=== PATIENT | female | born 1960 | race Caucasian/White ===

== ENCOUNTER 2023-02-14 13:45 | Emergency (ER) | payer MEDICARE, SELFPAY ==
[2023-02-14] VITALS (9 sets, daily range): BP systolic 121; BP diastolic 68; PULSE 49–59; RESP 7–23; TEMP 36.9; O2SAT 97; BMI 29.6
[2023-02-14 13:58] LABS: Glucometer 151 mg/dL (74-106)
--- NOTE | 2023-02-14 14:01 | ECG_ITS ---
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
--- NOTE | 2023-02-14 14:03 | ED.GENADUL1 ---
HPI - General Adult General Chief complaint: Nausea/Vomiting/Diarrhea Stated complaint: FATIGUE/BLOOD SUGAR < 350 Time Seen by Provider: 02/14/23 13:48 Source: patient Mode of arrival: walk-in Limitations: no limitations History of Present Illness HPI narrative: Patient is a 62-year-old female to history of diabetes who presents to the emergency department for the evaluation of generalized body aches, fatigue, headache and nausea for the last two days. She states she is on two oral medications for diabetes, she used to be on insulin. She has been diabetic for several years. She states that they checked her blood sugar at work today when she states she was feeling well and her blood sugar was over 350. She states she feels generally achy but has no specific complaint of pain at this time. She has had minimal cough, no fevers. No significant upper respiratory symptoms, chest pain or shortness of breath. No medications taken prior to arrival. Related Data Previous Rx's Medication Instructions Recorded cephalexin 500 mg capsule 500 mg PO Q8H 5 days #15 caps 02/14/23 ondansetron 4 mg disintegrating 4 mg PO Q6H PRN nausea and 02/14/23 tablet vomiting #12 tabs Allergies Allergy/AdvReac Type Severity Reaction Status Date / Time morphine Allergy Severe Verified 02/14/23 13:54 codeine AdvReac Severe nausea and Verified 02/14/23 13:54 vomiting Review of Systems ROS Constitutional Denies: fever or chills Ears, nose, mouth, and throat Denies: throat pain or neck pain Cardiovascular Denies: chest pain Respiratory Reports: cough; Denies: shortness of breath Gastrointestinal Reports: nausea; Denies: vomiting Musculoskeletal Denies: back pain or neck pain Integumentary/Breast Denies: rash Neurological Reports: headache Allergic/Immunologic Denies: hives Exam Narrative Exam Narrative: Gen.: Awake, alert, in no distress Head: Normocephalic, atraumatic ENT: Moist mucous membranes Respiratory: No respiratory distress, lungs clear bilaterally Cardio: Regular rate and rhythm Gastrointestinal: Abdomen is soft, nondistended and nontender to palpation Extremities: Moves extremities equally Psych: Normal mood and affect Neuro: No focal neuro deficit Skin: Warm, dry, intact Constitutional Vital Signs, click to edit/add: Last Vital Signs Temp 98.4 F 02/14/23 13:54 Pulse 52 L 02/14/23 13:54 Resp 20 02/14/23 13:54 BP 121/68 02/14/23 13:54 Pulse Ox 97 02/14/23 13:54 O2 Del Method Room Air 02/14/23 13:54 Course Vital Signs Vital signs: Vital Signs Temperature 98.4 F 02/14/23 13:54 Pulse Rate 52 L 02/14/23 13:54 Respiratory Rate 20 02/14/23 13:54 Blood Pressure 121/68 02/14/23 13:54 Pulse Oximetry 97 02/14/23 13:54 Oxygen Delivery Method Room Air 02/14/23 13:54 Temperature 98.4 F 02/14/23 13:54 Pulse Rate 52 L 02/14/23 13:54 Respiratory Rate 20 02/14/23 13:54 Blood Pressure 121/68 02/14/23 13:54 Pulse Oximetry 97 02/14/23 13:54 Oxygen Delivery Method Room Air 02/14/23 13:54 Medical Decision Making MDM Narrative Medical decision making narrative: Patient medicated with IV fluids, lab studies, EKG are unremarkable. No sign of DKA. Patient does have a mild urinary tract infection which may be contributed to her symptoms. We will start her on Zofran and antibiotics. She is encouraged to increase fluids for home. She has a benign exam in the Emergency Room, stable vital signs at discharge. Follow-up with PCP and return to the Emergency Room if symptoms change or worsen. Medical Records Medical records reviewed: Yes I reviewed the patient's medical records Lab Data Lab results reviewed: Yes I reviewed the patient's lab results Labs: Lab Results 02/14/23 02/14/23 02/14/23 Range/Units 13:57 14:15 14:40 WBC 7.6 (4.0-11.0) 10^3/uL RBC 4.21 (4.20-5.40) 10^6/uL Hgb 12.6 (12.0-16.0) g/dL Hct 38.3 (36.0-48.0) % MCV 91.0 (81.0-99.0) fL MCH 29.9 (26.7-34.0) pg MCHC 32.9 (29.9-35.2) g/dL RDW 14.0 (11.0-15.0) % Plt Count 255 (150-450) 10^3/uL MPV 8.9 L (9.5-13.5) fL Neut % (Auto) 64.2 (43.0-75.0) % Lymph % (Auto) 25.5 (20.5-60.0) % [place] % (Auto) 5.9 (1.7-12.0) % Eos % (Auto) 2.9 (0.9-7.0) % Baso % (Auto) 1.2 (0.2-2.0) % Neut # (Auto) 4.9 (1.4-6.5) 10^3/uL Lymph # (Auto) 1.9 (1.2-3.8) 10^3/uL [place] # (Auto) 0.5 (0.3-0.8) 10^3/uL Eos # (Auto) 0.2 (0.0-0.7) 10^3/uL Baso # (Auto) 0.1 (0.0-0.1) 10^3/uL Abs Immat Gran (auto) 0.02 (0.00-0.03) 10^3/uL Imm/Tot Granulo (auto) 0.3 (0.0-0.5) % VBG pH 7.352 (7.330-7.430) VBG pCO2 45.8 (40.0-52.0) mmHg Sodium 140 (136-145) mmol/L Potassium 4.6 (3.5-5.1) mmol/L Chloride 104 (98-107) mmol/L Carbon Dioxide 26.4 (21.0-32.0) mmol/L Anion Gap 14.2 BUN 29.0 H (7.0-18.0) mg/dL Creatinine 1.41 H (0.55-1.02) mg/dL Est GFR ( Amer) 45 L (>=60) Est GFR (Non-Af Amer) 38 L (>=60) BUN/Creatinine Ratio 20.6 Glucose 153 H (74-106) mg/dL Lactate 0.7 (0.4-2.0) mmol/L Calcium 9.3 (8.5-10.1) mg/dL Total Bilirubin 0.3 (0.2-1.0) mg/dL AST 12 L (15-37) U/L ALT 13 L (14-59) U/L Alkaline Phosphatase 104 (46-116) U/L Troponin I High Sens 14.7 (4.0-51.3) pg/mL Total Protein 7.0 (6.4-8.2) g/dL Albumin 3.7 (3.4-5.0) g/dL Globulin 3.3 g/dL Albumin/Globulin Ratio 1.1 Urine Color Yellow (YELLOW) Urine Clarity Clear (CLEAR) Urine pH 5.5 (5.0-9.0) Ur Specific [place] 1.015 (1.005-1.025) Urine Protein Negative (NEG/TRACE) mg/dL Urine Glucose (UA) >=1000 A (NEGATIVE) mg/dL Urine Ketones Negative (NEGATIVE) mg/dL Urine Occult Blood Moderate A (NEGATIVE) Urine Nitrite Negative (NEGATIVE) Urine Bilirubin Negative (NEGATIVE) Urine Urobilinogen 0.2 (0.2-1.0) EU/dL Ur Leukocyte Esterase Trace A (NEGATIVE) Acetone, Qual Negative (NEGATIVE) POC Glucose 151 H (74-106) mg/dL ECG Data Attestation: I personally reviewed and interpreted this ECG as follows: (Sinus bradycardia at a rate of fifty, no acute ST elevation or ectopy. EKG reviewed by attending physician.) Discharge Plan Discharge Chief Complaint: Nausea/Vomiting/Diarrhea Clinical Impression: UTI (urinary tract infection), Hyperglycemia, Nausea Patient Disposition: Home, Self-Care Time of Disposition Decision: 15:21 Condition: Good Prescriptions / Home Meds: New cephalexin 500 mg capsule 500 mg PO Q8H 5 Days Qty: 15 0RF ondansetron 4 mg tablet,disintegrating 4 mg PO Q6H PRN (Reason: nausea and vomiting) Qty: 12 0RF Instructions: Urinary Tract Infection in Women (ED), Diabetic Hyperglycemia (ED) Stand Alone Forms: Portal Instructions Referrals: Physician,Non-Staff, MD [Primary Care Provider] - 1 week
[2023-02-14] MEDS: 0.9 % SODIUM CHLORIDE 1,000 ML 1000 ML IV (14:19)
[2023-02-14 14:33] LABS: PCO2 VBG 45.8 mmHg (40.0-52.0); pH VBG 7.352 (7.330-7.430)
[2023-02-14 14:36] LABS: Basophils Absolute Auto 0.1 10^3/uL (0.0-0.1); Basophils Percent Auto 1.2 % (0.2-2.0); Eosinophils Absolute Auto 0.2 10^3/uL (0.0-0.7); Eosinophils Percent Auto 2.9 % (0.9-7.0); Hematocrit 38.3 % (36.0-48.0); Hemoglobin 12.6 g/dL (12.0-16.0); Immature Granulocytes Abs Auto 0.02 10^3/uL (0.00-0.03); Immature Granulocytes Pct Auto 0.3 % (0.0-0.5); Lymphocytes Absolute Auto 1.9 10^3/uL (1.2-3.8); Lymphocytes Percent Auto 25.5 % (20.5-60.0); Mean Corpuscular HGB Conc 32.9 g/dL (29.9-35.2); Mean Corpuscular Hemoglobin 29.9 pg (26.7-34.0); Mean Platelet Volume 8.9 fL (9.5-13.5); Monocytes Absolute Auto 0.5 10^3/uL (0.3-0.8); Monocytes Percent Auto 5.9 % (1.7-12.0); Neutrophils Absolute Auto 4.9 10^3/uL (1.4-6.5); Neutrophils Percent Auto 64.2 % (43.0-75.0); Platelet Count 255 10^3/uL (150-450); Red Blood Count 4.21 10^6/uL (4.20-5.40); White Blood Count 7.6 10^3/uL (4.0-11.0)
[2023-02-14 14:53] LABS: Lactate/Lactic Acid 0.7 mmol/L (0.4-2.0)
[2023-02-14 14:56] LABS: Acetone NEGATIVE (NEGATIVE)
[2023-02-14 15:00] LABS: Alanine Aminotransferase 13 U/L (14-59); Albumin Globulin Ratio 1.1; Albumin Level 3.7 g/dL (3.4-5.0); Alkaline Phosphatase 104 U/L (46-116); Anion Gap 14.2; Aspartate Amino Transferase 12 U/L (15-37); BUN Creatinine Ratio 20.6; Bilirubin Total 0.3 mg/dL (0.2-1.0); Calcium 9.3 mg/dL (8.5-10.1); Carbon Dioxide 26.4 mmol/L (21.0-32.0); Chloride 104 mmol/L (98-107); Estimated GFR (African America 45 (>=60); Estimated GFR (Non-African Ame 38 (>=60); Globulin 3.3 g/dL; Glucose 153 mg/dL (74-106); Potassium 4.6 mmol/L (3.5-5.1); Sodium 140 mmol/L (136-145); Troponin I High Sensitivity 14.7 pg/mL (4.0-51.3)
[2023-02-14 15:07] LABS: Bilirubin Urine NEGATIVE (NEGATIVE); Blood Urine MODERATE (NEGATIVE); Clarity Urine CLEAR (CLEAR); Color Urine YELLOW (YELLOW); Glucose Urine UA >=1000 mg/dL (NEGATIVE); Ketones Urine NEGATIVE (NEGATIVE); Leukocyte Esterase Urine TRACE (NEGATIVE); Nitrite Urine NEGATIVE (NEGATIVE); Protein Urine NEGATIVE (NEG/TRACE); Specific Gravity Urine 1.015 (1.005-1.025); Urobilinogen Urine 0.2 EU/dL (0.2-1.0); pH Urine 5.5 (5.0-9.0)
[2023-02-14 15:10] LABS: Urine Microscopic Indicated YES
[2023-02-14 15:17] LABS: Bacteria Urine TRACE #/HPF (NONE SEEN); Cast Seen? NONE SEEN #/LPF (NONE SEEN); Crystals Seen? None Seen #/HPF (None Seen); Mucus Urine NONE SEEN (NONE SEEN); RBC Urine 0-2 #/HPF (0-2); Squamous Epithelial Cell Urine RARE #/LPF (NONE/RARE)
[2023-02-14 15:18] LABS: Urine Culture Indicated YES
== END 2023-02-14 15:29 | disposition home or self-care (01) ==
PROVIDERS: Physician Assistant; Emergency Provider Student in an Organized Health Care Education/Training Program
DX: E11.65 Type 2 diabetes mellitus with hyperglycemia (principal); N39.0 Urinary tract infection, site not specified; R11.0 Nausea
CPT/HCPCS: 36415; 80053; 81001; 82009; 82800; 83605; 84484; 85025; 87086; 87150; 87186; 93005; 99285

== ENCOUNTER 2023-07-04 14:18 | Outpatient (OUT) | payer MEDICARE, SELFPAY ==
--- NOTE | 2023-07-04 14:42 | ECG_ITS ---
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
[2023-07-04 15:34] LABS: Basophils Absolute Auto 0.1 10^3/uL (0.0-0.1); Basophils Percent Auto 1.4 % (0.2-2.0); Eosinophils Absolute Auto 0.2 10^3/uL (0.0-0.7); Eosinophils Percent Auto 2.3 % (0.9-7.0); Hematocrit 41.3 % (36.0-48.0); Hemoglobin 13.4 g/dL (12.0-16.0); Immature Granulocytes Abs Auto 0.02 10^3/uL (0.00-0.03); Immature Granulocytes Pct Auto 0.2 % (0.0-0.5); Lymphocytes Absolute Auto 1.7 10^3/uL (1.2-3.8); Lymphocytes Percent Auto 20.1 % (20.5-60.0); Mean Corpuscular HGB Conc 32.4 g/dL (29.9-35.2); Mean Corpuscular Hemoglobin 30.2 pg (26.7-34.0); Mean Corpuscular Volume 93.2 fL (81.0-99.0); Mean Platelet Volume 8.7 fL (9.5-13.5); Monocytes Absolute Auto 0.5 10^3/uL (0.3-0.8); Monocytes Percent Auto 5.2 % (1.7-12.0); Neutrophils Absolute Auto 6.1 10^3/uL (1.4-6.5); Neutrophils Percent Auto 70.8 % (43.0-75.0); Platelet Count 224 10^3/uL (150-450); Red Blood Count 4.43 10^6/uL (4.20-5.40); White Blood Count 8.7 10^3/uL (4.0-11.0)
[2023-07-04 15:51] LABS: INR 0.93; Partial Thromboplastin Time 25.3 sec (22.3-36.2); Prothrombin Time 9.9 sec (9.0-11.6)
[2023-07-04 16:48] LABS: Anion Gap 11.9; BUN Creatinine Ratio 19.1; Calcium 9.1 mg/dL (8.5-10.1); Chloride 106 mmol/L (98-107); Estimated GFR (African America 50 (>=60); Estimated GFR (Non-African Ame 41 (>=60); Glucose 122 mg/dL (74-106); Potassium 4.9 mmol/L (3.5-5.1); Sodium 140 mmol/L (136-145)
== END 2023-07-04 14:19 | disposition home or self-care (01) ==
LOC: PST 14:21
PROVIDERS: Visit Provider Urology
DX: Z01.810 Encounter for preprocedural cardiovascular examination (principal); Z01.812 Encounter for preprocedural laboratory examination; N35.92 Unspecified urethral stricture, female; E78.5 Hyperlipidemia, unspecified
CPT/HCPCS: 80048; 85025; 85610; 85730; 93005

== ENCOUNTER 2023-07-13 09:25 | Day surgery (SDC) | payer MEDICARE, SELFPAY ==
[2023-07-04 15:15] VITALS: BMI 31.3
[2023-07-04 15:18] VITALS: BP 129/73; PULSE 72; RESP 16; TEMP 36.3; O2SAT 97
[2023-07-13 09:29] VITALS: BP 137/76; PULSE 80; RESP 16; TEMP 35.8; O2SAT 95; BMI 31.1
--- OUTSIDE RECORDS SUMMARY | 2023-07-13 09:29 | XMS_ITS | CCD ---
Author Name Unknown Address [address] [place] [address] Organization [facility] Care Team Providers Care Scientific Illustrator Name Role Phone Tammy Wilkins Primary Care Provider 1( [phone] Alethea Carroll MD Primary Care Provider [phone] GIDDA, KULADEEP Primary Care Unavailable GIDDA, KULADEEP Referring Unavailable GIDDA, KULADEEP Primary Care Unavailable GIDDA, KULADEEP Referring Unavailable GIDDA, KULADEEP Primary Care Unavailable BEBETO COREA Referring Unavailable GIDDA, KULADEEP Primary Care Unavailable ASAD VALVERDE Referring Unavailable Tammy Wilkins Primary Care Prov ider Unavailable Cr Cruz Unavailable DENNY MARSH Primary Care Physician U nylamalika DexterRinku vargas Unavailable Cherelle Wilson Unavailable DENNY MARSH Primary Care Physician ( [phone] DR ARABELLA NEWBY Attending Unavailable AILEEN ., DR BELL Consulting Unavailable AILEEN ., DR BELL Admitting Unavailable JADE, SALUD Primary Care Unavailable DR ARABELLA NEWBY Attending Unavailable AILEEN .DR BELL Consulting Unavailable JADE, SALUD Primary Care Unavailable DR ARABELLA NEWBY Admitting Unavailable PARUL II, MARY Consulting Unavailable ANA MARÍA VARGAS Consulting Unavailable SIMIN RENEE Admitting Unavailable JADE, SALUD Primary Care Unavailable SIMIN RENEE Attending Unavailable SIMIN RENEE Consulting Unavailable LINDA SMITH Referring Unavailable RUSHER, LINDA S Attending Unavailable LINDA SMITH S Referring Unavailable LINDA SMITH S Attending Unavailable SALUD HANSEN A Referring Unavailable SALUD HANSEN A Primary Care Unavailable PAULA JOSHI Attending Unavailable PAULA JOSHI Attending Unavailable PAULA JOSHI Attending Unavailable Arabella GALLAGHER Attending Unavailable Arabella GALLAGHER Attending Unavailable Jade 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, 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 Care Provi domingo Allergies Allergy Classification Reported Allergen(s) Allergy Type Date of Onset Reaction(s) Facility (20 sources) Codeine; Translations: [codeine] Drug Allergy 02-01-20 17 Other (See Comments), Unknown, Unknown (qualifier value) [place], [place] (20 sources) Morphine; Translations: [morphine] Drug Allergy 09-27-19 18 Other (See Comments), Unknown, Unknown (qualifier value) [place], [place] (3 sources) Sulfonamides (Antibiotic) Propensity to adverse reactions to drug 09-27-19 18 Hives [place], [place] (14 sources) Ciprofloxacin; Translations: [CIPROFLOXACIN] Drug Allergy 10-03-19 19 Other: See Comments, rash, GI Disturbance [facility] (11 sources) magnesium citrate; Translations: [magnesium citrate] Drug Allergy 10-03-19 19 Unknown, Unknown (qualifier value) [facility] (4 sources) Nitrofurantoin; Translations: [NITROFURANTOIN MACROCRYSTAL] Drug Allergy 10-03-19 19 Rash [facility] (4 sources) Sulfonamides (Antibiotic); Translations: [SULFA (SULFONAMIDE ANTIBIOTICS)] Drug Allergy 09-27-19 18 Rash, Hives [facility] (7 sources) NITROFURANTOIN, MACROCRYSTALS / Nitrofurantoin, Monohydrate; Translations: [nitrofurantoin] Drug Allergy Cutaneous eruption (morphologic abnormality) [facility] (7 sources) Sulfonamides (Antibiotic); Translations: [sulfa drugs] Drug allergy Cutaneous eruption (morphologic abnormality) [facility] (1 source) aMILoride Drug Allergy 03-31-20 15 [facility] (1 source) Ciprofloxacin Drug Allergy 03-31-20 15 [facility] (1 source) Codeine Drug Allergy 03-31-20 15 [facility] (1 source) Morphine Drug Allergy [facility] (1 source) Nitrofurantoin Drug Allergy 05-08-20 17 [facility] (1 source) Sulfonamides (Antibiotic) Drug allergy (disorder) 04-09-20 15 [facility] (3 sources) Morphine; Translations: [MORPHINE SULFATE] Drug Allergy 02-01-20 17 Other (See Comments) [facility] Medications Current Medications Medication Drug Class(es) Dates Sig (Normalized) Sig (Original) acetaminophen 500 mg oral tablet (2 sources) Start: 07-19-2022 take 2 tablets by mouth every eight hours acetaminophen (TYLENOL EXTRA STRENGTH) 500 mg tablet Take 2 tablets (1,000 mg total) by mouth every 8 (eight) hours. 30 tablet 0 07/19/2022 Active [id number] 200 actuat albuterol 0.09 mg/actuat metered dose inhaler (8 sources) beta2-Adrenergic Agonist Start: 02-14-2022 take 2 puff(s) by inhalation every four hours as needed Albuterol Sulfate HFA 108 (90 Base) MCG/ACT 2 puffs as needed Inhalation every 4 hrs Jan, Active Start: 01-14-2019 take 2 puff(s) by in halation every six hours as needed for wheezing albuterol sulfate HFA (PROVENTIL HFA) 108 (90 Base) MCG/ACT inhaler Inhale 2 puffs into the lungs every 6 hours as needed for Wheezing 1 Inhaler 3 01/14/2019 Active amLODIPine 10 mg oral tablet (6 sources) Dihydropyridine Calcium Channel Tatum Start: 01-18-2021 take 1 tablet by mouth once daily amLODIPine 10 mg Tab 10 mg = 1 tab(s), Oral, Daily, High blood pressure Start Date: 01/18/21 Status: Ordered amoxicillin 875 mg / clavulanate 125 mg oral tablet (3 sources) Penicillin-class Antibacterial Start: 02-18-2022 take 1 tablet by mouth every twelve hours Amoxicillin-Pot Clavulanate 875-125 MG 1 tablet Orally every 12 hrs for 7 days Jan, Active ARIPiprazole 10 mg oral tablet (20 sources) Atypical Antipsychotic Start: 04-06-2023 take 1 tablet by mouth in the morning ARIPiprazole (ABILIFY) 10 mg tablet Indications: Bipolar II disorder [place] Take 1 tablet (10 mg total) by mouth in the morning. 90 tablet 3 04/06/2023 Active Start: 02-25-2019 take 10 mg by mouth once daily Abilify 10 mg, Oral, Daily, BIPOLAR, Refills(s) 0 Start Date: 02/25/19 Status: Ordered take 2 tablets by mo uth once daily ARIPiprazole (ABILIFY) 5 mg tablet Take 10 mg by mouth once daily. 0 Active take 1 tablet by mery th once daily ARIPiprazole (ABILIFY) 5 mg tablet Take 5 mg by mouth once daily. 0 Active Comment on above: Take 10 mg by mouth once daily. Take 5 mg by mouth o nce daily. aspirin 81 mg chewable tablet (12 sources) Platelet Aggregation Inhibitor, Nonsteroidal Anti-inflammatory Drug Start: 01-18-2021 aspirin 81 mg Chew Tab 81 mg = 1 tab(s), Chewed, Daily, Prophylaxis Start Date: 01/18/21 Status: Ordered take 1 tablet by mouth in the mo rning aspirin 81 mg Take 1 tablet (81 mg total) by mouth in the morning. 0 Active take 1 tablet by mouth once rin y aspirin 81 MG tablet Take 81 mg by mouth daily 0 Active Comment on above: Take 81 mg by mouth once daily. benzonatate 100 mg oral capsule (3 sources) Non-narcotic Antitussive Start: 022 take 1 capsule by mouth every eight hours Tessalon Perles 100 MG 1 capsule as needed Orally Three times a day Jan, Active blood-glucose meter misc (2 sources) Start: 021 blood-glucose meter misc 1 Device by in vitro route 3 (three) times a day. 1 each 0 06/18/2021 Active blood-glucose meter,continuous (DEXCOM G7 COAL HIKER) misc (2 sources) Start: 023 blood-glucose meter,continuous (DEXCOM G7 COAL HIKER) misc Indications: Type 2 diabetes mellitus with stage 3b chronic kidney disease, with long-term current use of insulin [place] 1 Application by miscellaneous route 4 (four) times daily before meals and at bedtime as needed (before meals and at bedtime). 1 each 5 06/14/2023 Active blood-glucose sensor (DEXCOM G7 SENSOR) device (2 sources) Start: 023 blood-glucose sensor (DEXCOM G7 SENSOR) device Indications: Type 2 diabetes mellitus with stage 3b chronic kidney disease, with long-term current use of insulin [place] 1 application. by miscellaneous route 4 (four) times a day before meals and nightly. 5 each 5 06/14/2023 Active carbidopa 25 mg / levodopa 100 mg oral tablet (2 sources) Aromatic Amino Acid Decarboxylation Inhibitor, Aromatic Amino Acid Start: 023 carbidopa-levodopa (SINEMET) 25-100 mg per tablet Indications: Tremors of nervous system , Parkinsonism, unspecified Parkinsonism type Take a tablet(25mg) three times a day(8 am, 12 pm, 4 pm) 90 tablet 3 03/28/2023 Active Centrum Adult Chewable (6 sources) Start: 021 Centrum Adult Chewable 1 tab(s), Chewed, Daily, Prophylaxis Start Date: 01/21/21 Status: Ordered cholecalciferol 0.05 mg oral capsule (17 sources) Vitamin D Start: 024 cholecalciferol, vitamin D3, (VITAMIN D3) 2,000 units capsule Indications: Vitamin D deficiency TAKE 1 CAPSULE EVERY AFTERNOON 28 capsule 0 07/10/2023 Active Start: 04-25-2023 End: 07-10-2023 take 1 capsule by mouth once daily cholecalciferol, vitamin D3, (VITAMIN D3) 2,000 units capsule Indications: Vitamin D deficiency take 1 capsule by mouth once daily 90 capsule 0 04/25/2023 07/10/2023 Discontinued take 1 capsule by mo ut every twenty-four hours Vitamin D3 50 MCG (1999 UT) 1 capsule Orally Once a day Active take 1 tablet by mery th once daily cholecalciferol (VITAMIN D-3) 2,000 unit tablet Take 2,000 Units by mouth once daily. 0 Active take 1 capsule by mo uth once daily Cholecalciferol (VITAMIN D3) 2000 units CAPS Take 1 capsule by mouth daily 0 Active Comment on above: Take 2,000 Units by mouth once daily. colestipol hydrochloride 1000 mg oral tablet (9 sources) Bile Acid Sequestrant Start: take 3 tablets by mouth every twenty-four hours Colestipol HCl 1 GM 3 tablets Orally Once a day for 30 day(s) Mar, Active Start: 12-28-2021 take 3 tablets by mo [facility] every twenty-four hours Colestipol HCl 1 GM 3 tablets Orally Once a day for 30 day(s) Dec, Active dapagliflozin 10 mg oral tablet (2 sources) Sodium-Glucose Cotransporter 2 Inhibitor Start: 04-25-2023 take 1 tablet by mouth in the morning dapagliflozin propanediol (FARXIGA) 10 mg tablet Indications: Type 2 diabetes mellitus with stage 3b chronic kidney disease, with long-term current use of insulin [place] Take 1 tablet (10 mg total) by mouth in the morning. 90 tablet 1 04/25/2023 Active 12 hr dextromethorphan hydrobromide 30 mg / guaiFENesin 600 mg extended release oral tablet (2 sources) Uncompetitive X-fuixoj-U-aspartate Receptor Antagonist, Sigma-1 Agonist take 30-600 mg by mouth once as needed dextromethorphan- guaiFENesin (MUCINEX DM) 30-600 MG per extended release tablet Take 1 tablet by mouth every 12 hours as needed 0 Active dextromethorphan hydrobromide 30 mg / pyrilamine maleate 30 mg oral tablet (4 sources) Uncompetitive S-pfuttt-D-aspartate Receptor Antagonist, Sigma-1 Agonist Start: 02-14-2022 take 1 tablet by mouth every six hours Palmer DMT 30-30 MG 1 tablet Orally every 6 hours for 7 days Jan, Active dicyclomine hydrochloride 20 mg oral tablet (12 sources) Anticholinergic Start: 01-18-2021 take 1 tablet by mouth four times daily dicyclomine 20 mg Tab 20 mg = 1 tab(s), Oral, QID, Irritable bowel symptoms Start Date: 01/18/21 Status: Ordered Start: 07-09-2020 take 1 tablet by mery every twelve hours Dicyclomine HCl 20 MG 1 tablet Orally TWICE A DAY for 30 day(s) Jul, Active docusate sodium 50 mg / sennosides, fci 8.6 mg oral tablet (1 source) take 8.6-50 mg by mouth once senna-docusate (SENEXON-S) 8.6-50 MG per tablet Take 2 tablets by mouth nightly 0 Active escitalopram 10 mg oral tablet (20 sources) Serotonin Reuptake Inhibitor Start: escitalopram (LEXAPRO) 10 mg tablet TAKE (1) TABLET EVERY MORNING WITH 20MG TABS 90 tablet 1 07/10/2023 Active Start: 06-14-2023 take 1 tablet by mery th in the morning escitalopram (LEXAPRO) 20 mg tablet Indications: Persistent depressive disorder , Generalized anxiety disorder Take 1 tablet (20 mg total) by mouth in the morning. 0 06/14/2023 Active Start: 02-25-2019 take 20 mg by mouth once daily Lexapro 20 mg, Oral, Daily, Refills(s) 0, Depression Start Date: 02/25/19 Status: Ordered take 10 mg by mouth once daily e scitalopram oxalate (LEXAPRO) 20 mg tablet Take 10 mg by mouth once daily. 0 Active take 1 tablet by mery th once daily escitalopram (LEXAPRO) 10 MG tablet Take 10 mg by mouth daily 0 Active Comment on above: Take 10 mg by mouth once daily. estrogens, conjugated (fci) 0.625 mg/ml vaginal cream (7 sources) Estrogen Start: 08-30-2021 Premarin Vaginal 0.625 mg/g cream with applicator 1 gram, Vaginal, MonWedFri, 42.5 gram, Refill(s) 5, [facility], 160, cm, 08/30/21 13:41:00 EST, Height/Length Dosing, 86.2, kg, 08/30/21 13:41:00 EST, Weight Dosing Start Date: 08/30/21 Status: Ordered conjugated estro gens (PREMARIN) vaginal cream Use 1 g vaginally once each week. 0 Active Comment on above: Use 1 g vaginally on ce each week. ferrous sulfate 325 mg oral tablet (8 sources) Start: 11-09-2022 ferrous sulfate 325 (65 FE) mg tablet Indications: Acute kidney injury superimposed on CKD (CMS-HCC) Take 1 daily 90 tablet 1 11/09/2022 Active Start: 07-22-2021 take 325 mg by mouth twice daily ferrous sulfate 325 mg, Oral, BID, Prophylaxis Start Date: 01/21/21 Status: Ordered Fish Oils (6 sources) Start: 01-21-2021 take 1 capsule by mouth once daily [place]-3 Fish Oil 1 cap, Oral, Daily, Refill(s) 0 Start Date: 01/21/21 Status: Ordered flash glucose scanning reader (FREESTYLE JOELLE 2 READER[place] [facility] [place] Start: 03-22-2023 flash glucose scanning reader (FREESTYLE JOELLE 2 READER[place] [facility] [place]ications: Type 2 diabetes mellitus with stage 3b chronic kidney disease, with long-term current use of insulin [place] 1 Unit by miscellaneous route 4 (four) times a day before meals and nightly. 1 each 6 03/22/2023 Active flash glucose sensor (FREESTYLE JOELLE 2 SENSOR) kit (2 sources) Start: 04-26-2023 flash glucose sensor (FREESTYLE JOELLE 2 SENSOR) kit Indications: Type 2 diabetes mellitus with stage 3b chronic kidney disease, with long-term current use of insulin [place] 1 Application by miscellaneous route 4 (four) times daily before meals and at bedtime as needed (test for sliding scale). 1 kit 6 04/26/2023 Active fluconazole 150 mg oral tablet (3 sources) Azole Antifungal Start: 02-18-2022 Diflucan 150 MG 1 tablet Orally take 1 tablet now then 1 tablet in 7 days for 2 days Jan, Active fluticasone propionate 0.05 mg/actuat metered dose nasal spray (2 sources) Corticosteroid take 1 spray(s) nasal route once daily fluticasone (FLONASE) 50 MCG/ACT nasal spray 1 spray by Each Nostril route daily 0 Active gabapentin 100 mg oral capsule (6 sources) Anti-epileptic Agent Start: 06-24-2023 End: 07-10-2023 gabapentin (NEURONTIN) 100 mg capsule Indications: Neuropathy TAKE 1 CAPSULE 3 TIMES A DAY, MORNING, EVENING, AND BEDTIME 84 capsule 0 07/10/2023 Active Start: 09-01-2018 gabapentin (NE URONTIN) 400 mg capsule take 1 tablet by mery th once daily as needed gabapentin (NEURONTIN) 800 MG tablet Take 800 mg by mouth nightly as needed. 0 Active hydrocortisone 25 mg/ml topical cream (10 sources) Corticosteroid Start: 12-28-2021 Anusol-HC 2.5 % 1 application Externally Twice a day for 14 days Dec, Active insulin aspart 100 units/mL injectable solution (6 sources) Start: 01-18-2021 insulin aspart 100 units/mL injectable solution sliding scale, SubCutaneous, PRN, High blood sugar Start Date: 01/18/21 Status: Ordered sensor 3 ml insulin glargine 100 unt/ml pen injector (16 sources) Insulin Analog Start: 05-29-2023 insulin glargi ne (LANTUS, SEMGLEE) 100 unit/mL (3 mL) insulin pen Indications: Type 2 diabetes mellitus with stage 3b chronic kidney disease, with long-term current use of insulin [place] Inject 25 Units under the skin in the morning. 15 mL 2 05/29/2023 Active Start: 01-18-2021 inject 40 [IU] by hand bcutaneous injection once daily insulin glargine 100 units/mL subcutaneous solution 40 unit(s), SubCutaneous, Daily, High blood sugar Start Date: 01/18/21 Status: Ordered Start: 02-27-2020 LANTUS SOLOSTA R U-100 INSULIN 100 unit/mL (3 mL) Lantus SoloStar 100 UNIT/ML 40 u Subcutaneous at hs Active insulin glargine (LANTUS) 100 UNIT/ML injection vial Inject 50 Units into the skin nightly 0 Active insulin glargine 100 units/mL subcutaneous solution (2 sources) Start: 01-18-2021 inject 40 [IU] by subcutaneous injection once daily insulin glargine 100 units/mL subcutaneous solution 40 unit(s), SubCutaneous, Daily, High blood sugar Start Date: 01/18/21 Status: Ordered Iron (10 sources) Iron Active levothyroxine sodium 0.075 mg oral tablet (20 sources) l-Thyro xine Start: 04-25-2023 take 1 tablet by mouth once daily in the morning levothyroxine (SYNTHROID, LEVOTHROID) 75 MCG tablet Indications: 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 0 Active take 1 tablet by mery th once daily levothyroxine (SYNTHROID) 50 MCG tablet Take 50 mcg by mouth Daily 0 Active Comment on above: Take 50 mcg by mouth once daily. lisinopril 10 mg oral tablet (20 sources) Angiotensin Converting Enzyme Inhibitor Start: 1 take 1 tablet by mouth once daily lisinopril 10 mg Tab 10 mg = 1 tab(s), Oral, Daily, High blood pressure Start Date: 01/18/21 Status: Ordered Comment on above: Take 10 mg by mouth once daily. Loperamide (7 sources) Opioid Agonist Imodium A-D Acti ve LORazepam 0.5 mg oral tablet (20 sources) Benzodiazepine Start: 4 take 1 tablet by mouth three times daily as needed for anxiety LORazepam (ATIVAN) 0.5 mg tablet Indications: Generalized anxiety disorder Take 1 tablet (0.5 mg total) by mouth 3 (three) times a day as needed for anxiety. 90 tablet 2 07/10/2023 Active Start: 02-25-2019 Ativan 0.5 mg, Oral, PRN as needed for anxiety, Refills(s) 0 Start Date: 02/25/19 Status: Ordered LORazepam (ATIVA N) 0.5 mg tab Take 0.5 mg by mouth as needed. 0 Active Comment on above: Take 0.5 mg by mouth as needed. metFORMIN hydrochloride 1000 mg oral tablet (6 sources) Biguanide Start: 2018 take 1000 mg by mouth twice daily Glucophage 1,000 mg, Oral, BID, Refills(s) 0, High blood sugar Start Date: 02/25/19 Status: Ordered methylPREDNISolone 4 mg oral tablet (7 sources) Corticosteroid Start: 2021 methylPREDNISolone 4 MG as directed Orally Once a day for 6 days Jan, Active 24 hr metoprolol succinate 50 mg extended release oral tablet (20 sources) beta-Adrenergic Tatum Start: 2020 take 1 tablet by mouth once daily metoprolol 50 mg ER Tab 50 mg = 1 tab(s), Oral, Daily, High blood pressure Start Date: 01/18/21 Status: Ordered take 1 capsule by mouth once rico ly Metoprolol Succinate 50 MG 1 capsule Orally Once a day Active Comment on above: Take 50 mg by mouth once daily. 24 hr mirabegron 50 mg extended release oral tablet (8 sources) beta3-Adrenergic Agonist Start: 08-30-2021 take 2 tablets by mouth once daily Myrbetriq 50 mg oral tablet, extended release 100 mg = 2 tab(s), Oral, Daily, # 60 tab(s), Refills(s) 5, Pharmacy: [address], 160, cm, 08/30/21 13:41:00 EST, Height/Length Dosing, 86.2, kg, 08/30/21 13:41:00 EST, Weight Dosing Start Date: 08/30/21 Status: Ordered Start: 07-31-2020 take 1 tablet by mery every twenty-four hours as needed MYRBETRIQ 50 mg tablet extended release 24 hr Take 1 tablet (50 mg total) by mouth as needed. 0 07/31/2020 Active Multiple Vitamins-Minerals (THERAPEUTIC MULTIVITAMIN-MINERALS) tablet (2 sources) take 1 tablet by mouth once daily Multiple Vitamins-Minerals (THERAPEUTIC MULTIVITAMIN-MINERALS) tablet Take 1 tablet by mouth daily 0 Active ondansetron 4 mg oral tablet (8 sources) Serotonin-3 Receptor Antagonist Start : 12-28 take 1 tablet by mouth every six hours as needed Ondansetron HCl 4 MG 1 tablet Orally EVERY 6 HOURS NEEDED for 30 day(s) Dec, Active Start: 09-28-2018 ondansetron (Z OFRAN) 8 mg tablet pantoprazole 40 mg delayed release oral tablet (15 sources) Proton Pump Inhibitor Start: 06-27-2023 take 1 tablet by mouth in the morning pantoprazole (PROTONIX) 40 mg EC tablet Indications: Gastroesophageal reflux disease without esophagitis take 1 tablet by mouth IN THE MORNING 90 tablet 1 06/27/2023 Active Start: 07-09-2020 Protonix 40 mg Tab-DR 40 mg = 1 tab(s), Oral, Daily, Control of stomach acid Start Date: 01/18/21 Status: Ordered phenazopyridine hydrochloride 200 mg oral tablet (4 sources) Start: 12-28-2021 take 1 tablet by mouth twice daily as needed Pyridium 200 mg Tab 200 mg = 1 tab(s), Oral, BID, PRN as needed for urinary discomfort, do not exceed 3 days treatment at a time, # 6 tab(s), Refills(s) 1, Pharmacy: [address], 160, cm, 12/28/21 11:28:00 EDT, Height/Length Dosing, 82.6, kg, 12/28/21 11:28... Start Date: 12/28/21 Status: Ordered rosuvastatin calcium 10 mg oral tablet (9 sources) HMG-CoA Reductase Inhibitor Start: 01-18-2021 End: 07-10-2023 rosuvastatin (CRESTOR) 10 mg tablet Indications: Dyslipidemia TAKE 1 TABLET AT BEDTIME 90 tablet 1 07/10/2023 Active 0.25 mg, 0.5 mg dose 1.5 ml semaglutide 1.34 mg/ml pen injector (1 source) Semaglutide (OZEMPIC) 0.25 or 0.5 MG/DOSE SOPN Inject 0.25 mg into the skin once a week Weekly on Mondays. 0 Active traZODone hydrochloride 100 mg oral tablet (20 sources) Serotonin Reuptake Inhibitor Start: 02-07-2023 take 2 tablets by mouth once daily traZODone (DESYREL) 100 mg tablet Indications: Other insomnia Take 2 tablets (200 mg total) by mouth nightly. 180 tablet 3 02/07/2023 Active Start: 01-18-2021 traZODONE 50 m g Tab 25 mg = 0.5 tab(s), Oral, Once a day (at bedtime), Insomnia Start Date: 01/18/21 Status: Ordered take 1 tablet by mery th every twenty-four hours traZODone HCl 150 MG 1 tablet at bedtime Orally Once a day Active take 1 tablet by mery th once daily at bedtime traZODone (DESYREL) 100 mg tablet Take 100 mg by mouth daily at bedtime. 0 Active take 3 tablets by mo uth once daily traZODone (DESYREL) 50 MG tablet Take 150 mg by mouth nightly 0 Active take 2 tablets by mo uth once daily traZODone (DESYREL) 50 MG tablet Take 100 mg by mouth nightly 0 Active Comment on above: Take 100 mg by mouth daily at bedtime. vancomycin 125 mg oral capsule (7 sources) Glycopeptide Antibacterial Start: 022 take 1 capsule by mouth every eight hours Vancomycin HCl 125 MG 1 capsule Orally THREE TIMES A DAY for 10 day(s) Dec, Active vitamin b12 1 mg/ml injectable solution (20 sources) Vitamin B12 Start: 023 inject 1 mL by subcutaneous injection every month cyanocobalamin (VITAMIN B-12) 1,000 mcg/mL injection Indications: Nutritional deficiency inject 1 milliliter subcutaneously Every Month 3 mL 3 05/12/2023 Active Start: 02-25-2019 inject 3 mL by intra muscular injection every month Vitamin B12 = 3 mL, IntraMuscular, qMonth, Refills(s) 0, Prophylaxis Start Date: 02/25/19 Status: Ordered Vitamin B 12 Act issac take 1 tablet by mouth once rin y cyanocobalamin (VITAMIN B-12) 100 mcg tab Take 100 mcg by mouth once daily. 0 Active cyanocobalamin 1 000 MCG/ML injection Inject 1,000 mcg into the muscle once 0 Active Comment on above: Take 100 mcg by mout h once daily. Vitamin C 500 mg oral tablet, chewable (6 sources) Start: 01-21-2021 take 1 tablet by mouth once daily Vitamin C 500 mg oral tablet, chewable 500 mg = 1 tab(s), Chewed, Daily, Prophylaxis Start Date: 01/21/21 Status: Ordered Vitamin D (6 sources) Start: 02-25-2019 Vitamin D 50,000 International_Unit, Oral, Daily, Refills(s) 0, Prophylaxis Start Date: 02/25/19 Status: Ordered Vitamin D3 2000 intl units (6 sources) Start: 01-21-2021 take 1 tablet by mouth once daily Vitamin D3 2000 intl units 1 tab, Oral, Daily, Refills(s) 0, Prophylaxis Start Date: 01/21/21 Status: Ordered vitamin e 90 mg oral capsule (6 sources) Start: 01-21-2021 take 1 capsule by mouth once daily vitamin E 90 mg oral capsule 90 mg = 1 cap(s), Oral, Daily, Prophylaxis Start Date: 01/21/21 Status: Ordered Zinc (6 sources) Start: 01-21-2021 take 50 mg by mouth once daily Zinc 50 mg, Oral, Daily Start Date: 01/21/21 Status: Ordered Completed/Discontinued Medications Medication Drug Class(es) Dates Sig (Normalized) Sig (Original) armodafinil 150 mg oral tablet (1 source) take 1 tablet by mouth once daily armodafinil (NUVIGIL) 150 mg tab Take 150 mg by mouth once daily. 0 Active Comment on above: Take 150 mg by mouth once daily. eszopiclone 3 mg oral tablet (2 sources) take 1 tablet by mouth every twenty-four hours as needed eszopiclone (LUNESTA) 3 mg tab Take 3 mg by mouth at bedtime as needed. 0 Active Comment on above: Take 3 mg by mouth a t bedtime as needed. glimepiride 1 mg oral tablet (4 sources) Sulfonylurea take 1 tablet by mouth once daily at breakfast glimepiride (AMARYL) 1 mg tablet Take 1 mg by mouth daily with breakfast. 0 Active take 1 tablet by mery th once daily before breakfast glimepiride (AMARYL) 2 MG tablet Take 2 mg by mouth every morning (before breakfast) 0 Active Comment on above: Take 1 mg by mouth d aily with breakfast. lamoTRIgine 200 mg oral tablet (1 source) Mood Stabilizer, Anti-epileptic Agent take 1 tablet by mouth once daily lamoTRIgine (LAMICTAL) 200 mg tablet Take 200 mg by mouth once daily. 0 Active Comment on above: Take 200 mg by mouth once daily. linaclotide 0.29 mg oral capsule (1 source) Guanylate Cyclase-C Agonist take 1 capsule by mouth once daily linaclotide (LINZESS) 290 mcg capsule Take 290 mcg by mouth once daily. 0 Active Comment on above: Take 290 mcg by mout h once daily. Multivitamin capsule (1 source) take 1 capsule by mouth once daily Multivitamin capsule Take 1 capsule by mouth once daily. 0 Active Comment on above: Take 1 capsule by mo ut once daily. 24 hr oxybutynin chloride 10 mg extended release oral tablet (4 sources) Cholinergic Muscarinic Antagonist Start: 9 oxybutynin ER (DITROPAN XL) 10 mg 24 hr tablet take 1 tablet by mouth once rin y oxybutynin (DITROPAN XL) 15 MG extended release tablet Take 15 mg by mouth daily 0 Active QUEtiapine 300 mg oral tablet (1 source) Atypical Antipsychotic take 1 tablet by mouth three times daily QUEtiapine (SEROQUEL) 300 mg tablet Take 300 mg by mouth three times daily. 0 Active Comment on above: Take 300 mg by mouth three times daily. sennosides, fci 8.6 mg oral capsule (1 source) Sennosides (SUDHA A) 8.6 mg cap Take by mouth as needed. 0 Active Comment on above: Take by mouth as nee ded. Problems Active Problems Problem Classification Problem Date Documented Da te Episodic/Chronic Abdominal pain (10 sources) Abdominal pain; Translations: [Unspecified abdominal pain] Episodic Anxiety disorders (13 sources) Generalized anxiety disorder; Translations: [Generalized anxiety disorder] Onset: 7 01-11-2019 Chronic Attention-deficit, conduct, and disruptive behavior disorders (1 source) Attention-deficit hyperactivity disorder, unspecified type; Translations: [ADHD UNSPECIFIED TYPE] Onset: 3 Chronic Cancer of cervix (1 source) Personal history of malignant neoplasm of cervix uteri; Translations: [PERS HX MALIG NEOPLASM CERV UTERI] Onset: 3 Episodic Cancer of uterus (10 sources) Malignant neoplasm of endometrium of corpus uteri ; Translations: [Malignant neoplasm of endometrium] Onset: 1 Chronic Chronic kidney disease (5 sources) Chronic kidney disease stage 3A ; Translations: [Stage 3a chronic kidney disease (HCC)] Onset: 9 Chronic Chronic obstructive pulmonary disease and bronchiectasis (2 sources) Bronchitis, not specified as acute or chronic Onset: 2 Resolved: 2 Episodic Deficiency and other anemia (10 sources) Iron deficiency anemia; Translations: [Iron deficiency anemia, unspecified] Episodic Diabetes mellitus with complications (4 sources) Type 2 diabetes mellitus with hyperglycemia; Translations: [Type 2 diabetes mellitus with diabetic chronic kidney disease] Onset: 9 03-13-2023 Chronic Diabetes mellitus without complication (10 sources) Diabetes mellitus; Translations: [Type 2 diabetes mellitus without complications] Onset: 9 01-11-2019 Chronic Disorders of lipid metabolism (9 sources) Hypercholesterolemia; Translations: [Pure hypercholesterolemia, unspecified] Onset: 3 01-18-2021 Chronic Esophageal disorders (15 sources) Gastroesophageal reflux disease; Translations: [Gastro-esophageal reflux disease without esophagitis] Onset: 2 Resolved: 2 Chronic Essential hypertension (12 sources) Essential hypertension; Translations: [Essential (primary) hypertension] Onset: 9 01-11-2019 Chronic Gastroduodenal ulcer (except hemorrhage) (10 sources) Ulcer of anastomosis; Translations: [Gastrojejunal ulcer, unspecified as acute or chronic, without hemorrhage or perforation] Chronic Genitourinary symptoms and ill-defined conditions (17 sources) Mixed incontinence; Translations: [Mixed urinary incontinence] Onset: 2 Chronic Genitourinary symptoms and ill-defined conditions (20 sources) Dysuria; Translations: [Dysuria] Onset: 2 Episodic Heart valve disorders (2 sources) Tricuspid incompetence, non-rheumatic ; Translations: [Nonrheumatic tricuspid (valve) insufficiency] Onset: 3 12-19-2022 Chronic Immunizations and screening for infectious disease (2 sources) Contact with and (suspected) exposure to other viral communicable diseases Onset: 2 Resolved: 2 Episodic Malaise and fatigue (2 sources) Fatigue; Translations: [Chronic fatigue, unspecified] Onset: 3 02-08-2023 Chronic Menopausal disorders (7 sources) Atrophic vaginitis; Translations: [Postmenopausal atrophic vaginitis] Onset: 3 07-31-2020 Chronic Menopausal disorders (1 source) Hormone replacement therapy; Translations: [HORMONE REPLACEMENT THERAPY] Onset: 3 Episodic Mood disorders (14 sources) Bipolar II disorder; Translations: [Bipolar II disorder] Onset: 7 01-11-2019 Chronic Nausea and vomiting (20 sources) Nausea; Translations: [Nausea] Episodic Nutritional deficiencies (6 sources) Vitamin D deficiency; Translations: [Vitamin D deficiency, unspecified] Onset: 9 01-11-2019 Chronic Other aftercare (1 source) [facility] (current) use of oral hypoglycemic drugs; Translations: [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 ASSEMBLER USE ORAL HYPOGLYCEMIC DX] Onset: 3 Episodic Other aftercare (1 source) 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 driver (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) drug therapy; Translations: [OTH [facility] CURRENT DRUG THERAPY] Onset: 3 Episodic Other aftercare (1 source) 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; Translations: [[facility] CURRENT USE OF ASPIRIN] Onset: 3 Episodic Other aftercare (1 source) [facility] (current) use of anticoagulants; Translations: [LAMP SHADE ASSEMBLER CURRNT USE ANTICOAGULANTS] Onset: 3 Episodic Other diseases of bladder and urethra (5 sources) Unspecified urethral stricture, female; Translations: [UNSP URETHRAL STRICTURE FEMALE] Onset: 3 Episodic Other female genital disorders (1 source) Vaginal intraepithelial neoplasia grade 1; Translations: [Mild vaginal dysplasia] Episodic Other gastrointestinal disorders (10 sources) Irritable bowel syndrome with diarrhea; Translations: [Irritable bowel syndrome with diarrhea] Chronic Other gastrointestinal disorders (1 source) Irritable bowel syndrome with diarrhea Onset: 2 Resolved: 2 Chronic Other gastrointestinal disorders (10 sources) Diarrhea; Translations: [Diarrhea, unspecified] Episodic Other gastrointestinal disorders (10 sources) Constipation; Translations: [Constipation, unspecified] Episodic Other gastrointestinal disorders (1 source) Bariatric surgery status; Translations: [BARIATRIC SURGERY STATUS] Onset: 3 Episodic Other hereditary and degenerative nervous system conditions (2 sources) Extrapyramidal disease; Translations: [Extrapyramidal and movement disorder, unspecified] Onset: 3 11-30-2022 Chronic Other nervous system disorders (2 sources) Metabolic encephalopathy; Translations: [Metabolic encephalopathy] Onset: 3 03-13-2023 Chronic Other nervous system disorders (1 source) Neuropathy; Translations: [Polyneuropathy, unspecified] 07-10-2023 Chronic Other nutritional; endocrine; and metabolic disorders (10 sources) Obese class I; Translations: [Body mass index (BMI) 31.0-31.9, adult] Chronic Other screening for suspected conditions (not mental disorders or infectious disease) (4 sources) Patient encounter status; Translations: [Encounter for screening mammogram for malignant neoplasm of breast] Onset: 3 Episodic Other upper respiratory infections (1 source) Acute ethmoidal sinusitis, unspecified Episodic Residual codes; unclassified (8 sources) Obstructive sleep apnea syndrome; Translations: [Obstructive sleep apnea (adult) (pediatric)] Onset: 0 01-18-2021 Chronic Residual codes; unclassified (1 source) Obstructive sleep apnea (adult) (pediatric); Translations: [OBSTRUCTIVE SLEEP APNEA] Onset: 3 Chronic Residual codes; unclassified (1 source) Sleep apnea, unspecified; Translations: [SLEEP APNEA UNSPECIFIED] Onset: 3 Chronic Residual codes; unclassified (1 source) Acquired absence of other specified parts of digestive tract; Translations: [ACQ ABSENCE OTH PART DIGESTV TRACT] Onset: 3 Episodic Residual codes; unclassified (1 source) Acquired absence of both cervix and uterus; Translations: [ACQUIRED ABSENCE BOTH CERVIX AND UTERUS] Onset: 3 Episodic Thyroid disorders (13 sources) 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; Translations: [Other specified hypothyroidism] Onset: 9 01-11-2019 Chronic Unclassified (2 sources) Parkinsonism; Translations: [Parkinsonism] Onset: 3 03-13-2023 Chronic Past or Other Problems Problem Classification Problem Date Documented Da te Episodic/Chronic Acute and unspecified renal failure (2 sources) Acute renal failure syndrome; Translations: [Acute kidney failure, unspecified] Onset: 09-15-2022 09-15-2022 Episodic Cardiac dysrhythmias (2 sources) Sinus bradycardia; Translations: [Bradycardia, unspecified] Onset: 03-13-2023 03-14-2023 Episodic Intestinal infection (1 source) Enterocolitis due to Clostridium difficile, not specified as recurrent Onset: 12-28-2021 Resolved: 12-28-2021 Episodic Mood disorders (2 sources) Mood disorders Onset: 06-05-2023 06-05-2023 Noninfectious gastroenteritis (3 sources) Noninfective gastroenteritis and colitis, unspecified; Translations: [Chronic diarrhea] Onset: 12-28-2021 Resolved: 11-07-2022 Episodic Nonspecific chest pain (2 sources) Chest pain; Translations: [Chest pain, unspecified] Onset: 11-07-2022 11-07-2022 Episodic Nutritional deficiencies (2 sources) Nutritional deficiency state; Translations: [Nutritional deficiency, unspecified] Onset: 05-17-2021 05-17-2021 Episodic Other connective tissue disease (2 sources) Chronic musculoskeletal pain; Translations: [Myalgia, other site] Onset: 05-17-2021 05-17-2021 Episodic Other gastrointestinal disorders (1 source) Diarrhea, unspecified Onset: 03-16-2022 Resolved: 03-16-2022 Episodic Other hereditary and degenerative nervous system conditions (2 sources) Restless legs; Translations: [Restless legs syndrome] Onset: 06-09-2020 Resolved: 05-17-2021 05-17-2021 Chronic Other lower respiratory disease (13 sources) Nodule of lung; Translations: [Solitary pulmonary nodule] Onset: 03-13-2023 Episodic Other lower respiratory disease (2 sources) Multiple nodules of lung; Translations: [Other nonspecific abnormal finding of lung field] Onset: 2022 2022 Episodic Other nervous system disorders (2 sources) Finding of hand region; Translations: [Tremor, unspecified] Onset: 09-15-2022 09-15-2022 Episodic Other nervous system disorders (2 sources) Abnormal gait; Translations: [Unsteadiness on feet] Onset: 11-30-2022 11-30-2022 Episodic Other skin disorders (5 sources) Personal history of diseases of the skin and subcutaneous tissue; Translations: [History of urticaria] Onset: 01-11-2019 Resolved: 05-16-2021 01-11-2019 Episodic Pneumonia (except that caused by tuberculosis or sexually transmitted disease) (8 sources) Right lower zone pneumonia; Translations: [Pneumonia] Onset: 01-03-2019 Resolved: 05-16-2021 01-11-2019 Episodic Residual codes; unclassified (2 sources) Hypersomnia; Translations: [Hypersomnia, unspecified] Onset: 06-09-2020 Resolved: 05-17-2021 05-17-2021 Chronic Residual codes; unclassified (5 sources) Insomnia; Translations: [Insomnia, unspecified] Onset: 03-27-2017 01-11-2019 Episodic Residual codes; unclassified (2 sources) History of operative procedure on foot; Translations: [Other specified postprocedural states] Onset: 07-15-2022 07-18-2022 Episodic Suicide and intentional self-inflicted injury (2 sources) Suicidal thoughts; Translations: [Suicidal ideations] Onset: 04-05-2018 Resolved: 05-16-2021 05-16-2021 Episodic Unclassified (2 sources) Onset: 12-01-2022 12-01-2022 Urinary tract infections (16 sources) Postinfective urethral stricture of female; Translations: [Postinfective urethral stricture, not elsewhere classified, female] Onset: 12-28-2021 Episodic Results Test Name Value Interpretation Reference Range Facility ECG 12-Leadon 07-05-2023 ECG 12-Lead [id number] Normal [facility] Lab Reportson 07-05-2023 Lab Reports [id number] .00TIFF Normal [facility] Lab Reports [id number] .[id number] Normal 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 Computer-aided detection was used in the interpretation of this examination. COMPARISON: 2015 through 12/22/2020 FINDINGS: Breast density: There are scattered areas of fibroglandular density. No suspicious calcifications, masses or architectural distortion. Marker from previous percutaneous biopsy is redemonstrated in the right breast at approximately 9:00. Otherwise only some minimal coarse and benign-appearing calcification is demonstrated. IMPRESSION: * No mammographic evidence of malignancy. ASSESSMENT- BI-RADS 2 - Benign Recommendation: Routine screening mammogram in 1 year Finalized by Ean Tyson MD on 06/19/2023 12:20 PM 2 b MAMM 1 YR Normal [facility] CT ANKLE LEFT WO IV CONTRAST on 06-07-2023 CT ANKLE LEFT WO IV CONTRAST CT ANKLE LEFT WO IV CONTRAST HISTORY:Patient is status post flatfoot reconstruction, left. Metal wedge in the anterior process of the calcaneus with impingement symptoms in this area and sinus tarsitis. Please evaluate for graft incorporation. TECHNIQUE: Routine CT of the left ankle without contrast. CONTRAST: None. All CT scans at this facility use dose modulation, iterative reconstruction, and/or weight based dosing when appropriate to reduce radiation dose to as low as reasonably achievable. COMPARISON: MRI 06/07/2022. Radiographs 05/16/2023. RESULT: Underlying decreased bone mineral density. No evidence for acute fracture. No destructive osseous process. Mild to moderate degenerative changes in the imaged hindfoot and midfoot. Metallic postsurgical density involving the anterior/mid calcaneus. No significant adjacent periprosthetic lucency or fracture. Plantar and posterior calcaneal enthesophytes. Visualized tendons appear grossly intact within limits of CT evaluation. Musculature grossly unremarkable. Vascular calcifications. Mild subcutaneous edema. IMPRESSION: No acute osseous findings. Postsurgical and degenerative changes as discussed. ELECTRONICALLY SIGNED BY: Ramses Cardoso MD Normal Not Available Consent for Procedure/Surger yon 05-30-2023 Consent for Procedure/Surgery [id number] .[id number] Normal [facility] Operative Reporton Operative Report [id number] .00CD:127 Normal [facility] POINT OF CARE GLUCOSEon 10-02 Glucose [Mass/Vol] 136 mg/dL Critically high 74-106 [facility] Comment on above: Performed By: #### P OCGLUC #### [facility] [address] [place] [address] Dr. Socorro Rincon PROF CHEM 8 (BAS METB)on Anion gap [Moles/Vol] 13.1 mmol/L Normal [facility] Comment on above: Performed By: #### B MP #### [facility] [address] [place] [address] Dr. Socorro Rincon Calcium [Mass/Vol] 8.6 mg/dL Normal 8.5-10.1 [facility] Comment on above: Performed By: #### B MP #### [facility] [address] [place] [address] Dr. Socorro Rincon Chloride [Moles/Vol] 106 mmol/L Normal 98-107 [facility] Comment on above: Performed By: #### B MP #### [facility] [address] [address] [address] Socorro Rincon CO2 [Moles/Vol] 23.7 mmol/L Normal 21.0-32.0 [facility] Comment on above: Performed By: #### B MP #### [facility] [address] [address] [address] Socorro Rincon Creatinine [Mass/Vol] 1.37 mg/dL Critically high 0.55-1.02 [facility] Comment on above: Performed By: #### B MP #### [facility] [address] [address] [address] Socorro Rincon EGFR-AF CONGOLESE 47 mL/min/1.73m2 Critically low >=60 [facility] Comment on above: Performed By: #### B MP #### [facility] [address] [address] [address] Socorro Rincon EGFR-NON AF CONGOLESE 39 mL/min/1.73m2 Critically low >=60 [facility] Comment on above: Performed By: #### B MP #### [facility] [address] [address] [address] Socorro Rincon Glucose [Mass/Vol] 306 mg/dL Critically high 74-106 [facility] Comment on above: Performed By: #### B MP #### [facility] [address] [address] [address] Socorro Rincon Potassium [Moles/Vol] 4.8 mmol/L Normal 3.5-5.1 [facility] Comment on above: Performed By: #### B MP #### [facility] [address] [address] [address] Socorro Rincon Sodium [Moles/Vol] 138 mmol/L Normal 136-145 [facility] Comment on above: Performed By: #### B MP #### [facility] [address] [address] [address] Socorro Rincon Urea nitrogen [Mass/Vol] 23.0 mg/dL Critically high 7.0-18.0 [facility] Comment on above: Performed By: #### B MP #### [facility] [address] [place] [address] Dr. Socorro Rincon Urea nitrogen/Creatinin e [Mass ratio] 16.8 mg/mg Normal [facility] Comment on above: Performed By: #### B MP #### [facility] [address] [place] [address] Dr. Socorro Rincon ECG 12-Leadon 10-17-2022 ECG 12-Lead [id number] .00CD:127 Normal [facility] Lab Reportson 10-17-2022 Lab Reports [id number] .00CD:127 Normal [facility] Lab Reports [id number] .00CD:127 Normal [facility] CBC AUTO DIFFon 10-13-2022 BASO # 0.1 103/ul Normal 0.0-0.1 [facility] Comment on above: Performed By: #### C BC #### [facility] [address] [place] [address] Dr. Socorro Rincon Basophils/100 WBC (Bld) 1.6 % Normal 0.2-2.0 [facility] Comment on above: Performed By: #### C BC #### [facility] [address] [place] [address] Dr. Socorro Rincon EO # 0.3 103/ul Normal 0.0-0.7 [facility] Comment on above: Performed By: #### C BC #### [facility] [address] [place] [address] Dr. Socorro Rincon Eosinophils/100 WBC (Bld) 5.4 % Normal 0.9-7.0 [facility] Comment on above: Performed By: #### C BC #### [facility] [address] [place] [address] Dr. Socorro Rincon Erythrocyte distribution width (RBC) [Ratio] 13.2 % Normal 11.0-15.0 [facility] Comment on above: Performed By: #### C BC #### [facility] [address] [address] [address] Socorro Rincon Hematocrit (Bld) [Volume fraction] 36.6 % Normal 36.0-48.0 [facility] Comment on above: Performed By: #### C BC #### [facility] [address] [place] [address] Dr. Socorro Rincon Hemoglobin (Bld) [Mass/Vol] 11.9 g/dL Critically low 12.0-16.0 [facility] Comment on above: Performed By: #### C BC #### [facility] [address] [place] [address] Dr. Socorro Rincon IG # 0.03 10e3/ul Normal 0.00-0.03 [facility] Comment on above: Performed By: #### C BC #### [facility] [address] [place] [address] Dr. Socorro Rincon IG % 0.5 % Normal 0.0-0.5 [facility] Comment on above: Performed By: #### C BC #### [facility] [address] [place] [address] Dr. Socorro Rincon LYMPH # 1.3 103/ul Normal 1.2-3.8 [facility] Comment on above: Performed By: #### C BC #### [facility] [address] [place] [address] Dr. Socorro Rincon Lymphocytes/100 WBC (Bld) 22.0 % Normal 20.5-60.0 [facility] Comment on above: Performed By: #### C BC #### [facility] [address] [place] [address] Dr. Socorro Rincon MANUAL DIFF REQ NO Normal [facility] Comment on above: Performed By: #### C BC #### [facility] [address] [place] [address] Dr. Socorro Rincon MCH (RBC) [Entitic mass] 30.0 pg Normal 26.7-34.0 [facility] Comment on above: Performed By: #### C BC #### [facility] [address] [address] [address] Socorro Rincon MCHC (RBC) [Mass/Vol] 32.5 g/dL Normal 29.9-35.2 [facility] Comment on above: Performed By: #### C BC #### [facility] [address] [address] [address] Socorro Rincon MCV (RBC) [Entitic vol] 92.2 fL Normal 81.0-99.0 [facility] Comment on above: Performed By: #### C BC #### [facility] [address] [address] [address] Socorro Rincon MONO # 0.4 103/ul Normal 0.3-0.8 [facility] Comment on above: Performed By: #### C BC #### [facility] [address] [place] [address] Dr. Socorro Rincon Monocytes/100 WBC (Bld) 7.3 % Normal 1.7-12.0 [facility] Comment on above: Performed By: #### C BC #### [facility] [address] [place] [address] Dr. Socorro Rincon NEUT # 3.6 103/ul Normal 1.4-6.5 [facility] Comment on above: Performed By: #### C BC #### [facility] [address] [place] [address] Dr. Socorro Rincon Neutrophils/100 WBC (Bld) 63.2 % Normal 43.0-75.0 [facility] Comment on above: Performed By: #### C BC #### [facility] [address] [address] [address] Socorro Rincon Platelet mean volume (Bld) [Entitic vol] 8.9 fL Critically low 9.5-13.5 [facility] Comment on above: Performed By: #### C BC #### [facility] [address] [address] [address] Socorro Rincon PLT 317 103/ul Normal 150-450 [facility] Comment on above: Performed By: #### C BC #### [facility] [address] [address] [address] Socorro Rincon RBC 3.97 106/ul Critically low 4.20-5.40 [facility] Comment on above: Performed By: #### C BC #### [facility] [address] [address] [address] Socorro Rincon WBC 5.7 103/ul Normal 4.0-11.0 [facility] Comment on above: Performed By: #### C BC #### [facility] [address] [address] [address] Socorro Rincon PROF CHEM 8 (BAS METB)on Anion gap [Moles/Vol] 15.5 mmol/L Normal [facility] Comment on above: Performed By: #### B MP #### [facility] [address] [place] [address] Dr. Socorro Rincon Calcium [Mass/Vol] 9.6 mg/dL Normal 8.5-10.1 [facility] Comment on above: Performed By: #### B MP #### [facility] [address] [place] [address] Dr. Socorro Rincon Chloride [Moles/Vol] 104 mmol/L Normal 98-107 [facility] Comment on above: Performed By: #### B MP #### [facility] [address] [place] [address] Dr. Socorro Rincon CO2 [Moles/Vol] 25.4 mmol/L Normal 21.0-32.0 [facility] Comment on above: Performed By: #### B MP #### [facility] [address] [place] [address] Dr. oScorro Rincon Creatinine [Mass/Vol] 1.64 mg/dL Critically high 0.55-1.02 [facility] Comment on above: Performed By: #### B MP #### [facility] [address] [place] [address] Dr. Socorro Rincon EGFR-AF CONGOLESE 38 mL/min/1.73m2 Critically low >=60 [facility] Comment on above: Performed By: #### B MP #### [facility] [address] [address] [address] Socorro Rincon EGFR-NON AF CONGOLESE 32 mL/min/1.73m2 Critically low >=60 [facility] Comment on above: Performed By: #### B MP #### [facility] [address] [address] [address] Soocrro Rincon Glucose [Mass/Vol] 169 mg/dL Critically high 74-106 [facility] Comment on above: Performed By: #### B MP #### [facility] [address] [address] [address] Socorro Rincon Potassium [Moles/Vol] 5.9 mmol/L Critically high 3.5-5.1 [facility] Comment on above: Performed By: #### B MP #### [facility] [address] [address] [address] Socorro Rincon Sodium [Moles/Vol] 139 mmol/L Normal 136-145 [facility] Comment on above: Performed By: #### B MP #### [facility] [address] [address] [address] Socorro Rincon Urea nitrogen [Mass/Vol] 25.0 mg/dL Critically high 7.0-18.0 [facility] Comment on above: Performed By: #### B MP #### [facility] [address] [address] [address] Socorro Rincon Urea nitrogen/Creatinin e [Mass ratio] 15.2 mg/mg Normal [facility] Comment on above: Performed By: #### B MP #### [facility] [address] [address] [address] Socorro Rincon PROTIMEon 10-13-2022 INR Coag (PPP) [Relative time] {INR} Normal [facility] Comment on above: Performed By: #### P T, PTT #### [facility] [address] [address] [address] Socorro Rincon INR GUIDELINES SEE BELOW Normal [facility] Comment on above: Result Comment: RAFAEL RED INR: 2.0 - 3.0 CONDITIONS NOT LISTED BELOW 2.5 - 3.5 FOR PROSTHETIC HEART VALVE REPLACEMENT 2.5 - 3.5 RECURRENT THROMBOSIS Performed By: #### P T, PTT #### [facility] [address] [address] [address] Socorro Rincon PT Coag (PPP) [Time] 9.8 s Normal 9.0-11.6 [facility] Comment on above: Performed By: #### P T, PTT #### [facility] [address] [address] [address] Socorro Rincon PTTon 10-13-2022 aPTT Coag (Bld) [Time] 24.8 s Normal 22.3-36.2 [facility] Comment on above: Performed By: #### P T, PTT #### [facility] [address] [place] [address] Dr. Socorro Rincon Pre-Certification Formon Pre-Certification Form [id number] 0CD:127 Normal [facility] Consent for Procedure/Surger yon 10-03-2022 Consent for Procedure/Surgery [id number]:127 Normal [facility] Ambulatory Visit Summaryon 0 09-28-2022 Ambulatory Visit Summary RASHAWN MULTANI :1960 Visit Date:09/28/2022 Ambulatory Visit Instructions Your Diagnosis Postinfective urethral stricture of female Mixed incontinence Recurrent UTI Tests Performed Urnls Dip Stick Auto w/o Microscopy POC [id number] Your Care Team Attending Physician - RASHIDA STEPHENS, PAULA Wheat Primary Care Physician - DENNY MARSH CNP This Is Your Medications List conjugated estrogens topical (Premarin Vaginal 0.625 mg/g cream with applicator) mirabegron (Myrbetriq 50 mg oral tablet, extended release) Contact prescribing physician if questions or concerns amlodipine (amLODIPine 10 mg Tab) aripiprazole (Abilify) ascorbic acid (Vitamin C 500 mg oral tablet, chewable) aspirin (aspirin 81 mg Chew Tab) cholecalciferol (Vitamin D3 2000 intl units) cyanocobalamin (Vitamin B12) dicyclomine (dicyclomine 20 mg Tab) ergocalciferol (Vitamin D) escitalopram (Lexapro) ferrous sulfate insulin aspart (insulin aspart 100 units/mL injectable solution) insulin glargine (insulin glargine 100 units/mL subcutaneous solution) levothyroxine lisinopril (lisinopril 10 mg Tab) lorazepam (Ativan) metformin (Glucophage) metoprolol (metoprolol 50 mg ER Tab) multivitamin with minerals (Centrum Adult Chewable) omega-3 polyunsaturated fatty acids ([place]-3 Fish Oil) pantoprazole (Protonix 40 mg Tab-DR) rosuvastatin (rosuvastatin 10 mg Tab) trazodone (traZODONE 50 mg Tab) vitamin E (vitamin E 90 mg oral capsule) zinc sulfate (Zinc) Procedures Performed Cystourethroscopy with dilation of urethral stricture (09/16/2021), Cystoscopy (01/21/2021), Cystourethroscopy with dilation of urethral stricture (03/19/2020), Cystoscopy (11/28/2019), Cystourethroscopy with dilation of urethral stricture (02/08/2018), Cystourethroscopy with dilation of urethral stricture (05/11/2017), Cystourethroscopy with dilation of urethral stricture (11/24/2016), Urodynamics (05/04/2016), Cystourethroscopy with dilation of urethral stricture (11/26/2015), Cystoscopy (03/10/2015), Biopsy of breast, Caesarean section, Cholecystectomy, Gastric bypass, repair of hernia, Tonsillectomy. Discharge Vitals Heart Rate (Peripheral) 57 Blood Pressure 114/64 Height 160 cm Height 63 in Weight 82 kg Weight 180.4 lb BMI 32.03 What to do next You Need to Schedule the Following Appointments Follow Up with AILEEN WASSERMAN, Arabella Clark, SALIMA When: Comments: Office will call to schedule Cysto/UD. Where: [facility] [place] [address]- Medications What How Much When Instructions Unchanged conjugated estrogens topical (Premarin Vaginal 0.625 mg/ g cream with applicator) 1 Gram Vaginal Monday Unchanged mirabegron (Myrbetriq 50 mg oral tablet, extended release) 2 Tablets By Mouth Every day Unchanged amlodipine (amLODIPine 10 mg Tab) 1 Tablets By Mouth Every day Contact prescribing physician if questions or concerns Unchanged aripiprazole (Abilify) 10 Milligram By Mouth Every day BIPOLAR Contact prescribing physician if questions or concerns Unchanged ascorbic acid (Vitamin C 500 mg oral tablet, chewable) 1 Tablets Chewed Every day Contact prescribing physician if questions or concerns Unchanged aspirin (aspirin 81 mg Chew Tab) 1 Tablets Chewed Every day Contact prescribing physician if questions or concerns Unchanged cholecalciferol (Vitamin D3 2000 intl units) 1 tab By Mouth Every day Contact prescribing physician if questions or concerns Unchanged cyanocobalamin (Vitamin B12) 3 Milliliter Intramuscular Once a month Contact prescribing physician if questions or concerns Unchanged dicyclomine (dicyclomine 20 mg Tab) 1 Tablets By Mouth 4 times a day Contact prescribing physician if questions or concerns Unchanged ergocalciferol (Vitamin D) 50,000 International unit By Mouth Every day Contact prescribing physician if questions or concerns Unchanged escitalopram (Lexapro) 20 Milligram By Mouth Every day Contact prescribing physician if questions or concerns Unchanged ferrous sulfate 325 Milligram By Mouth 2 times a day Contact prescribing physician if questions or concerns Unchanged insulin aspart (insulin aspart 100 units/ mL injectable solution) sliding scale Subcutaneous PRN Contact prescribing physician if questions or concerns Unchanged insulin glargine (insulin glargine 100 units/ mL subcutaneous solution) 40 Units Subcutaneous Every day Contact prescribing physician if questions or concerns Unchanged levothyroxine 50 Microgram By Mouth Every day Contact prescribing physician if questions or concerns Unchanged lisinopril (lisinopril 10 mg Tab) 1 Tablets By Mouth Every day Contact prescribing physician if questions or concerns Unchanged lorazepam (Ativan) 0.5 Milligram By Mouth As needed for as needed for anxiety Contact prescribing physician if questions or concerns Unchanged metformin (Glucophage) 1,000 Milligram By Mouth 2 times a da (more content not included)... Normal [facility] Patient Educationon 09-29-19 23 Patient Education Urology Urethral Dilation Urethral dilation is a procedure to stretch open (dilate) the urethra. The urethra is the tube that drains urine from the bladder out of the body. In women, the urethra opens above the vaginal opening. In men, the urethra opens at the tip of the penis. Urethral dilation is usually done to treat narrowing of the urethra (urethral stricture), which can make it difficult to pass urine. Urethral dilation widens the urethra so that you can pass urine normally. Urethral dilation is done through the urethral opening. There are no incisions made during the procedure. Tell a health care provider about: ? Any allergies you have. ? All medicines you are taking, including vitamins, herbs, eye drops, creams, and voxj-zzq-geteqvz medicines. ? Any problems you or family members have had with anesthetic medicines. ? Any blood disorders you have. ? Any surgeries you have had. ? Any medical conditions you have. ? Whether you are or may be . What are the risks? Generally, this is a safe procedure. However, problems may occur, including: ? Bleeding. ? Infection. ? A return of urethral stricture, which requires repeating the dilation procedure. ? Damage to the urethra, which may require reconstructive surgery. ? Allergic reactions to medicines. What happens before the procedure? Medicines Ask your health care provider about: ? Changing or stopping your regular medicines. This is especially important if you are taking diabetes medicines or blood thinners. ? Taking medicines such as aspirin and ibuprofen. These medicines can thin your blood. Do not take these medicines unless your health care provider tells you to take them. ? Taking meul-nss-lmtcbrv medicines, vitamins, herbs, and supplements. General instructions ? Follow instructions from your health care provider about eating or drinking restrictions. ? Plan to have someone take you home from the hospital or clinic. ? If you will be going home right after the procedure, plan to have someone with you for 24 hours. ? Ask your health care provider what steps will be taken to help prevent infection. These may include: ? Washing skin with a germ-killing soap. ? Taking antibiotic medicine. What happens during the procedure? ? An IV may be inserted into one of your veins. ? You will be given one or more of the following medicines: ? A local anesthetic to numb your urethral opening. This will be applied as a gel that will also lubricate the urethral opening. ? A sedative to help you relax. ? A thin tube with a light and camera on the end (cystoscope) will be inserted into your urethra. ? Your urethra will be rinsed (irrigated) with a germ-free (sterile) water solution. ? Narrow parts of your urethra will be stretched open using a dilator tool. Your surgeon will start with a very thin dilator, then use wider dilators as needed. ? A thin tube with an inflatable balloon on the tip may be inserted into your urethra. The balloon may be inflated to help stretch your urethra open. ? Your urethra will be irrigated. The procedure may vary among health care providers and hospitals. What can I expect after the procedure? ? After the procedure, it is common to have: ? Burning pain when urinating. ? Blood in your urine. ? A need to urinate frequently. ? You will be asked to urinate before you leave the hospital or clinic. ? Your urine flow should improve within a few days. Follow these instructions at home: Medicines ? Take ezld-smi-njmhaka and prescription medicines only as told by your health care provider. ? If you were prescribed an antibiotic medicine, take it as told by your health care provider. Do not stop taking the antibiotic even if you start to feel better. ? Ask your health care provider if the medicine prescribed to you: ? Requires you to avoid driving or using heavy machinery. ? Can cause constipation. You may need to take these actions to prevent or treat constipation: ? Take ksne-nkp-ghtljwf or prescription medicines. ? Eat foods that are high in fiber, such as beans, whole grains, and fresh fruits and vegetables. ? Limit foods that are high in fat and processed sugars, such as fried or sweet foods. General instructions ? Do not drive for 24 hours if you were given a sedative during your procedure. ? If you were sent home with a small, lubricated tube (catheter) to help keep your urethra open, follow your health care provider's instructions about how and when to use it. ? Drink enough fluid to keep your urine pale yellow. ? Return to your normal activities as told by your health care provider. Ask your health care provider what activities are safe for you. ? Keep all follow-up visits as told by your health care provider. This is important. Contact a health care provider if: ? Your urine is cloudy and smells bad. ? You develop new bleeding when you urinate. ? You pa (more content not included)... Normal [facility] Urology Office/Clinic Noteon 09-28-2022 Urology Office/Clinic Note Chief Complaint Pt is here for urinary leakage HPI Staff Rashawn is a 62 y.o. female here for urinary leakage. PRW pt. Last seen in our office 12/28/21 by PERFECTO. Previous Dx: Urethral Stricture, Dysuria, Hx of Recurrent Cystitis & Mixed Incontinence. S/P cysto/UD done on 09/16/21, urodynamics done on 05/04/16. *Premarin Cream & Myrbetriq 50mg BID therapy. Dysuria: denies Incomplete bladder emptying: denies Hematuria: denies Frequency: yes Urgency: yes Nocturia: 2x a night Stream: steady stream, sometimes slow/weak Leaking: yes Post void dripping: denies Wearing pads/ Depends: yes wears pull ups, changes 2x a day Urge incontinence: yes Stress incontinence: yes cough/sneeze Incontinence without Sensory Awareness: denies Abdominal pain: denies Flank pain: denies Sexual complaints: _ History of Present Illness Tests Reviewed: Reviewed UA. I have reviewed the previous health record information and history for this patient from Paula LUZ I have reviewed and verified the staff HPI to be accurate for this encounter. There have been no associated fever, chills, flank pain, or blood in the urine. Denies any urinary infections since last encounter. Review of Systems PHQ Score Initial Depression Screen Score: 0 no fever, chills, malaise, myalgia. no rash/lesions. no chest pain, palpitations, or SOB. no abdominal pain, nausea, vomiting. no unilateral calf swelling, redness, pain Physical Exam Vitals & Measurements HR: 57(Peripheral) BP: 114/64 HT: 63 in HT: 160 cm WT: 82 kg WT: 180.4 lb BMI: 32.03 General: nontoxic, NAD Mouth: moist mucosa Lungs: normal respiratory effort Cardio: regular rate, good distal perfusion Abdomen: nondistended, no suprapubic distention or tenderness, no CVA tenderness Neurologic: Grossly normal Skin: No rashes or suspicious lesions Assessment/Plan 1. Postinfective urethral stricture of female (N35.12: Postinfective urethral stricture, not elsewhere classified, female) s/p UD under MAC 09/16/21. marked improvement initially. lasted a few months and then sx returned. c/o weak stream, freq, urge, incont. Will schedule Cysto with UD. The procedure risks, benefits, details, and treatment alternatives have been discussed with the patient. These include bleeding, infection, recurrent scar in over 50%, need for repeat dilation or other procedures, no symptom relief with dilation, among others. Full informed consent has been obtained. Will order Mac anesthesia. 2. Mixed incontinence (N39.46: Mixed incontinence) Myrbetriq 50mg 2 tabs daily. helped more immediately after the UD last year. hasn't helped as much for the last 6 mos or so. 3. Recurrent UTI (N39.0: Urinary tract infection, site not specified) Continue Premarin Cream Pyridium PRN hasn't had UTI since last summer. Follow-up With When Contact Information AILEEN WASSERMAN, Arabella Clark, URL [facility] [place] [address]- Additional Instructions: Office will call to schedule Cysto/UD. Patient Education Urethral Dilation Documentation recorded by the adalgisa Marquez accurately reflects the services(s) I performed and decisions made by me. Authenticated by Paula Joshi PA-C on 09/28/2022 16:24:18. I, Betina Marquez, personally scribed for Paula Joshi PA-C on 09/28/2022 15:31:56. . 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 Recurrent UTI Historical Bipolar disorder Hypothyroidism Uterine cancer Procedure/Surgical History Cystourethroscopy with dilation of urethral stricture (09/16/2021), Cystoscopy (01/21/2021), Cystourethroscopy with dilation of urethral stricture (03/19/2020), Cystoscopy (11/28/2019), Cystourethroscopy with dilation of urethral stricture (02/08/2018), Cystourethroscopy with dilation of urethral stricture (05/11/2017), Cystourethroscopy with dilation of urethral stricture (11/24/2016), Urodynamics (05/04/2016), Cystourethroscopy with dilation of urethral stricture (11/26/2015), Cystoscopy (03/10/2015), Biopsy of breast, Caesarean section, Cholecystectomy, Gastric bypass, repair of hernia, Tonsillectomy. Medications Abilify, 10 mg, Oral, Daily amLODIPine 10 mg Tab, 10 mg= 1 tab(s), Oral, Daily aspirin 81 mg Chew Tab, 81 mg= 1 tab(s), Chewed, Daily Ativan, 0.5 mg, Oral, PRN Centrum Adult Chewable, 1 tab(s), Chewed, Daily dicyclomine 20 mg Tab, 20 mg= 1 tab(s), Oral, QID ferrous sulfate, 325 mg, Oral, BID Glucophage, 1000 mg, Oral, BID insulin aspart 100 units/mL injectable solution, sliding scale, SubCutaneous insulin glargine 100 units/mL subcutaneous solution, 40 unit(s), SubCutaneous, Daily levothyroxine, 50 mcg, Oral, Daily (more content not included)... Normal [facility] Comment on above: Result Comment: Elec tronically Signed By: PAULA JOSHI PA-C\.br\Date and Time Signed: 09/28/22 16:24 EDT\.br\Electronically Co-Signed By: Betina Marquez MA\.br\Date and Time Co-Signed: 09/28/22 15:32 EDT SARS-CoV-2 (COVID-19) RNA NA A+probe Ql (Resp)on 02-18-2022 SARS-CoV-2 (COVID-19) RNA HORTENSIA+probe Ql (Unsp spec) Negative [facility] Other COVID Quick Testingon [address] [facility] Other Blood Cultureon 01-17-2022 Bacteria identified Cx Nom (Bld) NO GROWTH 5 DAYS PERFORMED BY: [place] [address] PATHOLOGIST TERRAZZO TILE SETTER JOAO FELICIANO M.D. [facility] Comment on above: Performed By: #### C UBLD #### [address] Bacteria identified Cx Nom (Bld) NO GROWTH 5 DAYS PERFORMED BY: [address] [address] PATHOLOGIST TERRAZZO TILE SETTER JOAO FELICIANO M.D. [facility] Comment on above: Performed By: #### C UBLD #### [facility] [address] Complete Blood Count Auto Di ffon 01-16-2022 Basophils (Bld) [#/Vol] 0.1 10*3/uL Normal 0.0-0.2 [facility] Comment on above: Result Comment: PERF ORMED BY: [place] [address] PATHOLOGIST TERRAZZO TILE SETTER JOAO FELICIANO M.D. Performed By: #### C BC, CMP #### [place] [address] [place] Basophils/100 WBC (Bld) 1.3 % Normal . [facility] Comment on above: Performed By: #### C BC, CMP #### [address] Eosinophils (Bld) [#/Vol] 0.2 10*3/uL Normal 0.0-0.45 [facility] Comment on above: Performed By: #### C BC, CMP #### [place] [address] [place] Eosinophils/100 WBC (Bld) 2.9 % Normal . [facility] Comment on above: Performed By: #### C BC, CMP #### [address] Erythrocyte distribution width (RBC) [Ratio] 13.7 % Normal 11.9-15.3 [facility] Comment on above: Performed By: #### C BC, CMP #### [place] [address] [place] Hematocrit (Bld) [Volume fraction] 38.1 % Normal 34.0-46.4 [facility] Comment on above: Performed By: #### C BC, CMP #### [address] Hemoglobin (Bld) [Mass/Vol] 12.6 g/dL Normal 11.8-15.4 [facility] Comment on above: Performed By: #### C BC, CMP #### [facility] [address] [place] [address] [place] Lymphocytes (Bld) [#/Vol] 1.4 10*3/uL Normal 1.00-4.8 [facility] Comment on above: Performed By: #### C BC, CMP #### [facility] [address] Lymphocytes/100 WBC (Bld) 22.9 % Normal . [facility] Comment on above: Performed By: #### C BC, CMP #### [address] MCH (RBC) [Entitic mass] 30.7 pg Normal 24.7-34.3 [facility] Comment on above: Performed By: #### C BC, CMP #### [address] MCV (RBC) [Entitic vol] 92.7 fL Normal 80-100 [facility] Comment on above: Performed By: #### C BC, CMP #### [address] Mean Corpuscular HGB Conc 33.2 g/dL Normal 32.0-35.0 [facility] Comment on above: Performed By: #### C BC, CMP #### [place] [address] [place] Monocytes (Bld) [#/Vol] 0.5 10*3/uL Normal 0.0-0.8 [facility] Comment on above: Performed By: #### C BC, CMP #### [place] [address] [place] Monocytes/100 WBC (Bld) 7.8 % Normal . [facility] Comment on above: Performed By: #### C BC, CMP #### [address] Neutrophils (Bld) [#/Vol] 4.1 10*3/uL Normal 1.8-7.7 [facility] Comment on above: Performed By: #### C BC, CMP #### [facility] [address] [place] [address] [place] Neutrophils/100 WBC (Bld) 65.1 % Normal . [facility] Comment on above: Performed By: #### C BC, CMP #### [facility] [address] [place] [address] [place] Nucleated RBC/100 WBC (Bld) [Ratio] 0.0 % Normal 0-0.5 [facility] Comment on above: Performed By: #### C BC, CMP #### [facility] [address] Platelet mean volume (Bld) [Entitic vol] 7.2 fL Normal 6.3-10.7 [facility] Comment on above: Performed By: #### C BC, CMP #### [facility] [address] Platelets (Bld) [#/Vol] 252 10*3/uL Normal 150-450 [facility] Comment on above: Performed By: #### C BC, CMP #### [facility] [address] [place] [address] [place] RBC (Bld) [#/Vol] 4.11 10*6/uL Normal 3.60-5.00 [facility] Comment on above: Performed By: #### C BC, CMP #### [facility] [address] [id number] [place] WBC (Bld) [#/Vol] 6.2 10*3/uL Normal 4.5-11.0 [facility] Comment on above: Performed By: #### C BC, CMP #### [facility] [address] [id number] [facility] Comprehensive Metabolic Pane zain 01-16-2022 Albumin [Mass/Vol] 3.8 g/dL Normal 3.2-5.5 [facility] Comment on above: Performed By: #### C BC, CMP #### [facility] [address] [id number] [place] Albumin/Globulin [Mass ratio] 1.4 {ratio} Normal [facility] Comment on above: Performed By: #### C BC, CMP #### [facility] [address] [phone] [facility] ALP [Catalytic activity/Vol] 68 U/L Normal 32-92 [facility] Comment on above: Performed By: #### C BC, CMP #### [facility] [address] [phone] [facility] ALT [Catalytic activity/Vol] 26 U/L Normal 10-60 [facility] Comment on above: Performed By: #### C BC, CMP #### [facility] [address] AST [Catalytic activity/Vol] 17 U/L Normal 10-42 [facility] Comment on above: Performed By: #### C BC, CMP #### [facility] [address] Bilirubin [Mass/Vol] 0.2 mg/dL Low 0.3-1.2 [facility] Comment on above: Performed By: #### C BC, CMP #### [facility] [address] Calcium [Mass/Vol] 9.0 mg/dL Normal 8.2-10.2 [facility] Comment on above: Performed By: #### C BC, CMP #### [address] Chloride [Moles/Vol] 102 mmol/L Normal 95-114 [facility] Comment on above: Performed By: #### C BC, CMP #### [facility] [address] [place] [address] [place] CO2 [Moles/Vol] 24.1 mmol/L Normal 22.0-30.0 [facility] Comment on above: Performed By: #### C BC, CMP #### [facility] [address] [place] [address] Creatinine [Mass/Vol] 1.35 mg/dL High 0.44-1.03 [facility] Comment on above: Performed By: #### C BC, CMP #### [facility] [address] [place] [address] Creatinine Clr Calc Pharmacy 42.23 [facility] Comment on above: Result Comment: PERF ORMED BY: [place] [address] PATHOLOGIST TERRAZZO TILE SETTER JOAO FELICIANO M.D. Performed By: #### C BC, CMP #### [address] Estimated GFR ( Jasmin 48 [facility] Comment on above: Result Comment: GFR estimated reference range: According to KDOQI guidelines, <60 ml/min/1.73m2 is sufficient to diagnose a patient with chronic kidney disease. Performed By: #### C BC, CMP #### [address] Estimated GFR (Non- Am 40 [facility] Comment on above: Performed By: #### C BC, CMP #### [address] Globulin (S) [Mass/Vol] 2.7 g/dL [facility] Comment on above: Performed By: #### C BC, CMP #### [address] Glucose [Mass/Vol] 252 mg/dL High 70-100 [facility] Comment on above: Result Comment: [place] Glucose Reference Range is dependent on time and content of last meal. Glucose of more than 200 mg/dL in a nonstressed, ambulatory subject supports the diagnosis of Diabetes Mellitus. ADA recommended reference range Performed By: #### C BC, CMP #### [address] Potassium [Moles/Vol] 4.7 mmol/L Normal 3.5-5.1 [facility] Comment on above: Performed By: #### C BC, CMP #### [address] Protein [Mass/Vol] 6.5 g/dL Normal 6.1-7.9 [facility] Comment on above: Performed By: #### C BC, CMP #### [facility] [address] [id number] [place] Sodium [Moles/Vol] 136 mmol/L Normal 136-146 [facility] Comment on above: Performed By: #### C BC, CMP #### [facility] [address] [id number] [place] Urea nitrogen [Mass/Vol] 18 mg/dL Normal 9-23 [facility] Comment on above: Performed By: #### C BC, CMP #### [facility] [address] [place] [address] [place] Dipstick and Microscopicon 0 01-16-2022 Appearance (U) Cloudy Critically abnormal Clear [facility] Comment on above: Order Comment: Name Collection Type:: Clean-Voided Midstream Performed By: #### A DDONUAPLUS #### [place] [address] [place] Bacteria,Urine 1+ High None Seen [facility] Comment on above: Order Comment: Name Collection Type:: Clean-Voided Midstream Performed By: #### A DDONUAPLUS #### [place] [address] [place] Bilirubin,Urine Negative Normal Negative [facility] Comment on above: Order Comment: Name Collection Type:: Clean-Voided Midstream Performed By: #### A DDONUAPLUS #### [place] [address] [place] Color (U) Yellow Normal Yellow [facility] Comment on above: Order Comment: Name Collection Type:: Clean-Voided Midstream Performed By: #### A DDONUAPLUS #### [facility] [address] [place] [address] [place] Glucose Ql (U) >=1000 High Normal [facility] Comment on above: Order Comment: Name Collection Type:: Clean-Voided Midstream Performed By: #### A DDONUAPLUS #### [facility] [address] [place] [address] [place] Hyaline Casts,Urine None Seen Normal 0-1 [facility] Comment on above: Order Comment: Name Collection Type:: Clean-Voided Midstream Result Comment: PERF ORMED BY: [place] [address] PATHOLOGIST TERRAZZO TILE SETTER JOAO FELICIANO M.D. Performed By: #### A DDONUAPLUS #### [place] [address] [place] Ketones Ql (U) Negative Normal Negative [facility] Comment on above: Order Comment: Name Collection Type:: Clean-Voided Midstream Performed By: #### A DDONUAPLUS #### [address] Leukocyte esterase Test strip Ql (U) 1+ High Negative [facility] Comment on above: Order Comment: Name Collection Type:: Clean-Voided Midstream Performed By: #### A DDONUAPLUS #### [place] [address] [place] Nitrite,Urine Negative Normal Negative [facility] Comment on above: Order Comment: Name Collection Type:: Clean-Voided Midstream Performed By: #### A DDONUAPLUS #### [place] [address] [place] Occult Blood,Urine Negative Normal Negative [facility] Comment on above: Order Comment: Name Collection Type:: Clean-Voided Midstream Result Comment: PERF ORMED BY: [place] [address] PATHOLOGIST TERRAZZO TILE SETTER JOAO FELICIANO M.D. Performed By: #### A DDONUAPLUS #### [place] [address] [place] Othe Crystals,Urine None Seen Normal [facility] Comment on above: Order Comment: Name Collection Type:: Clean-Voided Midstream Performed By: #### A DDONUAPLUS #### [place] [address] [place] pH (U) 5.5 [pH] Normal 5.0-9.0 [facility] Comment on above: Order Comment: Name Collection Type:: Clean-Voided Midstream Performed By: #### A DDONUAPLUS #### [facility] [address] [place] [address] Protein,Urine Negative Normal Negative [facility] Comment on above: Order Comment: Name Collection Type:: Clean-Voided Midstream Performed By: #### A DDONUAPLUS #### [address] RBC,Urine 3-4 Normal 0-4 [facility] Comment on above: Order Comment: Name Collection Type:: Clean-Voided Midstream Performed By: #### A DDONUAPLUS #### [address] Specificy [place],Urine 1.007 Normal 1.001-1.030 [facility] Comment on above: Order Comment: Name Collection Type:: Clean-Voided Midstream Performed By: #### A DDONUAPLUS #### [address] Squamous Epithelial Cell,Urine 1-2 Normal 0-2 [facility] Comment on above: Order Comment: Name Collection Type:: Clean-Voided Midstream Performed By: #### A DDONUAPLUS #### [address] Urobilinogen,Urine Normal Normal Normal [facility] Comment on above: Order Comment: Name Collection Type:: Clean-Voided Midstream Performed By: #### A DDONUAPLUS #### [facility] [address] [place] [address] WBC LM.HPF (Urine sed) [#/Area] 0 /[HPF] Normal 0-4 [facility] Comment on above: Order Comment: Name Collection Type:: Clean-Voided Midstream Performed By: #### A DDONUAPLUS #### [address] [place] 11-05-2021 DANIELAN Telephone ([facility]) RASHAWN MULTANI ([id number]) 1960 F Date Time Provider Department 11/05/21 BERNICE GIFFORD During your visit today, we recorded the following information about you: Bernice Gifford RN 11/05/2021 11:28 AM Signed Patient calling for pap and HPV results. Updated that still in process and can take up to 2 weeks. Patient voiced understanding and grateful. Paula Rolle RN 11/10/2021 9:20 AM Signed LVM for patient to return call to office for Pap results, message from ROAD DESIGN ENGINEER below. Heather Guerrero APRN.[facility] Can you call her and let her know her pap was normal. The HPV was positive. We will repeat her pap at the next appointment. ? Thanks Paula Rolle RN 12/02/2021 9:00 AM Signed Patient called office for pap results. Given results as stated below. Patient voiced understanding Allergies As of Date: 11/05/2021 Noted Allergy Reaction CIPROFLOXACIN 10/02/2018 14 - Other: See Comments Comments: Nausea, hematuria CODEINE 10/02/2018 16 - Unknown MAGNESIUM CITRATE 10/02/2018 16 - Unknown MORPHINE 10/02/2018 16 - Unknown NITROFURANTOIN MACROCRYSTAL 10/02/2018 2 - Rash SULFA (SULFONAMIDE ANTIBIOTICS) 10/02/2018 2 - Rash Date Reviewed: 11/01/2021 Reviewed by: Heather Guerrero APRN.ROAD DESIGN ENGINEER - Fully Assessed Reason for Visit: Results [95] Prescriptions as of 12/02/2021 - LANTUS SOLOSTAR U-100 INSULIN 100 unit/mL (3 mL) - aspirin, enteric coated (ASPIRIN, ENTERIC COATED) 81 mg EC tablet Take 81 mg by mouth once daily. - cyanocobalamin (VITAMIN B-12) 100 mcg tab Take 100 mcg by mouth once daily. - metoprolol succinate ER (TOPROL XL) 50 mg 24 hr tablet Take 50 mg by mouth once daily. - gabapentin (NEURONTIN) 400 mg capsule - ondansetron (ZOFRAN) 8 mg tablet - oxybutynin ER (DITROPAN XL) 10 mg 24 hr tablet - lamoTRIgine (LAMICTAL) 200 mg tablet Take 200 mg by mouth once daily. - LORazepam (ATIVAN) 0.5 mg tab Take 0.5 mg by mouth as needed. - traZODone (DESYREL) 100 mg tablet Take 100 mg by mouth daily at bedtime. - conjugated estrogens (PREMARIN) vaginal cream Use 1 g vaginally once each week. - cholecalciferol (VITAMIN D-3) 2,000 unit tablet Take 2,000 Units by mouth once daily. - glimepiride (AMARYL) 1 mg tablet Take 1 mg by mouth daily with breakfast. - ARIPiprazole (ABILIFY) 5 mg tablet Take 10 mg by mouth once daily. - linaclotide (LINZESS) 290 mcg capsule Take 290 mcg by mouth once daily. - Sennosides (SENNA) 8.6 mg cap Take by mouth as needed. - QUEtiapine (SEROQUEL) 300 mg tablet Take 300 mg by mouth three times daily. - lisinopril (ZESTRIL, PRINIVIL) 10 mg tablet Take 10 mg by mouth once daily. - escitalopram oxalate (LEXAPRO) 20 mg tablet Take 10 mg by mouth once daily. - Levothyroxine 50 mcg cap Take 50 mcg by mouth once daily. - armodafinil (NUVIGIL) 150 mg tab Take 150 mg by mouth once daily. - Multivitamin capsule Take 1 capsule by mouth once daily. - eszopiclone (LUNESTA) 3 mg tab Take 3 mg by mouth at bedtime as needed. - ARIPiprazole (ABILIFY) 5 mg tablet Take 5 mg by mouth once daily. Meds Comments as of 11/01/2021: Patient unsure of medication names Kelsea Benites MA November 01, 2021 1:55 PM Problem List As Of Date 11/05/2021 Noted Resolved Chronic kidney insufficiency, stage 2 (mild) [N*05/14/2019 Endometrial cancer (HCC) [C54.1] 10/19/2020 Encounter Status:Closed by BERNICE GIFFORD on 11/05/21 [facility] CNOVSPon 11-01-2021 CNOVSP Visit (SP) Office (GYNML) RASHAWN MULTANI ([id number]) 1960 F Date Time Provider Department 11/01/21 2:00 PM MANUEL GUILLORY During your visit today, we recorded the following information about you: Temperature Pulse Blood pressure Weight 97.7 degrees 58/minute 136/65 82.4 kg Manuel Guillory MD 11/01/2021 4:33 PM Signed Gynecologic Oncology [facility] Follow-up Re: Rashawn Multani [facility]#: [id number] Date of Service: 11/01/2021 Patient presents for follow up regarding ASCUS, +HPV. Ms Multani is a 61 year old female who has a past medical history of Abnormal Pap smear of vagina, Alopecia, Anemia, Bipolar 1 disorder (HCC), Cancer (), Diabetes (), Enlarged parotid gland, GERD (gastroesophageal reflux disease), History of endometrial cancer (1994), Hyperlipidemia, Hypertension, Sleep apnea, Thyroid disease, and Vitamin B12 deficiency. She has a past surgical history that includes egd (2016); colonoscopy (2016); cholecystectomy hx (2013); tonsillectomy hx; gastric bypass hx; ablation (07/27/2016); heart catheterization; hysterectomy hx (1994); and anesth, section. She presented [facility], 10/05/18, for evaluation and management of abnormal pap and HPV. Patient was previously seen by Dr. Cote HPI Patient presents for Follow-up. Patient is doing well and has no complaints at this time. PRIOR PAP HISTORY: 06/2016: LSIL, +HPV 12/2016: ASCUS, +HPV 04/2017: Negative Pap/HPV 07/2017: Negative Pap, +HPV 07/2018: ASCUS, +HPV 04/2019: ASCUS. + HPV 03/20/2020 ASCUS - HPV 05/15/2019 CT A/P: IMPRESSION: 1. ?No acute process noted in the abdomen or pelvis. ?No evidence to suggest local recurrence or abdominal/pelvic metastatic disease. 2. ?Right lower lobe 4 mm nodule, nonspecific. ?Recommend further evaluation with dedicated CT of the chest. 05/24/2019 CT Chest : IMPRESSION: 1. ?Indeterminate 1 cm right upper lobe nodular opacity. ?Consider further evaluation via PET scan. 2. ?Additional diffuse reticulonodular opacities in the right lung with a upper lung field predominance a represent combination of metastases, lymphangitic carcinomatosis and infectious/inflammato ry etiologies. 3. ?Small hiatal hernia. 4. ?Diffuse hepatic fatty infiltration. PET CT 06/11/2019 IMPRESSION: 1. ?NECK: * ?No FDG avid neoplastic process.. 2. ?CHEST: * ?No FDG avid neoplastic process. ?Dominant right upper lobe mass with several other scattered mostly centrilobular nodules in the right greater than left lungs without significant FDG avidity, may represent infectious/inflammato ry process, however neoplastic process cannot be excluded. ?Please note that PET/CT is not sensitive for small lung nodules. ?Recommend continued surveillance with CT. 3. ?ABDOMEN/PELVIS: * ?No FDG avid neoplastic process. ?No evidence of local pelvic recurrence. 4. ?EXTREMITIES/SKELETON : * ?No suspicious FDG avid osseous lesion. CT C/A/P 03/13/2020 IMPRESSION: 1. ?No interval change since 10/17/2019. 2. ?Nonspecific reticulonodular opacities and more focal nodular opacities measuring 1 cm, stable since 05/24/2019. ?Consider interval follow-up. 3. ?Small hiatal hernia. 4. ?Diffuse hepatic fatty infiltration 03/20/[address] Cote: 58 yr old woman with abnormal vaginal pap ASCU+HPV Remote history of endometrial cancer treated with surgery alone in 1994 - Exam normal today, No clinical evidence of disease. Signs and symptoms of recurrence reviewed - CT scan of the chest in 6-12 months - Pap done today, will follow - RTC in 6 months 05/25/2020 ED Visit: Weakness 06/05/2020 ED Visit: Hypertension 08/03/2020 Hospital Admission: Unspecified Abdominal Pain, Diarrhea. 09/16/2020 CT Chest: IMPRESSION: 1. ?Increased mild streaky scarring/discoid atelectasis in the left lower lobe. 2. ?Reticulonodular opacities in the right lung, stable since 03/13/2020 but decreased since 05/24/2019. 3. ?More focal nodular opacities measuring up to 1 cm, stable since 05/24/2019. ?Consider one-year follow-up to document 2 year stability. 4. ?Small hiatal hernia. 5. ?Diffuse hepatic fatty infiltration. 10/19/2020 Visit: Patient presents for a follow up visit. Discussed the results of her CT Chest which showed no evidence of disease (09/16/2020). A pap smear was obtained. Breast exam performed in clinic today. A mammogram will be scheduled. Will contact the patient with the results. No clinical evidence of disease the patient will be seen in 6 months time. Health Maintenance: Last Pap: 10/19/2020 negative Last HPV: 03/20/2020 Negative SUBJECTIVE/INTERVAL HISTORY: She is feeling well and denies shortness of breath, nausea, vomiting, constipation, problems urinating, unexplained weight loss, or vaginal bleeding. OBJECTIVE: BP 136/65 Pulse (!) 58 Temp 36.5 ?C (97.7 ?F) Wt 82.4 k (more content not included)... Normal [facility] PAP FLUID VAGINAL DIAGNOSTIC on 11-01-2021 CASE REPORT Normal [facility] Comment on above: Order Comment: Speci men Type: FLUID SAMPLE Ordering Facility: [facility] Address: [address] [place] [address] Result Comment: Gyne cologic Cytology Report Case: [id number] Authorizing Provider: Manuel Guillory MD Collected: 11/01/2021 03:00 PM Ordering Location: Gynecology Received: 11/02/2021 10:54 AM First Screen: Olga Henderson, CT, ASCP Rescreen: Odessa Manuel, CT, ASCP Specimen: PAP CHIEF DISPATCHER DIAGNOSTIC, VAGINAL DIAGNOSTIC FLUID Performed By: #### L [id number] #### [facility] CLIA [id number] [address] [place], [place] [address] [place] [address] [place] CLINICAL HISTORY HIST MALIGNANCY - DESCRIBE Normal [facility] Comment on above: Order Comment: Speci men Type: FLUID SAMPLE Ordering Facility: [facility] Address: [address] [place], [place] [address] Performed By: #### L [id number] #### [facility] CLIA [id number] [address] [place] [address] CYTOLOGY INTERPRETATION PAP Normal [facility] Comment on above: Order Comment: Speci men Type: FLUID SAMPLE Ordering Facility: [facility] Address: [address] [place] [address] Result Comment: Nega tive for Intraepithelial lesion or malignancy. Performed By: #### L [id number] #### [facility] CLIA [id number] [address] [place] [address] OF [place] FINAL DIAGNOSIS [facility] Comment on above: Order Comment: Speci men Type: FLUID SAMPLE Ordering Facility: [facility] Address: [address] [place] [address] Result Comment: A - VAGINAL DIAGNOSTIC FLUID Satisfactory for interpretation Negative for Intraepithelial lesion or malignancy. Performed By: #### L [id number] #### [facility] CLIA [id number] [address] [place] [address] STATES OF [facility] FINAL PERFORMING LAB [facility] Comment on above: Order Comment: Speci men Type: FLUID SAMPLE Ordering Facility: [facility] Address: [address] [place] [address] Result Comment: Tech nical component, glass wool blanket machine feeder screening performed at [facility], [address] [place], [place] [id number] CLIA# [id number] Diagnostic interpretation performed at [facility], [address] [place], [place] [address] CLIA# [id number] International Accounting Manager: Girma Snow M.D. Performed By: #### L [id number] #### [facility] CLIA [id number] [address] [place] [address] OF [place] HPV REQUESTED? Yes, automatic HPV patients over 30 Normal [facility] Comment on above: Order Comment: Speci men Type: FLUID SAMPLE Ordering Facility: [facility] Address: [address] [place], [place] [address] Performed By: #### L [id number] #### [facility] CLIA [id number] [address] [place] [address] [place] LMP Hysterectomy [facility] Comment on above: Order Comment: Speci men Type: FLUID SAMPLE Ordering Facility: [facility] Address: [address] [place], [place] [address] Performed By: #### L [id number] #### [facility] CLIA [id number] [address] [place] [address] [place] PAP DISCLAIMER COMMENT The Pap Smear is a screening test for cervical cancer. False negative results occur with all screening tests, emphasizing the need for rescreening at recommended intervals, and clinical correlation. [facility] Comment on above: Order Comment: Speci men Type: FLUID SAMPLE Ordering Facility: [facility] Address: [address] [place], [place] [address] Performed By: #### L [id number] #### [facility] CLIA [id number] [address] [place] [address] [place] PAP CHIEF DISPATCHER COMMENT This specimen has been analyzed by the ThinPrep Imaging System, an automated imaging and review system, which assists the laboratory in evaluating cells on ThinPrep Pap tests. Following automated imaging, selected cota from every slide are reviewed by a glass wool blanket machine feeder. [facility] Comment on above: Order Comment: Speci men Type: FLUID SAMPLE Ordering Facility: [facility] Address: [address] [place], [place] [address] Performed By: #### L [id number] #### [facility] CLIA [id number] [address] [place] [address] [place] Basic Metabolic Panelon 12-1 Anion gap [Moles/Vol] 11 mmol/L 9 - 17 mmol/L [facility] Calcium [Mass/Vol] 8.9 mg/dL 8.6 - 10. 4 mg/dL [facility] Chloride [Moles/Vol] 102 mmol/L 98 - 107 mmol/L [facility] CO2 [Moles/Vol] 22 mmol/L 20 - 31 mmol/L [facility] Creatinine [Mass/Vol] 1.16 mg/dL High 0.50 - 0.90 mg/dL [facility] GFR 57 mL/min Low >60 [facility] GFR Non- 47 mL/min Low >60 [facility] Glucose [Mass/Vol] 438 mg/dL Critically high 70 - 99 mg/d L [facility] Interpretation and review of laboratory results Abnormal [facility] Potassium [Moles/Vol] 4.6 mmol/L 3.7 - 5.3 mmol/L [facility] Sodium [Moles/Vol] 135 mmol/L 135 - 144 mmol/L [facility] Urea nitrogen (BldV) [Mass/Vol] 13 mg/dL 8 - 23 mg/dL [facility] Urea nitrogen/Creatinin e (Bld) [Mass ratio] [address] [facility] Basic Metabolic Profon 06-14 Glucose [Mass/Vol] 438 mg/dL Critically high 70-99 M [facility] Comment on above: Performed By: #### B MP #### [facility] [address] [place] [address] High School Science Tutor: Cr Ferreira MD (cont.) Normal [facility] Comment on above: Result Comment: Aver age GFR for 60-69 years old: 85 mL/min/1.73sq m Chronic Kidney Disease: <60 mL/min/1.73sq m Kidney failure: <15 mL/min/1.73sq m eGFR calculated using average adult body mass. Additional eGFR calculator available at: http://www.[employer].com/multiple_crcl_2012.htm Performed By: #### B MP #### [facility] [address] [place] [address] High School Science Tutor: Cr Ferreira MD Anion gap [Moles/Vol] 11 mmol/L Normal 9-17 [facility] Comment on above: Performed By: #### B MP #### [facility] [address] [place], [place] [id number] High School Science Tutor: Cr Ferreira MD BUN/CRE Ratio 11 Normal 9-20 [facility] Comment on above: Performed By: #### B MP #### [facility] [address] [place], [place] [id number] High School Science Tutor: Cr Ferreira MD Calcium [Mass/Vol] 8.9 mg/dL Normal 8.6-10.4 [facility] Comment on above: Performed By: #### B MP #### [facility] [address] [place], [place] [id number] High School Science Tutor: Cr Ferreira MD Chloride [Moles/Vol] 102 mmol/L Normal 98-107 [facility] Comment on above: Performed By: #### B MP #### [facility] [address] [place], [place] [phone] High School Science Tutor: Cr Ferreira MD CO2 [Moles/Vol] 22 mmol/L Normal 20-31 [facility] Comment on above: Performed By: #### B MP #### [facility] [address] [place], [place] [address] High School Science Tutor: Cr Ferreira MD Creatinine [Mass/Vol] 1.16 mg/dL High 0.50-0.90 [facility] Comment on above: Performed By: #### B MP #### [facility] [address] [place], [place] [id number] High School Science Tutor: Cr Ferreira MD GFR, Amer 57 mL/min Low >60 [facility] Comment on above: Performed By: #### B MP #### [facility] [address] [place], [place] [phone] High School Science Tutor: Cr Ferreira MD GFR,non Amer 47 mL/min Low >60 [facility] Comment on above: Performed By: #### B MP #### [facility] [address] [place] [address] [place] [address] High School Science Tutor: Cr Ferreira MD Potassium [Moles/Vol] 4.6 mmol/L Normal 3.7-5.3 [facility] Comment on above: Performed By: #### B MP #### [address] [place] [address] High School Science Tutor: Cr Ferreira MD Sodium [Moles/Vol] 135 mmol/L Normal 135-144 [facility] Comment on above: Performed By: #### B MP #### [address] [place] [address] High School Science Tutor: Cr Ferreira MD Staging: Normal [facility] Comment on above: Result Comment: Stag e 1: Some kidney damage normal GFR Stage 2: Mild kidney damage GFR 60-89 Stage 3: Moderate kidney damage GFR 30-59 Stage 4: Severe kidney damage GFR 15-29 Stage 5: Severe kidney damage GFR <15 ESRD - chronic treatment by dialysis or transplant Performed By: #### B MP #### [address] [place] [address] High School Science Tutor: Cr Ferreira MD Urea nitrogen [Mass/Vol] 13 mg/dL Normal 8-23 [facility] Comment on above: Performed By: #### B MP #### [address] [place] [address] High School Science Tutor: Cr Ferreira MD Laboratory - Chemistry and C hemistry - challengeon 06-14-2021 GFR/1.73 sq M.predicted MDRD (S/P/Bld) [Vol rate/Area] [facility] Comment on above: Average GFR for 60-6 9 years old: 85 mL/min/1.73sq m Chronic Kidney Disease: <60 mL/min/1.73sq m Kidney failure: <15 mL/min/1.73sq m eGFR calculated using average adult body mass. Additional eGFR calculator available at: http://www.[employer]/multiple_crcl_2012.htm Stage 1: Some kidney damage normal GFR Stage 2: Mild kidney damage GFR 60-89 Stage 3: Moderate kidney damage GFR 30-59 Stage 4: Severe kidney damage GFR 15-29 Stage 5: Severe kidney damage GFR <15 ESRD - chronic treatment by dialysis or transplant CT CHEST LOW DOSE (LDCT)on CT CHEST LOW DOSE (LDCT) EXAMINATION: LOW DOSE OF THE CT CHEST WITHOUT CONTRAST 04/30/2021 12:32 pm TECHNIQUE: Low Dose of the CT Chest without the administration of intravenous contrast (MA=40). Multiplanar reformatted images are provided for review. Dose modulation, iterative reconstruction, and/or weight based adjustment of the mA/kV was utilized to reduce the radiation dose to as low as reasonably achievable. COMPARISON: None. HISTORY: ORDERING SYSTEM PROVIDED HISTORY: Lung nodule TECHNOLOGIST PROVIDED HISTORY: f/u of lung nodule Patient has lung nodule on chest x-ray which has been present since 2018. Negative history of smoking. FINDINGS: Mediastinum: No mediastinal adenopathy. Shotty mediastinal lymph nodes are present. No acute aortic abnormality, cardiomegaly, pericardial effusion or epicardial adenopathy is seen. Mild calcification of the coronary arteries is noted. The patient has hiatal hernia. Lungs/pleura: Smoothly demarcated right upper lobe nodule of 9.2 x 9.8 mm is noted image 35 series 3 with smaller satellite nodule of 2.8 mm image 38 series 3 and 3rd 2.4 mm nodule right upper lobe image 43 series 3. Nodules are noncalcified and solid but well demarcated. No effusion, consolidation or extrapleural air is noted. Tracheobronchial tree is patent. Upper Abdomen: Postsurgical changes are noted in the stomach. Gallbladder is surgically absent. No acute abnormality in the included abdominal structures. Soft Tissues/Bones: No acute osseous or soft tissue abnormality. No axillary adenopathy. IMPRESSION: 1. 3 right upper lobe nodules largest of 9.2 x 9.8 mm. On chest x-ray the largest nodule appears relatively unchanged since 2018. 2. No mediastinal adenopathy. 3. Mild atherosclerotic disease. RECOMMENDATIONS: Consider follow-up chest CT in 6-12 months. Fleischner Society guidelines for follow-up and management of incidentally detected pulmonary nodules: Multiple Solid Nodules: Nodule size greater than 8 mm In a low-risk patient, CT at 3-6 months, then consider CT at 18-24 months. In a high-risk patient, CT at 3-6 months, then CT at 18-24 months. - Low risk patients include individuals with minimal or absent history of smoking and other known risk factors. - High risk patients include individuals with a history or smoking or known risk factors. Radiology 2017 http://pubs.rsna.org/ doi/full/10.1148/radi ol.8098750440 Interpreted by: Heather Corrales MD Signed by: Heather Corrales MD 04/30/21 Final result Normal [facility] CT CHEST LOW DOSE (LDCT)Orde red By: Bebeto Corea on 04-30-2021 1. 3 right upper lob e nodules largest of 9.2 x 9.8 mm. On chest x-ray the largest nodule appears relatively unchanged since 2018. 2. No mediastinal adenopathy. 3. Mild atherosclerotic disease. RECOMMENDATIONS: Consider follow-up chest CT in 6-12 months. Fleischner Society guidelines for follow-up and management of incidentally detected pulmonary nodules: Multiple Solid Nodules: Nodule size greater than 8 mm In a low-risk patient, CT at 3-6 months, then consider CT at 18-24 months. In a high-risk patient, CT at 3-6 months, then CT at 18-24 months. - Low risk patients include individuals with minimal or absent history of smoking and other known risk factors. - High risk patients include individuals with a history or smoking or known risk factors. Radiology 2017 http://pubs.rsna.org/ doi/full/10.1148/radi ol.7781558363 [facility] [employer] Work Phone: EXAMINATION: LOW DOS E OF THE CT CHEST WITHOUT CONTRAST 04/30/2021 12:32 pm TECHNIQUE: Low Dose of the CT Chest without the administration of intravenous contrast (MA=40). Multiplanar reformatted images are provided for review. Dose modulation, iterative reconstruction, and/or weight based adjustment of the mA/kV was utilized to reduce the radiation dose to as low as reasonably achievable. COMPARISON: None. HISTORY: ORDERING SYSTEM PROVIDED HISTORY: Lung nodule TECHNOLOGIST PROVIDED HISTORY: f/u of lung nodule Patient has lung nodule on chest x-ray which has been present since 2018. Negative history of smoking. FINDINGS: Mediastinum: No mediastinal adenopathy. Shotty mediastinal lymph nodes are present. No acute aortic abnormality, cardiomegaly, pericardial effusion or epicardial adenopathy is seen. Mild calcification of the coronary arteries is noted. The patient has hiatal hernia. Lungs/pleura: Smoothly demarcated right upper lobe nodule of 9.2 x 9.8 mm is noted image 35 series 3 with smaller satellite nodule of 2.8 mm image 38 series 3 and 3rd 2.4 mm nodule right upper lobe image 43 series 3. Nodules are noncalcified and solid but well demarcated. No effusion, consolidation or extrapleural air is noted. Tracheobronchial tree is patent. Upper Abdomen: Postsurgical changes are noted in the stomach. Gallbladder is surgically absent. No acute abnormality in the included abdominal structures. Soft Tissues/Bones: No acute osseous or soft tissue abnormality. No axillary adenopathy. [employer] Work Phone: [place], [facility] Incoming Radiant Results From [employer] - 04/30/2021 5:06 PM EDT EXAMINATION: LOW DOSE OF THE CT CHEST WITHOUT CONTRAST 04/30/2021 12:32 pm TECHNIQUE: Low Dose of the CT Chest without the administration of intravenous contrast (MA=40). Multiplanar reformatted images are provided for review. Dose modulation, iterative reconstruction, and/or weight based adjustment of the mA/kV was utilized to reduce the radiation dose to as low as reasonably achievable. COMPARISON: None. HISTORY: ORDERING SYSTEM PROVIDED HISTORY: Lung nodule TECHNOLOGIST PROVIDED HISTORY: f/u of lung nodule Patient has lung nodule on chest x-ray which has been present since 2018. Negative history of smoking. FINDINGS: Mediastinum: No mediastinal adenopathy. Shotty mediastinal lymph nodes are present. No acute aortic abnormality, cardiomegaly, pericardial effusion or epicardial adenopathy is seen. Mild calcification of the coronary arteries is noted. The patient has hiatal hernia. Lungs/pleura: Smoothly demarcated right upper lobe nodule of 9.2 x 9.8 mm is noted image 35 series 3 with smaller satellite nodule of 2.8 mm image 38 series 3 and 3rd 2.4 mm nodule right upper lobe image 43 series 3. Nodules are noncalcified and solid but well demarcated. No effusion, consolidation or extrapleural air is noted. Tracheobronchial tree is patent. Upper Abdomen: Postsurgical changes are noted in the stomach. Gallbladder is surgically absent. No acute abnormality in the included abdominal structures. Soft Tissues/Bones: No acute osseous or soft tissue abnormality. No axillary adenopathy. IMPRESSION: 1. 3 right upper lobe nodules largest of 9.2 x 9.8 mm. On chest x-ray the largest nodule appears relatively unchanged since 2018. 2. No mediastinal adenopathy. 3. Mild atherosclerotic disease. RECOMMENDATIONS: Consider follow-up chest CT in 6-12 months. Fleischner Society guidelines for follow-up and management of incidentally detected pulmonary nodules: Multiple Solid Nodules: Nodule size greater than 8 mm In a low-risk patient, CT at 3-6 months, then consider CT at 18-24 months. In a high-risk patient, CT at 3-6 months, then CT at 18-24 months. - Low risk patients include individuals with minimal or absent history of smoking and other known risk factors. - High risk patients include individuals with a history or smoking or known risk factors. Radiology 2017 http://pubs.rsna.org/ doi/full/10.1148/radi ol.1658897368 [facility] [employer] Work Phone: [facility] [employer] Work Phone: XR HIP 2-3 VW W PELVIS LEFTo n 01-27-2021 XR HIP 2-3 VW W PELVIS LEFT EXAMINATION: ONE XRAY VIEW OF THE PELVIS AND TWO XRAY VIEWS LEFT HIP 01/27/2021 9:28 am COMPARISON: None. HISTORY: ORDERING SYSTEM PROVIDED HISTORY: Left hip pain FINDINGS: The bone mineralization is within normal limits. There are degenerative changes involving the hips bilaterally manifested by joint space narrowing, subchondral sclerosis and osteophytes. No acute fractures or dislocations are seen. No bony erosions are noted. IMPRESSION: 1. No acute abnormality involving the pelvis or left hip. 2. Bilateral hip osteoarthritis. Interpreted by: John Kiser MD Signed by: John Kiser MD 01/27/21 Final result Normal [facility] CT CHEST W IVCONon CT CHEST W IVCON * * *Final Report* * * DATE OF EXAM: Sep 16 2020 9:14AM [facility] [id number] - CT CHEST W IVCON / PROCEDURE REASON: multiple diagnoses * * * * Physician Interpretation * * * * RESULT: EXAMINATION: CHEST CT WITH CONTRAST CLINICAL HISTORY: Lung nodule(s) endometrial cancer Technique: Spiral CT acquisition of the chest from the thoracic inlet to the upper abdomen following IV contrast. MQ: [id number]_6 Contrast: 150 mL Omnipaque [address] Radiation dose: Integrated Dose-length product (DLP) for this visit = 211 mGy*cm CT Dose Reduction Employed: Automated exposure control (AEC) Comparison: 03/13/2020 and 05/24/2019 RESULT: Limitations: Mild motion artifact. Lines, tubes, and devices: None. Lung parenchyma and pleura: 1 cm right upper lobe nodular opacity (3: 60), stable 05/24/19. Additional diffuse reticulonodular opacities are noted in the right lung with a upper lung field predominance, stable since 03/14/2020 but decreased since 05/24/2019. 2-3 mm left upper lobe nodular opacity (3: 60), stable since 05/24/2019. Increased mild streaky scarring/discoid atelectasis in the left lower lobe. No pleural effusion. Central airways are patent. Thoracic inlet, heart, and mediastinum: No lymphadenopathy in the axillary, mediastinal, or hilar regions. The thoracic aorta and main pulmonary artery are normal in caliber. The heart is borderline enlarged. No coronary artery atherosclerotic calcifications are noted, although the study is not optimized for coronary assessment. No pericardial effusion or thickening. Small hiatal hernia. Postoperative changes of the stomach and gastroesophageal junction. Bones and soft tissues: No suspicious lytic or blastic osseous lesions. Upper abdomen: Borderline hepatic fatty infiltration. Cholecystectomy clips. IMPRESSION: 1. Increased mild streaky scarring/discoid atelectasis in the left lower lobe. 2. Reticulonodular opacities in the right lung, stable since 03/13/2020 but decreased since 05/24/2019. 3. More focal nodular opacities measuring up to 1 cm, stable since 05/24/2019. Consider one-year follow-up to document 2 year stability. 4. Small hiatal hernia. 5. Diffuse hepatic fatty infiltration. Transcribe Date/Time: Sep 16 2020 1:37P Dictated by: LUANN RICHARDS MD This examination was interpreted and the report reviewed and electronically signed by: LUANN RICHARDS MD on Sep 16 2020 3:10PM EST Thank you for allowing us to participate in the care of your patient. Should there be any questions regarding this interpretation, please call [phone]. If you are unable to reach us at the number above, please feel free to contact [facility] eRadiology at [phone]. [id number] N Normal [facility] Creatinineon 09-16-2020 Creatinine [Mass/Vol] 1.18 mg/dL High 0.58-0.96 [facility] eGFR- Amer. 56 Normal [facility] eGFR-All Other Races 46 . Normal [facility] Comment on above: Result Comment: eGFR (Estimated GFR) Units of measure: mL/min/1.73 meters squared eGFR is derived from the reexpressed MDRD Study equation using the following parameters: serum creatinine, age, gender and race. The creatinine assay has been calibrated to be traceable to IDMS. An eGFR <60 mL/min/1.73m2 for >3 months is consistent with chronic kidney disease. Refer to KDOQI guidelines for clinical interpretation. In patients with unstable renal function, e.g. those with acute kidney injury, the eGFR may not accurately reflect actual GFR. [place] 09-15-2020 JESS Telephone (AGUSTÍN) RASHAWN MULTANI ([id number]) 1960 F Date Time Provider Department 09/15/20 TINO DUTTON (BLELE) AGUSTÍN During your visit today, we recorded the following information about you: Tino Dutton RN, RN 09/15/2020 12:39 PM Signed Pt is previous [facility] pt not yet established with new [facility]. Pt is schedule for CT tomorrow and needs referral order for new provider at [place]. Celeste: Order pending for referral. Please review and sign. BELLE Vargas RN, RN 09/15/2020 1:08 PM Signed Clerical: Please set pt up with referral to [facility] in [place] as soon as possible. Thank you. Tino Dutton RN Danay Shaffer Sec 09/16/2020 8:43 AM Signed Patient is scheduled with Dr Manuel Guillory, I will let patient know. 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] Other Visit Diagnoses:Lung nodules [R91.8] Endometrial cancer (HCC) [C54.1] Order(s):CONSULT TO GYNECOLOGIC/ONCOLOGY [[id number]] Order #: [id number]: 1 FUTURE Prescriptions as of 09/15/2020 Sig: LANTUS SOLOSTAR U-100 INSULIN* ASPIRIN 81 MG TABLET,DELAYED * Take 81 mg by mouth once rin* CYANOCOBALAMIN (VIT B-12) 100* Take 100 mcg by mouth once da* METOPROLOL SUCCINATE ER 50 MG* Take 50 mg by mouth once rin* GABAPENTIN 400 MG CAPSULE ONDANSETRON HCL 8 MG TABLET OXYBUTYNIN CHLORIDE ER 10 MG * LAMOTRIGINE 200 MG TABLET Take 200 mg by mouth once rico* LORAZEPAM 0.5 MG TABLET Take 0.5 mg by mouth as neede* TRAZODONE 100 MG TABLET Take 100 mg by mouth daily at* CONJUGATED ESTROGENS 0.625 MG* Use 1 g vaginally once each w* CHOLECALCIFEROL (VITAMIN D3) * Take 2,000 Units by mouth onc* GLIMEPIRIDE 1 MG TABLET Take 1 mg by mouth daily with* ARIPIPRAZOLE 5 MG TABLET Take 10 mg by mouth once rin* LINACLOTIDE 290 MCG CAPSULE Take 290 mcg by mouth once da* SENNOSIDES 8.6 MG CAPSULE Take by mouth as needed. QUETIAPINE 300 MG TABLET Take 300 mg by mouth three ti* LISINOPRIL 10 MG TABLET Take 10 mg by mouth once rin* ESCITALOPRAM 20 MG TABLET Take 10 mg by mouth once rin* LEVOTHYROXINE 50 MCG CAPSULE Take 50 mcg by mouth once rico* ARMODAFINIL 150 MG TABLET Take 150 mg by mouth once rico* MULTIVITAMIN CAPSULE Take 1 capsule by mouth once * ESZOPICLONE 3 MG TABLET Take 3 mg by mouth at bedtime* ARIPIPRAZOLE 5 MG TABLET Take 5 mg by mouth once daily. Problem List As Of Date 09/15/2020 Noted Resolved Chronic kidney insufficiency, stage 2 (mild) [N*05/14/2019 Encounter Status:Closed by TINO DUTTON RN on 09/16/20 Normal [facility] Vital Signs Date Time Vital Sign Value Performing Clinician Facility 09-28-2022 14:57-0400 Blood Pressure Location PAULA JOSHI [facility] 09-28-2022 14:57-0400 Diastolic blood pressure 64 mm[Hg] PAULA JOSHI [facility] 09-28-2022 14:57-0400 Heart rate 57 /min PAULA JOSHI [facility] 09-28-2022 14:57-0400 Systolic blood pressure 114 mm[Hg] PAULA JOSHI [facility] 02-18-2022 14:15-0400 Body height 157.48 cm Cherelle [facility] Other [facility] Other 02-18-2022 14:15-0400 Body mass index (BMI) [Ratio] 32.19 kg/m2 Cherelle Wilson Other [facility] Other 02-18-2022 14:15-0400 Body temperature 99 [degF] Cherelle Wilson Other [facility] Other 02-18-2022 14:15-0400 Body weight 79.83 kg Cherelle Wilson Other [facility] Other 02-18-2022 14:15-0400 Respiratory rate 18 /min Cherelle Wilson Other [facility] Other 02-18-2022 14:15-0400 SaO2% (BldA) [Mass fraction] 95 % Cherelle Wilson Other [facility] Other 02-14-2022 10:10-0400 Body height 157.48 cm Cherelle Wilson Other [facility] Other 02-14-2022 10:10-0400 Body mass index (BMI) [Ratio] 32.19 kg/m2 Cherelle Wilson Other [facility] Other 02-14-2022 10:10-0400 Body temperature 98.6 [degF] Cherelle Wilson Other [facility] Other 02-14-2022 10:10-0400 Body weight 79.83 kg Cherelle Wilson Other [facility] Other 02-14-2022 10:10-0400 Respiratory rate 18 /min Cherelle Wilson Other [facility] Other 02-14-2022 10:10-0400 SaO2% (BldA) [Mass fraction] 98 % Cherelle Guerinault Other [facility] Other 01-20-2022 14:30-0400 Body height 157.48 cm Rinku Ramos Other [facility] Other 01-20-2022 14:30-0400 Body mass index (BMI) [Ratio] 32.19 kg/m2 Rinku Ramos Other [facility] Other 01-20-2022 14:30-0400 Body weight 79.83 kg Rinku Ramos Other [facility] Other 12-28-2021 14:30-0400 Body height 157.48 cm Cr Cruz Other [facility] Other 12-28-2021 14:30-0400 Body mass index (BMI) [Ratio] 33.28 kg/m2 Cr Cruz Other [facility] Other 12-28-2021 14:30-0400 Body weight 82.56 kg Cr Cruz Other [facility] Other 12-28-2021 11:25-0400 Blood Pressure Location PAULA JOSHI [facility] 12-28-2021 11:25-0400 Diastolic blood pressure 74 mm[Hg] PAULA JOSHI [facility] 12-28-2021 11:25-0400 Heart rate 53 /min PAULA JOSHI [facility] [place] 12-28-2021 11:25-0400 Respiratory rate 16 /min PAULA JOSHI [facility] Indra 12-28-2021 11:25-0400 Systolic blood pressure 142 mm[Hg] PAULA JOSHI [facility] [place] 11-01-2021 13:50-0400 Body temperature 97.7 [degF] Manuel Guillory MD Work Phone: [facility] 11-01-2021 13:50-0400 Body weight 82.37 kg Manuel Guillory MD Work Phone: [facility] 11-01-2021 13:50-0400 Diastolic blood pressure 65 mm[Hg] Manuel Guillory MD Work Phone: [facility] 11-01-2021 13:50-0400 Heart rate 58 /min Manuel Guillory MD Work Phone: [facility] 11-01-2021 13:50-0400 Systolic blood pressure 136 mm[Hg] Manuel Guillory MD Work Phone: [facility] Encounters Encounter Date Encounter Type Care Provider Facility Start: 08-01-2023 ambulatory PAULA JOSHI [facility]ili ty:[facility] Start: 07-13-2023 ambulatory Arabella GALLAGHER Facili ty:[facility] Start: 07-10-2023 Refill Salud nagel 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 Work Phone: [facility] Comment on above: Dyslipidemia Vitamin D deficiency ; Neuropathy Start: 06-15-2023 End: 07-03-2023 ambulatory SALUD HANSEN [facility] Start: 06-12-2023 End: 06-13-2023 ambulatory LINDA SMITH Not Available Start: 06-07-2023 End: 06-07-2023 ambulatory LINDA S RUSHER Not Available Start: 06-05-2023 Patient encounter procedure Salud Hansen 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 [facility] Start: 05-16-2023 End: 05-16-2023 ambulatory LINDA S LUIS Not Available Start: 03-07-2023 End: 03-08-2023 ambulatory PAULA JOSHI Facility:[facility] Start: 03-07-2023 End: 03-07-2023 Patient encounter procedure PAULA JOSHI [facility] Start: 10-27-2022 End: 10-28-[address] ARABELLA GALLAGHER . Facility: Start: 10-19-2022 Encounter for preprocedural cardiovascular examination DR ARABELLA GALLAGHER . [facility] Start: 10-19-2022 Encounter for preprocedural laboratory examination DR ARABELLA GALLAGHER . [facility] Start: 10-18-2022 End: 10-18-2022 ambulatory SIMIN LAN . Facility: Start: 10-13-2022 End: 10-14-[address] ARABELLA GALLAGHER . Facility: Start: 10-13-2022 End: 10-14-2022 Encounter for preprocedural laboratory examination DR ARABELLA GALLAGHER . Facility: Start: 09-28-2022 End: 09-29-2022 ambulatory PAULA JOSHI Facility:[facility] Start: 09-28-2022 End: 09-28-2022 Patient encounter procedure PAULA JOSHI [facility] Start: 03-24-2022 End: 03-24-2022 ambulatory Rinku Ramos Other [facility] Other Start: 03-24-2022 Telephone encounter [facility] Start: 03-16-2022 End: 03-16-2022 ambulatory Rinku Ramos Other [facility] Other Start: 03-16-2022 Telephone encounter [facility] Start: 02-18-2022 End: 02-18-2022 ambulatory Cherelle [facility] Other [facility] Other Start: 02-18-2022 Office outpatient vi sit 15 minutes Cherelletameka [facility] Start: 02-14-2022 End: 02-14-2022 ambulatory Cherelle [facility] Other [facility] Other Start: 02-14-2022 Office outpatient vi sit 15 minutes Cherelletameka [facility] Start: 01-20-2022 End: 01-20-2022 ambulatory Rinku Ramos Other [facility] Other Start: 01-20-2022 Patient encounter procedure R[facility]u [facility] Start: 01-17-2022 End: 01-17-2022 ambulatory Cr Cruz Other [facility] Other Start: 01-17-2022 Telephone encounter Cr Cruz [facility] Start: 01-11-2022 End: 01-11-2022 Lab Drop off Kaylyn Serrano [facility] Start: 01-11-2022 End: 01-11-2022 Patient encounter procedure Jostin Kern Jr. [facility] Norma Start: 01-06-2022 End: 01-06-2022 ambulatory Cr Cruz Other [facility] Other Start: 01-06-2022 Telephone encounter Cr Cruz [facility] Start: 12-30-2021 End: 12-30-2021 ambulatory Cr Cruz Other [facility] Other Start: 12-30-2021 Telephone encounter Cr Cruz [facility] Start: 12-28-2021 End: 12-28-2021 Lab Drop off PAULA JOSHI [facility] Start: 12-28-2021 End: 12-28-2021 ambulatory Cr Cruz Other [facility] Other Start: 12-28-2021 Office outpatient vi sit 25 minutes Cr Navinkel [facility] Start: 12-28-2021 Telephone encounter Cr Nancy [facility] Start: 12-28-2021 End: 12-28-2021 Patient encounter procedure PAULA JOSHI [facility] Start: 11-01-2021 End: 11-01-2021 ambulatory Manuel Guillory MD Work Phone: Gynecology Comment on above: Endometrial cancer ( HCC) (Primary Dx); VAIN I (vaginal intraepithelial neoplasia grade I); Encounter for screening mammogram for malignant neoplasm of breast Start: 11-01-2021 End: 11-01-2021 Patient encounter procedure Manuel Guillory MD Work Phone: [facility] Start: 06-14-2021 End: 06-15-2021 ambulatory [facility] Start: 06-14-2021 End: 06-14-2021 Subsequent hospital visit by physician Alethea [place] MD Work Phone: [facility] Laboratory Comment on above: Stage 3a chronic kid kellee disease (HCC) Start: 04-30-2021 End: 05-03-2021 ambulatory KULADEEP GIDDA [facility] Start: 04-30-2021 End: 05-02-2021 Subsequent hospital visit by physician [facility] Cat Scan Room [facility] CT Scan Comment on above: Lung nodule Start: 01-27-2021 End: 01-30-2021 ambulatory KULADEEP GIDDA [facility] Start: 12-31-2019 End: 12-31-2019 Subsequent hospital visit by physician Rich Juan Work Phone[facility] Procedures Date Procedure Procedure Detail Performing Clinician Start: 06-16-2023 Mammography Salud Giuseppe weaver Mumboe Work Phone: Start: 06-05-2023 Adult depression scr eening assessment Salud Fieldssler Mumboe Work Phone: Start: 01-27-2023 Microalbumin [Mass/v olume] in Urine by Test strip Salud Chinuessler Mumboe Work Phone: Start: 10-27-2022 Cystourethroscopy wi th dilation of urethral stricture PAULA JOSHI Start: 09-16-2021 Cystourethroscopy wi th dilation of urethral stricture PAULA JOSHI Start: 06-14-2021 Basic metabolic pane l calcium total Asad Valverde MD Work Phone: Start: 04-30-2021 Ct thorax w/o contra st material Bebeto Corea MD Work Phone: Start: 01-21-2021 Cystoscopy PAULA P ISMA Start: 08-03-2020 Colonoscopy Salud weaver Mumboe Work Phone: Start: 03-19-2020 Cystourethroscopy wi th dilation of urethral stricture PAULA JOSHI Start: 11-28-2019 Cystoscopy PAULA P ERRY Start: 02-05-2019 Mammography Manuel Guillory MD Work Phone: Start: 02-08-2018 Cystourethroscopy wi th dilation of urethral stricture PAULA JOSHI Start: 05-11-2017 Cystourethroscopy wi th dilation of urethral stricture PAULAMAGUI JOSHI Start: 05-25-2017 Cystourethroscopy wi th dilation of urethral stricture PAULA JOSHI Start: 05-04-2016 Urodynamic studies AIMEE JOSHI Start: 11-26-2015 Cystourethroscopy wi th dilation of urethral stricture PAULA JOSHI Start: 03-10-2015 Cystoscopy PAULA ASHBY Biopsy of breast PAULA FREEDMAN RRY Bypass of stomach PAULA Hollingsworth ERRY section PAULA FREEDMAN RRY Cholecystectomy PAULA TEMPLETON repair of hernia PAULA FREEDMAN RRY Tonsillectomy PAULA JOSHI Plan of Treatment Date Care Activity Detail Author Start: 08-03-2030 Screening for malignant neoplasm of colon [facility] Start: 12-18-2025 LIPID SCREEN LIPID SCREEN [facility] Start: 10-19-2025 PAP TESTING PAP TESTING [facility] Start: 06-16-2025 Screening for malignant neoplasm of breast [facility] Start: 03-20-2025 HPV TESTING HPV TESTING [facility] Start: 08-17-2024 DIABETES SCREEN DIABETES SCREEN [facility] Start: 06-16-2024 Adult BMI Screening [facility] Start: 06-14-2024 Tobacco Screening [facility] Start: 06-05-2024 Depression Screening [facility]ening [facility] Start: 06-05-2024 Fall Risk Screening Fall Risk [facility]ening [facility] Start: 06-05-2024 Medicare Annual Wellness Visit Medicare Annual Wellness [facility] Start: 01-28-2024 Urine screening for protein [facility]rine [facility]albumin [facility] Start: 12-01-2023 Adult BMI Follow Up Plan Adult BMI Follow Up Plan [facility] Start: 10-09-2023 End: 10-09-2023 Patient encounter procedure 10/09/2023 3:00 PM EDT Office Visit [facility] [address] [place], [place] [address], [place] [phone] Salud Hansen, 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 [address] [facility] B, [facility] [place] [id number] [facility] Start: 09-22-2023 End: 09-22-2023 Patient encounter procedure 09/22/2023 2:30 PM EDT Office Visit [facility] [address] [facility] [place] [phone] Yamilka Kelsey MD [facility], [address] [address] [facility] Start: 08-09-2023 End: 08-09-2023 Patient encounter procedure 08/09/2023 11:00 AM EST Office Visit [facility] [place] [phone] Sabrina Bañuelos, 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 [address] [facility], [address] [address] [facility] Start: 07-12-2023 End: 07-12-2023 Clinical Support 07/12/2023 3:15 PM EST Clinical Support [facility] Medication Therapy Management [address] [place] [place] [address] [facility] Start: 03-03-2023 Influenza vaccination Influenza Vaccine [facility] Start: 12-24-2022 Screening for malignant neoplasm of breast Breast cancer screen [facility] Start: 03-03-2022 Influenza vaccination INFLUENZA (Season Ended) [facility] Start: 12-27-2021 End: 12-27-2021 Patient encounter procedure 12/27/2021 Office Visit Nephrology Asad Valverde MD [address] [facility] [place] [address] [facility] Start: 12-18-2021 HEMOGLOBIN/HEMATOCRIT HEMOGLOBIN/HEMATOCRIT [facility] Start: 10-18-2021 End: 10-18-2021 Patient encounter procedure [facility] Start: 09-16-2021 SERUM CREATININE SERUM CREATININE [facility] Start: 08-17-2021 Hemoglobin A1c measurement A1C test (Diabetic or Prediabetic) [facility] Start: 06-28-2021 End: 06-28-2021 Patient encounter procedure 06/28/2021 Office Visit Nephrology Asad Valverde MD [address] [place] [address] [phone] [facility] Start: 03-20-2021 Hemoglobin A1c measurement A1C test (Diabetic or Prediabetic) [facility] Work Phone: Start: 03-03-2021 Influenza vaccination Flu vaccine (#1) [facility] Start: 03-03-2020 Influenza vaccination Flu vaccine (#1) [place], [place] Start: 02-06-2020 Mammography MAMMOGRAM [facility] Start: 01-12-2020 Creatinine measurement Creatinine monitoring [facility] Start: 01-12-2020 Potassium monitoring Potassium monitoring [facility] Start: 12-19-2018 Annual Wellness Visit (AWV) Annual Wellness Visit (AWV) [facility] Start: 10-09-2018 Lipid panel Lipid screen [facility] Start: 09-28-2018 Diabetic microalbuminuria test Diabetic microalbuminuria test [place], [place] Start: 09-28-2018 Thyroid stimulating hormone measurement TSH testing [facility] Start: 09-28-2018 TSH Qn TSH testing [place] Start: 09-28-2018 Urine screening for protein Diabetic microalbuminuria test [facility] Start: 07-20-2012 Administration of varicella zoster vaccine Zoster (Shingles) Vaccine (1 of 2) [facility] [employer] [facility] Start: 07-20-2012 Shingles Vaccine (2 of 3) Shingles Vaccine (2 of 3) [facility] Start: 2008 Screening for malignant neoplasm of breast Breast cancer screen [place], [place] Start: 2008 Screening for malignant neoplasm of colon Colon cancer screen colonoscopy [place] Start: 2008 Shingles Vaccine (1 of 2) Shingles Vaccine (1 of 2) [place], [place] Start: 2008 SHINGRIX VACCINE (1 of 2) SHINGRIX VACCINE (1 of 2) [facility] Start: 2003 COLOGUARD (FIT-DNA) COLOGUARD (FIT-DNA) [facility] Start: 2003 Colonoscopy COLONOSCOPY [facility] Start: 2003 COLORECTAL CANCER SCREENING COLORECTAL CANCER SCREENING [facility] Start: [address] COLONOGRAPHY [facility] Start: 2003 FECAL OCCULT BLOOD FECAL OCCULT BLOOD [facility] Start: 2003 SIGMOIDOSCOPY SIGMOIDOSCOPY [facility] Start: 1988 Screening for malignant neoplasm of cervix [facility] Start: 1979 Screening for malignant neoplasm of cervix [facility] Start: 1977 DTaP,Tdap and Td Vaccines (1 - Tdap) DTaP,Tdap and Td Vaccines (1 - Tdap) [facility] Start: 1977 DTaP/Tdap/Td vaccine (1 - Tdap) DTaP/Tdap/Td vaccine (1 - Tdap) [facility] Start: 1977 Urine microalbumin profile DTAP,TDAP,TD (1 - Tdap) [facility] Start: 1976 ANNUAL PCP TEAM CHRONIC DISEASE VISIT ANNUAL PCP TEAM CHRONIC DISEASE VISIT [facility] Start: 1976 Diabetic foot examination Diabetic Foot Exam [facility] Start: 1976 Diabetic retinal exam Diabetic retinal exam [facility] Start: 1976 HEPATITIS C SCREENING HEPATITIS C SCREENING [facility] Start: 1976 HIV SCREENING HIV SCREENING [facility] Start: 1973 HIV screening HIV screen [facility] Start: 1970 Adult depression screening assessment DEPRESSION SCREENING [facility] Start: 1970 COVID-19 Vaccine (1) COVID-19 Vaccine (1) [facility] Start: 1968 Diabetic foot examination Diabetic foot exam [facility] Start: 1968 Diabetic retinal exam Diabetic retinal exam [place], [place] Start: 1968 HbA1c (Bld) [Mass fraction] A1C test (Diabetic or Prediabetic) [place], [place] Start: 1964 Pneumococcal 0-64 years Vaccine (1 of 1 - PPSV23) Pneumococcal 0-64 years Vaccine (1 of 1 - PPSV23) [place] Start: 1964 Pneumococcal 0-64 years Vaccine (1 of 2 - PPSV23) Pneumococcal 0-64 years Vaccine (1 of 2 - PPSV23) [facility] Start: 1963 COVID-19 VACCINE (1) COVID-19 VACCINE (1) [facility] Start: 1958 Glaucoma screening Diabetic Ophthalmology Exam [facility] Start: 1958 Hepatitis C screening Hepatitis C screen [facility] PAP FLUID VAGINAL DIAGNOSTIC PAP FLUID VAGINAL DIAGNOSTIC Lab Routine Endometrial cancer (HCC) VAIN I (vaginal intraepithelial neoplasia grade I) Ordered: 11/01/2021 [facility] Work Phone: Comment on above: Ordered: 11/01/2021 End: 12-01-2022 Screening mammography bi 2-view breast inc cad CHARLI SCREENING Radiology Routine Encounter for screening mammogram for malignant neoplasm of breast 1 Occurrences starting 11/01/2021 until 12/01/2022 [facility] Work Phone: Comment on above: 1 Occurrences starting 11/01/2021 until 12/01/2022 [facility] Immunizations Immunization Date Immunization Notes Care Provider Jeanna harvey 03-29-2019 influenza virus vaccine, unspecified formulation PAULA JOSHI [facility] 03-29-2019 influenza, injectable, quadrivalent, contains preservative Salud Hansen APRN-ROAD DESIGN ENGINEER Work Phone: [facility] 06-07-2018 influenza virus vaccine, unspecified formulation PAULA JOSHI [facility] 06-07-2018 influenza, injectable, quadrivalent, preservative free Manuel Guillory MD Work Phone: [facility] Work Phone: 06-04-2018 Influenza, injectable, Madin Denbo Canine Kidney, quadrivalent with preservative Salud Hansen 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 Work Phone: [facility] 06-22-2017 influenza virus vaccine, unspecified formulation PAULA RASHIDA [facility] 06-22-2017 influenza, injectable, quadrivalent, preservative free Manuel Guillory MD Work Phone: [facility] Work Phone: 06-05-2017 influenza virus vaccine, unspecified formulation PAULA RASHIDA [facility] 06-05-2017 influenza, injectable, quadrivalent, contains preservative Manuel Guillory MD Work Phone: [facility] Work Phone: 06-01-2017 influenza virus vaccine, unspecified formulation PAULA JOSHI [facility] 06-01-2017 influenza, injectable, quadrivalent, preservative free Manuel Guillory MD Work Phone: [facility] Work Phone: 04-04-2016 influenza virus vaccine, unspecified formulation PAULA RASHIDA [facility] 04-04-2016 influenza, injectable, quadrivalent, preservative free Manuel Guillory MD Work Phone: [facility] Work Phone: 04-02-2014 influenza, injectable, quadrivalent, contains preservative Cr [facility] Other [facility] Other 05-25-2012 zoster vaccine, live Salud Hansen 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 Work Phone: [facility] 05-25-2012 zoster vaccine, unspecified formulation Salud Hansen 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 2020 Medicare [id number] 2020 Medicare HUMANA MEDICARE HUMANA GOLD PLUS [id number] 2020-Present [phone] [address] [address] [place] [address] [facility] [id number] 2018 Medicaid MEDICAID [facility] MEDICAID [id number] 2018-Present [phone] [address] [place] [address] Medicaid [id number] 2017 Medicaid MEDICAID [facility] DEPT OF JOB xxxxxxxxxxxx 2017-Present [phone] [address] [place] [address] xxxxxxxxxxxx [id number] 2017 [place] ED[place] [id number] 2017-Present [phone] [address] [place] [address] [id number] 2014 Medicare MEDICARE MEDICAR E PART A AND B xxxxxxxxxxx 2014-Present [phone] [place] [address] xxxxxxxxxxx [id number] 1959 Medicaid [id number] 1959 Unknown [id number] 1958 Unknown [id number] 1958 Unknown [id number] 1958 Unknown [id number] 1958 Unknown [id number] 1958 Unknown [id number] 1958 Unknown [id number] [id number] 1958 Unknown [id number] [id number] 1958 Unknown [id number] [id number] 9 1958 Unknown [id number] 2.16.840.1.680183.3.579.2.125 9 1958 Unknown [id number] 2.16.840.1.297539.3.579.2.125 9 1958 Unknown [id number] [id number] 9 1958 Unknown [id number] 2.16.840.1.186024.3.579.2.128 6 1958 Unknown [id number] [id number] 1958 Unknown [id number] [id number] 1958 Unknown [id number] [id number] 1958 Unknown [id number] Social History Date Type Detail Facility Start: 01-11-2019 End: 07-08-2022 Tobacco smoking status NHIS Never smoker [facility] Start: 01-11-2019 End: 06-14-2021 Alcohol intake Lifetime non-drinker (finding) [place] Start: 01-11-2019 History SDOH Alcohol Frequency 1 [place], [place] Start: 1960 Sex Assigned At Not on file [place] Start: 04-19-2021 End: 07-08-2022 Tobacco use and exposure Never used [facility] Start: 10-22-2021 End: 11-01-2021 Exposure to SARS-CoV-2 (event) Not sure [facility] Start: 10-19-2020 Alcohol intake Ex-drinker (finding) [facility] Start: 07-15-2022 End: 04-18-2023 Sex Assigned At [facility] Other Start: 06-16-2023 Alcohol intake Current non-drinker of alcohol (finding) [facility] [employer] [facility] Start: 07-15-2022 End: 04-18-2023 History of Social function [facility] Do you belong to any clubs or organizations such as orthodoxy groups, unions, fraternal or athletic groups, or school groups? Yes [facility] Are you now , , , , never or living with a partner? [facility] How often to you hav e a drink containing alcohol? Never [facility] How many standard dr inks containing alcohol do you have on a typical day? Patient does not drink [facility] How hard is it for y ou to pay for the very basics like food, housing, medical care, and heating Somewhat hard [facility] Do you feel stress - tense, restless, nervous, or anxious, or unable to sleep at night because your mind is troubled all the time - these days [OSQ] Rather much [facility] Start: 07-15-2022 Sexual orientation Heterosexual (finding) [facility] Medical Equipment Procedure Code Equipment Code Equipment Origin al Text Equipment Identifier Dates Hague Sut Fiber brooke 1.35mm 1.6mm Rpl [id number] - [id number] - [id number] Start: 07-15-2022 [id number] Start: 07-15-2022 10 Degree Jaramillo Wedge With Lati-Structure , 18 Mm X 18 Mm, X 8 Mm [id number] Start: 07-15-2022 Comment on above: Description: Romina Jaramillo bone wedge : 10 degree Jaramillo wedge with Lati-structure , 18 mm x 18 mm, x 8 mm Plate Bn 1.3mm 0 d Med Dflxn Prm Gorilla Prcs Gd Mtp Lt - [id number] - [id number] Start: 07-15-2022 Screw Bn 24mm 3. 5mm Cnn Mn-Mnstr St - [id number] - [id number] Start: 07-15-2022 1 strip by other route 4 (four) times daily before meals and at bedtime as needed for high blood sugar or low blood sugar. [id number] Start: 06-18-2021 1 each by miscellaneous route 3 (three) times a day. [id number] Start: 06-18-2021 Use once per day [id number] Start: 04-18-2023 Goals Date Patient Goal Desired Activity /State Personal health goal Comment on above: Formatting of this n ote might be different from the original. Evaluation of progress towards goal: safe transition from hospital to home alone with family support. Functional Status Date Assessment Result Facility 09-28-2022 Functional Status N/A [facility] Norma 12-28-2021 Functional Status No [facility] Indra Clinical Notes 09-16-2020 to 09-28-2022 Note Date & Type Note Facility 09-28-2022 Hospital Discharg e instructions Patient Education 09/28/2022 15:30:46 Urethral Dilation Urethral Dilation Urethral dilation is a procedure to stretch open (dilate) the urethra. The urethra is the tube that drains urine from the bladder out of the body. In women, the urethra opens above the vaginal opening. In men, the urethra opens at the tip of the penis. Urethral dilation is usually done to treat narrowing of the urethra (urethral stricture), which can make it difficult to pass urine. Urethral dilation widens the urethra so that you can pass urine normally. Urethral dilation is done through the urethral opening. There are no incisions made during the procedure. Tell a health care provider about: Any allergies you have. All medicines you are taking, including vitamins, herbs, eye drops, creams, and nlwu-fsa-xknmbwb medicines. Any problems you or family members have had with anesthetic medicines. Any blood disorders you have. Any surgeries you have had. Any medical conditions you have. Whether you are or may be . What are the risks? Generally, this is a safe procedure. However, problems may occur, including: Bleeding. Infection. A return of urethral stricture, which requires repeating the dilation procedure. Damage to the urethra, which may require reconstructive surgery. Allergic reactions to medicines. What happens before the procedure? Medicines Ask your health care provider about: Changing or stopping your regular medicines. This is especially important if you are taking diabetes medicines or blood thinners. Taking medicines such as aspirin and ibuprofen. These medicines can thin your blood. Do not take these medicines unless your health care provider tells you to take them. Taking oqlu-cxm-pnorgqh medicines, vitamins, herbs, and supplements. General instructions Follow instructions from your health care provider about eating or drinking restrictions. Plan to have someone take you home from the hospital or clinic. If you will be going home right after the procedure, plan to have someone with you for 24 hours. Ask your health care provider what steps will be taken to help prevent infection. These may include: ?Washing skin with a germ-killing soap. ?Taking antibiotic medicine. What happens during the procedure? An IV may be inserted into one of your veins. You will be given one or more of the following medicines: ?A local anesthetic to numb your urethral opening. This will be applied as a gel that will also lubricate the urethral opening. ?A sedative to help you relax. A thin tube with a light and camera on the end (cystoscope) will be inserted into your urethra. Your urethra will be rinsed (irrigated) with a germ-free (sterile) water solution. Narrow parts of your urethra will be stretched open using a dilator tool. Your surgeon will start with a very thin dilator, then use wider dilators as needed. A thin tube with an inflatable balloon on the tip may be inserted into your urethra. The balloon may be inflated to help stretch your urethra open. Your urethra will be irrigated. The procedure may vary among health care providers and hospitals. What can I expect after the procedure? After the procedure, it is common to have: ?Burning pain when urinating. ?Blood in your urine. ?A need to urinate frequently. You will be asked to urinate before you leave the hospital or clinic. Your urine flow should improve within a few days. Follow these instructions at home: Medicines Take jatb-yve-afhxkrs and prescription medicines only as told by your health care provider. If you were prescribed an antibiotic medicine, take it as told by your health care provider. Do not stop taking the antibiotic even if you start to feel better. Ask your health care provider if the medicine prescribed to you: ?Requires you to avoid driving or using heavy machinery. ?Can cause constipation. You may need to take these actions to prevent or treat constipation: ?Take ewsd-ijm-yvzmeax or prescription medicines. ?Eat foods that are high in fiber, such as beans, whole grains, and fresh fruits and vegetables. ?Limit foods that are high in fat and processed sugars, such as fried or sweet foods. General instructions Do not drive for 24 hours if you were given a sedative during your procedure. If you were sent home with a small, lubricated tube (catheter) to help keep your urethra open, follow your health care provider's instructions about how and when to use it. Drink enough fluid to keep your urine pale yellow. Return to your normal activities as told by your health care provider. Ask your health care provider what activities are safe for you. Keep all follow-up visits as told by your health care provider. This is important. Contact a health care provider if: Your urine is cloudy and smells bad. You develop new bleeding when you urinate. You pass blood clots when you urinate. You have pain that does not get better with medicine. You have a fever. You have swelling, bruising, or discoloration of your genital area. This includes the penis, scrotum, and inner thighs for men, and the outer genital organs (vulva) and inner thighs for women. Get help right away if: You develop new bleeding that does not stop. You cannot pass urine. Summary Urethral dilation is a procedure to stretch open (dilate) the urethra. Urethral dilation is usually done to treat narrowing of the urethra (urethral stricture), which can make it difficult to pass urine. Ask your health care provider about changing or stopping your regular medicines before the procedure. After the procedure, it is common to have burning pain when urinating, blood in your urine, and a need to urinate frequently. This information is not intended to replace advice given to you by your health care provider. Make sure you discuss any questions you have with your health care provider. Document Released: 07/15/2016 Document Revised: 08/01/2019 Document Reviewed: 08/01/2019 [employer] Patient Education 2019 [email or web address]. Follow Up Care 09/05/2022 10:29:01 With:AILEEN WASSERMAN, Arabella Clark, URL Address: [address] [place] [address]- When: Unknown Comments:Office will call to schedule Cysto/UD. [facility] [place] 03-16-2022 Evaluation note Encounter Date Diagnosis Assessment Notes Mar, Diarrhea (ICD-10 - R19.7) [facility] Other 08-19-2022 Evaluation note* Encounter Date Diagnosis Assessment Notes Treatment Notes Treatment Clinical Notes Jan, Contact with and (suspected) exposure to other viral communicable diseases (ICD-10 - Z20.828) Your Covid PCR test is negative. This means at this time you do not have COVID. Jan, Acute ethmoidal sinusitis, recurrence not specified (ICD-10 - J01.20) Sinus infections can be triggeredby a secondary infection; usually a viral URI or even seasonal allergies. Take medications as directed. Use saline nasal spray prior to presciption nasal spray. Complete all doses of medication even if you start to feel better. Symptoms should improve during treatment period. Do not use any over the counter medications is received prescription cough syrup is given. Follow up with primary care provider if no improvement of symptoms occur by end of treatment. Jan, Bronchitis (ICD-10 - J40) Take medications as directed. Rest and increase fluid intake. Take meds with food to prevent stomach upset. Use inhaler as needed for coughing spells and SOB. It is better to use inhaler a few times a day over the next 2-3 days. Follow up with primary care provider if symptoms do not improve with treatment plan, although it may take a few weeks for the cough to go away [facility] Other 08-15-2022 Evaluation note* Encounter Date Diagnosis Assessment Notes Treatment Notes Treatment Clinical Notes Jan, Contact with and (suspected) exposure to other viral communicable diseases (ICD-10 - Z20.828) Your Covid PCR test is negative. This means at this time you do not have COVID. Jan, Bronchitis (ICD-10 - J40) Bronchitis is inflammation of openings of lungs. It is not caused from bacteria. Antibiotics are not needed to treat this illness. Take medications as directed. Rest and increase fluid intake. Take meds with food to prevent stomach upset. Use inhaler as needed for SOB. Blood sugars may increase due to steroid treatment so eat lower amount of carbs. Follow up with primary care provider if symptoms do not improve with treatment plan, although it may take a few weeks for the cough to go away. [facility] Other 07-21-2022 Evaluation note* Encounter Date Diagnosis Assessment Notes Treatment Notes Treatment Clinical Notes Dec, Irritable bowel syndrome with diarrhea (ICD-10 - K58.0) PATIENT STATES THESE ARE PENCIL FORM AND A BLACKISH COLOR DUE TO IRON. PATIENT TO FINISH VANCO AND CONTINUE ON THE COLESTIPOL [facility] Other 07-12-2022 Evaluation + Plan note Diagnostic Tests Pending * Urine Culture 01/11/22 Future Scheduled Tests Laboratory* BUN 01/18/21 * Creatinine 01/18/21 * Electrolyte Panel 01/18/21 * CBC w/ Auto Diff 01/18/21 Radiology* XR Chest 2 Views 01/18/21 [facility] Evaluation note* Encounter Date Diagnosis Assessment Notes Treatment Notes Treatment Clinical Notes Dec, GERD (gastroesophageal reflux disease) (ICD-10 - K21.9) [facility] Other 06-28-2022 Hospital Discharge instructions Patient Education 12/28/2021 12:05:17 Dysuria Dysuria Dysuria is pain or discomfort while urinating. The pain or discomfort may be felt in the part of your body that drains urine from the bladder (urethra) or in the surrounding tissue of the genitals. The pain may also be felt in the groin area, lower abdomen, or lower back. You may have to urinate frequently or have the sudden feeling that you have to urinate (urgency). Dysuria can affect both men and women, but it is more common in women. Dysuria can be caused by many different things, including: Urinary tract infection. Kidney stones or bladder stones. Certain sexually transmitted infections (STIs), such as chlamydia. Dehydration. Inflammation of the tissues of the vagina. Use of certain medicines. Use of certain soaps or scented products that cause irritation. Follow these instructions at home: General instructions Watch your condition for any changes. Urinate often. Avoid holding urine for long periods of time. After a bowel movement or urination, women should cleanse from front to back, using each tissue only once. Urinate after sexual intercourse. Keep all follow-up visits as told by your health care provider. This is important. If you had any tests done to find the cause of dysuria, it is up to you to get your test results. Ask your health care provider, or the department that is doing the test, when your results will be ready. Eating and drinking Drink enough fluid to keep your urine pale yellow. Avoid caffeine, tea, and alcohol. They can irritate the bladder and make dysuria worse. In men, alcohol may irritate the prostate. Medicines Take rmfl-anm-itvhhww and prescription medicines only as told by your health care provider. If you were prescribed an antibiotic medicine, take it as told by your health care provider. Do notstop taking the antibiotic even if you start to feel better. Contact a health care provider if: You have a fever. You develop pain in your back or sides. You have nausea or vomiting. You have blood in your urine. You are not urinating as often as you usually do. Get help right away if: Your pain is severe and not relieved with medicines. You cannot eat or drink without vomiting. You are confused. You have a rapid heartbeat while at rest. You have shaking or chills. You feel extremely weak. Summary Dysuria is pain or discomfort while urinating. Many different conditions can lead to dysuria. If you have dysuria, you may have to urinate frequently or have the sudden feeling that you have tourinate (urgency). Watch your condition for any changes. Keep all follow-up visits as told by your health care provider. Make sure that you urinate often and drink enough fluid to keep your urine pale yellow. This information is not intended to replace advice given to you by your health care provider. Make sure you discuss any questions you have with your health care provider. Document Released: 03/17/2005 Document Revised: 06/01/2018 Document Reviewed: 04/05/2018 [employer] Patient Education 2020 [email or web address]. Follow Up Care 12/27/2021 16:13:16 With:RASHIDA STEPHENS, PAULA Wheat, URL Address: [address] [place] [address] Business (1) When: Unknown Comments:pending results of imaging/testing, will call with next steps [facility] 06-28-2022 Evaluation + Plan note Diagnostic Tests Pending * Urinalysis 12/28/21 * Urine Culture 12/28/21 Future Scheduled Tests Laboratory* BUN 01/18/21 * Creatinine 01/18/21 * Electrolyte Panel 01/18/21 * CBC w/ Auto Diff 01/18/21 Radiology* XR Chest 2 Views 01/18/21 [facility] 06-28-2022 Evaluation + Plan note Diagnostic Tests Pending * Urine Culture 12/28/21 Future Scheduled Tests Laboratory* BUN 01/18/21 * Creatinine 01/18/21 * Electrolyte Panel 01/18/21 * CBC w/ Auto Diff 01/18/21 Radiology* XR Chest 2 Views 01/18/21 [facility]28[facility]20[facility] Evaluation note* Encounter Date Diagnosis Assessment Notes Treatment Notes Treatment Clinical Notes Dec, Gastroenteritis (ICD-10 - K52.9) Dec, Clostridium difficil e enteritis (ICD-10 - A04.72) Dec, Other MEDS ORDERED AT THIS TIME. MEDS AND LABS ORDERED [facility] Other 04-18-2022 NoteHNO ID: [id number] Author: Manuel Guillory MD Service: ? Author Type: Physician Type: Progress Notes Filed: 11/01/2021 4:33 PM Note Text: Gynecologic Oncology [facility] Follow-up Re: Rashawn Multani CCF#: [id number] Date of Service: 11/01/2021 Patient presents for follow up regarding ASCUS, +HPV. Ms Multani is a 61 year old female who has a past medical history of Abnormal Pap smear of vagina, Alopecia, Anemia, Bipolar 1 disorder ([facility]), Cancer (), Diabetes (), Enlarged parotid gland, GERD (gastroesophageal reflux disease), History of endometrial cancer (1994), Hyperlipidemia, Hypertension, Sleep apnea, Thyroid disease, and Vitamin B12 deficiency. She has a past surgical history that includes egd (2016); colonoscopy (2016); cholecystectomy hx (2013); tonsillectomy hx; gastric bypass hx; ablation (07/27/2016); heart catheterization; hysterectomy hx (1994); and anesth, section. She presented [facility], 10[facility], for evaluation and management of abnormal pap and HPV. Patient was previously seen by Dr. Cote HPI Patient presents for Follow-up. Patient is doing well and has no complaints at this time. PRIOR PAP HISTORY: 06/2016: LSIL, +HPV 12/2016: ASCUS, +HPV 04/2017: Negative Pap/HPV 07/2017: Negative Pap, +HPV 07/2018: ASCUS, +HPV 04/2019: ASCUS. + HPV 03/20/2020 ASCUS - HPV 05/15/2019 CT A/P: IMPRESSION: 1. ?No acute process noted in the abdomen or pelvis. ?No evidence to suggest local recurrence or abdominal/pelvic metastatic disease. 2. ?Right lower lobe 4 mm nodule, nonspecific. ?Recommend further evaluation with dedicated CT of the chest. 05/24/2019 CT Chest : IMPRESSION: 1. ?Indeterminate 1 cm right upper lobe nodular opacity. ?Consider further evaluation via PET scan. 2. ?Additional diffuse reticulonodular opacities in the right lung with a upper lung field predominance a represent combination of metastases, lymphangitic carcinomatosis and infectious/inflammatory etiologies. 3. ?Small hiatal hernia. 4. ?Diffuse hepatic fatty infiltration. PET CT 06/11/2019 IMPRESSION: 1. ?NECK: * ?No FDG avid neoplastic process.. 2. ?CHEST: * ?No FDG avid neoplastic process. ?Dominant right upper lobe mass with several other scattered mostly centrilobular nodules in the right greater than left lungs without significant FDG avidity, may represent infectious/inflammatory process, however neoplastic process cannot be excluded. ?Please note that PET/CT is not sensitive for small lung nodules. ?Recommend continued surveillance with CT. 3. ?ABDOMEN/PELVIS: * ?No FDG avid neoplastic process. ?No evidence of local pelvic recurrence. 4. ?EXTREMITIES/SKELETON: * ?No suspicious FDG avid osseous lesion. CT C/A/P 03/13/2020 IMPRESSION: 1. ?No interval change since 10/17/2019. 2. ?Nonspecific reticulonodular opacities and more focal nodular opacities measuring 1 cm, stable since 05/24/2019. ?Consider interval follow-up. 3. ?Small hiatal hernia. 4. ?Diffuse hepatic fatty infiltration 03/20/[address] Cote: 58 yr old woman with abnormal vaginal pap ASCU+HPV Remote history of endometrial cancer treated with surgery alone in 1994 - Exam normal today, No clinical evidence of disease. Signs and symptoms of recurrence reviewed - CT scan of the chest in 6-12 months - Pap done today, will follow - RTC in 6 months 05/25/2020 ED Visit: Weakness 06/05/2020 ED Visit: Hypertension 08/03/2020 Hospital Admission: Unspecified Abdominal Pain, Diarrhea. 09/16/2020 CT Chest: IMPRESSION: 1. ?Increased mild streaky scarring/discoid atelectasis in the left lower lobe. 2. ?Reticulonodular opacities in the right lung, stable since 03/13/2020 but decreased since 05/24/2019. 3. ?More focal nodular opacities measuring up to 1 cm, stable since 05/24/2019. ?Consider one-year follow-up to document 2 year stability. 4. ?Small hiatal hernia. 5. ?Diffuse hepatic fatty infiltration. 10/19/2020 Visit: Patient presents for a follow up visit. Discussed the results of her CT Chest which showed no evidence of disease (09/16/2020). A pap smear was obtained. Breast exam performed in clinic today. A mammogram will be scheduled. Will contact the patient with the results. No clinical evidence of disease the patient will be seen in 6 months time. Health Maintenance: Last Pap: 10/19/2020 negative Last HPV: 03/20/2020 Negative SUBJECTIVE/INTERVAL HISTORY: She is feeling well and denies shortness of breath, nausea, vomiting, constipation, problems urinating, unexplained weight loss, or vaginal bleeding. OBJECTIVE: BP 136/65 Pulse (!) 58 Temp 36.5 ?C (97.7 ?F) Wt 82.4 kg (181 lb 9.6 oz) BMI 33.22 kg/m? Female in no acute distress. Neck - Negative. Supraclavicular - Negative Cardiac - Regular rate and rhythm without murmur or gallop. Respiratory - Clear to ausculation. Breasts - no discrete masses. No axillary adenopa (more content not included)... [id number] of Present illness Narrative* Manuel Guillory MD - 10/18/2021 2:07 PM EDT Gynecologic Oncology [facility] Follow-up Re: Rashawn Multani CCF#: [id number] Date of Service: 11/01/2021 Patient presents for follow up regarding ASCUS, +HPV. Ms Multani is a 61 year old female who has a past medical history of Abnormal Pap smear of vagina, Alopecia, Anemia, Bipolar 1 disorder (HCC), Cancer (HCC), Diabetes (HCC), Enlarged parotid gland, GERD (gastroesophageal reflux disease), History of endometrial cancer (1994), Hyperlipidemia, Hypertension, Sleep apnea, Thyroid disease, and Vitamin B12 deficiency. She has a past surgical history that includes egd (2016); colonoscopy (2016); cholecystectomy hx (2013); tonsillectomy hx; gastric bypass hx; ablation (07/27/2016); heart catheteriz ation; hysterectomy hx (1994); and anesth, section. She presented to [facility], 10/[facility], for evaluation and management of abnormal pap and HPV. Patient was previously seen by Dr. Cote HPI Patient presents for Follow-up. Patient is doing well and has no complaints at this time. PRIOR PAP HISTORY: 06/2016: LSIL, +HPV 12/2016: ASCUS, +HPV 04/2017: Negative Pap/HPV 07/2017: Negative Pap, +HPV 07/2018: ASCUS, +HPV 04/2019: ASCUS. + HPV 03/20/2020 ASCUS - HPV 05/15/2019 CT A/P: IMPRESSION: 1. No acute process noted in the abdomen or pelvis. No evidence to suggest local recurrence or abdominal/pelvic metastatic disease. 2. Right lower lobe 4 mm nodule, nonspecific. Recommend further evaluation with dedicated CT of the chest. 05/24/2019 CT Chest : IMPRESSION: 1. Indeterminate 1 cm right upper lobe nodular opacity. Consider further evaluation via PET scan. 2. Additional diffuse reticulonodular opacities in the right lung with a upper lung field predominance a represent combination of metastases, lymphangitic carcinomatosis and infectious/inflammatory etiologies. 3. Small hiatal hernia. 4. Diffuse hepatic fatty infiltration. PET CT 06/11/2019 IMPRESSION: 1. NECK: * No FDG avid neoplastic process.. 2. CHEST: * No FDG avid neoplastic process. Dominant right upper lobe mass with several other scattered mostly centrilobular nodules in the right greater than left lungs without significant FDG avidity, may represent infectious/inflammatory process, however neoplastic process cannot be excluded. Please note that PET/CT is not sensitive for small lung nodules. Recommend continued surveillance with CT. 3. ABDOMEN/PELVIS: * No FDG avid neoplastic process. No evidence of local pelvic recurrence. 4. EXTREMITIES/SKELETON: * No suspicious FDG avid osseous lesion. CT C/A/P 03/13/2020 IMPRESSION: 1. No interval change since 10/17/2019. 2. Nonspecific reticulonodular opacities and more focal nodular opacities measuring 1 cm, stable since 05/24/2019. Consider interval follow-up. 3. Small hiatal hernia. 4. Diffuse hepatic fatty infiltration 03/20/[address] Cote: 58 yr old woman with abnormal vaginal pap ASCU+HPV Remote history of endometrial cancer treated with surgery alone in 1994 - Exam normal today, No clinical evidence of disease. Signs and symptoms of recurrence reviewed - CT scan of the chest in 6-12 months - Pap done today, will follow - RTC in 6 months 05/25/2020 ED Visit: Weakness 06/05/2020 ED Visit: Hypertension 08/03/2020 Hospital Admission: Unspecified Abdominal Pain, Diarrhea. 09/16/2020 CT Chest: IMPRESSION: 1. Increased mild streaky scarring/discoid atelectasis in the left lower lobe. 2. Reticulonodular opacities in the right lung, stable since 03/13/2020 but decreased since 05/24/2019. 3. More focal nodular opacities measuring up to 1 cm, stable since 05/24/2019. Consider one-year follow-up to document 2 year stability. 4. Small hiatal hernia. 5. Diffuse hepatic fatty infiltration. 10/19/2020 Visit: Patient presents for a follow up visit. Discussed the results of her CT Chest which showed no evidence of disease (09/16/2020). A pap smear was obtained. Breast exam performed in clinic today. A mammogram will be scheduled. Will contact the patient with the results. No clinical evidence of disease the patient will be seen in 6 months time. Health Maintenance: Last Pap: 10/19/2020 negative Last HPV: 03/20/2020 Negative SUBJECTIVE/INTERVAL HISTORY: She is feeling well and denies shortness of breath, nausea, vomiting, constipation, problems urinating, unexplained weight loss, or vaginal bleeding. OBJECTIVE: BP 136/65 Pulse (!) 58 Temp 36.5 C (97.7 F) Wt 82.4 kg (181 lb 9.6 oz) BMI 33.22 kg/m Female in no acute distress. Neck - Negative. Supraclavicular - Negative Cardiac - Regular rate and rhythm without murmur or gallop. Respiratory - Clear to ausculation. Breasts - no discrete masses. No axillary adenopathy or nipple discharge noted. Heather Guerrero, DANIELA Abdominal - No CVA tenderness. The abdomen is soft, nontender and there is no inguinal adenopathy. Pelvic - Normal vulva and vaginal cuff. A pap smear is obtained. Bimanual and rectovaginal exams reveal no masses. Plant Director present: Aimee Bailey RN IMPRESSION: Patient presents for a follow up visit. A pap smear was obtained. Breast exam performedin clinic today. A written order for a mammogram was provided. Will contact the patient with the results. No clinical evidence of disease the patient will be seen in 12 months time. Provider Attestation: I, Manuel Guillory MD, personally performed the services described in this documentation. All medicalrecord entries made by the scribe were at my direction and in my presence. I have reviewed the chart and discharge instructions (if applicable) and agree that the record reflects my personal performance and is accurate and complete. Manuel Guillory MD November 01, 2021 4:33 PM I have confirmed and edited as necessary, the history of the present illness (HPI). Interval changes in the history of present illness are noted. I have confirmed and edited as necessary, the PFSH and ROS obtained by others. I saw the patient and personally participated in the hinds components and agree with the documented findings and plan. Sincerely, Manuel Guillory M.D. Reviewed and corrected by Manuel Guillory M.D. A letter and a copy of this office note were sent to: Carmelita Javier DO [address] [facility] [address] [facility] [id number] CC: Tammy Wilkins MD (PCP) The previous note from Dr Guillory on 10/19/20 was copied forward and the necessary changes were made above. Medical Decision Making: Problems: Minimal: Self-limited or minor problem Data: Unique test(s) ordered: 1 Medical Decision Making Level: 2 - Straightforward [facility]* Diagnosis Stage 3a chronic kidney disease (HCC) documented in this encounter [facility] [employer] Work Phone: [phone] Evaluation + Plan note Future Scheduled Tests Laboratory* BUN 01/18/21 * Creatinine 01/18/21 * Electrolyte Panel 01/18/21 * CBC w/ Auto Diff 01/18/21 Radiology* XR Chest 2 Views 01/18/21 [facility] 03-17-2021 NoteHNO ID: [id number] Author: Jayesh Kim (Tech) Service: ? Author Type: Electrical Hardware Engineer Type: Progress Notes Filed: 09/16/2020 9:16 AM Note Text: RADIOLOGY SERVICE PROGRESS NOTE SERVICE DATE: 09/16/2020 SERVICE TIME: 9:16 AM PATIENT IDENTITY VERIFICATION COMPLETED USING TWO (2) STANDARD IDENTIFIERS: Name and Date of confirmed by patient verbally FALL SCREENING: Has the patient had 2 falls in the last year or 1 fall with injury or currently using an Ambulatory Assistive Device (Walker, Cane, Wheelchair, Crutches, etc.)? No PATIENT GENDER DATA: .female ALLERGIES: Reviewed and unchanged MEDICATIONS REVIEWED: Not applicable PATIENT RELEVANT IMPLANT DATA REVIEWED: Not Applicable CREATININE: Creatinine Date Value Ref Range Status 09/16/2020 1.18 (H) 0.58 - 0.96 mg/dL Final eGFR-All Other Races Date Value Ref Range Status 09/16/2020 46 . Final Comment: eGFR (Estimated GFR) Units of measure: mL/min/1.73 meters squared eGFR is derived from the reexpressed MDRD Study equation using the following parameters: serum creatinine, age, gender and race. The creatinine assay has been calibrated to be traceable to IDMS. An eGFR <60 mL/min/1.73m2 for >3 months is consistent with chronic kidney disease. Refer to KDOQI guidelines for clinical interpretation. In patients with unstable renal function, e.g. those with acute kidney injury, the eGFR may not accurately reflect actual GFR. eGFR- Date Value Ref Range Status 09/16/2020 56 Final P.O.C.T. RESULTS: N/A September 16, [address] PERFORMED: Yes. RADIOLOGIST NOTIFIED?: No CONTRAST ALLERGY: NO. PREMEDICATED: No CONTRAST: IV 50 ml IV contrast (300) given DIABETIC PATIENT: Not applicable IV SITE: Ambulatory: A peripheral IV was started in the Left antecubital site with a Angio cath: 20 gauge. POST EXAM PIV STATUS: Discontinued PROCEDURE TYPE: CT Chest with contrast PATIENT DISCHARGED TO: Ambulatory patient, left [place] department area. A Diagnostic radioactive procedure has taken place, with no further precautions necessary other than routine body substance precautions. More information regarding radiation safety can be found using this link: [email or web address] SIGNATURE: Jayesh Kim PATIENT NAME: Rashawn Multani DATE: September 16, 2020 TIME: 9:16 AM PAGER/CONTACT #:[facility] note* Diagnosis Lung nodule Solitary pulmonary nodule documented in this encounter [employer] Phone: evaluation note* Diagnosis Endometrial cancer (HCC)- Primary Malignant neoplasm of corpus uteri, except isthmus VAIN I (vaginal intraepithelial neoplasia grade I) Dysplasia of vagina Encounter for screening mammogram for malignant neoplasm of breast Other screening mammogram [facility] noteNo InformationNort [facility] Safety Step Other Evaluation note* Diagnosis Dyslipidemia Other and unspecified hyperlipidemia [facility] Diagnosis Vitamin D deficiency Neuropathy Mononeuritis of unspecified site [facility] Narrative - Reported* Type Description Date Medical History bipolar Medical History DM II Medical History hypothyroidism Medical History mass on lung Medical History sleep apnea Medical History hypertension Surgical History C section Surgical History tubal ligation Surgical History hysterectomy Surgical History inguinal hernia repair Surgical History Uvulopalatopharyngoplasty Surgical History hemorrhoidectomy Surgical History gastric bypass Surgical History cholecystectomy Surgical History heart catheterization Surgical History urethral stretched Hospitalization History as above [facility] Other Hospital course Narrative No data available for this section [facility] Discharge instructions No data available for this section [facility]ructionsNot on filedocumented in this encounter [facility]ructionsNot on filedocumented in this encounter [facility] System[facility] note No data available for this section [facility] Reason for referral (narrative)* Diagnostic Procedure Only (Routine) - Pending Review Specialty Diagnoses / Procedures Referred By Contac t Referred To Contact [facility] Diagnoses Encounter for screening mammogram for malignant neoplasm of breast Procedures CHARLI SCREENING SCREENING MAMMOGRAPHY BI 2-VIEW BREAST INC Heather Farmer APRN.ROAD DESIGN ENGINEER [address] [place] [address] [facility] [address] [place] [address] Referral ID Status Reason Start Date Expiration Date Visits Requested Visits Authorized [id number] Pending Review Auto-Generat ed Referral 11/01/2021 12/01/2022 1 1 [facility] History of Present Illness * Rich Juan RD, LD - 12/31/2019 1:00 PM EDT This is a notice of failure to show for a medical nutrition therapy appointment. Rashawn Multani had an appointment with the dietitian this date, but did not show, cancel or reschedule before the appointment time. If an appointment is still desired, please contact centralized scheduling . Thank you for the referral. documented in this encounter Advance Directives Documents on File Type Date Recorded Patient Proof Plate Maker Expl anation Advance Directives and Living Will Power of Table Games Supervisor Latest Code Status on File Code Status Date Activated Date Inactivated Comments Full Code 01/11/2019 5:56 PM 01/14/2019 12:58 PM Documents on File Type Date Recorded Patient Proof Plate Maker Expl anation ACP-Advance Directive ACP-Power of Table Games Supervisor Documents on File Type Date Recorded Patient Proof Plate Maker Expl anation ACP-Advance Directive ACP-Power of Table Games Supervisor Latest Code Status on File Code Status Date Activated Date Inactivated Comments Full Code 01/11/2019 5:56 PM 01/14/2019 12:58 PM Documents on File Type Date Recorded Patient Proof Plate Maker Expl anation DNR Physician Order 04/05/2023 11:36 AM Latest Code Status on File Code Status Date Activated Date Inactivated Comments DNR Comfort Care Arrest (DNR-CCA) [place] 03/13/2023 6:17 PM 03/15/2023 3:22 PM Code Status History Code Status Date Activated Date Inactivated Comments DNR Comfort Care (DNRCC) [place] 03/13/2023 2:47 PM 023 6:12 PM DNR Comfort Care (DNRCC) [place] 09/15/2022 4:39 PM 023 5:32 PM Full Code 09/15/2022 5:28 AM 09/15/2022 4:39 PM Full Code 07/15/2022 12:10 PM 07/19/2022 5:20 PM Reason for Referral Status Reason Specialty Diagnoses / Procedures Referre d By Contact Referred To Contact Closed Radiology Diagnoses Lung nodule Procedures CT CHEST LOW DOSE (LDCT) Bebeto Corea MD [address] [address] Summary Purpose Family History No Family History Records FoundNo Family History Records FoundNo Family History Records FoundNo Family History Records FoundNo Family History Records FoundNo Family History Records FoundNo Family History Records FoundNo Family History Records Found Additional Source Comments Reason for Visit (unrecogniz ed section and content) Status Reason Specialty Diagnoses / Procedures Referre d By Contact Referred To Contact Authorized IP Unit Diagnoses Type 2 diabetes mellitus without complications Procedures HC NUTRITIONAL COUNSELING, DIET Tammy Wilkins MD [address] [place] [id number] [facility] Diet And Nutrition [address] [place] [id number] Status Reason Specialty Diagnoses / Procedures Referre d By Contact Referred To Contact Closed Radiology Diagnoses Lung nodule Procedures CT CHEST LOW DOSE (LDCT) Bebeto Corea MD [address] [address] Reason Comments Established Patient Reason Comments Med Refill Care Teams (unrecognized sec tion and content) Scientific Illustrator Relationship Specialty Start Date End Date Alethea Carroll MD [address] [place] [address] PCP - General Internal Medicine 08/27/20 Scientific Illustrator Relationship Specialty Start Date End Date Tammy Wilkins PCP - General Internal Medicine 08/23/18 Scientific Illustrator Relationship Specialty Start Date End Date Salud Hansen, [facility] [address], [place] [address] PCP - General Family Medicine 07/13/22 Scientific Illustrator Relationship Specialty Start Date End Date [facility]ud [facility] [address], [place] [address] PCP - General Family Medicine 07/13/22 INFORMATION SOURCE (unrecogn ized section and content) DATE CREATED AUTHOR [facility]2021 [facility] DATE CREATED AUTHOR AUTHOR'S ORGANIZ ATION 08/11/2021 [facility] DATE CREATED AUTHOR AUTHOR'S ORGANIZ ATION 12/02/2021 [facility] DATE CREATED AUTHOR AUTHOR'S ORGANIZ ATION 01/31/2022 [facility] DATE CREATED AUTHOR AUTHOR'S ORGANIZ ATION 10/29/2022 [facility] DATE CREATED AUTHOR AUTHOR'S ORGANIZ ATION 06/18/2023 [facility] DATE CREATED AUTHOR AUTHOR'S ORGANIZ ATION 07/03/2023 [facility] DATE CREATED AUTHOR AUTHOR'S ORGANIZ ATION 07/06/2023 Guy Sharma [facility] Source Comments (unrecognize d section and content) In the event this informatio n is protected by the Federal Confidentiality of Alcohol and Drug Abuse Patient Records regulations: The Federal rules restrict any use of the information to criminally investigate or prosecute any alcohol or drug abuse patient.[facility] FOR RECORDS PERTAINING TO PATIENTS WHO ARE OR HAVE BEEN ENROLLED IN A CHEMICAL DEPENDENCY/SUBSTANCEABUSE PROGRAM, SOME INFORMATION MAY BE OMITTED. This clinical summary was aggregated from multiple sources. Caution should be exercised in using it in the provision of clinical care. This summary normalizes information from multiple sources, and as a consequence, information in this document may materially change the coding, format and clinical context of patient data. In addition, data may be omitted in some cases. CLINICAL DECISIONS SHOULD BE BASED ON THE PRIMARY CLINICAL RECORDS. [facility] [employer] [facility]. provides no warranty or guarantee of the accuracy or completeness of information in this document.
[2023-07-13 09:43] LABS: Glucometer 100 mg/dL (74-106)
[2023-07-13] MEDS: LACTATED RINGER'S SOLUTION 1,000 ML 50 ML IV (09:50)
[2023-07-13] MEDS: CEFAZOLIN SODIUM/DEXTROSE,ISO 1 GM/50 ML IV.SOLN IV (11:10)
--- NOTE | 2023-07-13 11:26 | PM.URSON ---
Urology Surgery Operative Note Operative Note Procedure Date: 07/13/23 Time Out Performed: yes Pre-op Diagnosis: Urethral stricture and recurrent urinary infections Post-op Diagnosis: same as pre-op Procedures performed: 1. Urethral dilation with Pinckard sounds to 32 [place]ian. 2. Cystoscopy. Anesthesia: MAC and local Primary Surgeon: Sukumar Vasquez Complications: None Estimated blood loss (mL): 0 Findings: Urethral stenosis. Specimens: None Indications for Procedures: This lady has recurrent urethral stenosis and urinary incontinence. Slee, she had recurrent urinary infections but this has decreased since using estrogen cream. She is now having some more difficulty voiding. She is desirous for urethral dilation and cystoscopy. She has signed an informed consent for these procedures after risks were explained. Detailed description of Procedure: The patient was brought to the operating room and placed on the operating room table in the supine position. SCDs were placed on the lower extremities and turned on and functioning during the entire case. Timeout was done by all parties in the room. We all agreed upon the patient's identification and the planned procedures for this patient. MAC. anesthesia was then administered along with lidocaine local. The patient was then repositioned into the modified dorsal lithotomy position. All pressure points were satisfactorily padded. Genitalia were sterilely prepped and draped in usual fashion. I started by using Aster sounds and dilating her from 20 [place] up to 32 [place]ian. She did have moderate atrophic vaginitis. I then passed a 22 [place] Olympus cystoscope per urethra and into the bladder. The urethra appeared unremarkable. The bladder revealed no evidence of any tumors stones or mucosal lesions. The bladder was then drained of its contents and the scope was then removed. She was then transferred to a [facility] bed and wheeled to PACU in stable condition.
[2023-07-13 11:30] VITALS: BP 118/43; PULSE 57; RESP 14; O2SAT 96
[2023-07-13 11:45] VITALS: BP 136/61; PULSE 63; RESP 16; O2SAT 99
--- NOTE | 2023-07-13 11:58 | PC.NURSE ---
Denies urge to void
--- NOTE | 2023-07-13 12:08 | PC.NURSE ---
Up to bathroom and voids clear yellow urine without difficulty
[2023-07-13 12:14] VITALS: BP 143/70; PULSE 71; RESP 16; O2SAT 97
== END 2023-07-13 12:16 | disposition home or self-care (01) ==
PROVIDERS: Visit Provider Urology
PROC: (CPT 52281; principal; 2023-07-13 11:10)
DX: N35.12 Postinfective urethral stricture, not elsewhere classified, female (principal); Z87.440 Personal history of urinary (tract) infections; N95.2 Postmenopausal atrophic vaginitis; E03.9 Hypothyroidism, unspecified; I10 Essential (primary) hypertension; E11.9 Type 2 diabetes mellitus without complications; Z79.01 Long term (current) use of anticoagulants; F31.9 Bipolar disorder, unspecified; Z90.49 Acquired absence of other specified parts of digestive tract; Z98.84 Bariatric surgery status; Z79.84 Long term (current) use of oral hypoglycemic drugs; Z79.4 Long term (current) use of insulin; E78.00 Pure hypercholesterolemia, unspecified; R33.9 Retention of urine, unspecified; G47.33 Obstructive sleep apnea (adult) (pediatric); Z85.42 Personal history of malignant neoplasm of other parts of uterus; Z79.82 Long term (current) use of aspirin; N39.46 Mixed incontinence
CPT/HCPCS: 52281; 36415; 82948; J0690; J2405; J2704

== ENCOUNTER 2024-04-01 09:25 | Outpatient (OUT) | payer MEDICARE, SELFPAY ==
--- NOTE | 2024-04-01 09:47 | ECG_ITS ---
[facility] Test Date: 2024-04-01 Pat Name: RASHAWN SUMMERS Department: Room: - Gender: Female Asset Recovery Specialist: : 1960 Requested By: ARABELLA GALLAGHER Order Number: [id number] Reading MD: KALEB CARBAJAL Measurements Intervals [place] Rate: 70 P: 57 MI: 194 QRS: -3 QRSD: 84 T: 30 QT: 390 QTc: 421 Interpretive Statements SINUS RHYTHM Compared to ECG 07/04/2023 15:17:17 No significant changes Electronically Signed On 04-01-2024 22:56:01 EDT by KALEB CARBAJAL
[2024-04-01 10:52] LABS: Basophils Absolute Auto 0.1 10^3/uL (0.0-0.1); Basophils Percent Auto 1.6 % (0.2-2.0); Eosinophils Absolute Auto 0.2 10^3/uL (0.0-0.7); Eosinophils Percent Auto 3.4 % (0.9-7.0); Hematocrit 40.1 % (36.0-48.0); Hemoglobin 12.9 g/dL (12.0-16.0); Immature Granulocytes Abs Auto 0.01 10^3/uL (0.00-0.03); Immature Granulocytes Pct Auto 0.1 % (0.0-0.5); Lymphocytes Absolute Auto 1.5 10^3/uL (1.2-3.8); Lymphocytes Percent Auto 21.9 % (20.5-60.0); Mean Corpuscular HGB Conc 32.2 g/dL (29.9-35.2); Mean Corpuscular Volume 93.3 fL (81.0-99.0); Mean Platelet Volume 8.3 fL (9.5-13.5); Monocytes Absolute Auto 0.5 10^3/uL (0.3-0.8); Monocytes Percent Auto 7.3 % (1.7-12.0); Neutrophils Absolute Auto 4.4 10^3/uL (1.4-6.5); Neutrophils Percent Auto 65.7 % (43.0-75.0); Platelet Count 242 10^3/uL (150-450); Red Cell Distribution Width 13.3 % (11.0-15.0); White Blood Count 6.8 10^3/uL (4.0-11.0)
--- NOTE | 2024-04-01 10:53 | PM.PRESUREVA ---
History of Present Illness History of Present Illness Chief complaint: URETHRAL STRICTURE Narrative: Patient presents for preadmission testing. Please see HPI from Dr. Vasquez office dated March 28, 2024. Review of Systems ROS Narrative Please see ROS from Dr. Vasquez office dated March 28, 2024. Patient admits to dyspnea on exertion. [facility] Medical History (Updated 04/01/24 @ 10:54 by Rebecca Acosta NP) Overactive bladder ?N32.81 - Overactive bladder (ICD-10) Sedentary lifestyle ?Z91.89 - Other specified personal risk factors, not elsewhere classified (ICD-10) Dyspnea on exertion ?R06.09 - Other forms of dyspnea (ICD-10) Anemia ?D64.9 - Anemia, unspecified (ICD-10) Tremor ?R25.1 - Tremor, unspecified (ICD-10) Bipolar 1 disorder ?F31.9 - Bipolar disorder, unspecified (ICD-10) High blood cholesterol level ?E78.00 - Pure hypercholesterolemia, unspecified (ICD-10) Dysuria ?R30.0 - Dysuria (ICD-10) Diabetes ?E11.9 - Type 2 diabetes mellitus without complications (ICD-10) Atrophic vaginitis ?N95.2 - Postmenopausal atrophic vaginitis (ICD-10) Anxiety and depression ?F41.9 - Anxiety disorder, unspecified (ICD-10) ?F32.A - Depression, unspecified (ICD-10) Recurrent UTI ?N39.0 - Urinary tract infection, site not specified (ICD-10) Hypertension ?I10 - Essential (primary) hypertension (ICD-10) Depression ?F32.A - Depression, unspecified (ICD-10) Hypothyroidism ?E03.9 - Hypothyroidism, unspecified (ICD-10) Sleep apnea ?G47.30 - Sleep apnea, unspecified (ICD-10) Hyperlipemia ?E78.5 - Hyperlipidemia, unspecified (ICD-10) Chronic urethral stricture delivery delivered ?O82 - Encounter for delivery without indication (ICD-10) Nausea ?R11.0 - Nausea (ICD-10) Hyperglycemia ?R73.9 - Hyperglycemia, unspecified (ICD-10) UTI (urinary tract infection) ?N39.0 - Urinary tract infection, site not specified (ICD-10) Surgical History (Updated 04/01/24 @ 10:06 by Rebecca Acosta NP) S/P cystourethroscopy with dilation of urethral stricture (07/13/23) ?Z98.890 - Other specified postprocedural states (ICD-10) History of bladder suspension procedure ?Z98.890 - Other specified postprocedural states (ICD-10) ?Z87.448 - Personal history of other diseases of urinary system (ICD-10) Hx of cholecystectomy ?Z90.49 - Acquired absence of other specified parts of digestive tract (ICD-10) History of tonsillectomy ?Z90.89 - Acquired absence of other organs (ICD-10) H/O hernia repair ?Z98.890 - Other specified postprocedural states (ICD-10) ?Z87.19 - Personal history of other diseases of the digestive system (ICD-10) Gastric bypass status for obesity ?Z98.84 - Bariatric surgery status (ICD-10) H/O breast biopsy ?Z98.890 - Other specified postprocedural states (ICD-10) H/O cystoscopy ?Z98.890 - Other specified postprocedural states (ICD-10) Family History (Updated 04/01/24 @ 10:32 by Rebecca Acosta NP) Other Cancer Family history of aneurysm Family history of diabetes mellitus Family history of heart disease Family history of hypertension Family history of stroke Leukemia Social History (Updated 07/04/23 @ 15:18 by Arline Garcia RN) Within the past year, how often did you have a drink containing alcohol: never Score interpretation: A score less than 3 is consistent with normal alcohol consumption. Smoking status: Never smoker Second hand tobacco smoke exposure: No Non-prescribed substance use: denies use Highest level of school completed/degree received: high school graduate Meds Home Medications and Allergies Home Medications ?Medication ?Instructions ?Recorded ?Confirmed ?Type aripiprazole 10 mg tablet (Abilify) 10 mg PO DAILY 07/04/23 04/01/24 History carbidopa 25 mg-levodopa 100 mg 1 tab PO TID 07/04/23 04/01/24 History tablet cholecalciferol (vitamin D3) 50 2,000 unit PO DAILY 07/04/23 04/01/24 History mcg (2,000 unit) capsule (Vitamin D3) conjugated estrogens 0.625 mg/gram 0.625 mg vaginal DAILY 07/04/23 04/01/24 History vaginal cream (Premarin) dapagliflozin propanediol 10 mg 10 mg PO DAILY 07/04/23 04/01/24 History tablet (Farxiga) ferrous sulfate 325 mg (65 mg 325 mg PO DAILY 07/04/23 04/01/24 History iron) tablet (Feosol) lorazepam 0.5 mg tablet (Ativan) 0.5 mg PO TID PRN anxiety 07/04/23 04/01/24 History fpegkxto-xdfijnrj-lymo 8 mg-folic 1 tab PO DAILY 07/04/23 04/01/24 History ac 400 mcg-vit K 10 mcg chew tablet (Centrum Chewables) pantoprazole 40 mg tablet,delayed 40 mg PO DAILY 07/04/23 04/01/24 History release (Protonix) rosuvastatin 10 mg tablet 10 mg PO DAILY 07/04/23 04/01/24 History trazodone 50 mg tablet 200 mg PO DAILY 07/04/23 04/01/24 History amlodipine 2.5 mg tablet 2.5 mg PO DAILY 04/01/24 04/01/24 History aspirin 81 mg tablet,delayed 81 mg PO DAILY 04/01/24 04/01/24 History release (Adult Aspirin Regimen) cyanocobalamin (vitamin B-12) 1,000 mcg IM .qmonth 04/01/24 04/01/24 History 1,000 mcg/mL injection solution desvenlafaxine succinate 50 mg 50 mg PO Q24H 04/01/24 04/01/24 History tablet,extended release 24 hr escitalopram oxalate 5 mg tablet 5 mg PO DAILY 04/01/24 04/01/24 History famotidine 40 mg tablet 40 mg PO QPM 04/01/24 04/01/24 History gabapentin 300 mg capsule 300 mg PO QPM 04/01/24 04/01/24 History insulin lispro 100 unit/mL 1 sliding scale dose subcut TID 04/01/24 04/01/24 History subcutaneous pen levothyroxine 75 mcg tablet 75 mcg PO DAILY 04/01/24 04/01/24 History metformin 500 mg tablet 500 mg PO BID 04/01/24 04/01/24 History mirabegron 50 mg tablet,extended 50 mg PO Q24H 04/01/24 04/01/24 History release 24 hr (Myrbetriq) Allergies Allergy/AdvReac Type Severity Reaction Status Date / Time morphine Allergy Severe respiratory Verified 07/04/23 15:00 arrest nitrofurantoin Allergy Severe Hives Verified 07/04/23 15:00 Sulfa (Sulfonamide Allergy Severe Hives Verified 07/04/23 15:00 Antibiotics) ciprofloxacin [From Cipro] Allergy Intermediate Flushing Verified 07/04/23 15:21 magnesium citrate Allergy Unknown Verified 07/04/23 09:01 codeine AdvReac Severe nausea and Verified 07/04/23 09:01 vomiting Exam Narrative Exam Narrative: Constitutional: Awake, alert, comfortable, well-appearing, nontoxic, interactive, vital signs as charted Head: Normocephalic, atraumatic Neck: Supple, normal appearance, normal range of motion, no meningeal signs, no lymphadenopathy Respiratory: No respiratory distress, breath sounds clear Cardiovascular: Regular rate and rhythm, strong and regular heart tones Abdomen: Nontender, normal bowel sounds, soft, no CVA tenderness Musculoskeletal: Normal gait, no swelling or edema Skin: No rashes or induration, no lesions, only visible skin inspected Neuro: No neurological deficits, normal sensation Psychiatric: Oriented ?3, flat affect Assessment and Plan Assessment and Plan (1) Chronic urethral stricture: (2) Overactive bladder: Plan Cystoscopy, urethral dilation scheduled with Dr. Vasquez April 11, 2024.
--- NOTE | 2024-04-01 10:58 | PM.PRESUREVA ---
History of Present Illness History of Present Illness Chief complaint: URETHRAL STRICTURE PFSH [facility] Medical History (Updated 04/01/24 @ 10:54 by Rebecca Acosta NP) Overactive bladder ?N32.81 - Overactive bladder (ICD-10) Sedentary lifestyle ?Z91.89 - Other specified personal risk factors, not elsewhere classified (ICD-10) Dyspnea on exertion ?R06.09 - Other forms of dyspnea (ICD-10) Anemia ?D64.9 - Anemia, unspecified (ICD-10) Tremor ?R25.1 - Tremor, unspecified (ICD-10) Bipolar 1 disorder ?F31.9 - Bipolar disorder, unspecified (ICD-10) High blood cholesterol level ?E78.00 - Pure hypercholesterolemia, unspecified (ICD-10) Dysuria ?R30.0 - Dysuria (ICD-10) Diabetes ?E11.9 - Type 2 diabetes mellitus without complications (ICD-10) Atrophic vaginitis ?N95.2 - Postmenopausal atrophic vaginitis (ICD-10) Anxiety and depression ?F41.9 - Anxiety disorder, unspecified (ICD-10) ?F32.A - Depression, unspecified (ICD-10) Recurrent UTI ?N39.0 - Urinary tract infection, site not specified (ICD-10) Hypertension ?I10 - Essential (primary) hypertension (ICD-10) Depression ?F32.A - Depression, unspecified (ICD-10) Hypothyroidism ?E03.9 - Hypothyroidism, unspecified (ICD-10) Sleep apnea ?G47.30 - Sleep apnea, unspecified (ICD-10) Hyperlipemia ?E78.5 - Hyperlipidemia, unspecified (ICD-10) Chronic urethral stricture delivery delivered ?O82 - Encounter for delivery without indication (ICD-10) Nausea ?R11.0 - Nausea (ICD-10) Hyperglycemia ?R73.9 - Hyperglycemia, unspecified (ICD-10) UTI (urinary tract infection) ?N39.0 - Urinary tract infection, site not specified (ICD-10) Surgical History (Updated 04/01/24 @ 10:06 by Rebecca Acosta NP) S/P cystourethroscopy with dilation of urethral stricture (07/13/23) ?Z98.890 - Other specified postprocedural states (ICD-10) History of bladder suspension procedure ?Z98.890 - Other specified postprocedural states (ICD-10) ?Z87.448 - Personal history of other diseases of urinary system (ICD-10) Hx of cholecystectomy ?Z90.49 - Acquired absence of other specified parts of digestive tract (ICD-10) History of tonsillectomy ?Z90.89 - Acquired absence of other organs (ICD-10) H/O hernia repair ?Z98.890 - Other specified postprocedural states (ICD-10) ?Z87.19 - Personal history of other diseases of the digestive system (ICD-10) Gastric bypass status for obesity ?Z98.84 - Bariatric surgery status (ICD-10) H/O breast biopsy ?Z98.890 - Other specified postprocedural states (ICD-10) H/O cystoscopy ?Z98.890 - Other specified postprocedural states (ICD-10) Family History (Updated 04/01/24 @ 10:32 by Rebecca Acosta NP) Other Cancer Family history of aneurysm Family history of diabetes mellitus Family history of heart disease Family history of hypertension Family history of stroke Leukemia Social History (Updated 07/04/23 @ 15:18 by Arline Garcia RN) Within the past year, how often did you have a drink containing alcohol: never Score interpretation: A score less than 3 is consistent with normal alcohol consumption. Smoking status: Never smoker Second hand tobacco smoke exposure: No Non-prescribed substance use: denies use Highest level of school completed/degree received: high school graduate Meds Home Medications and Allergies Home Medications ?Medication ?Instructions ?Recorded ?Confirmed ?Type aripiprazole 10 mg tablet (Abilify) 10 mg PO DAILY 07/04/23 04/01/24 History carbidopa 25 mg-levodopa 100 mg 1 tab PO TID 07/04/23 04/01/24 History tablet cholecalciferol (vitamin D3) 50 2,000 unit PO DAILY 07/04/23 04/01/24 History mcg (2,000 unit) capsule (Vitamin D3) conjugated estrogens 0.625 mg/gram 0.625 mg vaginal DAILY 07/04/23 04/01/24 History vaginal cream (Premarin) dapagliflozin propanediol 10 mg 10 mg PO DAILY 07/04/23 04/01/24 History tablet (Farxiga) ferrous sulfate 325 mg (65 mg 325 mg PO DAILY 07/04/23 04/01/24 History iron) tablet (Feosol) lorazepam 0.5 mg tablet (Ativan) 0.5 mg PO TID PRN anxiety 07/04/23 04/01/24 History xflztlcu-zlfmiaqp-qyww 8 mg-folic 1 tab PO DAILY 07/04/23 04/01/24 History ac 400 mcg-vit K 10 mcg chew tablet (Centrum Chewables) pantoprazole 40 mg tablet,delayed 40 mg PO DAILY 07/04/23 04/01/24 History release (Protonix) rosuvastatin 10 mg tablet 10 mg PO DAILY 07/04/23 04/01/24 History trazodone 50 mg tablet 200 mg PO DAILY 07/04/23 04/01/24 History amlodipine 2.5 mg tablet 2.5 mg PO DAILY 04/01/24 04/01/24 History aspirin 81 mg tablet,delayed 81 mg PO DAILY 04/01/24 04/01/24 History release (Adult Aspirin Regimen) cyanocobalamin (vitamin B-12) 1,000 mcg IM .qmonth 04/01/24 04/01/24 History 1,000 mcg/mL injection solution desvenlafaxine succinate 50 mg 50 mg PO Q24H 04/01/24 04/01/24 History tablet,extended release 24 hr escitalopram oxalate 5 mg tablet 5 mg PO DAILY 04/01/24 04/01/24 History famotidine 40 mg tablet 40 mg PO QPM 04/01/24 04/01/24 History gabapentin 300 mg capsule 300 mg PO QPM 04/01/24 04/01/24 History insulin lispro 100 unit/mL 1 sliding scale dose subcut TID 04/01/24 04/01/24 History subcutaneous pen levothyroxine 75 mcg tablet 75 mcg PO DAILY 04/01/24 04/01/24 History metformin 500 mg tablet 500 mg PO BID 04/01/24 04/01/24 History mirabegron 50 mg tablet,extended 50 mg PO Q24H 04/01/24 04/01/24 History release 24 hr (Myrbetriq) Allergies Allergy/AdvReac Type Severity Reaction Status Date / Time morphine Allergy Severe respiratory Verified 07/04/23 15:00 arrest nitrofurantoin Allergy Severe Hives Verified 07/04/23 15:00 Sulfa (Sulfonamide Allergy Severe Hives Verified 07/04/23 15:00 Antibiotics) ciprofloxacin [From Cipro] Allergy Intermediate Flushing Verified 07/04/23 15:21 magnesium citrate Allergy Unknown Verified 07/04/23 09:01 codeine AdvReac Severe nausea and Verified 07/04/23 09:01 vomiting Assessment and Plan Assessment and Plan (1) Chronic urethral stricture: (2) Overactive bladder: Plan Cystoscopy, urethral dilation scheduled with Dr. Vasquez April 11, 2024.
[2024-04-01 11:42] LABS: Anion Gap 10.4; BUN Creatinine Ratio 15.9; Calcium 8.6 mg/dL (8.5-10.1); Carbon Dioxide 28.4 mmol/L (21.0-32.0); Chloride 103 mmol/L (98-107); Estimated GFR (African America 46 (>=60); Estimated GFR (Non-African Ame 38 (>=60); Glucose 143 mg/dL (74-106); Potassium 4.8 mmol/L (3.5-5.1); Sodium 137 mmol/L (136-145)
== END 2024-04-01 09:26 | disposition home or self-care (01) ==
LOC: PST 09:27
PROVIDERS: PCP Nurse Practitioner; Visit Provider Urology
DX: Z01.810 Encounter for preprocedural cardiovascular examination (principal); Z01.812 Encounter for preprocedural laboratory examination; Z01.818 Encounter for other preprocedural examination; N35.92 Unspecified urethral stricture, female; E03.9 Hypothyroidism, unspecified; E78.5 Hyperlipidemia, unspecified; G47.30 Sleep apnea, unspecified
CPT/HCPCS: 80048; 85025; 93005; G0463

== ENCOUNTER 2024-04-11 07:05 | Day surgery (SDC) | payer MEDICARE, SELFPAY ==
[2024-04-01 10:42] VITALS: BP 122/80; PULSE 76; TEMP 36.3; O2SAT 96; BMI 30.8
--- OUTSIDE RECORDS SUMMARY | 2024-04-11 07:10 | XMS_ITS | CCD ---
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 Name Role Phone Tammy Wilkins Primary Care Provider Willy Carroll MD Primary Care Provider LENORE, WILLY Primary Care Unavailable GIDDA, WILLY Referring Unavailable GIKAREN, WILLY Primary Care Unavailable GIKAREN, WILLY Referring Unavailable GIKAREN, WILLY Primary Care Unavailable CARLOS, BEBETO Referring Unavailable LENORE, WILLY Primary Care Unavailable ASAD VALVERDE Referring Unavailable Tammy Wilkins Primary Care Prov ider Unavailable Colette Cruz Unavailable DENNY MARSH Primary Care Physician U Rinku Hurst Unavailable Cherelle Wilson Unavailable DENNY MARSH Primary Care Physician AILEEN ., DR BELL Attending Unavailable AILEEN ., DR BELL Consulting Unavailable AILEEN ., DR BELL Admitting Unavailable SALUD HANSEN Primary Care Unavailable GALLAGHER ., DR BELL Attending Unavailable GALLAGHER ., DR BELL Consulting Unavailable SALUD HANSEN Primary Care Unavailable GALLAGHER ., DR BELL Admitting Unavailable PARUL II, MARY Consulting Unavailable ANA MARÍA VARGAS Consulting Unavailable SIMIN RENEE Admitting Unavailable SALUD HANSEN Primary Care Unavailable SIMIN RENEE Attending Unavailable SIMIN RENEE Consulting Unavailable 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[employer], 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 Care Provi domingo Unallocated, Noms Provider Primary Care Provider HELADIO MEDINA Referring Unavailable RUSHER, HELADIO S Attending Unavailable RUSHER, HELADIO S Attending Unavailable RUSHER, HELADIO S Referring Unavailable RUSHER, HELADIO S Attending Unavailable RUSHER, HELADIO S Attending Unavailable RUSHER, HELADIO S Attending Unavailable RUSHER, HELADIO S Attending Unavailable JADE, SALUD A Primary Care Physician Unav ailable JOHNSON, JOANIE Attending Unavailable JADE, SALUD A Referring Unavailable JADE, SALUD A Primary Care Unavailable JOHNSON, JOANIE Attending Unavailable JADE, SALUD A Referring Unavailable JADE, SALUD A Primary Care Unavailable JOHNSON, JOANIE Attending Unavailable JADE, SALUD A Referring Unavailable JADE, SALUD A Primary Care Unavailable JADE, SALUD A Attending Unavailable JADE, SALUD A Referring Unavailable JADE, SALUD A Primary Care Unavailable JADE, SALUD A Attending Unavailable JADE, SALUD A Referring Unavailable JADE, SALUD A Primary Care Unavailable JADE, SALUD A Attending Unavailable JADE, SALUD A Referring Unavailable JADE, SALUD A Primary Care Unavailable JADE, SALUD A Attending Unavailable JADE, SALUD A Referring Unavailable JADE, SALUD A Primary Care Unavailable JADE, SALUD A Attending Unavailable JADE, SALUD A Referring Unavailable JADE, SALUD A Primary Care Unavailable JADE, SALUD A Attending Unavailable JADE, SALUD A Referring Unavailable JADE, SALUD A Primary Care Unavailable 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[employer], 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 Care Provi domingo JADE, SALUD A Primary Care Unavailable JADE, SALUD A Referring Unavailable JADE, SALUD A Primary Care Unavailable JADE, SALUD A Referring Unavailable KEVON STEVEN Attending Unavailable JOHNSON, JOANIE Referring Unavailable JADE, SALUD A Primary Care Unavailable JOHNSON, JOANIE Referring Unavailable JADE, SALUD A Primary Care Unavailable JOHNSON, JOANIE Referring Unavailable JADE, SALUD A Primary Care Unavailable CATE RIDLEY Admitting Unavailable JADE, SALUD A Primary Care Unavailable ABRAMS, YONIS N Attending Unavailable JADE, SALUD A Primary Care Unavailable JADE, SALUD A Referring Unavailable JADE, SALUD A Primary Care Unavailable ABRAMS, YONIS N Attending Unavailable ABRAMS, YONIS N Referring Unavailable JADE, SALUD A Primary Care Unavailable JADE, SALUD A Referring Unavailable JADE, SALUD A Primary Care Unavailable JADE, SALUD A Referring Unavailable KEVON STEVEN Attending Unavailable JOANIE JOHNSON Referring Unavailable JADE, SALUD A Primary Care Unavailable JADE, SALUD A Primary Care Unavailable COLETTE GONZALEZ Attending Unavailable JADE, SALUD A Primary Care Unavailable CORY MOSQUEDA Attending Unavailable CORY MOSQUEDA Referring Unavailable JADE, SALUD A Referring Unavailable JADE, SALUD A Primary Care Unavailable VI LIM Attending Unavailable JADE, SALUD A Referring Unavailable JADE, SALUD A Primary Care Unavailable JADE, SALUD A Referring Unavailable JADE, SALUD A Primary Care Unavailable JADE, SALUD A Referring Unavailable JADE, SALUD A Primary Care Unavailable DANIEL CARCAMO Attending Unavailabl e ASIA SEGOVIA Admitting Unavailab le JADE, SALUD A Primary Care Unavailable DANIEL CARCAMO Attending Unavailabl e DANIEL CARCAMO Referring Unavailabl e JADE, SALUD A Primary Care Unavailable JADE, SALUD A Primary Care Unavailable JADE, SALUD A Referring Unavailable JADE, SALUD A Primary Care Unavailable JADE, SALUD A Referring Unavailable KEVON STEVEN Attending Unavailable JADE, SALUD A Primary Care Unavailable JADE, SALUD A Referring Unavailable JADE, SALUD A Primary Care Unavailable JADE, SALUD A Referring Unavailable KEVON STEVEN Attending Unavailable JADE, SALUD A Primary Care Unavailable JADE, SALUD A Primary Care Unavailable NISHA DANIEL Referring Unavailable JADE, SALUD A Primary Care Unavailable JADE, SALUD A Referring Unavailable KEVON STEVEN Attending Unavailable KAT JOSHI Attending KAT Johnson Attending KAT Johnson Attending Arabella Vitale Attending Arabella Ward Attending Arabella Ward Referring KAT Lanza Attending KAT Johnson Attending Denia esquivel Allergies Allergy Classification Reported Allergen(s) Allergy Type Date of Onset Reaction(s) Facility (20 sources) Codeine; Translations: [codeine] Drug Allergy 02-01-20 17 Other (See Comments), Unknown, Unknown (qualifier value) [place] (20 sources) Morphine; Translations: [morphine] Drug Allergy 02-01-20 17 Other (See Comments), Unknown, Unknown (qualifier value) [place] (3 sources) Sulfonamides (Antibiotic) Propensity to adverse reactions to drug 09-27-19 18 Hives [place], [place] (20 sources) Ciprofloxacin; Translations: [CIPROFLOXACIN] Drug Allergy 10-03-19 19 Other: See Comments, rash, GI Disturbance [facility] (20 sources) magnesium citrate; Translations: [magnesium citrate] Drug Allergy 10-03-19 19 Unknown, Unknown (qualifier value) [facility] (20 sources) Nitrofurantoin; Translations: [NITROFURANTOIN MACROCRYSTAL] Drug Allergy 10-03-19 19 Rash [facility] (20 sources) Sulfonamides (Antibiotic); Translations: [SULFA (SULFONAMIDE ANTIBIOTICS)] Drug Allergy 09-27-19 18 Rash, Hives [facility] (12 sources) NITROFURANTOIN, MACROCRYSTALS / Nitrofurantoin, Monohydrate; Translations: [nitrofurantoin] Drug Allergy Cutaneous eruption (morphologic abnormality) [facility] (12 sources) Sulfonamides (Antibiotic); Translations: [sulfa drugs] Drug allergy Cutaneous eruption (morphologic abnormality) [facility] (1 source) aMILoride Drug Allergy 03-31-20 15 [facility] (1 source) Ciprofloxacin Drug Allergy 03-31-20 15 [facility] (1 source) Codeine Drug Allergy 03-31-20 15 [facility] (1 source) Morphine Drug Allergy [facility] (1 source) Nitrofurantoin Drug Allergy 05-08-20 17 [facility] (1 source) Sulfonamides (Antibiotic) Drug allergy (disorder) 04-09-20 15 [facility] (20 sources) Morphine; Translations: [MORPHINE SULFATE] Drug Allergy 02-01-20 17 Other (See Comments) [facility] (2 sources) magnesium citrate Drug Allergy 10-03-19 19 [facility] Medications Current Medications Medication Drug Class(es) Dates Sig (Normalized) Sig (Original) acetaminophen 500 mg oral tablet (20 sources) Start: 10-16-2023 take 2 tablets by mouth every eight hours acetaminophen (TYLENOL EXTRA STRENGTH) 500 mg tablet Take 2 tablets (1,000 mg total) by mouth every 8 (eight) hours. 100 tablet 10/16/2023 Active Start: 07-19-2022 take 2 tablets by mo uth every eight hours acetaminophen (TYLENOL EXTRA STRENGTH) 500 mg tablet Take 2 tablets (1,000 mg total) by mouth every 8 (eight) hours. 30 tablet 0 07/19/2022 Active [id number] actuat albuterol 0.09 mg/actuat metered dose inhaler (20 sources) beta2-Adrenergic Agonist Start: 10-16-2023 take 2 puff(s) by inhalation every six hours as needed for wheezing albuterol (PROVENTIL HFA;VENTOLIN HFA) 90 mcg/actuation inhaler Indications: COVID-19 , Shortness of breath Inhale 2 puffs every 6 (six) hours as needed for wheezing. 18 g 3 10/16/2023 Active Start: 08-23-2023 take 2 puff(s) by in halation every six hours as needed for wheezing albuterol (PROVENTIL HFA;VENTOLIN HFA) 90 mcg/actuation inhaler Indications: COVID-19 , Shortness of breath Inhale 2 puffs every 6 (six) hours as needed for wheezing. 18 g 1 08/23/2023 Active Start: 02-14-2022 take 2 puff(s) by in halation every four hours as needed Albuterol Sulfate [...] Wheezing 1 Inhaler 3 01/14/2019 Active amLODIPine 2.5 mg oral tablet (10 sources) Dihydropyridine Calcium Channel Tatum Start: 03-05-2024 amLODIPine 2.5 mg Tab 2.5 mg = 1 tab(s), Refills(s) 0 Start Date: 03/28/24 Status: Ordered Start: 01-18-2021 take 1 tablet by mery th once daily amLODIPine 10 mg Tab 10 mg = 1 tab(s), Oral, Daily, High blood pressure Start Date: 01/18/21 Status: Ordered amoxicillin 875 mg / clavulanate 125 mg oral tablet (7 sources) Penicillin-class Antibacterial Start: 07-26-2023 End: 08-05-2023 take 1 tablet by mouth once in the morning amoxicillin-pot clavulanate (AUGMENTIN) 875-125 mg per tablet Indications: Cellulitis of toe of left foot Take 1 tablet by mouth in the morning and 1 tablet before bedtime. Do all this for 10 days. 20 tablet 0 07/26/2023 08/05/2023 Active Start: 02-18-2022 take 1 tablet by mery th every twelve hours Amoxicillin-Pot Clavulanate 875-125 MG 1 tablet Orally every 12 hrs for 7 days Jan, Active ARIPiprazole 10 mg oral tablet (20 sources) Atypical Antipsychotic Start: 02-23-2024 take 1 tablet by mouth in the morning ARIPiprazole (ABILIFY) 10 mg tablet Indications: Bipolar II disorder (CMS-HCC) Take 1 tablet (10 mg total) by mouth in the morning. 90 tablet 3 02/23/2024 Active Start: 02-07-2023 End: 04-06-2023 take 1 tablet by mouth in the morning ARIPiprazole (ABILIFY) 5 mg tablet Indications: Bipolar II disorder (CMS-HCC) Take 1 tablet (5 mg total) by mouth in the morning. 30 tablet 1 02/07/2023 04/06/2023 Discontinued (Reorder) Start: 02-25-2019 End: 09-28-2023 take 10 mg by mouth once daily Abilify 10 mg, Oral, Da hannah, BIPOLAR, Refills(s) 0 Start Date: 02/25/19 Status: Ordered take 2 tablets by mo [facility] once daily ARIPiprazole (ABILIFY) 5 mg tablet Take 10 mg by mouth once daily. 0 Active take 1 tablet by mery once daily ARIPiprazole (ABILIFY) 5 mg tablet Take 5 mg by mouth once daily. 0 Active Comment on above: Take 10 mg by mouth once daily. Take 5 mg by mouth o nce daily. ascorbic acid 60 mg / beta carotene 5000 unt / copper sulfate 40 mg / dl-alpha tocopheryl acetate 30 unt / sodium selenite 0.04 mg / zinc oxide 40 mg oral tablet (2 sources) Vitamin C Multiple Vitamin (Multivitamin Adult) tablet as directed Orally 0 Active aspirin 81 mg delayed release oral tablet (20 sources) Platelet Aggregation Inhibitor, Nonsteroidal Anti-inflammatory Drug Start: 03-05-2024 take 1 tablet by mouth in the morning aspirin 81 mg Take 1 tablet (81 mg total) by mouth in the morning. 90 tablet 2 03/05/2024 Active Start: 01-18-2021 aspirin 81 mg Chew Tab 81 mg = 1 tab(s), Chewed, Daily, Prophylaxis Start Date: 01/18/21 Status: Ordered Start: 11-21-2019 take 1 tablet by mery once daily Aspirin (Aspir-81) 81 mg Tablet,Delayed Release (Dr/Ec) Active 81 MG PO Daily November 20, 2019 11:00pm take 1 tablet by mery once daily aspirin 81 MG tablet Take 81 mg by mouth daily 0 Active Comment on above: Take 81 mg by mouth once daily. B Complex Vitamins (vitamin B complex) tablet (2 sources) B Complex Vitami ns (vitamin B complex) tablet as directed Orally 0 Active benzonatate 200 mg oral capsule (19 sources) Non-narcotic Antitussive Start: 03-20-20 24 take 1 capsule by mouth three times daily as needed for cough benzonatate (TESSALON PERLES) 200 mg capsule Indications: Gastroesophageal reflux disease without esophagitis Take 1 capsule (200 mg total) by mouth 3 (three) times a day as needed for cough. 30 capsule 03/20/2024 Active Start: 08-17-2023 End: 08-31-2023 take 1 capsule by mouth three times daily for cough benzonatate (TESSALON PERLES) 200 mg capsule Indications: COVID-19 take 1 capsule by mouth three times a day if needed for cough 30 capsule 0 08/31/2023 Active Start: 02-18-2022 take 1 capsule by [facility] every eight hours Tessalon Perles 100 MG 1 capsule as needed Orally Three times a day Jan, Active blood-glucose meter misc (20 sources) Start: 06-18-2021 blood-glucose meter misc 1 Device by in vitro route 3 (three) times a day. 1 each 06/18/2021 Active Start: 06-18-2021 blood-glucose meter misc 1 Device by in vitro route 3 (three) times a day. 1 each 0 06/18/2021 Active blood-glucose meter,continuous (DEXCOM G7 ODD JOB LABORER) misc (20 sources) Start: 06-14-2023 blood-glucose meter,continuous (DEXCOM G7 ODD JOB LABORER) misc Indications: Type 2 diabetes mellitus with stage 3b chronic kidney disease, with long-term current use of insulin ([facility]) 1 Application by miscellaneous route 4 (four) times daily before meals and at bedtime as needed (before meals and at bedtime). 1 each 5 06/14/2023 Active blood-glucose sensor (DEXCOM G7 SENSOR) device (20 sources) Start: 06-14-2023 blood-glucose sensor (DEXCOM G7 SENSOR) device Indications: Type 2 diabetes mellitus with stage 3b chronic kidney disease, with long-term current use of insulin ([facility]) 1 application. by miscellaneous route 4 (four) times a day before meals and nightly. 5 each 5 06/14/2023 Active carbidopa 25 mg / levodopa 100 mg oral tablet (20 sources) Aromatic Amino Acid Decarboxylation Inhibitor, Aromatic Amino Acid Start: 08-01-2023 take 1 tablet by mouth three times daily carbidopa-levodopa (SINEMET) 25-100 mg per tablet Indications: Tremors of nervous system , Parkinsonism, unspecified Parkinsonism type (CMS-HCC) Take 1 tablet by mouth 3 (three) times a day. 180 tablet 1 02/28/2024 Active Start: 08-01-2023 carbidopa-levo dopa 25 mg-100 mg Tab Refill(s) 0 Start Date: 08/01/23 Status: Ordered Start: 02-23-2023 End: 10-06-2023 carbidopa-levodopa (SINEMET) 25-100 mg per tablet Indications: Tremors of nervous system , Parkinsonism, unspecified Parkinsonism type (CMS-HCC) Take a tablet(25mg) three times a day(8 am, 12 pm, 4 pm) 90 tablet 3 10/06/2023 Active Centrum Adult Chewable (7 sources) Start: 01-21-2021 Centrum Adult Chewable 1 tab(s), Chewed, Daily, Prophylaxis Start Date: 01/21/21 Status: Ordered cholecalciferol 0.05 mg oral capsule (20 sources) Vitamin D Start: 03-05-2024 cholecalcifero l, vitamin D3, (VITAMIN D3) 2,000 units capsule Indications: Vitamin D deficiency TAKE 1 CAPSULE EVERY AFTERNOON 90 each 1 03/05/2024 Active Start: 07-10-2023 End: 09-28-2023 cholecalciferol, vitamin D3, (VITAMIN D3) 2,000 units capsule Indications: Vitamin D deficiency TAKE 1 CAPSULE EVERY AFTERNOON 28 each 0 09/28/2023 Active Start: 04-11-2022 End: 07-10-2023 take 1 capsule by mouth once daily cholecalciferol, vitamin D3, (VITAMIN D3) 2,000 units capsule Indications: Vitamin D deficiency take 1 capsule by mouth once daily 90 capsule 0 04/25/2023 07/10/2023 Discontinued Start: 11-21-2019 take 1 tablet by mery th once daily Cholecalciferol (Vitamin D3) (Vitamin D3) 50 mcg (2,000 unit) Tablet Active 2000 UNIT PO Daily November 20, 2019 11:00pm take 1 tablet by mery th in the morning cholecalciferol (Vitamin D-3) 50 MCG (2000 UT) tablet Take 2,000 Units by mouth in the morning. 0 Active take 1 capsule by mo ut every twenty-four hours Vitamin D3 50 MCG (2000 UT) 1 capsule Orally Once a day Active take 1 capsule by mo uth once daily Cholecalciferol (VITAMIN D3) 2000 units CAPS Take 1 capsule by mouth daily 0 Active Comment on above: Take 2,000 Units by mouth once daily. colestipol hydrochloride 1000 mg oral tablet (10 sources) Bile Acid Sequestrant Start: take 3 tablets by mouth every twenty-four hours Colestipol HCl 1 GM 3 tablets Orally Once a day for 30 day(s) Mar, Active Start: 12-28-2021 End: 04-18-2023 take 3 tablets by mouth in the morning colestipoL (COLESTID) 1 g tablet Take 3 tablets (3 g total) by mouth in the morning. 0 12/28/2021 04/18/2023 Discontinued Start: 12-28-2021 take 3 tablets by mo uth every twenty-four hours Colestipol HCl 1 GM 3 tablets Orally Once a day for 30 day(s) Dec, Active dapagliflozin 10 mg oral tablet (20 sources) Sodium-Glucose Cotransporter 2 Inhibitor Start: 08-01-2023 take 1 tablet by mouth in the morning dapagliflozin propanediol (FARXIGA) 10 mg tablet Indications: Type 2 diabetes mellitus with stage 3b chronic kidney disease, with long-term current use of insulin ([facility]) Take 1 tablet (10 mg total) by mouth in the morning. 90 tablet 1 02/23/2024 Active Start: 11-07-2022 End: 04-24-2023 take 1 tablet by mouth in the morning dapagliflozin propanediol (FARXIGA) 10 mg tablet Indications: Type 2 diabetes mellitus with stage 3b chronic kidney disease, with long-term current use of insulin ([facility]) Take 1 tablet (10 mg total) by mouth in the morning. 90 tablet 1 04/25/2023 Active Farxiga 5 MG 1 ( one) time each day at the same time. 0 Active 24 hr desvenlafaxine succinate 50 mg extended release oral tablet (1 source) Serotonin and Norepinephrine Reuptake Inhibitor Start: 03-06-2024 take 1 tablet by mouth every twenty-four hours in the morning desvenlafaxine (PRISTIQ) 50 mg 24 hr tablet Indications: Persistent depressive disorder Take 1 tablet (50 mg total) by mouth in the morning. 30 tablet 1 03/06/2024 Active 12 hr dextromethorphan hydrobromide 30 mg / guaiFENesin 600 mg extended release oral tablet (2 sources) Uncompetitive Q-klwgrg-S-asparta te Receptor Antagonist, Sigma-1 Agonist take 30-600 mg by mouth once as needed dextromethorphan-g uaiFENesin (MUCINEX DM) 30-600 MG per extended release tablet Take 1 tablet by mouth every 12 hours as needed 0 Active dextromethorphan hydrobromide 30 mg / pyrilamine maleate 30 mg oral tablet (4 sources) Uncompetitive O-zbwgsr-I-asparta te Receptor Antagonist, Sigma-1 Agonist Start: 02-14-2022 take 1 tablet by mouth every six hours [place] DMT 30-30 MG 1 tablet Orally every 6 hours for 7 days Jan, Active diclofenac sodium 0.01 mg/mg topical gel (3 sources) Nonsteroidal Anti-inflammatory Drug Start: 03-20-2024 diclofenac sodium (VOLTAREN) 1 % gel Indications: S/P foot surgery, left Apply 2 g topically in the morning and 2 g at noon and 2 g in the evening and 2 g before bedtime. 100 g 3 03/20/2024 Active Start: 06-07-2023 End: 09-05-2023 diclofenac sodium 1 % gel In dications: Sinus tarsi syndrome of left foot Apply 2 g topically 3 (three) times a day as needed for pain 100 g 3 06/07/2023 09/05/2023 Active dicyclomine hydrochloride 20 mg oral tablet (17 sources) Anticholinergic Start: 12-11-2023 take 1 tablet by mouth in the morning, then take 1 tablet by mouth at bedtime dicyclomine (BENTYL) 20 mg tablet Take 1 tablet (20 mg total) by mouth in the morning and 1 tablet (20 mg total) before bedtime. 20 tablet 12/11/2023 Active Start: 01-18-2021 End: 04-18-2023 take 1 tablet by mouth in the morning dicyclomine (Bentyl) 20 MG tablet Take 20 mg by mouth in the morning and 20 mg in the evening. 0 10/31/2022 Active Start: 07-09-2020 take 1 tablet by mery th every twelve hours Dicyclomine HCl 20 MG 1 tablet Orally TWICE A DAY for 30 day(s) Jul, Active docusate sodium 50 mg / [facility] 8.6 mg oral tablet (3 sources) senna-docusate ( Senexon-S) 8.6-50 MG tablet 1 (one) time each day at the same time. 0 Active take 8.6-50 mg by mouth once sen na-docusate (SENEXON-S) 8.6-50 MG per tablet Take 2 tablets by mouth nightly 0 Active escitalopram 5 mg oral tablet (20 sources) Serotonin Reuptake Inhibitor Start: 03-06-2024 take 1 tablet by mouth in the morning escitalopram (LEXAPRO) 5 mg tablet Take 1 tablet (5 mg total) by mouth in the morning. 30 tablet 1 03/06/2024 Active Start: 11-21-2023 Lexapro 10 mg Tab 10 mg = 1 tab(s), Oral, Daily, Take daily with 20mg tab, Refills(s) 0 Start Date: 11/21/23 Status: Ordered Start: 07-10-2023 escitalopram ( LEXAPRO) 10 mg tablet TAKE (1) TABLET EVERY MORNING WITH 20MG TABS 90 tablet 1 07/10/2023 Active Start: 11-21-2019 take 30 mg by mouth once daily Escitalopram Oxalate Active 30 MG PO Daily November 20, 2019 11:00pm Start: 11-20-2019 End: 11-21-2019 Escitalopram Oxalate Discont inued TABLET November 19, 2019 11:00pm November 21, 2019 9:21am Start: 02-25-2019 End: 05-02-2023 Lexapro 20 mg, Oral, Daily, Take daily with 10mg tab, Refills(s) 0, Depression Start Date: 02/25/19 Status: Ordered take 10 mg by mouth once daily e scitalopram oxalate (LEXAPRO) 20 mg tablet Take 10 mg by mouth once daily. 0 Active Comment on above: Take 10 mg by mouth once daily. estrogens, conjugated (jail) 0.625 mg/ml vaginal cream (14 sources) Estrogen Start: 02-23-2024 Premarin Vaginal 0.625 mg/g cream with applicator 1 gram, Vaginal, MonWedFri, 42.5 gram, Refill(s) 5, [facility], 160, cm, 11/21/23 14:22:00 EDT, Height/Length Dosing, 75, kg, 11/21/23 14:22:00 EDT, Weight Dosing Start Date: 02/23/24 Status: Ordered Start: 07-24-2023 Premarin Vagin al 0.625 mg/g cream with applicator 1 gram, Vaginal, MonWedFri, 42.5 gram, Refill(s) 5, [id number], 160, cm, 09/28/22 15:05:00 EDT, Height/Length Dosing, 82, kg, 09/28/22 15:05:00 EDT, Weight Dosing Start Date: 07/24/23 Status: Ordered Start: 08-30-2021 Premarin Vagin al 0.625 mg/g cream with applicator 1 gram, Vaginal, MonWedFri, 42.5 gram, Refill(s) 5, [facility] [facility], 160, cm, 08/30/21 13:41:00 EST, Height/Length Dosing, 86.2, kg, 08/30/21 13:41:00 EST, Weight Dosing Start Date: 08/30/21 Status: Ordered Start: 11-21-2019 Conjugated Est rogens (Premarin) 0.625 mg/gram Cream Active 0.3125 MG VAGINAL Twice a Week November 20, 2019 11:00pm Start: 11-20-2019 End: 11-21-2019 Conjugated Estrogens (Premar in) 0.625 mg/gram cream Discontinued November 19, 2019 11:00pm November 21, 2019 9:21am conjugated estro gens (PREMARIN) vaginal cream Use 1 g vaginally once each week. 0 Active Comment on above: Use 1 g vaginally on ce each week. famotidine 40 mg oral tablet (1 source) Histamine-2 Receptor Antagonist Start: 4 take 1 tablet by mouth once daily famotidine (PEPCID) 40 mg tablet Indications: Gastroesophageal reflux disease without esophagitis Take 1 tablet (40 mg total) by mouth nightly. 90 tablet 1 03/20/2024 Active ferrous sulfate 325 mg oral tablet (20 sources) Start: 4 ferrous sulfate (FeroSuL) 325 (65 FE) mg tablet Indications: Acute kidney injury superimposed on CKD ([facility]) TAKE 1 TABLET EVERY AFTERNOON 90 tablet 1 02/23/2024 Active Start: 09-28-2023 ferrous sulfat e (FeroSuL) 325 (65 FE) mg tablet Indications: Acute kidney injury superimposed on CKD ([facility]) TAKE 1 TABLET EVERY AFTERNOON 28 tablet 0 09/28/2023 Active Start: 11-09-2022 End: 09-28-2023 ferrous sulfate 325 (65 FE) mg tablet Indications: Acute kidney injury superimposed on CKD ([facility]) Take 1 daily 90 tablet 1 11/09/2022 09/28/2023 Discontinued Start: 01-21-2021 take 325 mg by mouth twice daily ferrous sulfate 325 mg, Oral, BID, Prophylaxis Start Date: 01/21/21 Status: Ordered Fish Oils (7 sources) Start: 01-21-2021 take 1 capsule by mouth once daily [place]-3 Fish Oil 1 cap, Oral, Daily, Refill(s) 0 Start Date: 01/21/21 Status: Ordered flash glucose scanning reader (FREESTYLE JOELLE 2 READER) [facility] (20 sources) Start: 03-22-2023 flash glucose scanning reader (FREESTYLE JOELLE 2 READER) [facility] [place] Indications: Type 2 diabetes mellitus with stage 3b chronic kidney disease, with long-term current use of insulin ([facility]) 1 Unit by miscellaneous route 4 (four) times a day before meals and nightly. 1 each 6 03/22/2023 Active flash glucose sensor (FREESTYLE JOELLE 2 SENSOR) kit (8 sources) Start: 04-02-2024 flash glucose sensor (FREESTYLE JOELLE 2 SENSOR) kit Indications: Type 2 diabetes mellitus with stage 3b chronic kidney disease, with long-term current use of insulin ([facility]) Inject 1 Device under the skin continuously. apply 1 SENSOR to back OF UPPER ARM REMOVE AND REPLACE every 14 days use with DEVICE to MONITOR BLOOD SUGAR four times a day before meals and at bedtime if needed TEST FOR SLIDING SCALE 1 kit 6 04/02/2024 Active Start: 12-11-2023 End: 04-02-2024 flash glucose sensor (FREEST YLE JOELLE 2 SENSOR) kit Indications: Type 2 diabetes mellitus with stage 3b chronic kidney disease, with long-term current use of insulin ([facility]) Inject 1 Device under the skin continuously. apply 1 SENSOR to back OF UPPER ARM REMOVE AND REPLACE every 14 days use with DEVICE to MONITOR BLOOD SUGAR four times a day before meals and at bedtime if needed TEST FOR SLIDING SCALE 1 kit 6 12/11/2023 04/02/2024 Discontinued (Reorder) Start: 04-26-2023 End: 07-24-2023 flash glucose sensor (FREEST YLE JOELLE 2 SENSOR) kit Indications: Type 2 diabetes mellitus with stage 3b chronic kidney disease, with long-term current use of insulin ([facility]) 1 Application by miscellaneous route 4 (four) times daily before meals and at bedtime as needed (test for sliding scale). 1 kit 6 04/26/2023 07/24/2023 Discontinued Start: 04-26-2023 flash glucose sensor (FREESTYLE JOELLE 2 SENSOR) kit Indications: Type 2 diabetes mellitus with stage 3b chronic kidney disease, with long-term current use of insulin ([facility]) 1 Application by miscellaneous route 4 (four) times daily before meals and at bedtime as needed (test for sliding scale). 1 kit 6 04/26/2023 Active Start: 03-22-2023 End: 04-26-2023 flash glucose sensor (FREEST YLE JOELLE 2 SENSOR) kit Indications: Type 2 diabetes mellitus with stage 3b chronic kidney disease, with long-term current use of insulin ([facility]) 1 Application by miscellaneous route 4 (four) times daily before meals and at bedtime as needed (test for sliding scale). 1 kit 6 03/22/2023 04/26/2023 Discontinued (Reorder) fluconazole 150 mg oral tablet (4 sources) Azole Antifungal Start: 01-16-2022 Diflucan 150 MG 1 tablet Orally take 1 tablet now then 1 tablet in 7 days for 2 days Jan, Active fluticasone propionate 0.05 mg/actuat metered dose nasal spray (2 sources) Corticosteroid take 1 spray(s) nasal route once daily fluticasone (FLONASE) 50 MCG/ACT nasal spray 1 spray by Each Nostril route daily 0 Active FREESTYLE JOELLE 2 SENSOR kit (20 sources) Start: 07-24-2023 FREESTYLE JOELLE 2 SENSOR kit Indications: Type 2 diabetes mellitus with stage 3b chronic kidney disease, with long-term current use of insulin ([facility]) apply 1 SENSOR to back OF UPPER ARM REMOVE AND REPLACE every 14 days use with DEVICE to MONITOR BLOOD SUGAR four times a day before meals and at bedtime if needed TEST FOR SLIDING SCALE 1 kit 6 07/24/2023 Active gabapentin 300 mg oral capsule (20 sources) Anti-epileptic Agent Start: 02-23-2024 take 1 capsule by mouth once daily at bedtime gabapentin (NEURONTIN) 300 mg capsule Indications: Neuropathy Take 1 capsule (300 mg total) by mouth once daily at bedtime. 90 capsule 1 02/23/2024 Active Start: 06-24-2023 End: 09-28-2023 take 1 capsule by mouth three times daily gabapentin 100 mg Cap 100 mg = 1 cap(s), Oral, TID, Refills(s) 0 Start Date: 08/01/23 Status: Ordered Start: 02-28-2022 take 1 capsule by mo uth every twenty-four hours as needed gabapentin (Neurontin) 400 MG capsule Take 400 mg by mouth Daily as needed. 0 02/28/2022 Active Start: 11-21-2019 take 1200 mg by mout h once daily at bedtime Gabapentin Active 1200 MG PO Daily at bedtime November 20, 2019 11:00pm Start: 09-01-2018 End: 11-21-2019 Gabapentin Discontinued November 19, 2019 11:00pm November 21, 2019 9:21am take 1 tablet by mery th once daily as needed gabapentin (NEURONTIN) 800 MG tablet Take 800 mg by mouth nightly as needed. 0 Active glimepiride 1 mg oral tablet (6 sources) Sulfonylurea glimepiride ([place] r[place]) 1 MG tablet 1 (one) time each day at the same time. 0 Active take 1 tablet by mery th once daily before breakfast glimepiride (AMARYL) 2 MG tablet Take 2 mg by mouth every morning (before breakfast) 0 Active Comment on above: Take 1 mg by mouth d aily with breakfast. hydrocortisone 10 mg/ml topical cream (11 sources) Corticosteroid Start: 03-16-2024 hydrocortisone (HYTONE) 1 % cream Apply to affected area 2 times daily 15 g 03/16/2024 Active Start: 12-28-2021 Anusol-HC 2.5 % 1 application Externally Twice a day for 14 days Dec, Active insulin aspart 100 units/mL injectable solution (6 sources) Start: 01-18-2021 insulin aspart 100 units/mL injectable solution sliding scale, SubCutaneous, PRN, High blood sugar Start Date: 01/18/21 Status: Ordered insulin aspart, human 100 unt/ml injectable solution (1 source) Insulin Analog Start: 01-18-2021 insulin aspart 100 units/mL injectable solution sliding scale, SubCutaneous, PRN, High blood sugar Start Date: 01/18/21 Status: Ordered 3 ml insulin glargine 100 unt/ml pen injector (20 sources) Insulin Analog Start: 03-06-2024 insulin glargi ne (LANTUS, SEMGLEE) 100 unit/mL (3 mL) insulin pen Indications: Type 2 diabetes mellitus with stage 3b chronic kidney disease, with long-term current use of insulin (CMS-HCC) Inject 25 Units under the skin in the morning. 15 mL 2 03/06/2024 Active Start: 05-29-2023 insulin glargi ne (LANTUS, SEMGLEE) 100 unit/mL (3 mL) insulin pen Indications: Type 2 diabetes mellitus with stage 3b chronic kidney disease, with long-term current use of insulin (CMS-HCC) Inject 25 Units under the skin in the morning. 15 mL 2 05/29/2023 Active Start: 05-29-2023 insulin glargi ne (LANTUS, SEMGLEE) 100 unit/mL (3 mL) insulin pen Indications: Type 2 diabetes mellitus with stage 3b chronic kidney disease, with long-term current use of insulin (CMS-HCC) Inject 25 Units under the skin in the morning. 15 mL 2 05/29/2023 Active Start: 01-18-2021 inject 40 [IU] by hand bcutaneous injection once daily insulin glargine 100 units/mL subcutaneous solution 40 unit(s), SubCutaneous, Daily, High blood sugar Start Date: 01/18/21 Status: Ordered Start: 08-03-2020 Insulin Glargi ne (Lantus Solostar U-100 Insulin) 100 unit/mL (3 mL) insulin pen Active 40 UNIT SUBCUT Daily August 03, 2020 12:00am Start: 02-27-2020 LANTUS SOLOSTA R U-100 INSULIN 100 unit/mL (3 mL) Lantus SoloStar 100 UNIT/ML 40 u Subcutaneous at hs Active insulin glargine (LANTUS) 100 UNIT/ML injection vial Inject 50 Units into the skin nightly 0 Active insulin glargine 100 units/mL subcutaneous solution (3 sources) Start: 01-18-2021 inject 40 [IU] by subcutaneous injection once daily insulin glargine 100 units/mL subcutaneous solution 40 unit(s), SubCutaneous, Daily, High blood sugar Start Date: 01/18/21 Status: Ordered insulin lispro 100 unt/ml injectable solution (20 sources) Insulin Analog Start: 03-06-2024 insulin lispro (HumaLOG) 100 unit/mL injection Indications: Type 2 diabetes mellitus with stage 3b chronic kidney disease, with long-term current use of insulin ([facility]) Use sliding scale:151-200 mg/dL, give 2 units. 201-250 mg/dL, give 4 units. 251-300 mg/dL, give 6 units. 301-350 mg/dL, give 8 units. 351-400 mg/dL, give 10 units. 10 mL 3 03/06/2024 Active Start: 08-01-2023 insulin lispro 100 units/mL injectable solution Start Date: 11/21/23 Status: Ordered Start: 07-26-2023 insulin lispro (HumaLOG) 100 unit/mL injection Indications: Type 2 diabetes mellitus with stage 3b chronic kidney disease, with long-term current use of insulin ([facility]) Use sliding scale:151-200 mg/dL, give 2 units. 201-250 mg/dL, give 4 units. 251-300 mg/dL, give 6 units. 301-350 mg/dL, give 8 units. 351-400 mg/dL, give 10 units. 10 mL 3 07/26/2023 Active Start: 03-15-2023 End: 04-18-2023 inject 2-10 [IU] by subcutaneous injection four times daily at mealtime insulin lispro (HumaLOG) 100 unit/mL insulin pen Inject 2-10 Units under the skin 4 (four) times a day with meals and nightly. See sliding scale orders below 15 mL 12 03/15/2023 04/18/2023 Discontinued Iron (10 sources) Iron Active Lactobac comb [id number] (PROBIOTIC AND ACIDOPHILUS) 300-250 million cell-mg capsule (1 source) Start: 02-23-2024 take 1 capsule by mouth once daily Lactobac comb [id number] (PROBIOTIC AND ACIDOPHILUS) 300-250 million cell-mg capsule Indications: Constipation, unspecified constipation type Take 1 capsule by mouth once daily. 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 0 Active Comment on above: Take 50 mcg by mouth once daily. linaclotide 0.29 mg oral capsule (3 sources) Guanylate Cyclase-C Agonist linaCLOtide (Linzess ) 290 MCG capsule 1 (one) time each day at the same time. 0 Active Comment on above: Take 290 mcg by [facility] once daily. lisinopril 5 mg oral tablet (20 sources) Angiotensin Converting Enzyme Inhibitor Start: 01-08-2023 lisinopril 5 MG tablet 1 (one) time each day at the same time. 0 01/08/2023 Active Start: 11-20-2019 End: 04-18-2023 take 1 tablet by mouth in the morning lisinopriL (PRINIVIL,ZESTRIL) 10 mg tablet Take 1 tablet (10 mg total) by mouth in the morning. 30 tablet 0 03/15/2023 04/18/2023 Discontinued Comment on above: Take 10 mg by mouth once daily. Loperamide (7 sources) Opioid Agonist Imodium A-D Acti ve LORazepam 0.5 mg oral tablet (20 sources) Benzodiazepine Start: 4 take 1 tablet by mouth three times daily as needed for anxiety LORazepam 0.5 mg Tab 0.5 mg = 1 tab(s), Oral, TID, PRN for anxiety, Refills(s) 0 Start Date: 03/28/24 Status: Ordered Start: 07-10-2023 take 1 tablet by mery th three times daily as needed for anxiety LORazepam (ATIVAN) 0.5 mg tablet Indications: Generalized anxiety disorder Take 1 tablet (0.5 mg total) by mouth 3 (three) times a day as needed for anxiety. 90 tablet 2 07/10/2023 Active Start: 11-21-2019 take 0.5 mg by mouth every eight hours Lorazepam Active 0.5 MG PO Q8H November 20, 2019 11:00pm Start: 02-25-2019 End: 04-06-2023 Lorazepam Discontinued TABLE T November 19, 2019 11:00pm November 21, 2019 9:21am Comment on above: Take 0.5 mg by mouth as needed. 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 90 tablet 0 06/20/2023 09/18/2023 Active metFORMIN hydrochloride 500 mg oral tablet (20 sources) Biguanide Start: 4 take 1 tablet by mouth in the morning, then take 1 tablet by mouth at mealtime metFORMIN (GLUCOPHAGE) 500 mg tablet Take 1 tablet (500 mg total) by mouth in the morning and 1 tablet (500 mg total) in the evening. Take with meals. 60 tablet 5 03/05/2024 Active Start: 09-21-2023 take 1 tablet by mery th in the morning, then take 1 tablet by mouth at mealtime metFORMIN (GLUCOPHAGE) 500 mg tablet Take 1 tablet (500 mg total) by mouth in the morning and 1 tablet (500 mg total) in the evening. Take with meals. 60 tablet 2 09/21/2023 Active Start: 02-25-2019 take 1000 mg by mout h twice daily Glucophage 1,000 mg, Oral, BID, Refills(s) 0, High blood sugar Start Date: 02/25/19 Status: Ordered methocarbamol 500 mg oral tablet (6 sources) Muscle Relaxant Start: 09-21-2023 End: 09-28-2023 take 1 tablet by mouth three times daily as needed for muscle spasms methocarbamoL (ROBAXIN) 500 mg tablet Take 1 tablet (500 mg total) by mouth 3 (three) times a day as needed for muscle spasms for up to 7 days. 21 tablet 0 09/21/2023 09/28/2023 Active methylPREDNISolone (20 sources) Corticosteroid Start: 08-17-2023 methylPREDNISolone (MEDROL, LAUREEN,) 4 mg tablet Indications: COVID-19 follow package directions 21 tablet 0 08/17/2023 Active Start: 02-14-2022 methylPREDNISo lone 4 MG as directed Orally Once a day for 6 days Jan, Active 24 hr metoprolol succinate 50 mg extended release oral tablet (20 sources) beta-Adrenergic Tatum Start: 11-20-2019 End: 11-21-2019 take 1 tablet by mouth once daily metoprolol 50 mg ER Tab 50 mg = 1 tab(s), Oral, Daily, High blood pressure Start Date: 01/18/21 Status: Ordered take 1 tablet by mery th every twenty-four hours as needed metoprolol succinate XL (Toprol-XL) 50 M G 24 hr tablet 1 tablet Orally prn 0 Active take 1 capsule by mouth once rico ly Metoprolol Succinate 50 MG 1 capsule Orally Once a day Active Comment on above: Take 50 mg by mouth once daily. 24 hr mirabegron 50 mg extended release oral tablet (20 sources) beta3-Adrenergic Agonist Start: 03-08-2024 take 1 tablet by mouth every twenty-four hours in the morning MYRBETRIQ 50 mg tablet extended release 24 hr Take 1 tablet (50 mg total) by mouth in the morning. 90 tablet 1 03/08/2024 Active Start: 08-01-2023 End: 02-17-2025 take 2 tablets by mouth once daily Myrbetriq 50 mg oral tablet, extended release 100 mg = 2 tab(s), Oral, Daily, X 30 day(s), # 60 tab(s), Refills(s) 11, Pharmacy: [facility], 160, cm, 11/21/23 14:22:00 EDT, Height/Length Dosing, 75, kg, 11/21/23 14:22:00 EDT, Weight Dosing Start Date: 02/23/24 Stop Date: 02/17/25 Status: Ordered Start: 08-30-2021 take 2 tablets by mo [facility] once daily Myrbetriq 50 mg oral tablet, extended release 100 mg = 2 tab(s), Oral, Daily, # 60 tab(s), Refills(s) 5, Pharmacy: [address], 160, cm, 08/30/21 13:41:00 EST, Height/Length Dosing, 86.2, kg, 08/30/21 13:41:00 EST, Weight Dosing Start Date: 08/30/21 Status: Ordered Start: 07-31-2020 take 1 tablet by [facility] every twenty-four hours as needed MYRBETRIQ 50 mg tablet extended release 24 hr Take 1 tablet (50 mg total) by mouth as needed. 0 07/31/2020 Active Multiple Vitamins-Minerals (THERAPEUTIC MULTIVITAMIN-MINERALS) tablet (2 sources) take 1 tablet by mouth once daily Multiple Vitamins-Minerals (THERAPEUTIC MULTIVITAMIN-MINERALS) tablet Take 1 tablet by mouth daily 0 Active Multivitamin preparation (1 source) Star t: 02-0 07-22 21 take 1 tablet by mouth once daily Multivitamin Active 1 TAB PO Daily August 03, 2020 12:00am Hgatrbewohev-Rfqo-Thnpo Acid (Certavite-Antioxidant) 18-400 mg-mcg Tablet (1 source) Star t: 2 07-22 20 take 1 tablet by mouth once daily Nlbmyazgcarc-Fdmf-Sipxp Acid (Certavite-Antioxidant) 18-400 mg-mcg Tablet Active 1 TAB PO Daily November 20, 2019 11:00pm mupirocin 0.02 mg/mg topical ointment (20 sources) RNA Synthetase Inhibitor Antibacterial Star t: 02-01 mupirocin (BACTROBAN) 2 % ointment Indications: Cellulitis of toe of left foot Apply 1 Application topically in the morning and 1 Application before bedtime. 22 g 02/23/2024 Active Start: 07-26-2023 End: 07-26-2023 mupirocin (BACTROBAN) 2 % oi ntment Indications: Cellulitis of toe of left foot Apply 1 Application topically in the morning and 1 Application before bedtime. 22 g 0 07/26/2023 Active naproxen 500 mg oral tablet (1 source) Nonsteroidal Anti-inflammatory Drug Start: 11-21-2019 take 500 mg by mouth twice daily Naproxen Active 500 MG PO Twice daily November 20, 2019 11:00pm ondansetron 4 mg disintegrating oral tablet (10 sources) Serotonin-3 Receptor Antagonist Start: 03-05-2024 take 1 tablet by mouth every eight hours as needed for nausea ondansetron ODT (ZOFRAN ODT) 4 mg disintegrating tablet Dissolve 1 tablet (4 mg total) on tongue every 8 (eight) hours as needed for nausea for up to 10 doses. 10 tablet 03/05/2024 Active Start: 12-28-2021 take 1 tablet by mery every six hours as needed Ondansetron HCl 4 MG 1 tablet Orally EVERY 6 HOURS NEEDED for 30 day(s) Dec, Active Start: 09-28-2018 take 8 mg by mouth t hree times daily Ondansetron Hcl Active 8 MG PO Three times daily November 20, 2019 11:00pm 24 hr oxybutynin chloride 15 mg extended release oral tablet (5 sources) Cholinergic Muscarinic Antagonist Start: 11-21-2019 take 15 mg by mouth once daily Oxybutynin Chloride Active 15 MG PO Daily November 20, 2019 11:00pm Start: 09-27-2018 oxybutynin ER (DITROPAN XL) 10 mg 24 hr tablet pantoprazole 40 mg delayed release oral tablet (20 sources) Proton Pump Inhibitor Start: 03-05-2024 pantoprazole (PROTON IX) 40 mg EC tablet Indications: Gastroesophageal reflux disease without esophagitis TAKE (1) TABLET EVERY MORNING 90 tablet 1 03/05/2024 Active Start: 07-09-2020 End: 09-28-2023 Protonix 40 mg Tab-DR 40 mg = 1 tab(s), Oral, Daily, Control of stomach acid Start Date: 01/18/21 Status: Ordered phenazopyridine hydrochloride 200 mg oral tablet (6 sources) Start: 12-28-2021 take 1 tablet by mouth twice daily as needed Pyridium 200 mg Tab 200 mg = 1 tab(s), Oral, BID, PRN as needed for urinary discomfort, do not exceed 3 days treatment at a time, # 6 tab(s), Refills(s) 1, Pharmacy: [address], 160, cm, 12/28/21 11:28:00 EDT, Height/Length Dosing, 82.6, kg, 12/28/21 11:28... Start Date: 12/28/21 Status: Ordered take 1 tablet by mery twice daily as needed phenazopyridine (Pyridium) 200 MG tablet Take 200 mg by mouth 2 (two) times a day as needed. 0 Active potassium 99 mg extended release oral tablet (1 source) Start: 08-03-2020 take 99 mg by mouth once daily Potassium Active 99 MG PO Daily August 03, 2020 12:00am psyllium 3400 mg powder for oral suspension (1 source) Start: 02-23-2024 take 1 tablet by mouth in the morning psyllium (METAMUCIL SMOOTH TEXTURE) 3.4 gram packet Indications: Constipation, unspecified constipation type Take 1 packet (3.4 g total) by mouth in the morning and 1 packet (3.4 g total) before bedtime. 60 tablet 2 02/23/2024 Active QUEtiapine 100 mg oral tablet (3 sources) Atypical Antipsychotic QUEtiapine (SEROquel) 100 MG tablet tablet Oral 0 Active take 1 tablet by mouth three rich es daily QUEtiapine (SEROQUEL) 300 mg tablet Take 300 mg by mouth three times daily. 0 Active Comment on above: Take 300 mg by mouth three times daily. rosuvastatin calcium 10 mg oral tablet (20 sources) HMG-CoA Reductase Inhibitor Start: take 1 tablet by mouth in the morning rosuvastatin (CRESTOR) 10 mg tablet Indications: Dyslipidemia Take 1 tablet (10 mg total) by mouth in the morning. 90 tablet 1 03/05/2024 Active Start: 01-18-2021 End: 07-10-2023 take 1 tablet by mouth once daily rosuvastatin 10 mg Tab 10 mg = 1 tab(s), Oral, Daily, High cholesterol Start Date: 01/18/21 Status: Ordered 0.25 mg, 0.5 mg dose 1.5 ml semaglutide 1.34 mg/ml pen injector (1 source) Semaglutide (OZEMPIC) 0.25 or 0.5 MG/DOSE SOPN Inject 0.25 mg into the skin once a week Weekly on Mondays. 0 Active traZODone hydrochloride 100 mg oral tablet (20 sources) Serotonin Reuptake Inhibitor Start: take 2 tablets by mouth once daily traZODone (DESYREL) 100 mg tablet Indications: Other insomnia Take 2 tablets (200 mg total) by mouth nightly. 180 tablet 3 02/23/2024 Active Start: 08-26-2022 take 2 tablets by mo uth once daily traZODone (DESYREL) 100 mg tablet Indications: Other insomnia Take 2 tablets (200 mg total) by mouth nightly. 180 tablet 3 02/07/2023 Active Start: 01-18-2021 traZODONE 50 m g Tab 25 mg = 0.5 tab(s), Oral, Once a day (at bedtime), Insomnia Start Date: 01/18/21 Status: Ordered Start: 11-21-2019 take 150 mg by mouth once daily at bedtime Trazodone Active 150 MG PO Daily at bedtime November 20, 2019 11:00pm Start: 11-20-2019 End: 11-21-2019 Trazodone Discontinued TABLE T November 19, 2019 11:00pm November 21, 2019 9:21am take 1 tablet by mery every twenty-four hours traZODone HCl 150 MG 1 tablet at bedtime Orally Once a day Active take 1 tablet by mery once daily at bedtime traZODone (DESYREL) 100 mg tablet Take 100 mg by mouth daily at bedtime. 0 Active take 3 tablets by mo ut once daily traZODone (DESYREL) 50 MG tablet Take 150 mg by mouth nightly 0 Active take 2 tablets by mo ut once daily traZODone (DESYREL) 50 MG tablet [...] injectable solution (20 sources) Vitamin B12 Start: 024 inject 1 mL by subcutaneous injection every month cyanocobalamin (VITAMIN B-12) 1,000 mcg/mL injection Indications: Nutritional deficiency inject 1 milliliter subcutaneously Every Month 3 mL 3 03/05/2024 Active Start: 05-12-2023 inject 1 mL by subcu taneous injection every month cyanocobalamin (VITAMIN B-12) 1,000 mcg/mL injection Indications: Nutritional deficiency inject 1 milliliter subcutaneously Every Month 3 mL 3 05/12/2023 Active Start: 03-01-2023 End: 04-18-2023 inject 1 mL by subcutaneous injection every month cyanocobalamin (VITAMIN B-12) 1,000 mcg/mL injection Indications: Nutritional deficiency inject 1 milliliter subcutaneously Every Month 6 mL 2 03/01/2023 04/18/2023 Discontinued Start: 02-08-2023 End: 04-18-2023 take 1 tablet under the tongue once daily cyanocobalamin, vitamin B-12, 2,500 mcg tablet, sublingual Indications: Chronic fatigue Place 1 tablet under the tongue once daily. 90 tablet 1 02/08/2023 04/18/2023 Discontinued Start: 11-21-2019 inject 1000 ug by in tramuscular injection every 30 days Cyanocobalamin (Vitamin B-12) Active 1000 MCG IM Q30D November 20, 2019 11:00pm Start: 02-25-2019 inject 3 mL by intra [...] 100 mcg by mout h once daily. vitamin b6 100 mg oral tablet (1 source) Start: 11-21-2019 take 1 tablet by mouth once daily Pyridoxine (Vitamin B6) (Vitamin B-6) 100 mg Tablet Active 100 MG PO Daily November 20, 2019 11:00pm Vitamin C 500 mg oral tablet, chewable (7 sources) Start: 01-21-2021 take 1 tablet by mouth once daily Vitamin C 500 mg oral tablet, chewable 500 mg = 1 tab(s), Chewed, Daily, Prophylaxis Start Date: 01/21/21 Status: Ordered Vitamin D (7 sources) Start: 02-25-2019 Vitamin D 50,000 International_Unit, Oral, Daily, Refills(s) 0, Prophylaxis Start Date: 02/25/19 Status: Ordered Vitamin D3 2000 intl units (11 sources) Start: 01-21-2021 take 1 tablet by mouth once daily Vitamin D3 2000 intl units 1 tab, Oral, Daily, Refills(s) 0, Prophylaxis Start Date: 01/21/21 Status: Ordered vitamin e 90 mg oral capsule (8 sources) Start: 01-21-2021 take 1 capsule by mouth once daily vitamin E 90 mg oral capsule 90 mg = 1 cap(s), Oral, Daily, Prophylaxis Start Date: 01/21/21 Status: Ordered Start: 11-21-2019 take 400 [IU] by mouth once da hannah Vitamin E Active 400 UNIT PO Daily November 20, 2019 11:00pm Zinc (7 sources) Start: 01-21-2021 take 50 mg by [...] Take 150 mg by mouth once daily. azithromycin 250 mg oral tablet (1 source) Macrolide Antimicrobial Start: 11-18-2019 End: 11-20-2019 take 1 tablet by mouth once daily Azithromycin (Zithromax) 250 mg tablet Discontinued 250 MG PO daily 4 4 November 17, 2019 11:00pm November 20, 2019 12:29pm First dose given in ED eszopiclone 3 mg oral tablet (2 sources) take 1 tablet by mouth every twenty-four hours as needed eszopiclone (LUNESTA) 3 mg tab Take 3 mg by mouth at bedtime as needed. 0 Active Comment on above: Take 3 mg by mouth a t bedtime as needed. ibuprofen 800 mg oral tablet (7 sources) Nonsteroidal Anti-inflammatory Drug Start: 09-27-2023 End: 10-04-2023 take 1 tablet by mouth at bedtime ibuprofen (MOTRIN) 800 mg tablet Take 1 tablet (800 mg total) by mouth in the morning and at bedtime for 7 days. 14 tablet 0 09/27/2023 10/04/2023 lamoTRIgine 200 mg oral tablet (4 sources) Mood Stabilizer, Anti-epileptic Agent Start: 08-02-2022 End: 04-18-2023 take 1 tablet by mouth in the morning lamoTRIgine (LaMICtal) 200 mg tablet Indications: Bipolar II disorder ([facility]) Take 1 tablet (200 mg total) by mouth in the morning. 90 tablet 3 08/02/2022 04/18/2023 Discontinued Comment on above: Take 200 mg by mouth once daily. Multivitamin capsule (1 source) take 1 capsule by mouth once daily Multivitamin capsule Take 1 capsule by mouth once daily. 0 Active Comment on above: Take 1 capsule by [facility] once daily. pioglitazone 15 mg oral tablet (1 source) Peroxisome Proliferator Receptor alpha Agonist, Peroxisome Proliferator Receptor gamma Agonist, Thiazolidinedione Start: 02-08-2023 End: 04-18-2023 take 1 tablet by mouth in the morning pioglitazone (ACTOS) 15 mg tablet Indications: Type 2 diabetes mellitus with stage 3b chronic kidney disease, with long-term current use of insulin ([facility]) Take 1 tablet (15 mg total) by mouth in the morning. 90 tablet 1 02/08/2023 04/18/2023 Discontinued sennosides, jail 8.6 mg oral capsule (1 source) Sennosides (SENNA) 8.6 mg cap Take by mouth as needed. 0 Active Comment on above: Take by mouth as nee ded. sucralfate 1000 mg oral tablet (1 source) Aluminum Complex Start: 11-20-2019 End: 11-21-2019 Sucralfate Discontinued TABLET November 19, 2019 11:00pm November 21, 2019 9:21am Problems Active Problems Problem Classification Problem Date Documented Da te Episodic/Chronic Acquired foot deformities (2 sources) Hallux valgus; Translations: [Hallux valgus (acquired), right foot] 08-14-2023 Chronic Acquired foot deformities (2 sources) Acquired varus deformity of right ankle; Translations: [Valgus deformity, not elsewhere classified, right ankle] 08-14-2023 Episodic Anxiety disorders (20 sources) Generalized anxiety disorder; Translations: [Generalized anxiety disorder] Onset: 7 01-11-2019 Chronic Attention-deficit, conduct, and disruptive behavior disorders (1 source) Attention-deficit hyperactivity disorder, unspecified type; Translations: [ADHD UNSPECIFIED TYPE] Onset: 3 Chronic Cancer of cervix (1 source) Personal history of malignant neoplasm of cervix uteri; Translations: [PERS HX MALIG NEOPLASM CERV UTERI] Onset: 3 Episodic Cancer of uterus (20 sources) Malignant neoplasm of endometrium of corpus uteri ; Translations: [Malignant neoplasm of endometrium] Onset: 1 Chronic Chronic kidney disease (20 sources) Chronic kidney disease stage 3A ; Translations: [Stage 3a chronic kidney disease (HCC)] Onset: 9 Chronic Chronic kidney disease (3 sources) Chronic kidney disease; Translations: [Chronic kidney disease, stage 3b] Onset: 4 Diabetes mellitus with complications (20 sources) Type 2 diabetes mellitus with hyperglycemia; Translations: [Type 2 diabetes mellitus with diabetic chronic kidney disease] Onset: 9 03-13-2023 Chronic Diabetes mellitus without complication (16 sources) Diabetes mellitus; Translations: [Type 2 diabetes mellitus without complications] Onset: 9 01-11-2019 Chronic Disorders of lipid metabolism (14 sources) Hypercholesterolemia; Translations: [Pure hypercholesterolemia, unspecified] Onset: 3 01-18-2021 Chronic Disorders of teeth and jaw (4 sources) Periapical abscess without sinus; Translations: [Infection of tooth] Onset: 4 03-20-2024 Episodic Esophageal disorders (20 sources) Gastroesophageal reflux disease; Translations: [Gastro-esophageal reflux disease without esophagitis] Onset: 2 Resolved: 2 Chronic Essential hypertension (20 sources) Essential hypertension; Translations: [Essential (primary) hypertension] Onset: 9 01-11-2019 Chronic Gastroduodenal ulcer (except hemorrhage) (10 sources) Ulcer of anastomosis; Translations: [Gastrojejunal ulcer, unspecified as acute or chronic, without hemorrhage or perforation] Chronic Genitourinary symptoms and ill-defined conditions (20 sources) Mixed incontinence; Translations: [Mixed urinary incontinence] Onset: 2 Chronic Heart valve disorders (20 sources) Tricuspid incompetence, non-rheumatic ; Translations: [Nonrheumatic tricuspid (valve) insufficiency] Onset: 3 12-19-2022 Chronic Malaise and fatigue (20 sources) Fatigue; Translations: [Chronic fatigue, unspecified] Onset: 3 02-08-2023 Chronic Menopausal disorders (13 sources) Atrophic vaginitis; Translations: [Postmenopausal atrophic vaginitis] Onset: 3 07-31-2020 Chronic Menopausal disorders (1 source) Hormone replacement therapy; Translations: [HORMONE REPLACEMENT THERAPY] Onset: 3 Episodic Mood disorders (20 sources) Bipolar II disorder; Translations: [Bipolar II disorder] Onset: 7 01-11-2019 Chronic Nutritional deficiencies (20 sources) Vitamin D deficiency; Translations: [Vitamin D deficiency, unspecified] Onset: 9 01-11-2019 Chronic Nutritional deficiencies (20 sources) Nutritional deficiency state; Translations: [Nutritional deficiency, unspecified] Onset: 1 05-17-2021 Episodic Other aftercare (1 source) MCC (current) use of oral hypoglycemic drugs; Translations: [LONGTERM USE ORAL HYPOGLYCEMIC DX] Onset: 3 Episodic Other aftercare (1 source) Other long wall mining machine tender (current) drug therapy; Translations: [OTH SURVEYOR INSTRUMENT ASSISTANT CURRENT DRUG THERAPY] Onset: 3 Episodic Other aftercare (1 source) terminal makeup operator (current) use of aspirin; Translations: [LONGTERM CURRENT USE OF ASPIRIN] Onset: 3 Episodic Other aftercare (1 source) terminal makeup operator (current) use of anticoagulants; Translations: [LONGTERM CURRNT USE ANTICOAGULANTS] Onset: 3 Episodic Other connective tissue disease (1 source) Pain of toe of left foot; Translations: [Pain in left toe(s)] 07-26-2023 Episodic Other connective tissue disease (2 sources) Pain in right arm; Translations: [Pain in right arm] 09-21-2023 Episodic Other diseases of bladder and urethra (3 sources) Detrusor overactivity; Translations: [Overactive bladder] Onset: 4 Chronic Other diseases of bladder and urethra (5 sources) Overactive bladder; Translations: [Overactive bladder] Onset: 4 08-01-2023 Chronic Other diseases of bladder and urethra (5 [...] 2 Chronic Other gastrointestinal disorders (10 sources) Constipation; Translations: [Constipation, unspecified] Episodic Other gastrointestinal disorders (1 source) Bariatric surgery status; Translations: [BARIATRIC SURGERY STATUS] Onset: 3 Episodic Other gastrointestinal disorders (1 source) Heartburn Onset: 4 Episodic Other hereditary and degenerative nervous system conditions (20 sources) Extrapyramidal disease; Translations: [Extrapyramidal and movement disorder, unspecified] Onset: 3 11-30-2022 Chronic Other nervous system disorders (20 sources) Metabolic encephalopathy; Translations: [Metabolic encephalopathy] Onset: 3 03-13-2023 Chronic Other nervous system disorders (4 sources) Neuropathy; Translations: [Polyneuropathy, unspecified] 07-10-2023 Chronic Other nervous system disorders (1 source) Polyneuropathy, unspecified; Translations: [Polyneuropathy, unspecified] Onset: 4 Chronic Other nervous system disorders (2 sources) Tremor; Translations: [Tremor, unspecified] 03-28-2023 Episodic Other nutritional; endocrine; and metabolic disorders (10 sources) Obese class I; Translations: [Body mass index (BMI) 31.0-31.9, adult] Chronic Other nutritional; endocrine; and metabolic disorders (2 sources) Hypomagnesemia; Translations: [Hypomagnesemia] Onset: 4 Chronic Other screening for suspected conditions (not mental disorders or infectious disease) (4 sources) Patient encounter status; Translations: [Encounter for screening mammogram for malignant neoplasm of breast] Onset: 3 Episodic Other skin disorders (2 sources) Acquired keratoderma; Translations: [Acquired keratosis [keratoderma] palmaris et plantaris] 08-14-2023 Episodic Other skin disorders (1 source) Rash and other nonspecific skin eruption; Translations: [Rash and other nonspecific skin eruption] Onset: 4 Episodic Other upper respiratory infections (1 source) Acute ethmoidal sinusitis, unspecified Episodic Prolapse of female genital organs (20 sources) Cystocele; Translations: [Cystocele, unspecified] Onset: 4 07-26-2023 Chronic Residual codes; unclassified (20 sources) Obstructive sleep apnea syndrome; Translations: [Obstructive [...] AND UTERUS] Onset: 3 Episodic Thyroid disorders (20 sources) 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; Translations: [Other specified hypothyroidism] Onset: 9 01-11-2019 Chronic Unclassified (7 sources) Parkinsonism; Translations: [Parkinsonism] Onset: 3 03-13-2023 Chronic Unclassified (20 sources) Parkinsonian tremor; Translations: [Parkinsonian tremor] Onset: 3 07-26-2023 Chronic Unclassified (20 sources) Parkinson's disease; Translations: [Parkinson's disease, unspecified whether dyskinesia present, unspecified whether manifestations fluctuate] Onset: 4 07-26-2023 Chronic Unclassified (2 sources) Black or Bloody Stool Onset: 4 Unclassified (1 source) Hospital Follow-up Onset: 4 Unclassified (1 source) Toe Injury Onset: 4 Unclassified (1 source) Acute cough; Translations: [Acute cough] Onset: 4 Unclassified (1 source) Rash Onset: 4 Unclassified (1 source) EMS Onset: 4 Viral infection (2 sources) COVID-19; Translations: [COVID-19] Onset: 4 Past or Other Problems Problem Classification Problem Date Documented Da te Episodic/Chronic Abdominal pain (15 sources) Abdominal pain; Translations: [Unspecified abdominal pain] Onset: 10-25-2023 06-14-2023 Episodic Acute and unspecified renal failure (20 sources) Acute renal failure syndrome; Translations: [Acute kidney failure, unspecified] Onset: 09-15-2022 Resolved: 07-26-2023 09-15-2022 Episodic Cardiac dysrhythmias (20 sources) Sinus bradycardia; Translations: [Bradycardia, unspecified] Onset: 03-13-2023 03-14-2023 Episodic Chronic obstructive pulmonary disease and bronchiectasis (4 sources) Bronchitis, not specified as acute or chronic; Translations: [Bronchitis] Onset: 02-14-2022 Resolved: 02-14-2022 Episodic Deficiency and other anemia (12 sources) Iron deficiency anemia; Translations: [Iron deficiency anemia, unspecified] Onset: 10-29-2023 06-14-2023 Episodic Gastrointestinal hemorrhage (2 sources) Melena; Translations: [Finding of appearance of stool] Onset: 12-11-2023 12-11-2023 Episodic Genitourinary symptoms and ill-defined conditions (20 sources) Dysuria; Translations: [Dysuria] Onset: 12-28-2021 Episodic Immunizations and screening for infectious disease (5 sources) Contact with and (suspected) exposure to other viral communicable diseases; Translations: [Contact with or exposure to other viral diseases] Onset: 02-14-2022 Resolved: 02-14-2022 Episodic Intestinal infection (3 sources) Enterocolitis due to Clostridium difficile, not specified as recurrent; Translations: [Clostridium difficile colitis] Onset: 12-28-2021 Resolved: 12-28-2021 Episodic Malaise and fatigue (1 source) Weakness; Translations: [Weakness] Onset: 12-11-2023 Episodic Mood disorders (20 sources) Mood disorders Onset: 06-05-2023 Resolved: 02-05-2024 06-05-2023 Mycoses (2 sources) Candidiasis of vagina; Translations: [Candidiasis of vagina] Onset: 10-29-2023 06-14-2023 Episodic Nausea and vomiting (20 sources) Nausea; Translations: [Nausea] Onset: 10-25-2023 06-14-2023 Episodic Noninfectious gastroenteritis (20 sources) Noninfective gastroenteritis and colitis, unspecified; Translations: [Chronic diarrhea] Onset: 12-28-2021 Resolved: 11-07-2022 Episodic Nonmalignant breast conditions (2 sources) Nodule of skin of breast; Translations: [Unspecified lump in unspecified breast] Onset: 10-25-2023 10-30-2023 Episodic Nonspecific chest pain (20 sources) Chest pain; Translations: [Chest pain, unspecified] Onset: 11-07-2022 11-07-2022 Episodic Other aftercare (2 sources) terminal makeup operator (current) use of insulin; Translations: [terminal makeup operator (current) use of insulin] Onset: 03-13-2023 Episodic Other connective tissue disease (20 sources) Chronic musculoskeletal pain; Translations: [Myalgia, other site] Onset: 05-17-2021 05-17-2021 Episodic Other connective tissue disease (2 sources) Pain in right arm; Translations: [Pain in right arm] Onset: 09-21-2023 Episodic Other connective tissue disease (1 source) Pain in upper limb Onset: 09-21-2023 Episodic Other connective tissue disease (2 sources) Pain in left toe(s); Translations: [Pain in left toe(s)] Onset: 07-26-2023 Episodic Other gastrointestinal disorders (12 sources) Diarrhea; Translations: [Diarrhea, unspecified] Onset: 10-25-2023 06-14-2023 Episodic Other gastrointestinal disorders (2 sources) Diarrhea, unspecified; Translations: [Diarrhea, unspecified] Onset: 03-16-2022 Resolved: 03-16-2022 Episodic Other gastrointestinal disorders (1 source) Constipation, unspecified; Translations: [Constipation, unspecified] Onset: 11-23-2023 Episodic Other hereditary and degenerative nervous system conditions (20 sources) Restless legs; Translations: [Restless legs syndrome] Onset: 06-09-2020 Resolved: 05-17-2021 05-17-2021 Chronic Other injuries and conditions due to external causes (20 sources) Injury of toe of left foot; Translations: [Unspecified injury of left foot, initial encounter] Onset: 07-26-2023 07-26-2023 Episodic Other lower respiratory disease (20 sources) Nodule of lung; Translations: [Solitary pulmonary nodule] Onset: 03-13-2023 Episodic Other lower respiratory disease (20 sources) Multiple nodules of lung; Translations: [Other nonspecific abnormal finding of lung field] Onset: 2022 2022 Episodic Other lower respiratory disease (15 sources) Dyspnea; Translations: [Shortness of breath] Onset: 08-23-2023 08-23-2023 Episodic Other lower respiratory disease (15 sources) Cough; Translations: [Acute cough] Onset: 08-23-2023 08-23-2023 Episodic Other lower respiratory disease (2 sources) Shortness of breath; Translations: [Shortness of breath] Onset: 08-23-2023 Episodic Other lower respiratory disease (1 source) Cough; Translations: [Acute cough] Onset: 08-23-2023 08-23-2023 Episodic Other nervous system disorders (20 sources) Finding of hand region; Translations: [Tremor, unspecified] Onset: 09-15-2022 09-15-2022 Episodic Other nervous system disorders (20 sources) Abnormal gait; Translations: [Unsteadiness on feet] Onset: 11-30-2022 11-30-2022 Episodic Other skin disorders (20 sources) Personal history of diseases of the skin and subcutaneous tissue; Translations: [History of urticaria] Onset: 01-11-2019 Resolved: 05-16-2021 01-11-2019 Episodic Pneumonia (except that caused by tuberculosis or sexually transmitted disease) (20 sources) Right lower zone pneumonia; Translations: [Pneumonia] Onset: 01-03-2019 Resolved: 05-16-2021 01-11-2019 Episodic Residual codes; unclassified (20 sources) Hypersomnia; Translations: [Hypersomnia, unspecified] Onset: 06-09-2020 Resolved: 05-17-2021 05-17-2021 Chronic Residual codes; unclassified (20 sources) Insomnia; Translations: [Insomnia, unspecified] Onset: 03-27-2017 01-11-2019 Episodic Residual codes; unclassified (20 sources) History of operative procedure on foot; Translations: [Other specified postprocedural states] Onset: 07-15-2022 07-18-2022 Episodic Residual codes; unclassified (1 source) Other specified postprocedural states; Translations: [Other specified postprocedural states] Onset: 07-18-2022 Episodic Skin and subcutaneous tissue infections (20 sources) Cellulitis of toe of left foot; Translations: [Cellulitis of left toe] Onset: 07-26-2023 07-26-2023 Episodic Suicide and intentional self-inflicted injury (20 sources) Suicidal thoughts; Translations: [Suicidal ideations] Onset: 04-05-2018 Resolved: 05-16-2021 05-16-2021 Episodic Unclassified (20 sources) Onset: 12-01-2022 Resolved: 01-08-2024 12-01-2022 Urinary tract infections (20 sources) Postinfective urethral stricture of female; Translations: [Postinfective urethral stricture, not elsewhere classified, female] Onset: 12-28-2021 Episodic Viral infection (19 sources) Disease caused by 2019-nCoV; Translations: [COVID-19] Onset: 08-17-2023 08-17-2023 Episodic Results Test Name Value Interpretation Reference Range Facility Ambulatory Visit Summaryon 0 03-28-2024 Ambulatory Visit Summary Ambulatory Visit Summary RASHAWN MULTANI :1960 Visit Date:03/28/2024 Ambulatory Visit Instructions Your Diagnosis Mixed incontinence OAB (overactive bladder) Your Care Team Attending Physician - PAULA JOSHI PA-C Primary Care Physician - SALUD HNASEN CNP This Is Your Medications List amlodipine (amLODIPine 2.5 mg Tab) aripiprazole (Abilify) carbidopa-levodopa (carbidopa-levodopa 25 mg-100 mg Tab) cholecalciferol (Vitamin D3 2000 intl units) conjugated estrogens topical (Premarin Vaginal 0.625 mg/g cream with applicator) dapagliflozin (Farxiga 10 mg oral tablet) escitalopram (Lexapro 10 mg Tab) escitalopram (Lexapro) ferrous sulfate gabapentin (gabapentin 100 mg Cap) insulin lispro (insulin lispro 100 units/mL injectable solution) insulin lispro (insulin lispro 100 units/mL injectable solution) levothyroxine lorazepam (LORazepam 0.5 mg Tab) metformin (metformin 500 mg Tab) mirabegron (Myrbetriq 50 mg oral tablet, extended release) pantoprazole (Protonix 40 mg Tab-DR) rosuvastatin (rosuvastatin 10 mg Tab) trazodone (traZODONE 50 mg Tab) Procedures Performed Cystourethroscopy with dilation of urethral stricture (07/13/2023), Cystourethroscopy with dilation of urethral stricture (10/27/2022), Cystourethroscopy with dilation of urethral stricture (09/16/2021), [...] hernia, Tonsillectomy. Discharge Vitals Heart Rate (Peripheral) 76 Blood Pressure 136/86 Height 160 cm Height 63 in Weight 75 kg Weight 165 lb BMI 29.3 What to do next Scheduled Follow-Up Appointments Monday 2:00 PM EST With: PAULA JOSHI PA-C Where: [facility] [address] [place] [address]- Medications What How Much When Instructions Unchanged amlodipine (amLODIPine 2.5 mg Tab) 1 Tablets Unchanged aripiprazole (Abilify) 10 Milligram By Mouth Every day BIPOLAR Unchanged carbidopa-levodopa (carbidopa-levodopa 25 mg-100 mg Tab) 1 Tablets By Mouth 3 times a day Unchanged cholecalciferol (Vitamin D3 2000 intl units) 1 tab By Mouth Every day Unchanged conjugated estrogens topical (Premarin Vaginal 0.625 mg/ g cream with applicator) 1 Gram Vaginal Monday Unchanged dapagliflozin (Farxiga 10 mg oral tablet) 1 Tablets By Mouth Every day Unchanged escitalopram (Lexapro 10 mg Tab) 1 Tablets By Mouth Every day Take daily with 20mg tab Unchanged escitalopram (Lexapro) 20 Milligram By Mouth Every day Take daily with 10mg tab Unchanged ferrous sulfate 325 Milligram By Mouth 2 times a day Unchanged gabapentin (gabapentin 100 mg Cap) 1 Capsules By Mouth 3 times a day Unchanged insulin lispro (insulin lispro 100 units/ mL injectable solution) Unchanged insulin lispro (insulin lispro 100 units/ mL injectable solution) Unchanged levothyroxine 50 Microgram By Mouth Every day Unchanged lorazepam (LORazepam 0.5 mg Tab) 1 Tablets By Mouth 3 times a day as needed for for anxiety Unchanged metformin (metformin 500 mg Tab) 1 Tablets By Mouth 2 times a day Unchanged mirabegron (Myrbetriq 50 mg oral tablet, extended release) 2 Tablets By Mouth Every day Duration: 30 Days Unchanged pantoprazole (Protonix 40 mg Tab-DR) 1 Tablets By Mouth Every day Unchanged rosuvastatin (rosuvastatin 10 mg Tab) 1 Tablets By Mouth Every day Unchanged trazodone (traZODONE 50 mg Tab) 0.5 Tablets By Mouth Once a day (at bedtime) Allergies codeine (Unknown) magnesium citrate (Unknown) morphine (Unknown) nitrofurantoin (Rash) sulfa drugs (Rash) Problems Ongoing - Any problem that you are currently receiving treatment for. Anxiety and depression Atrophic vaginitis Chronic GERD DM - Diabetes mellitus Dysuria High cholesterol Hypertension Hypothyroidism Incomplete bladder emptying Incontinence without sensory awareness Mixed incontinence OAB (overactive bladder) RAÚL (obstructive sleep apnea) Postinfective urethral stricture of female Recurrent UTI Stress incontinence Urge incontinence Historical - Any problem that you are no longer receiving treatment for. Bipolar disorder Hypothyroidism Uterine cancer Patient Survey You may receive a survey via text or e-mail asking about your office visit. Please share your experience with us by completing your survey. We appreciate your feedback and thank you for choosing us for your care. (more content not included)... Normal [facility] Urology Office/Clinic Noteon 03-28-2024 Urology Office/Clinic Note Urology Office/Clinic Note Chief Complaint frequency incontinence HPI Staff 63 yr old female here with c/o frequency, incontinence pt states the last few weeks the sxs and incontinence has gotten worse Dysuria: _at times Incomplete bladder emptying: _unsure Hematuria: _no Frequency: _1-2 hrs Urgency: _yes Nocturia: _4-5x Stream: _at times it is stop and go Leaking: _yes Post void dripping: _yes Wearing pads/ Depends: _pads, 4-5x daily change Urge incontinence: _yes Stress incontinence: _yes Incontinence without Sensory Awareness: _yes Abdominal pain: _no Flank pain: _no Sexual complaints: _ Review of Systems PHQ Score Initial Depression Screen Score: 0 SCORE no fever, chills, malaise, myalgia. no rash/lesions. no chest pain, palpitations, or SOB. no abdominal pain, nausea, vomiting. no unilateral calf swelling, redness, pain Physical Exam Vitals & Measurements HR: 76(Peripheral) BP: 136/86 HT: 63 in HT: 160 cm WT: 75 kg WT: 165 lb BMI: 29.3 General: nontoxic, NAD Mouth: moist mucosa Lungs: normal respiratory effort Cardio: regular rate, good distal perfusion Abdomen: nondistended, no suprapubic distention or tenderness, no CVA tenderness Neurologic: Grossly normal Skin: No rashes or suspicious lesions Assessment/Plan UA completed in office today shows no microhematuria or signs of infection. Does have glucose, pt on Farxiga. A1c 4/5/24 - 7.2 1. Mixed incontinence (N39.46: Mixed incontinence) BBSQ 26 ( 14) poor ( good ) Pt states pill pack this month only came w Myrbetriq 1 tab daily instead of 2. I did call and there was a mistake, PCP sent wrong Rx after we sent the correct dosing and it caused the error. I corrected this and they said her pack next month will be accurate. Will continue 100mg daily as she has been taking and doing well on. Ordered: E&M of Est. Patient Moderate 30-39 Min 44508 Urnls Dip Stick Auto w/o Microscopy POC 09175 2. OAB (overactive bladder) (N32.81: Overactive bladder) see #1. Ordered: E&M of Est. Patient Moderate 30-39 Min 31512 Urnls Dip Stick Auto w/o Microscopy POC 69910 3. Postinfective urethral stricture of female (N35.12: Postinfective urethral stricture, not elsewhere classified, female) Hx 9 Cysto/UD, under MAC Feels stream is worsening, even before the issue w the Myrbetriq. Has intermittency, some straining. Feels it's time for another UD. PVR has worsened, 208ml today. Will schedule. Will schedule Cysto with UD. The procedure risks, benefits, details, and treatment alternatives have been discussed with the patient. These include bleeding, infection, recurrent scar in over 50%, need for repeat dilation or other procedures, no symptom relief with dilation, among others. Full informed consent has been obtained. Will order Mac anesthesia. Ordered: E&M of Est. Patient Moderate 30-39 Min 22537 Follow-up With When Contact Information [facility] [address] [place] [address] Business (1) Additional Instructions: for procedure as scheduled Patient Education Overactive Bladder, Adult Problem List/Past Medical History Ongoing Anxiety and depression Atrophic vaginitis Chronic GERD DM - Diabetes mellitus Dysuria High cholesterol Hypertension Hypothyroidism Incomplete bladder emptying Incontinence without sensory awareness Mixed incontinence OAB (overactive bladder) RAÚL (obstructive sleep apnea) Postinfective urethral stricture of female Recurrent UTI Stress incontinence Urge incontinence Historical Bipolar disorder Hypothyroidism Uterine cancer Procedure/Surgical History Cystourethroscopy with dilation of urethral stricture (07/13/2023), Cystourethroscopy with dilation of urethral stricture (10/27/2022), Cystourethroscopy with dilation of urethral stricture (09/16/2021), [...] Medications Abilify, 10 mg, Oral, Daily amLODIPine 2.5 mg Tab, 2.5 mg= 1 tab(s) carbidopa-levodopa 25 mg-100 mg Tab, 1 tab(s), Oral, TID Farxiga 10 mg oral tablet, 10 mg= 1 tab(s), Oral, Daily ferrous sulfate, 325 mg, Oral, BID gabapentin 100 mg Cap, 100 mg= 1 cap(s), Oral, TID insulin lispro 100 units/mL injectable solution insulin lispro 100 units/mL injectable solution levothyroxine, 50 mcg, Oral, Daily Lexapro, 20 mg, Oral, Daily Lexapro 10 mg Tab, 10 mg= 1 tab(s), Oral, Daily LORazepa (more content not included)... Normal [facility] Comment on above: Result Comment: Elec tronically Signed By: RASHIDA STEPHENS, PAULA Wheat\.br\Date and Time Signed: 03/28/24 10:06 EDT ALBUMINon 03-19-2024 Albumin [Mass/Vol] 4.2 g/dL Normal 3.2-5.3 [facility] Comment on above: Performed By: #### 1 0839-9 #### [facility] ([id number]) [address] [place] [address] 10125 BASIC METABOLIC PANLon 03-19 Anion gap [Moles/Vol] 9 mmol/L Normal 5-15 [facility] Comment on above: Performed By: #### 1 0839-9 #### [facility] ([id number]) [address] [place] [address] 43288 Calcium [Mass/Vol] 9.1 mg/dL Normal 8.5-10.5 [facility] Comment on above: Performed By: #### 1 0839-9 #### [facility] ([id number]) [address] [place] [address] 68877 Chloride [Moles/Vol] 103 mmol/L Normal 98-109 [facility] Comment on above: Performed By: #### 1 0839-9 #### [facility] ([id number]) [address] [place] [address] 44863 CO2 [Moles/Vol] 27 mmol/L Normal 22-32 [facility] Comment on above: Performed By: #### 1 0839-9 #### [facility] ([id number]) [address] [place] [address] 35196 Creatinine [Mass/Vol] 1.22 mg/dL High 0.40-1.00 [facility] Comment on above: Result Comment: METH OD TRACEABLE TO IDMS STANDARD Performed By: #### 1 0839-9 #### [facility] ([id number]) [address] [place] [address] 82040 GFR/1.73 sq M.predicted among non-blacks MDRD (S/P/Bld) [Vol rate/Area] 49 mL/min/{1.73_m2} Low >59 [facility] Comment on above: Result Comment: Reported eGFR is based on the CKD-EPI 2020 equation that does not use a race coefficient. Performed By: #### 1 0839-9 #### [facility] ([id number]) [address] [place] [address] 02915 Glucose [Mass/Vol] 147 mg/dL High 65-99 [facility] Comment on above: Performed By: #### 1 0839-9 #### [facility] ([id number]) [address] [place] [address] 01922 Potassium [Moles/Vol] 5.3 mmol/L High 3.5-5.0 [facility] Comment on above: Result Comment: SPEC IMEN HEMOLYZED, RESULTS INCREASED MODERATELY HEMOLYZED Performed By: #### 1 0839-9 #### [facility] ([id number]) [address] [place] [address] 05590 Sodium [Moles/Vol] 139 mmol/L Normal 134-146 [facility] Comment on above: Performed By: #### 1 0839-9 #### [facility] ([id number]) [address] [place] [address] 98567 Urea nitrogen [Mass/Vol] 17 mg/dL Normal 5-27 [facility] Comment on above: Performed By: #### 1 0839-9 #### [facility] ([id number]) [address] [place] [address] 74237 CBC AND AUTO DIFFon 03-19-20 24 ABSOLUTE BASOPHIL 0.1 X10E9/L Normal 0.0-0.2 [facility] Comment on above: Performed By: #### 1 0839-9 #### [facility] ([id number]) [address] [place] [address] 32939 ABSOLUTE NEUTROPHIL 4.5 X10E9/L Normal 1.5-6.6 [facility] Comment on above: Performed By: #### 1 0839-9 #### [facility] ([id number]) [address] [place] [address] 38926 Basophils/100 WBC (Bld) 1.3 % Normal [facility] Comment on above: Performed By: #### 1 0839-9 #### [facility] ([id number]) [address] [place] [address] 65972 Eosinophils (Bld) [#/Vol] 0.2 10*3/uL Normal 0.0-0.4 [facility] Comment on above: Performed By: #### 1 0839-9 #### [facility] ([id number]) [address] [place] [address] 10814 Eosinophils/100 WBC (Bld) 3.1 % Normal [facility] Comment on above: Performed By: #### 1 0839-9 #### [facility] ([id number]) [address] [place] [address] 78771 Erythrocyte distribution width (RBC) [Ratio] 13.6 % Normal 11.5-15.0 [facility] Comment on above: Performed By: #### 1 0839-9 #### [facility] ([id number]) [address] [place] [address] 32830 Hematocrit (Bld) [Volume fraction] 39.1 % Normal 35-47 [facility] Comment on above: Performed By: #### 1 0839-9 #### [facility] ([id number]) [address] [place] [address] 89207 Hemoglobin (Bld) [Mass/Vol] 12.9 g/dL Normal 11.7-15.5 [facility] Comment on above: Performed By: #### 1 0839-9 #### [facility] ([id number]) [address] [place] [address] 52380 Lymphocytes (Bld) [#/Vol] 1.8 10*3/uL Normal 1.0-3.5 [facility] Comment on above: Performed By: #### 1 0839-9 #### [facility] ([id number]) [address] [place] [address] 46502 Lymphocytes/100 WBC (Bld) 25.2 % Normal [facility] Comment on above: Performed By: #### 1 0839-9 #### [facility] ([id number]) [address] [place] [address] 45325 MCH (RBC) [Entitic mass] 29.8 pg Normal 27-34 [facility] Comment on above: Performed By: #### 1 0839-9 #### [facility] ([id number]) [address] [place] [address] 00922 MCHC (RBC) [Mass/Vol] 33.1 g/dL Normal 32-36 [facility] Comment on above: Performed By: #### 1 0839-9 #### [facility] ([id number]) [address] [place] [address] 64394 MCV (RBC) [Entitic vol] 90 fL Normal 80-100 [facility] Comment on above: Performed By: #### 1 0839-9 #### [facility] ([id number]) [address] [place] [address] 80667 Monocytes (Bld) [#/Vol] 0.4 10*3/uL Normal 0-0.9 [facility] Comment on above: Performed By: #### 1 0839-9 #### [facility] ([id number]) [address] [place] [address] 16664 Monocytes/100 WBC (Bld) 5.7 % Normal [facility] Comment on above: Performed By: #### 1 0839-9 #### [facility] ([id number]) [address] [place] [address] 62999 Neutrophils/100 WBC (Bld) 64.7 % Normal [facility] Comment on above: Performed By: #### 1 0839-9 #### [facility] ([id number]) [address] [place] [address] 35244 Platelet mean volume (Bld) [Entitic vol] 7.3 fL Normal 7-12 [facility] Comment on above: Performed By: #### 1 0839-9 #### [facility] ([id number]) [address] [place] [address] 38378 Platelets (Bld) [#/Vol] 309 10*3/uL Normal 150-450 [facility] Comment on above: Performed By: #### 1 0839-9 #### [facility] ([id number]) [address] [place] [address] 13523 RBC COUNT 4.35 X10E12/L Normal 3.80-5.20 [facility] Comment on above: Performed By: #### 1 0839-9 #### [facility] ([id number]) [address] [place] [address] 48902 WBC (Bld) [#/Vol] 7.0 10*3/uL Normal 4.0-11.0 [facility] Comment on above: Performed By: #### 1 0839-9 #### [facility] ([id number]) [address] [place] [address] 39926 MAGNESIUMon 03-19-2024 Magnesium [Mass/Vol] 2.1 mg/dL Normal 1.8-2.6 [facility] Comment on above: Performed By: #### 1 0839-9 #### [facility] ([id number]) [address] [place] [address] 77066 MICROALBUMIN - ALBUMIN:CREAT ININE URINE RATIOon 03-19-2024 ALB/CREAT RATIO NOT CALCULATED Normal 0.0-30.0 [facility] Comment on above: Result Comment: Result for Albumin/Creatinine Ratio cannot be reliably calculated because urine albumin and or urine creatinine is below the detection limit of the assay. Performed By: #### 1 0839-9 #### [facility] ([id number]) [address] [place] [address] 33182 Albumin DL <= 20 mg/L (U) [Mass/Vol] mg/dL Normal 0.0-1.9 [facility] Comment on above: Performed By: #### 1 0839-9 #### [facility] ([id number]) [address] [place] [address] 95003 URINE CREAT 32.47 mg/dL Normal [facility] Comment on above: Performed By: #### 1 0839-9 #### [facility] ([id number]) [address] [place] [address] 60954 PHOSPHORUSon 03-19-2024 Phosphate [Mass/Vol] 4.1 mg/dL Normal 2.4-4.9 [facility] Comment on above: Result Comment: SPEC IMEN HEMOLYZED, RESULTS INCREASED MODERATELY HEMOLYZED Performed By: #### 1 0839-9 #### [facility] ([id number]) [address] [facility] [place] [address] Parathyrin.intact [Mass/Vol] on 03-19-2024 PTH INTACT 55 pg/mL Normal 12-88 [facility] Comment on above: Performed By: #### 1 0839-9 #### [facility] ([id number]) [address] [facility], [place] [address] URINALYSISon 03-19-2024 Bilirubin Ql (U) Negative Normal NEG [facility] Comment on above: Performed By: #### Lakisha OTT UA ####[facility] ([id number])[address] [facility], [address], [place] [address] BLOOD/HGB Negative Normal NEG [facility] Comment on above: Performed By: #### Lakisha OTT UA ####[facility] ([id number])[address] [facility], [address], [place] [address] Color (U) YELLOW Normal YELLOW [facility] Comment on above: Performed By: #### Laksiha OTT UA ####[facility] ([id number])[address] [facility], [address] [address] Glucose Ql (U) >1000 Abnormal NEG [facility] Comment on above: Performed By: #### Lakisha OTT UA ####[facility] ([id number])[address] [facility], [address], [place] [address] Ketones Ql (U) Negative Normal NEG [facility] Comment on above: Performed By: #### Lakisha OTT UA ####[facility] ([id number])[address], [address] [place] [address]85 Leukocyte esterase Test strip Ql (U) Negative Normal NEG [facility] Comment on above: Result Comment: HIGH CONCENTRATIONS OF GLUCOSE MAY DECREASE THE REACTIVITY OF THE DIPSTICK LEUKOCYTE TEST PAD. Performed By: #### M NAMRATA UA ####[facility] ([id number])[address] [address] [place] [address]12 Nitrite Ql (U) Negative Normal NEG [facility] Comment on above: Performed By: #### M ADOLPHU UA ####[facility] ([id number])0 [address] [address] [place] [address] 66491 pH (U) 6.0 [pH] Normal 5.0-8.5 [facility] Comment on above: Performed By: #### M NAMRATA UA ####[facility] ([id number])[address] [address] Protein Ql (U) Negative Normal NEG [facility] Comment on above: Performed By: #### M NAMRAAT UA ####[facility] ([id number])[address] [address] Specific gravity (U) [Rel density] 1.014 Normal 1.003-1.035 [facility] Comment on above: Performed By: #### M ADOLPHU UA ####[facility] ([id number])[address] [address] TURBIDITY CLEAR Normal CLEAR [facility] Comment on above: Performed By: #### M ADOLPHU UA ####[facility] ([id number])0 [address] [address] [place] [address] 607[address] Urobilinogen (U) [Mass/Vol] mg/dL Normal <1.1 [facility] Comment on above: Performed By: #### M ADOLPHU UA ####[facility] ([id number])[address] [facility], [address], [place] [address] Vitamin D+Metabolites [Mass/ Vol]on 03-19-2024 VITAMIN D 25 HYD TOT 87.0 ng/mL Normal 30-100 [facility] Comment on above: Result Comment: Vitamin D status 25 [place] Vitamin D Deficiency <20 ng/mL Insufficiency 20-29 ng/mL Sufficiency 30-100 ng/mL Toxicity >100 ng/mL NOTE: A pediatric reference range has not been established by the quality system manager of this kit. The [employer] [employer] recommends a Vitamin D level of = or >20ng/mL in infants and children. Performed By: #### 1 0839-9 #### [facility] ([id number]) [address] [place] [address] 35217 THYROID PROFILEon 01-27-2024 Free T4 [Mass/Vol] 1.03 ng/dL Normal 0.61-1.60 [facility] Comment on above: Performed By: #### 1 0839-9 #### [facility] ([id number]) [address] [place] [address] 36205 TSH 1.28 uIU/mL Normal 0.49-4.67 [facility] Comment on above: Performed By: #### 1 0839-9 #### [facility] ([id number]) [address] [place] [address] 27152 CBC AND AUTO DIFFon 12-11-19 24 ABSOLUTE BASOPHIL 0.1 X10E9/L Normal 0.0-0.2 [facility] Comment on above: Performed By: #### 3 2133-1, CMP, 3040-3, CBCA, 14033-5, 86842-0 ####[facility] ([id number])[address] [place] [address] 85946 ABSOLUTE NEUTROPHIL 4.8 X10E9/L Normal 1.5-6.6 [facility] Comment on above: Performed By: #### 3 3-1, CMP, 3040-3, CBCA, 33364-0, 58895-3 ####[facility] ([id number])[address] [place] [address] 50875 Basophils/100 WBC (Bld) 0.9 % Normal [facility] Comment on above: Performed By: #### 3 3-1, CMP, 3040-3, CBCA, , 04839-5 ####[facility] ([id number])[address] [place] [address] 56355 Eosinophils (Bld) [#/Vol] 0.2 10*3/uL Normal 0.0-0.4 [facility] Comment on above: Performed By: #### 3 2132-1, CMP, 0-3, CBCA, , 20503-8 ####[facility] ([id number])[address] [place] [address] 53501 Eosinophils/100 WBC (Bld) 3.1 % Normal [facility] Comment on above: Performed By: #### 3 3-1, CMP, 3040-3, CBCA, , 55574-4 ####[facility] ([id number])[address] [place] [address] 49433 Erythrocyte distribution width (RBC) [Ratio] 14.8 % Normal 11.5-15.0 [facility] Comment on above: Performed By: #### 3 3-1, CMP, 3040-3, CBCA, , 93082-7 ####[facility] ([id number])[address] [place] [address] 62373 Hematocrit (Bld) [Volume fraction] 38.2 % Normal 35-47 [facility] Comment on above: Performed By: #### 3 3-1, CMP, 3040-3, CBCA, 54997-1, 94539-2 ####[facility] ([id number])[address] [place] [address] 48873 Hemoglobin (Bld) [Mass/Vol] 12.8 g/dL Normal 11.7-15.5 [facility] Comment on above: Performed By: #### 3 3-1, CMP, 0-3, CBCA, 70438-2, 35813-8 ####[facility] ([id number])[address] [place] [address] 91351 Lymphocytes (Bld) [#/Vol] 1.6 10*3/uL Normal 1.0-3.5 [facility] Comment on above: Performed By: #### 3 2132-1, CMP, 0-3, CBCA, , 34258-1 ####[facility] ([id number])[address] [place] [address] 19930 Lymphocytes/100 WBC (Bld) 21.9 % Normal [facility] Comment on above: Performed By: #### 3 2132-1, CMP, 0-3, CBCA, 63828-5, 92080-7 ####[facility] ([id number])[address] [place] [address] 23131 MCH (RBC) [Entitic mass] 30.0 pg Normal 27-34 [facility] Comment on above: Performed By: #### 3 3-1, CMP, 3040-3, CBCA, 96475-8, 69436-8 ####[facility] ([id number])[address] [place] [address] 89315 MCHC (RBC) [Mass/Vol] 33.5 g/dL Normal 32-36 [facility] Comment on above: Performed By: #### 3 2133-1, CMP, 3040-3, CBCA, , 13476-0 ####[facility] ([id number])[address] [place] [address] 97539 MCV (RBC) [Entitic vol] 90 fL Normal 80-100 [facility] Comment on above: Performed By: #### 3 2132-1, CMP, 0-3, CBCA, 76219-8, 65552-5 ####[facility] ([id number])[address] [place] [address] 50590 Monocytes (Bld) [#/Vol] 0.6 10*3/uL Normal 0-0.9 [facility] Comment on above: Performed By: #### 3 2132-1, CMP, 0-3, CBCA, 37385-4, 76049-6 ####[facility] ([id number])[address] [place] [address] 21598 Monocytes/100 WBC (Bld) 8.8 % Normal [facility] Comment on above: Performed By: #### 3 2132-1, CMP, 0-3, CBCA, , 03658-0 ####[facility] ([id number])[address] [place] [address] 98554 Neutrophils/100 WBC (Bld) 65.3 % Normal [facility] Comment on above: Performed By: #### 3 2132-1, CMP, 3040-3, CBCA, , 91053-2 ####[facility] ([id number])[address] [place] [address] 29657 Platelet mean volume (Bld) [Entitic vol] 6.8 fL Low 7-12 [facility] Comment on above: Performed By: #### 3 3-1, CMP, 3040-3, CBCA, , 08025-0 ####[facility] ([id number])[address] [place] [address] 52103 Platelets (Bld) [#/Vol] 249 10*3/uL Normal 150-450 [facility] Comment on above: Performed By: #### 3 3-1, CMP, 3040-3, CBCA, 06454-9, 07928-7 ####[facility] ([id number])[address] [place] [address] 84824 RBC COUNT 4.27 X10E12/L Normal 3.80-5.20 [facility] Comment on above: Performed By: #### 3 3-1, CMP, 3040-3, CBCA, 19823-5, 95016-9 ####[facility] ([id number])[address] [place] [address] 21097 WBC (Bld) [#/Vol] 7.4 10*3/uL Normal 4.0-11.0 [facility] Comment on above: Performed By: #### 3 3-1, CMP, 3040-3, CBCA, 56408-5, 82729-1 ####[facility] ([id number])[address] [place] [address] 01246 COMPREHENSIVE METABOLIC PANE Ayush 12-11-2023 Albumin [Mass/Vol] 4.1 g/dL Normal 3.2-5.3 [facility] Comment on above: Performed By: #### 3 3-1, CMP, 3040-3, CBCA, 65718-7, 88324-2 ####[facility] ([id number])[address] [place] [address] 60943 ALP [Catalytic activity/Vol] 78 U/L Normal 39-130 [facility] Comment on above: Performed By: #### 3 3-1, CMP, 3040-3, CBCA, 29017-2, 24507-1 ####[facility] ([id number])[address] [place] [address] [place] [address] ALT [Catalytic activity/Vol] 13 U/L Normal 0-31 [facility] Comment on above: Performed By: #### 3 3-1, CMP, 3040-3, CBCA, 98375-7, 78832-1 ####[facility] ([id number])[address] [place] [address] 13301 Anion gap [Moles/Vol] 8 mmol/L Normal 5-15 [facility] Comment on above: Performed By: #### 3 3-1, CMP, 3040-3, CBCA, 92227-7, 39435-0 ####[facility] ([id number])[address] [place] [address] 11935 AST [Catalytic activity/Vol] 22 U/L Normal 0-41 [facility] Comment on above: Performed By: #### 3 3-1, CMP, 3040-3, CBCA, 51898-9, 86759-6 ####[facility] ([id number])[address] [place] [address] 78318 Bilirubin [Mass/Vol] 0.7 mg/dL Normal 0.3-1.2 [facility] Comment on above: Performed By: #### 3 3-1, CMP, 3040-3, CBCA, 27654-0, 97238-9 ####[facility] ([id number])[address] [place] [address] 46713 Calcium [Mass/Vol] 8.6 mg/dL Normal 8.5-10.5 [facility] Comment on above: Performed By: #### 3 3-1, CMP, 3040-3, CBCA, 38241-4, 24991-0 ####[facility] ([id number])[address] [place] [address] 40390 Chloride [Moles/Vol] 103 mmol/L Normal 98-109 [facility] Comment on above: Performed By: #### 3 3-1, CMP, 3040-3, CBCA, 76181-0, 28090-8 ####[facility] ([id number])[address] [place] [address] 61892 CO2 [Moles/Vol] 24 mmol/L Normal 22-32 [facility] Comment on above: Performed By: #### 3 3-1, CMP, 3040-3, CBCA, , 11593-9 ####[facility] ([id number])[address] [place] [address] 36232 Creatinine [Mass/Vol] 1.34 mg/dL High 0.40-1.00 [facility] Comment on above: Result Comment: METH OD TRACEABLE TO IDMS STANDARD Performed By: #### 3 3-1, CMP, 0-3, CBCA, , 88599-6 ####[facility] ([id number])[address] [place] [address]4628 GFR/1.73 sq M.predicted among non-blacks MDRD (S/P/Bld) [Vol rate/Area] 44 mL/min/{1.73_m2} Low >59 [facility] Comment on above: Result Comment: Reported eGFR is based on the CKD-EPI 2020 equation that does not use a race coefficient. Performed By: #### 3 3-1, CMP, 3040-3, CBCA, 85526-8, 84504-6 ####[facility] ([id number])[address] [place] [address] 59007 Glucose [Mass/Vol] 138 mg/dL High 65-99 [facility] Comment on above: Performed By: #### 3 3-1, CMP, 3040-3, CBCA, 20434-0, 15033-2 ####[facility] ([id number])[address] [place] [address] 06033 Potassium [Moles/Vol] 4.2 mmol/L Normal 3.5-5.0 [facility] Comment on above: Performed By: #### 3 2133-1, CMP, 3040-3, CBCA, 86131-9, 33010-4 ####[facility] ([id number])[address] [place] [address] 25767 Protein [Mass/Vol] 6.5 g/dL Normal 6.0-8.0 [facility] Comment on above: Performed By: #### 3 2133-1, CMP, 3040-3, CBCA, 18228-3, 48614-6 ####[facility] ([id number])[address] [place] [address] 27257 Sodium [Moles/Vol] 135 mmol/L Normal 134-146 [facility] Comment on above: Performed By: #### 3 2133-1, CMP, 3040-3, CBCA, 68259-8, 38737-9 ####[facility] ([id number])[address] [place] [address] 66804 Urea nitrogen [Mass/Vol] 18 mg/dL Normal 5-27 [facility] Comment on above: Performed By: #### 3 2133-1, CMP, 3040-3, CBCA, 60277-7, 15362-6 ####[facility] ([id number])[address] [place] [address] ABDOMEN AND PELVIS W CONT on 12-11-2023 CT ABDOMEN AND PELVIS W CONT CT ABDOMEN AND PELVIS W CONT CT ABDOMEN AND PELVIS HISTORY: Abdominal pain. COMPARISON STUDY: 10/25/2023. TECHNIQUE: CT scan of the abdomen and pelvis performed with IV and oral contrast. 100 mL of Omnipaque 300 was injected intravenously without complication. Coronal and sagittal reformats generated and reviewed. FINDINGS: LOWER THORAX: Unremarkable. HEPATOBILIARY: No focal hepatic lesions. Gallbladder surgically absent with similar dilatation common duct, intrahepatic biliary tree likely from postcholecystectomy reservoir effect. SPLEEN: Unremarkable. PANCREAS: No focal masses or ductal dilatation. ADRENALS: No adrenal nodules. KIDNEYS/URETERS: No collecting system dilatation, stones, or solid mass lesions. GI TRACT: Redemonstrated postoperative changes from gastric bypass. Small to moderate hiatal hernia, oral contrast within the distal esophagus just presence of reflux. Slight wall thickening likely from reflux esophagitis as well. No bowel obstruction or visible complication. Contrast progresses into the small bowel distal to the jejunostomy. Appendix is normal. PELVIC ORGANS/BLADDER: Unremarkable. PERITONEUM/RETROPERIT ONEUM: No free air or fluid. LYMPH NODES: No enlarged lymph nodes. VESSELS: Atherosclerotic calcifications without abdominal aortic aneurysm. BONES AND SOFT TISSUES: No suspicious osseous lesion. Unchanged tiny nodular density right lateral breast measuring 45 mm. As before consider ultrasound and mammogram/ultrasound evaluation. IMPRESSION: 1. No acute findings. No bowel obstruction. 2. Other chronic findings as described All CT scans at this facility use dose modulation, iterative reconstruction, and/or weight based dosing when appropriate to reduce radiation dose to as low as reasonably achievable. Finalized by Edward Garcia MD on 12/11/2023 4:26 PM Normal [facility] LIPASEon 12-11-2023 Lipase [Catalytic activity/Vol] 71 U/L High 17-40 [facility] Comment on above: Performed By: #### 3 2132-1, [facility], 3039-3, CBCA, 14477-7, 79310-6 ####[facility] ([id number])[address] [place] [address] Lactate (P siobhan) [Moles/Vol]o n 12-11-2023 LACTATE W/REFLEX 2.1 mmol/L High 0.4-2.0 [facility] Comment on above: Performed By: #### 3 3-1, JANES, 0-3, CBCA, 16726-8, 68397-3 ####[facility] ([id number])[address] [place] [address] 26354 MAGNESIUMon 12-11-2023 Magnesium [Mass/Vol] 2.2 mg/dL Normal 1.8-2.6 [facility] Comment on above: Performed By: #### 3 3-1, CMP, 3040-3, CBCA, , 71035-6 ####[facility] ([id number])[address] [place] [address] 18252 JEROME FECAL OCCULT BLDon 12-10 Hemoglobin.gastrointest inal Ql (Stl) Negative Normal NEG [facility] Comment on above: Performed By: #### 1 0839-9 #### [facility] ([id number]) [address] [place] [address] 89572 Troponin I.cardiac High sens itivity method [Mass/Vol]on 12-11-2023 1 HOUR TROP I, HIGH SENSITIVITY <2 Normal <16 [facility] Comment on above: Performed By: #### 8 9579-7 ####[facility] ([id number])[address] [place] [address] 22918 TROPONIN I, HIGH SENSITIVITY <2 Normal <16 [facility] Comment on above: Performed By: #### 3 3-1, CMP, 3040-3, CBCA, 81396-8, 76792-4 ####[facility] ([id number])[address] [place] [address] 17488 COMPREHENSIVE METABOLIC PANE Ayush 12-01-2023 Albumin [Mass/Vol] 4.1 g/dL Normal 3.2-5.3 [facility] Comment on above: Performed By: #### C MP, ####[facility] ([id number])[address] [facility], [address] [address] ALP [Catalytic activity/Vol] 79 U/L Normal 39-130 [facility] Comment on above: Performed By: #### C LYNN, ####[facility] ([id number])[address], [place] [address] ALT [Catalytic activity/Vol] 15 U/L Normal 0-31 [facility] Comment on above: Performed By: #### C LYNN, ####[facility] ([id number])[address], [address], [place] [address] Anion gap [Moles/Vol] 10 mmol/L Normal 5-15 [facility] Comment on above: Performed By: #### C LYNN, ####[facility] ([id number])[address], [address], [place] [address] AST [Catalytic activity/Vol] 15 U/L Normal 0-41 [facility] Comment on above: Performed By: #### Simeon BAILEY, ####[facility] ([id number])[address], [address], [place] [address] Bilirubin [Mass/Vol] 0.3 mg/dL Normal 0.3-1.2 [facility] Comment on above: Performed By: #### Simeon BAILEY, ####[facility] ([id number])[address], [address], [place] [address] Calcium [Mass/Vol] 8.6 mg/dL Normal 8.5-10.5 [facility] Comment on above: Performed By: #### C LYNN, ####[facility] ([id number])[address], [address], [place] [address] Chloride [Moles/Vol] 103 mmol/L Normal 98-109 [facility] Comment on above: Performed By: #### Simeon BAILEY, ####[facility] ([id number])[address], [address], [place] [address] CO2 [Moles/Vol] 24 mmol/L Normal 22-32 [facility] Comment on above: Performed By: #### Simeon BAILEY, ####[facility] ([id number])[address], [address] [address] Creatinine [Mass/Vol] 1.44 mg/dL High 0.40-1.00 [facility] Comment on above: Result Comment: METH OD TRACEABLE TO IDMS STANDARD Performed By: #### Simeon BAILEY, ####[facility] ([id number])[address] [address], [place] [address] GFR/1.73 sq M.predicted among non-blacks MDRD (S/P/Bld) [Vol rate/Area] 40 mL/min/{1.73_m2} Low >59 [facility] Comment on above: Result Comment: Reported eGFR is based on the CKD-EPI 2020 equation that does not use a race coefficient. Performed By: #### Simeon BAILEY, ####[facility] ([id number])[address] [address] [address], [place] [address] Glucose [Mass/Vol] 308 mg/dL High 65-99 [facility] Comment on above: Performed By: #### Simeon BAILEY, ####[facility] ([id number])[address] [address] [address] [address] Potassium [Moles/Vol] 4.8 mmol/L Normal 3.5-5.0 [facility] Comment on above: Performed By: #### Simeon BAILEY, ####[facility] ([id number])[address] [address] [address] [address] Protein [Mass/Vol] 6.5 g/dL Normal 6.0-8.0 [facility] Comment on above: Performed By: #### Simeon BAILEY, ####[facility] ([id number])[address], [address], [place] [address] Sodium [Moles/Vol] 137 mmol/L Normal 134-146 [facility] Comment on above: Performed By: #### C LYNN, 56038-8 ####[facility] ([id number])[address] [address], [place] [address] Urea nitrogen [Mass/Vol] 18 mg/dL Normal 5-27 [facility] Comment on above: Performed By: #### C LYNN, 23166-5 ####[facility] ([id number])[address] [address] MAGNESIUMon 12-01-2023 Magnesium [Mass/Vol] 1.9 mg/dL Normal 1.8-2.6 [facility] Comment on above: Performed By: #### C LYNN, 80180-7 ####[facility] ([id number])[address] [address] Screenson 11-22-2023 Screens [id number] Normal [facility] Patient Educationon 11-21-19 Patient Education Obstetrics and Gynecology Kegel Exercises Kegel exercises can help strengthen your pelvic floor muscles. The pelvic floor is a group of muscles that support your rectum, small intestine, and bladder. In females, pelvic floor muscles also help support the uterus. These muscles help you control the flow of urine and stool (feces). Kegel exercises are painless and simple. They do not require any equipment. Your provider may suggest Kegel exercises to: ? Improve bladder and bowel control. ? Improve sexual response. ? Improve weak pelvic floor muscles after surgery to remove the uterus (hysterectomy) or after , in females. ? Improve weak pelvic floor muscles after prostate gland removal or surgery, in males. Kegel exercises involve squeezing your pelvic floor muscles. These are the same muscles you squeeze when you try to stop the flow of urine or keep from passing gas. The exercises can be done while sitting, standing, or lying down, but it is best to vary your position. Ask your health care provider which exercises are safe for you. Do exercises exactly as told by your health care provider and adjust them as directed. Do not begin these exercises until told by your health care provider. Exercises How to do Kegel exercises: 1. Squeeze your pelvic floor muscles tight. You should feel a tight lift in your rectal area. If you are a female, you should also feel a tightness in your vaginal area. Keep your stomach, buttocks, and legs relaxed. 2. Hold the muscles tight for up to 10 seconds. 3. Breathe normally. 4. Relax your muscles for up to 10 seconds. 5. Repeat as told by your health care provider. Repeat this exercise daily as told by your health care provider. Continue to do this exercise for at least 4?6 weeks, or for as long as told by your health care provider. You may be referred to a physical therapist who can help you learn more about how to do Kegel exercises. Depending on your condition, your health care provider may recommend: ? Varying how long you squeeze your muscles. ? Doing several sets of exercises every day. ? Doing exercises for several weeks. ? Making Kegel exercises a part of your regular exercise routine. This information is not intended to replace advice given to you by your health care provider. Make sure you discuss any questions you have with your health care provider. Document Revised: 10/28/2021 Document Reviewed: 10/28/2021 [employer] Patient Education ? 2022 [employer]. [facility] Urology Office/Clinic Noteon 11-21-2023 Urology Office/Clinic Note Chief Complaint 3 mo f/u HPI Staff PRW pt 3m DX: Urge Incontinence, Stress Incontinence, OAB & Urethral Stricture *Resumed Myrbetriq 50mg 2tabs at time of last encounter Dysuria: denies Incomplete bladder emptying: denies Hematuria: denies Frequency: sometimes, better since starting Myrbetriq Urgency: sometimes, better since starting Myrbetriq Nocturia: 2x a night Stream: steady Leaking: yes Post void dripping: denies Wearing pads/ Depends: wears pads Urge incontinence: _occasionally Stress incontinence: yes Incontinence without Sensory Awareness: denies Abdominal pain: denies Flank pain: denies Sexual complaints: _ History of Present Illness staff HPI reviewed and agree. Review of Systems PHQ Score Initial Depression Screen Score: 0 SCORE no fever, chills, malaise, myalgia. no rash/lesions. no chest pain, palpitations, or SOB. no abdominal pain, nausea, vomiting. no unilateral calf swelling, redness, pain Physical Exam Vitals & Measurements T: 36.7 ?C(Temporal Artery) HR: 78(Peripheral) RR: 16 BP: 134/82 HT: 63 in HT: 160 cm WT: 75 kg WT: 165 lb BMI: 29.3 General: nontoxic, NAD Mouth: moist mucosa Lungs: normal respiratory effort Cardio: regular rate, good distal perfusion Abdomen: nondistended, no suprapubic distention or tenderness, no CVA tenderness Neurologic: Grossly normal Skin: No rashes or suspicious lesions Assessment/Plan PRW pt 1. Urge incontinence (N39.41: Urge incontinence) BBS 14 good control Recommended to restart Myrbetriq 100mg qd at prior OV as pt had stopped for an unknown reason. Frequency and urgency and incontinence have drastically improved. Changes pads 2-3x/day, Not soaked, just damp. No sample provided for UA today. Denies any issues with UTI sx. Overall satisfied w/ sx control on Myrbetriq. -Cont Myrbetriq 100mg qd. Pt to call for refills (uses [facility] pharmacy) 2. Stress incontinence (N39.3: Stress incontinence (female) (male)) S/p urodynamics 05/04/16. Hx of TVT sling, was effective initially but MIKE has worsened over the past year. Leaks with coughing/sneezing, laughing, movement, jumping, getting in/out car. Not bothersome enough to warrant additional tx at this time per pt. 3. OAB (overactive bladder) (N32.81: Overactive bladder) See #1. 4. Postinfective urethral stricture of female (N35.12: Postinfective urethral stricture, not elsewhere classified, female) Hx of 9 Cysto/UDs. Most recent 07/13/23 - under MAC. Reports steady stream. Does not feel need for repeat at this time. 5. Atrophic vaginitis (N95.2: Postmenopausal atrophic vaginitis) Using estrogen cream 3x/wk. Working well. Follow-up With When Contact Information RASHIDA STEPHENS, PAULA Wheat, URL [address] [place] [place] [address] [phone] Additional Instructions: 6 mos (no labs) Patient Education Kegel Exercises Documentation recorded by the adalgisa Pennington accurately reflects the services(s) I performed and decisions made by me. Authenticated by Paula Joshi PA-C on 11/21/2023 15:08:23. I, Shelley Pennington, personally scribed for Paula Joshi PA-C on 11/21/2023 14:37:04. . Problem List/Past Medical History Ongoing Anxiety and depression Atrophic vaginitis Chronic GERD DM - Diabetes mellitus Dysuria High cholesterol Hypertension Hypothyroidism Incomplete bladder emptying Incontinence without sensory awareness Mixed incontinence OAB (overactive bladder) RAÚL (obstructive sleep apnea) Postinfective urethral stricture of female Recurrent UTI Stress incontinence Urge incontinence Historical Bipolar disorder Hypothyroidism Uterine cancer Procedure/Surgical History Cystourethroscopy with dilation of urethral stricture (07/13/2023), Cystourethroscopy with dilation of urethral stricture (10/27/2022), Cystourethroscopy with dilation of urethral stricture (09/16/2021), [...] Tonsillectomy. Medications Abilify, 10 mg, Oral, Daily carbidopa-levodopa 25 mg-100 mg Tab, 1 tab(s), Oral, TID Farxiga 10 mg oral tablet, 10 mg= 1 tab(s), Oral, Daily ferrous sulfate, 325 mg, Oral, BID gabapentin 100 mg Cap, 100 mg= 1 cap(s), Oral, TID insulin lispro 100 units/mL injectable solution insulin lispro 100 units/mL injectable solution levothyroxine, 50 mcg, Oral, Daily Lexapro, 20 mg, Oral, Daily Lexapro 10 mg Tab, 10 mg= 1 tab(s), Oral, Daily metform (more content not included)... Normal [facility] Comment on above: Result Comment: Elec tronically Signed By: PAULA JSOHI PA-C\.br\Date and Time Signed: 11/21/23 15:08 EDT\.br\Electronically Co-Signed By: Shelley Pennington\.br\Date and Time Co-Signed: 11/21/23 14:37 EDT CBC AND AUTO DIFFon 10-30-19 ABSOLUTE BASOPHIL 0.0 X10E9/L Normal 0.0-0.2 [facility] Comment on above: Performed By: #### C WEST [facility], 13673-4 ####[facility] ([id number])[address] [place] [address] 385[address] ABSOLUTE NEUTROPHIL 2.7 X10E9/L Normal 1.5-6.6 [facility] Comment on above: Performed By: #### Simeon DODSON [facility], 27149-7 ####[facility] ([id number])[address] [place] [address] 48624 Basophils/100 WBC (Bld) 0.8 % Normal [facility] Comment on above: Performed By: #### Simeon DODSON [facility], 14980-2 ####[facility] ([id number])[address] [place] [address] 49099 Eosinophils (Bld) [#/Vol] 0.3 10*3/uL Normal 0.0-0.4 [facility] Comment on above: Performed By: #### Simeon DODSON [facility], 75073-4 ####[facility] ([id number])[address] [place] [address] 11525 Eosinophils/100 WBC (Bld) 4.9 % Normal [facility] Comment on above: Performed By: #### Simeon DODSON [facility], ####[facility] ([id number])[address] [place] [address] 26070 Erythrocyte distribution width (RBC) [Ratio] 14.4 % Normal 11.5-15.0 [facility] Comment on above: Performed By: #### Simeon DODSON [facility], ####[facility] ([id number])[address] [place] [address]5746 Hematocrit (Bld) [Volume fraction] 33.4 % Low 35-47 [facility] Comment on above: Performed By: #### Simeon DODSON CMP, ####[facility] ([id number])[address] [place] [address] Hemoglobin (Bld) [Mass/Vol] 11.6 g/dL Low 11.7-15.5 [facility] Comment on above: Performed By: #### Simeon DODSON [facility], ####[facility] ([id number])[address] [place] [address] 738[address] Lymphocytes (Bld) [#/Vol] 1.8 10*3/uL Normal 1.0-3.5 [facility] Comment on above: Performed By: #### Simeon DODSON [facility], ####[facility] ([id number])[address] [place] [address] 50124 Lymphocytes/100 WBC (Bld) 34.6 % Normal [facility] Comment on above: Performed By: #### Simeon DODSON [facility], ####[facility] ([id number])[address] [place] [address] 51788 MCH (RBC) [Entitic mass] 31.1 pg Normal 27-34 [facility] Comment on above: Performed By: #### C WEST, CMP, ####[facility] ([id number])[address] [place] [address] 38215 MCHC (RBC) [Mass/Vol] 34.8 g/dL Normal 32-36 [facility] Comment on above: Performed By: #### C BCA, CMP, ####[facility] ([id number])[address] [place] [address] 14646 MCV (RBC) [Entitic vol] 89 fL Normal 80-100 [facility] Comment on above: Performed By: #### Simeon BCA, CMP, ####[facility] ([id number])[address] [place] [address] 71283 Monocytes (Bld) [#/Vol] 0.4 10*3/uL Normal 0-0.9 [facility] Comment on above: Performed By: #### Simeon BCA, CMP, ####[facility] ([id number])[address] [place] [address] 89573 Monocytes/100 WBC (Bld) 8.3 % Normal [facility] Comment on above: Performed By: #### Simeon BCA, CMP, ####[facility] ([id number])[address] [place] [address] 15279 Neutrophils/100 WBC (Bld) 51.4 % Normal [facility] Comment on above: Performed By: #### C BCA, CMP, ####[facility] ([id number])[address] [place] [address] 84481 Platelet mean volume (Bld) [Entitic vol] 7.0 fL Normal 7-12 [facility] Comment on above: Performed By: #### C BCA, CMP, ####[facility] ([id number])[address] [place] [address] 07790 Platelets (Bld) [#/Vol] 221 10*3/uL Normal 150-450 [facility] Comment on above: Performed By: #### C BCA, CMP, ####[facility] ([id number])[address] [place] [address] 81404 RBC COUNT 3.74 X10E12/L Low 3.80-5.20 [facility] Comment on above: Performed By: #### C BCA, CMP, ####[facility] ([id number])[address] [place] [address] 40483 WBC (Bld) [#/Vol] 5.2 10*3/uL Normal 4.0-11.0 [facility] Comment on above: Performed By: #### C BCA, CMP, ####[facility] ([id number])[address] [place] [address] 95444 COMPREHENSIVE METABOLIC PANE Ayush 10-30-2023 Albumin [Mass/Vol] 3.0 g/dL Low 3.2-5.3 [facility] Comment on above: Performed By: #### C BCA, CMP, ####[facility] ([id number])[address] [place] [address] 98590 ALP [Catalytic activity/Vol] 64 U/L Normal 39-130 [facility] Comment on above: Performed By: #### C BCA, CMP, ####[facility] ([id number])[address] [place] [address] 41167 ALT [Catalytic activity/Vol] 66 U/L High 0-31 [facility] Comment on above: Performed By: #### C BCA, CMP, ####[facility] ([id number])[address], [place] [address] Anion gap [Moles/Vol] 7 mmol/L Normal 5-15 [facility] Comment on above: Performed By: #### C JANES DODSON, 04927-6 ####[facility] ([id number])[address] [place] [address], [place] [address] AST [Catalytic activity/Vol] 55 U/L High 0-41 [facility] Comment on above: Performed By: #### Simeon DODSON CMP, ####[facility] ([id number])[address] [place] [address] 21131 Bilirubin [Mass/Vol] 0.3 mg/dL Normal 0.3-1.2 [facility] Comment on above: Performed By: #### Simeon DODSON CMP, ####[facility] ([id number])[address] [place] [address] 67320 Calcium [Mass/Vol] 7.9 mg/dL Low 8.5-10.5 [facility] Comment on above: Performed By: #### [facility], ####[facility] ([id number])[address] [place] [address] [place] [address] Chloride [Moles/Vol] 106 mmol/L Normal 98-109 [facility] Comment on above: Performed By: #### Simeon DODSON CMP, ####[facility] ([id number])[address] [place] [address] [place] [address] CO2 [Moles/Vol] 24 mmol/L Normal 22-32 [facility] Comment on above: Performed By: #### Simeon DODSON CMP, ####[facility] ([id number])[address] [place] [address], [place] [address] Creatinine [Mass/Vol] 1.04 mg/dL High 0.40-1.00 [facility] Comment on above: Result Comment: METH OD TRACEABLE TO IDMS STANDARD Performed By: #### C JANES DODSON, 52670-0 ####[facility] ([id number])[address] [place] [address] 03962 GFR/1.73 sq M.predicted among non-blacks MDRD (S/P/Bld) [Vol rate/Area] 60 mL/min/{1.73_m2} Normal >59 [facility] Comment on above: Result Comment: Reported eGFR is based on the CKD-EPI 2020 equation that does not use a race coefficient. Performed By: #### C JANES DODSON, 29794-8 ####[facility] ([id number])[address] [place] [address] 71104 Glucose [Mass/Vol] 103 mg/dL High 65-99 [facility] Comment on above: Performed By: #### [facility], ####[facility] ([id number])[address] [place] [address] 85029 Potassium [Moles/Vol] 3.6 mmol/L Normal 3.5-5.0 [facility] Comment on above: Performed By: #### [facility], ####[facility] ([id number])[address] [place] [address] 94371 Protein [Mass/Vol] 5.7 g/dL Low 6.0-8.0 [facility] Comment on above: Performed By: #### C JANES DODSON, 72071-6 ####[facility] ([id number])[address] [place] [address] 81744 Sodium [Moles/Vol] 137 mmol/L Normal 134-146 [facility] Comment on above: Performed By: #### C JANES DODSON, ####[facility] ([id number])[address] [place] [address] 99193 Urea nitrogen [Mass/Vol] 14 mg/dL Normal 5-27 [facility] Comment on above: Performed By: #### Simeon DODSON [facility], 77725-9 ####[facility] ([id number])[address] [place] [address] 96141 Glucose Glucometer (BldC) [M ass/Vol]on 10-30-2023 Glucose [Mass/Vol] 157 mg/dL High 65-99 [facility] MAGNESIUMon 10-30-2023 Magnesium [Mass/Vol] 1.7 mg/dL Low 1.8-2.6 [facility] Comment on above: Performed By: #### Simeon [facility], 63496-5 ####[facility] ([id number])[address] [place] [address] 05526 Glucose Glucometer (BldC) [M ass/Vol]on 10-29-2023 Glucose [Mass/Vol] 104 mg/dL High 65-99 [facility] Glucose [Mass/Vol] 83 mg/dL Normal 65-99 [facility] Glucose [Mass/Vol] 103 mg/dL High 65-99 [facility] Glucose [Mass/Vol] 90 mg/dL Normal 65-99 [facility] Glucose [Mass/Vol] 78 mg/dL Normal 65-99 [facility] CBC AND AUTO DIFFon 10-28-19 24 ABSOLUTE BASOPHIL 0.0 X10E9/L Normal 0.0-0.2 [facility] Comment on above: Performed By: #### B MP, CBCA, 99093-2 #### [facility] ([id number]) [address] [place] [address] 05189 ABSOLUTE NEUTROPHIL 2.0 X10E9/L Normal 1.5-6.6 [facility] Comment on above: Performed By: #### B MP, CBCA, 41414-9 #### [facility] ([id number]) [address] [place] [address] 66830 Basophils/100 WBC (Bld) 1.0 % Normal [facility] Comment on above: Performed By: #### B LYNN, CBCA, 12517-5 #### [facility] ([id number]) [address] [place] [address] 45249 Eosinophils (Bld) [#/Vol] 0.3 10*3/uL Normal 0.0-0.4 [facility] Comment on above: Performed By: #### B LYNN, CBCA, 39670-7 #### [facility] ([id number]) [address] [place] [address] 72847 Eosinophils/100 WBC (Bld) 7.2 % Normal [facility] Comment on above: Performed By: #### B LYNN, CBCA, 49628-8 #### [facility] ([id number]) [address] [place] [address] 88694 Erythrocyte distribution width (RBC) [Ratio] 14.6 % Normal 11.5-15.0 [facility] Comment on above: Performed By: #### B LYNN, CBCA, 21394-6 #### [facility] ([id number]) [address] [place] [address] 48523 Hematocrit (Bld) [Volume fraction] 30.8 % Low 35-47 [facility] Comment on above: Performed By: #### B LYNN, CBCA, 16409-4 #### [facility] ([id number]) [address] [place] [address] 13410 Hemoglobin (Bld) [Mass/Vol] 10.7 g/dL Low 11.7-15.5 [facility] Comment on above: Performed By: #### B LYNN, CBCA, 25348-7 #### [facility] ([id number]) [address] [place] [address] 43946 Lymphocytes (Bld) [#/Vol] 1.0 10*3/uL Normal 1.0-3.5 [facility] Comment on above: Performed By: #### B LYNN, CBCA, 39945-7 #### [facility] ([id number]) [address] [place] [address] 71832 Lymphocytes/100 WBC (Bld) 26.6 % Normal [facility] Comment on above: Performed By: #### B LYNN, CBCA, 10233-4 #### [facility] ([id number]) [address] [place] [address] 86962 MCH (RBC) [Entitic mass] 31.3 pg Normal 27-34 [facility] Comment on above: Performed By: #### B LYNN, CBCA, 56408-8 #### [facility] ([id number]) [address] [place] [address] 16529 MCHC (RBC) [Mass/Vol] 34.7 g/dL Normal 32-36 [facility] Comment on above: Performed By: #### B LYNN, CBCA, 03171-3 #### [facility] ([id number]) [address] [place] [address] 34568 MCV (RBC) [Entitic vol] 90 fL Normal 80-100 [facility] Comment on above: Performed By: #### B LYNN, CBCA, 71305-2 #### [facility] ([id number]) [address] [place] [address] 00730 Monocytes (Bld) [#/Vol] 0.4 10*3/uL Normal 0-0.9 [facility] Comment on above: Performed By: #### B LYNN, CBCA, 84706-1 #### [facility] ([id number]) [address] [place] [address] 44793 Monocytes/100 WBC (Bld) 10.2 % Normal [facility] Comment on above: Performed By: #### B LYNN, CBCA, 75843-8 #### [facility] ([id number]) [address] [place] [address] 20308 Neutrophils/100 WBC (Bld) 55.0 % Normal [facility] Comment on above: Performed By: #### B MP, CBCA, 95612-6 #### [facility] ([id number]) [address] [place] [address] 58598 Platelet mean volume (Bld) [Entitic vol] 7.0 fL Normal 7-12 [facility] Comment on above: Performed By: #### B LYNN, CBCA, 08819-3 #### [facility] ([id number]) [address] [place] [address] 85124 Platelets (Bld) [#/Vol] 186 10*3/uL Normal 150-450 [facility] Comment on above: Performed By: #### B LYNN, CBCA, 39359-7 #### [facility] ([id number]) [address] [place] [address] 84954 RBC COUNT 3.42 X10E12/L Low 3.80-5.20 [facility] Comment on above: Performed By: #### B LYNN, CBCA, 40162-4 #### [facility] ([id number]) [address] [place] [address] 68461 WBC (Bld) [#/Vol] 3.6 10*3/uL Low 4.0-11.0 [facility] Comment on above: Performed By: #### B MP, CBCA, 87608-6 #### [facility] ([id number]) [address] [place] [address] 08991 COMPREHENSIVE METABOLIC PANE Ayush 10-28-2023 Albumin [Mass/Vol] 2.8 g/dL Low 3.2-5.3 [facility] Comment on above: Performed By: #### B LYNN, CBCA, 01266-8 #### [facility] ([id number]) [address] [place] [address] 89843 ALP [Catalytic activity/Vol] 58 U/L Normal 39-130 [facility] Comment on above: Performed By: #### B LYNN CBCA, 81601-0 #### [facility] ([id number]) [address] [place] [address] 32788 ALT [Catalytic activity/Vol] 29 U/L Normal 0-31 [facility] Comment on above: Performed By: #### B LYNN CBCA, 95545-7 #### [facility] ([id number]) [address] [place] [address] 12478 Anion gap [Moles/Vol] 5 mmol/L Normal 5-15 [facility] Comment on above: Performed By: #### B OPAL BAILEY, 32530-1 #### [facility] ([id number]) [address] [place] [address] 16194 AST [Catalytic activity/Vol] 30 U/L Normal 0-41 [facility] Comment on above: Performed By: #### B LYNN CBCA, 77024-1 #### [facility] ([id number]) [address] [place] [address] 38791 Bilirubin [Mass/Vol] 0.3 mg/dL Normal 0.3-1.2 [facility] Comment on above: Performed By: #### B LYNN CBCA, 31999-9 #### [facility] ([id number]) [address] [place] [address] 78046 Calcium [Mass/Vol] 7.4 mg/dL Low 8.5-10.5 [facility] Comment on above: Performed By: #### B LYNN CBCA, 05050-1 #### [facility] ([id number]) [address] [place] [address] 16183 Chloride [Moles/Vol] 112 mmol/L High 98-109 [facility] Comment on above: Performed By: #### B OPAL BAILEY, 98197-6 #### [facility] ([id number]) [address] [place] [address] 16917 CO2 [Moles/Vol] 21 mmol/L Low 22-32 [facility] Comment on above: Performed By: #### B OPAL BAILEY, 34435-4 #### [facility] ([id number]) [address] [place] [address] 93927 Creatinine [Mass/Vol] 1.05 mg/dL High 0.40-1.00 [facility] Comment on above: Result Comment: METH OD TRACEABLE TO IDMS STANDARD Performed By: #### B OPAL BAILEY, 71221-2 #### [facility] ([id number]) [address] [place] [address] 64278 GFR/1.73 sq M.predicted among non-blacks MDRD (S/P/Bld) [Vol rate/Area] 59 mL/min/{1.73_m2} Low >59 [facility] Comment on above: Result Comment: Reported eGFR is based on the CKD-EPI 2020 equation that does not use a race coefficient. Performed By: #### B OPAL BAILEY, 14686-0 #### [facility] ([id number]) [address] [place] [address] 71683 Glucose [Mass/Vol] 98 mg/dL Normal 65-99 [facility] Comment on above: Performed By: #### B OPAL BAILEY, 15675-9 #### [facility] ([id number]) [address] [place] [address] 34386 Potassium [Moles/Vol] 4.0 mmol/L Normal 3.5-5.0 [facility] Comment on above: Performed By: #### B OPAL BAILEY, 67298-9 #### [facility] ([id number]) [address] [place] [address] 62195 Protein [Mass/Vol] 5.2 g/dL Low 6.0-8.0 [facility] Comment on above: Performed By: #### B LYNN, CBCA, 57562-3 #### [facility] ([id number]) [address] [place] [address] 22315 Sodium [Moles/Vol] 138 mmol/L Normal 134-146 [facility] Comment on above: Performed By: #### B LYNN, CBCA, 32997-4 #### [facility] ([id number]) [address] [place] [address] 89990 Urea nitrogen [Mass/Vol] 10 mg/dL Normal 5-27 [facility] Comment on above: Performed By: #### B LYNN, MEGA, 29664-8 #### [facility] ([id number]) [address] [place] [address] 10331 Glucose Glucometer (BldC) [M ass/Vol]on 10-28-2023 Glucose [Mass/Vol] 109 mg/dL High 65-99 [facility] Glucose [Mass/Vol] 128 mg/dL High 65-99 [facility] Glucose [Mass/Vol] 124 mg/dL High 65-99 [facility] MAGNESIUMon 10-28-2023 Magnesium [Mass/Vol] 1.9 mg/dL Normal 1.8-2.6 [facility] Comment on above: Performed By: #### B LYNN, CBCA, 07594-9 #### [facility] ([id number]) [address] [place] [address] 36925 C DIFFICILE BY PCRon 024 C. difficile toxin genes HORTENSIA+probe Ql (Stl) TOXIGENIC C DIFF Positive (qualifier value) 027 NAP1 Negative (qualifier value) Normal PRNEG [facility] Comment on above: Performed By: #### B LYNN, CBCA, 69959-4 #### [facility] ([id number]) [address] [place] [address] 39765 CBC AND AUTO DIFFon 10-27-19 24 ABSOLUTE BASOPHIL 0.0 X10E9/L Normal 0.0-0.2 [facility] Comment on above: Performed By: #### B MP, CBCA, 56485-8 #### [facility] ([id number]) [address] [place] [address] 11314 ABSOLUTE NEUTROPHIL 1.9 X10E9/L Normal 1.5-6.6 [facility] Comment on above: Performed By: #### B MP, CBCA, 99812-4 #### [facility] ([id number]) [address] [place] [address] 58009 Basophils/100 WBC (Bld) 0.8 % Normal [facility] Comment on above: Performed By: #### B MP, CBCA, 64971-6 #### [facility] ([id number]) [address] [place] [address] 93021 Eosinophils (Bld) [#/Vol] 0.2 10*3/uL Normal 0.0-0.4 [facility] Comment on above: Performed By: #### B MP, CBCA, 19541-1 #### [facility] ([id number]) [address] [place] [address] 53527 Eosinophils/100 WBC (Bld) 6.7 % Normal [facility] Comment on above: Performed By: #### B MP, CBCA, 84366-7 #### [facility] ([id number]) [address] [place] [address] 75604 Erythrocyte distribution width (RBC) [Ratio] 14.9 % Normal 11.5-15.0 [facility] Comment on above: Performed By: #### B MP, CBCA, 78848-8 #### [facility] ([id number]) [address] [place] [address] 09020 Hematocrit (Bld) [Volume fraction] 31.1 % Low 35-47 [facility] Comment on above: Performed By: #### B LYNN, CBCA, 87808-8 #### [facility] ([id number]) [address] [place] [address] 09303 Hemoglobin (Bld) [Mass/Vol] 10.8 g/dL Low 11.7-15.5 [facility] Comment on above: Performed By: #### B LYNN, CBCA, 74980-9 #### [facility] ([id number]) [address] [place] [address] 41288 Lymphocytes (Bld) [#/Vol] 0.7 10*3/uL Low 1.0-3.5 [facility] Comment on above: Performed By: #### B LYNN, CBCA, 09295-7 #### [facility] ([id number]) [address] [place] [address] 99884 Lymphocytes/100 WBC (Bld) 22.0 % Normal [facility] Comment on above: Performed By: #### B MP, CBCA, 74981-4 #### [facility] ([id number]) [address] [place] [address] 96580 MCH (RBC) [Entitic mass] 31.7 pg Normal 27-34 [facility] Comment on above: Performed By: #### B MP, CBCA, 45232-3 #### [facility] ([id number]) [address] [place] [address] 85222 MCHC (RBC) [Mass/Vol] 34.8 g/dL Normal 32-36 [facility] Comment on above: Performed By: #### B MP, CBCA, 72719-4 #### [facility] ([id number]) [address] [place] [address] 78744 MCV (RBC) [Entitic vol] 91 fL Normal 80-100 [facility] Comment on above: Performed By: #### B LYNN, CBCA, 01989-2 #### [facility] ([id number]) [address] [place] [address] 57700 Monocytes (Bld) [#/Vol] 0.3 10*3/uL Normal 0-0.9 [facility] Comment on above: Performed By: #### B MP, CBCA, 57031-4 #### [facility] ([id number]) [address] [place] [address] 76804 Monocytes/100 WBC (Bld) 9.6 % Normal [facility] Comment on above: Performed By: #### B LYNN, CBCA, 72049-0 #### [facility] ([id number]) [address] [place] [address] 82950 Neutrophils/100 WBC (Bld) 60.9 % Normal [facility] Comment on above: Performed By: #### B LYNN, CBCA, 73227-2 #### [facility] ([id number]) [address] [place] [address] 09427 Platelet mean volume (Bld) [Entitic vol] 7.2 fL Normal 7-12 [facility] Comment on above: Performed By: #### B LYNN, CBCA, 42817-7 #### [facility] ([id number]) [address] [place] [address] 61830 Platelets (Bld) [#/Vol] 168 10*3/uL Normal 150-450 [facility] Comment on above: Performed By: #### B MP, CBCA, 95674-7 #### [facility] ([id number]) [address] [place] [address] 07474 RBC COUNT 3.42 X10E12/L Low 3.80-5.20 [facility] Comment on above: Performed By: #### B MEG BAILEYA, 66530-9 #### [facility] ([id number]) [address] [place] [address] 31894 WBC (Bld) [#/Vol] 3.2 10*3/uL Low 4.0-11.0 [facility] Comment on above: Performed By: #### B LYNN CBCEvan, 15556-0 #### [facility] ([id number]) [address] [place] [address] 94289 COMPREHENSIVE METABOLIC PANE Ayush 10-27-2023 Albumin [Mass/Vol] 2.6 g/dL Low 3.2-5.3 [facility] Comment on above: Performed By: #### B OPAL BAILEY, 36891-4 #### [facility] ([id number]) [address] [place] [address] 44436 ALP [Catalytic activity/Vol] 58 U/L Normal 39-130 [facility] Comment on above: Performed By: #### B OPAL BAILEY, 47435-9 #### [facility] ([id number]) [address] [place] [address] 19555 ALT [Catalytic activity/Vol] 23 U/L Normal 0-31 [facility] Comment on above: Performed By: #### B OPAL BAILEY, 56677-5 #### [facility] ([id number]) [address] [place] [address] 76113 Anion gap [Moles/Vol] 6 mmol/L Normal 5-15 [facility] Comment on above: Performed By: #### B LYNN CBCA, 36441-7 #### [facility] ([id number]) [address] [place] [address] 95021 AST [Catalytic activity/Vol] 28 U/L Normal 0-41 [facility] Comment on above: Performed By: #### B OPAL BAILEY, 88971-0 #### [facility] ([id number]) [address] [place] [address] 34522 Bilirubin [Mass/Vol] 0.2 mg/dL Low 0.3-1.2 [facility] Comment on above: Performed By: #### B OPAL BAILEY, 84562-3 #### [facility] ([id number]) [address] [place] [address] 89260 Calcium [Mass/Vol] 7.5 mg/dL Low 8.5-10.5 [facility] Comment on above: Performed By: #### B OPAL BAILEY, 75149-1 #### [facility] ([id number]) [address] [place] [address] 52319 Chloride [Moles/Vol] 113 mmol/L High 98-109 [facility] Comment on above: Performed By: #### [place], 82620-1 #### [facility] ([id number]) [address] [place] [address] 48801 CO2 [Moles/Vol] 21 mmol/L Low 22-32 [facility] Comment on above: Performed By: #### [place], 11454-3 #### [facility] ([id number]) [address] [place] [address] 54553 Creatinine [Mass/Vol] 0.98 mg/dL Normal 0.40-1.00 [facility] Comment on above: Result Comment: METH OD TRACEABLE TO IDMS STANDARD Performed By: #### B OPAL BAILEY, 21130-2 #### [facility] ([id number]) [address] [place] [address] 53239 GFR/1.73 sq M.predicted among non-blacks MDRD (S/P/Bld) [Vol rate/Area] 64 mL/min/{1.73_m2} Normal >59 [facility] Comment on above: Result Comment: Reported eGFR is based on the CKD-EPI 2020 equation that does not use a race coefficient. Performed By: #### B OPAL BAILEY, 68077-8 #### [facility] ([id number]) [address] [place] [address] 89538 Glucose [Mass/Vol] 122 mg/dL High 65-99 [facility] Comment on above: Performed By: #### B OPAL BAILEY, 16923-3 #### [facility] ([id number]) [address] [place] [address] 46872 Potassium [Moles/Vol] 4.0 mmol/L Normal 3.5-5.0 [facility] Comment on above: Performed By: #### B OPAL BAILEY, 16745-5 #### [facility] ([id number]) [address] [place] [address] 91697 Protein [Mass/Vol] 5.0 g/dL Low 6.0-8.0 [facility] Comment on above: Performed By: #### B OPAL BAILEY, 08990-9 #### [facility] ([id number]) [address] [place] [address] 18033 Sodium [Moles/Vol] 140 mmol/L Normal 134-146 [facility] Comment on above: Performed By: #### B OPAL BAILEY, 41942-3 #### [facility] ([id number]) [address] [place] [address] 44847 Urea nitrogen [Mass/Vol] 12 mg/dL Normal 5-27 [facility] Comment on above: Performed By: #### B OPAL BAILEY, 00514-3 #### [facility] ([id number]) [address] [place] [address] 12073 GI PANELon 10-27-2023 Gastrointestinal pathogens DNA and RNA panel HORTENSIA+non-probe (Stl) SPECIMEN SOURCE STOOL CAMPYLOBACTER Not detected (qualifier value) PLESIOMONAS Not detected (qualifier value) SALMONELLA Not detected (qualifier value) VIBRIO Not detected (qualifier value) VIBRIO CHOLERAE Not detected (qualifier value) Y. ENTEROCOLITICA Not detected (qualifier value) AGGREGATIVE E COLI Not detected (qualifier value) PATHOGENIC E COLI Not detected (qualifier value) TOXIGENIC E COLI Not detected (qualifier value) SHIGA TOXIN E COLI Not detected (qualifier value) SHIGELLA-E COLI Not detected (qualifier value) CRYPTOSPORIDIUM Not detected (qualifier value) CYCLOSPORA Not detected (qualifier value) E HISTOLYTICA Not detected (qualifier value) GIARDIA LAMBLIA Not detected (qualifier value) ADENOVIRUS Not detected (qualifier value) ASTROVIRUS Not detected (qualifier value) NOROVIRUS Detected (qualifier value) Detects the following: Norovirus Genogroups I, II The quality system manager has reported an increase in false positive Norovirus results. If the positive test is inconsistent with clinical presentation, a secondary method should be used to confirm the results. ROTAVIRUS A Not detected (qualifier value) SAPOVIRUS Not detected (qualifier value) Normal NDET [facility] Comment on above: Performed By: #### B OPAL BAILEY, 01309-6 #### [facility] ([id number]) [address] [place] [address] 10814 Glucose Glucometer (BldC) [M ass/Vol]on 10-27-2023 Glucose [Mass/Vol] 80 mg/dL Normal 65-99 [facility] Glucose [Mass/Vol] 143 mg/dL High 65-99 [facility] Glucose [Mass/Vol] 131 mg/dL High 65-99 [facility] MAGNESIUMon 10-27-2023 Magnesium [Mass/Vol] 2.2 mg/dL Normal 1.8-2.6 [facility] Comment on above: Performed By: #### B OPAL BAILEY, 66479-0 #### [facility] ([id number]) [address] [place] [address] 18351 Magnesium [Mass/Vol] 1.8 mg/dL Normal 1.8-2.6 [facility] Comment on above: Performed By: #### B MP, CBCA, 93835-2 #### [facility] ([id number]) [address] [place] [address] 06339 CBC AND AUTO DIFFon 10-25- 24 ABSOLUTE BASOPHIL 0.0 X10E9/L Normal 0.0-0.2 [facility] Comment on above: Performed By: #### B MP, CBCA, 38947-2 #### [facility] ([id number]) [address] [place] [address] 17199 ABSOLUTE NEUTROPHIL 3.0 X10E9/L Normal 1.5-6.6 [facility] Comment on above: Performed By: #### B MP, CBCA, 81259-5 #### [facility] ([id number]) [address] [place] [address] 28333 Basophils/100 WBC (Bld) 1.0 % Normal [facility] Comment on above: Performed By: #### B MP, CBCA, 08678-8 #### [facility] ([id number]) [address] [place] [address] 48234 Eosinophils (Bld) [#/Vol] 0.1 10*3/uL Normal 0.0-0.4 [facility] Comment on above: Performed By: #### B MP, CBCA, 02934-1 #### [facility] ([id number]) [address] [place] [address] 85339 Eosinophils/100 WBC (Bld) 2.7 % Normal [facility] Comment on above: Performed By: #### B MP, CBCA, 69444-4 #### [facility] ([id number]) [address] [place] [address] 72825 Erythrocyte distribution width (RBC) [Ratio] 15.0 % Normal 11.5-15.0 [facility] Comment on above: Performed By: #### B MP, CBCA, 55463-8 #### [facility] ([id number]) [address] [place] [address] 41827 Hematocrit (Bld) [Volume fraction] 33.5 % Low 35-47 [facility] Comment on above: Performed By: #### B MP, CBCA, 83440-0 #### [facility] ([id number]) [address] [place] [address] 12304 Hemoglobin (Bld) [Mass/Vol] 11.5 g/dL Low 11.7-15.5 [facility] Comment on above: Performed By: #### B MP, CBCA, 23545-0 #### [facility] ([id number]) [address] [place] [address] 57632 Lymphocytes (Bld) [#/Vol] 0.5 10*3/uL Low 1.0-3.5 [facility] Comment on above: Performed By: #### B MP, CBCA, 35384-6 #### [facility] ([id number]) [address] [place] [address] 53357 Lymphocytes/100 WBC (Bld) 13.0 % Normal [facility] Comment on above: Performed By: #### B MP, CBCA, 07820-6 #### [facility] ([id number]) [address] [place] [address] 72148 MCH (RBC) [Entitic mass] 31.1 pg Normal 27-34 [facility] Comment on above: Performed By: #### B MP, CBCA, 39011-7 #### [facility] ([id number]) [address] [place] [address] 33139 MCHC (RBC) [Mass/Vol] 34.4 g/dL Normal 32-36 [facility] Comment on above: Performed By: #### B MP, CBCA, 37744-6 #### [facility] ([id number]) [address] [place] [address] 80401 MCV (RBC) [Entitic vol] 91 fL Normal 80-100 [facility] Comment on above: Performed By: #### B MP, CBCA, 22026-1 #### [facility] ([id number]) [address] [place] [address] 51685 Monocytes (Bld) [#/Vol] 0.4 10*3/uL Normal 0-0.9 [facility] Comment on above: Performed By: #### B MP, CBCA, 37937-7 #### [facility] ([id number]) [address] [place] [address] 83363 Monocytes/100 WBC (Bld) 9.1 % Normal [facility] Comment on above: Performed By: #### B MP, CBCA, 90907-1 #### [facility] ([id number]) [address] [place] [address] 11623 Neutrophils/100 WBC (Bld) 74.2 % Normal [facility] Comment on above: Performed By: #### B LYNN, CBCA, 66785-8 #### [facility] ([id number]) [address] [place] [address] 67443 Platelet mean volume (Bld) [Entitic vol] 7.2 fL Normal 7-12 [facility] Comment on above: Performed By: #### B MP, CBCA, 63199-9 #### [facility] ([id number]) [address] [place] [address] 53177 Platelets (Bld) [#/Vol] 185 10*3/uL Normal 150-450 [facility] Comment on above: Performed By: #### B MP, CBCA, 58657-3 #### [facility] ([id number]) [address] [place] [address] 25265 RBC COUNT 3.70 X10E12/L Low 3.80-5.20 [facility] Comment on above: Performed By: #### B OPAL BAILEY, 86152-6 #### [facility] ([id number]) [address] [place] [address] 40149 WBC (Bld) [#/Vol] 4.1 10*3/uL Normal 4.0-11.0 [facility] Comment on above: Performed By: #### B LYNN CBCEvan, 53005-4 #### [facility] ([id number]) [address] [place] [address] 86751 COMPREHENSIVE METABOLIC PANE Ayush 10-26-2023 Albumin [Mass/Vol] 2.8 g/dL Low 3.2-5.3 [facility] Comment on above: Performed By: #### B OPAL BAILEY, 26791-3 #### [facility] ([id number]) [address] [place] [address] 82841 ALP [Catalytic activity/Vol] 52 U/L Normal 39-130 [facility] Comment on above: Performed By: #### B LYNN CBCEvan, 18949-8 #### [facility] ([id number]) [address] [place] [address] 76208 ALT [Catalytic activity/Vol] 16 U/L Normal 0-31 [facility] Comment on above: Performed By: #### B OPAL BAILEY, 74885-4 #### [facility] ([id number]) [address] [place] [address] 16374 Anion gap [Moles/Vol] 7 mmol/L Normal 5-15 [facility] Comment on above: Performed By: #### B LYNN CBCA, 97171-4 #### [facility] ([id number]) [address] [place] [address] 26058 AST [Catalytic activity/Vol] 19 U/L Normal 0-41 [facility] Comment on above: Performed By: #### B LYNN CBCEvan, 81750-6 #### [facility] ([id number]) [address] [place] [address] 09376 Bilirubin [Mass/Vol] 0.4 mg/dL Normal 0.3-1.2 [facility] Comment on above: Performed By: #### B LYNN CBCEvan, 68575-2 #### [facility] ([id number]) [address] [place] [address] 97671 Calcium [Mass/Vol] 7.2 mg/dL Low 8.5-10.5 [facility] Comment on above: Performed By: #### Chio BAILEY CBCA, 34197-0 #### [facility] ([id number]) [address] [place] [address] 31835 Chloride [Moles/Vol] 109 mmol/L Normal 98-109 [facility] Comment on above: Performed By: #### [place], [address]-4 #### [facility] ([id number]) [address] [place] [address] 59384 CO2 [Moles/Vol] 20 mmol/L Low 22-32 [facility] Comment on above: Performed By: #### [place], [address]-9 #### [facility] ([id number]) [address] [place] [address] 10158 Creatinine [Mass/Vol] 1.16 mg/dL High 0.40-1.00 [facility] Comment on above: Result Comment: METH OD TRACEABLE TO IDMS STANDARD Performed By: #### B OPAL BAILEY, 47325-8 #### [facility] ([id number]) [address] [place] [address] 33466 GFR/1.73 sq M.predicted among non-blacks MDRD (S/P/Bld) [Vol rate/Area] 52 mL/min/{1.73_m2} Low >59 [facility] Comment on above: Result Comment: Reported eGFR is based on the CKD-EPI 2020 equation that does not use a race coefficient. Performed By: #### B OPAL BAILEY, 24031-0 #### [facility] ([id number]) [address] [place] [address] 31752 Glucose [Mass/Vol] 97 mg/dL Normal 65-99 [facility] Comment on above: Performed By: #### B OPAL BAILEY, 60025-3 #### [facility] ([id number]) [address] [place] [address] 45498 Potassium [Moles/Vol] 3.6 mmol/L Normal 3.5-5.0 [facility] Comment on above: Performed By: #### B OPAL BAILEY, 66449-7 #### [facility] ([id number]) [address] [place] [address] 73270 Protein [Mass/Vol] 5.3 g/dL Low 6.0-8.0 [facility] Comment on above: Performed By: #### B OPAL BAILEY, 62087-6 #### [facility] ([id number]) [address] [place] [address] 14798 Sodium [Moles/Vol] 136 mmol/L Normal 134-146 [facility] Comment on above: Performed By: #### B OPAL BAILEY, 10625-9 #### [facility] ([id number]) [address] [place] [address] 71624 Urea nitrogen [Mass/Vol] 26 mg/dL Normal 5-27 [facility] Comment on above: Performed By: #### B OPAL BAILEY, 69728-4 #### [facility] ([id number]) [address] [place] [address] 96158 Glucose Glucometer (BldC) [M ass/Vol]on 10-26-2023 Glucose [Mass/Vol] 96 mg/dL Normal 65-99 [facility] Glucose [Mass/Vol] 76 mg/dL Normal 65-99 [facility] Glucose [Mass/Vol] 131 mg/dL High 65-99 [facility] MAGNESIUMon 10-26-2023 Magnesium [Mass/Vol] 2.4 mg/dL Normal 1.8-2.6 [facility] Comment on above: Performed By: #### B LYNN, CBCA, 34557-6 #### [facility] ([id number]) [address] [place] [address] 48545 Magnesium [Mass/Vol] 1.7 mg/dL Low 1.8-2.6 [facility] Comment on above: Performed By: #### Chio BAILEY, CBCA, 14459-8 #### [facility] ([id number]) [address] [place] [address] 70937 POTASSIUMon 10-26-2023 Potassium [Moles/Vol] 4.0 mmol/L Normal 3.5-5.0 [facility] Comment on above: Performed By: #### Chio BAILEY, CBCA, 67749-2 #### [facility] ([id number]) [address] [place] [address] 78000 Beta hydroxybutyrate [Moles/ Vol]on 10-25-2023 BetaHydroxybutyrate 0.39 mmol/L High 0.02-0.27 [facility] Comment on above: Performed By: #### C BCA, 29303-5, CMP, 3040-3, 6873-4, 93286-5, 2777-1 ####[facility] ([id number])[address] [place] [address] 16386 CBC AND AUTO DIFFon 10-25-19 24 ABSOLUTE BASOPHIL 0.1 X10E9/L Normal 0.0-0.2 [facility] Comment on above: Performed By: #### C BCA, 69300-5, CMP, 3040-3, 6873-4, 86905-7, 2776-1 ####[facility] ([id number])[address] [place] [address] 22401 ABSOLUTE NEUTROPHIL 9.0 X10E9/L High 1.5-6.6 [facility] Comment on above: Performed By: #### C BCA, 32576-1, CMP, 3040-3, 6873-4, 22768-7, 2776- ####[facility] ([id number])[address] [place] [address] 72333 Basophils/100 WBC (Bld) 0.6 % Normal [facility] Comment on above: Performed By: #### C BCA, 37746-4, CMP, 3040-3, 6873-4, 15839-9, 2776- ####[facility] ([id number])[address] [place] [address] 70882 Eosinophils (Bld) [#/Vol] 0.0 10*3/uL Normal 0.0-0.4 [facility] Comment on above: Performed By: #### C BCA, 46890-9, CMP, 3040-3, 6873-4, 75178-7, 2776- ####[facility] ([id number])[address] [place] [address] 98410 Eosinophils/100 WBC (Bld) 0.2 % Normal [facility] Comment on above: Performed By: #### C BCA, 77266-4, CMP, 3040-3, 6873-4, 84314-7, 2776- ####[facility] ([id number])[address] [place] [address] 11446 Erythrocyte distribution width (RBC) [Ratio] 15.0 % Normal 11.5-15.0 [facility] Comment on above: Performed By: #### C BCA, 85059-0, CMP, 3040-3, 6873-4, 66523-3, 2776-07 ####[facility] ([id number])[address] [place] [address] 23998 Hematocrit (Bld) [Volume fraction] 43.5 % Normal 35-47 [facility] Comment on above: Performed By: #### C BCA, 64361-4, CMP, 3040-3, 6873-4, 63150-8, 2776- ####[facility] ([id number])[address] [place] [address] 21527 Hemoglobin (Bld) [Mass/Vol] 14.7 g/dL Normal 11.7-15.5 [facility] Comment on above: Performed By: #### C BCA, 26799-7, CMP, 3040-3, 6873-4, 16014-0, 2776-07 ####[facility] ([id number])[address] [place] [address] 03036 Lymphocytes (Bld) [#/Vol] 0.2 10*3/uL Low 1.0-3.5 [facility] Comment on above: Performed By: #### C BCA, 36304-1, CMP, 3040-3, 6873-4, 18333-7, 2776-07 ####[facility] ([id number])[address] [place] [address] 20595 Lymphocytes/100 WBC (Bld) 1.9 % Normal [facility] Comment on above: Performed By: #### C BCA, 23096-8, CMP, 3040-3, 6873-4, 57039-2, 2776- ####[facility] ([id number])[address] [place] [address] 85626 MCH (RBC) [Entitic mass] 30.8 pg Normal 27-34 [facility] Comment on above: Performed By: #### C BCA, 15885-5, CMP, 3040-3, 6873-4, 72309-4, 2776- ####[facility] ([id number])[address] [place] [address] 17616 MCHC (RBC) [Mass/Vol] 33.9 g/dL Normal 32-36 [facility] Comment on above: Performed By: #### C BCA, 30910-4, CMP, 3040-3, 6873-4, 21547-6, 2776- ####[facility] ([id number])[address] [place] [address] 53746 MCV (RBC) [Entitic vol] 91 fL Normal 80-100 [facility] Comment on above: Performed By: #### C BCA, 91456-0, CMP, 3040-3, 6873-4, 89873-2, 2776- ####[facility] ([id number])[address] [place] [address] 65523 Monocytes (Bld) [#/Vol] 0.3 10*3/uL Normal 0-0.9 [facility] Comment on above: Performed By: #### C BCA, 65320-8, CMP, 3040-3, 6873-4, 09132-0, 2776- ####[facility] ([id number])[address] [place] [address] 28820 Monocytes/100 WBC (Bld) 3.3 % Normal [facility] Comment on above: Performed By: #### C BCA, 72771-5, CMP, 3040-3, 6873-4, 31036-8, 2776- ####[facility] ([id number])[address] [place] [address] 16574 Neutrophils/100 WBC (Bld) 94.0 % Normal [facility] Comment on above: Performed By: #### C BCA, 67761-6, CMP, 3040-3, 6873-4, 69777-2, 2776- ####[facility] ([id number])[address] [place] [address] 58180 Platelet mean volume (Bld) [Entitic vol] 7.0 fL Normal 7-12 [facility] Comment on above: Performed By: #### C BCA, 50150-8, CMP, 3040-3, 6873-4, 91989-1, 2777-1 ####[facility] ([id number])[address] [place] [address] 03006 Platelets (Bld) [#/Vol] 249 10*3/uL Normal 150-450 [facility] Comment on above: Performed By: #### C BCA, 26877-9, CMP, 3040-3, 6873-4, 05554-6, 2777-1 ####[facility] ([id number])[address] [place] [address] 90845 RBC COUNT 4.78 X10E12/L Normal 3.80-5.20 [facility] Comment on above: Performed By: #### C BCA, 46521-2, CMP, 3040-3, 6873-4, 89763-2, 2777-1 ####[facility] ([id number])[address] [place] [address] 19349 WBC (Bld) [#/Vol] 9.6 10*3/uL Normal 4.0-11.0 [facility] Comment on above: Performed By: #### C BCA, 02034-7, CMP, 3040-3, 6873-4, 80553-5, 2777-1 ####[facility] ([id number])[address] [place] [address] 41176 COMPREHENSIVE METABOLIC PANE Ayush 10-25-2023 Albumin [Mass/Vol] 4.1 g/dL Normal 3.2-5.3 [facility] Comment on above: Performed By: #### C BCA, 28007-9, CMP, 3040-3, 6873-4, 56115-8, 2777-1 ####[facility] ([id number])[address] [place] [address] 71139 ALP [Catalytic activity/Vol] 78 U/L Normal 39-130 [facility] Comment on above: Performed By: #### C BCA, 50878-5, CMP, 3040-3, 6873-4, 47785-6, 2777-1 ####[facility] ([id number])[address] [place] [address] 23511 ALT [Catalytic activity/Vol] 35 U/L High 0-31 [facility] Comment on above: Performed By: #### C BCA, 70338-8, CMP, 3040-3, 6873-4, 00940-6, 2776-1 ####[facility] ([id number])[address] [place] [address] 77430 Anion gap [Moles/Vol] 12 mmol/L Normal 5-15 [facility] Comment on above: Performed By: #### C BCA, 95626-4, CMP, 3040-3, 6873-4, 85387-9, 2776-1 ####[facility] ([id number])[address] [place] [address] 66125 AST [Catalytic activity/Vol] 25 U/L Normal 0-41 [facility] Comment on above: Performed By: #### C BCA, 62646-5, CMP, 3040-3, 6873-4, 86322-6, 277-1 ####[facility] ([id number])[address] [place] [address] 27733 Bilirubin [Mass/Vol] 0.7 mg/dL Normal 0.3-1.2 [facility] Comment on above: Performed By: #### C BCA, 61114-3, CMP, 3040-3, 6873-4, 22639-0, 2777-1 ####[facility] ([id number])[address] [place] [address] 78314 Calcium [Mass/Vol] 8.6 mg/dL Normal 8.5-10.5 [facility] Comment on above: Performed By: #### C BCA, 21596-2, CMP, 3040-3, 6873-4, 41301-0, 2777-1 ####[facility] ([id number])[address] [place] [address] 39842 Chloride [Moles/Vol] 100 mmol/L Normal 98-109 [facility] Comment on above: Performed By: #### C BCA, 41447-9, CMP, 3040-3, 6873-4, 71075-5, 2776-1 ####[facility] ([id number])[address] [place] [address] 47068 CO2 [Moles/Vol] 21 mmol/L Low 22-32 [facility] Comment on above: Performed By: #### C BCA, 65205-4, CMP, 3040-3, 6873-4, 81448-1, 7-1 ####[facility] ([id number])[address] [place] [address] 96029 Creatinine [Mass/Vol] 1.59 mg/dL High 0.40-1.00 [facility] Comment on above: Result Comment: METH OD TRACEABLE TO IDMS STANDARD Performed By: #### C BCA, 59846-3, CMP, 3040-3, 6873-4, 12481-0, 2777-1 ####[facility] ([id number])[address] [place] [address] 34270 GFR/1.73 sq M.predicted among non-blacks MDRD (S/P/Bld) [Vol rate/Area] 36 mL/min/{1.73_m2} Low >59 [facility] Comment on above: Result Comment: Reported eGFR is based on the CKD-EPI 2020 equation that does not use a race coefficient. Performed By: #### C BCA, 97745-3, CMP, 3040-3, 6873-4, 35052-6, 2776-1 ####[facility] ([id number])[address] [place] [address] 27970 Glucose [Mass/Vol] 291 mg/dL High 65-99 [facility] Comment on above: Performed By: #### C BCA, 76488-8, CMP, 3040-3, 6873-4, 93879-0, 2776-1 ####[facility] ([id number])[address] [place] [address] 57899 Potassium [Moles/Vol] 4.8 mmol/L Normal 3.5-5.0 [facility] Comment on above: Performed By: #### C BCA, 75343-2, CMP, 3040-3, 6873-4, 67703-2, 2776-1 ####[facility] ([id number])[address] [place] [address] 75132 Protein [Mass/Vol] 7.5 g/dL Normal 6.0-8.0 [facility] Comment on above: Performed By: #### C BCA, 46292-7, CMP, 3040-3, 6873-4, 79874-3, 2776-1 ####[facility] ([id number])[address] [place] [address] 52646 Sodium [Moles/Vol] 133 mmol/L Low 134-146 [facility] Comment on above: Performed By: #### C BCA, 65991-8, CMP, 3040-3, 6873-4, 21520-4, 2776-1 ####[facility] ([id number])[address] [place] [address] 22042 Urea nitrogen [Mass/Vol] 38 mg/dL High 5-27 [facility] Comment on above: Performed By: #### C BCA, 45727-8, CMP, 3040-3, 6873-4, 55093-6, 2777-1 ####[facility] ([id number])[address] [place] [address] CT ABDOMEN AND PELVIS W CONT on 10-25-2023 CT ABDOMEN AND PELVIS W CONT CT ABDOMEN AND PELVIS W CONT HISTORY and Tech Notes: Epigastric pain; Patient presenting here with abdominal pain, epigastric worsening Constipation and diarrhea PROCEDURE: CT abdomen pelvis with IV contrast Automated exposure control was utilized COMPARISON: May 2018 FINDINGS: UPPER ABDOMEN No splenomegaly. No suspicious kidney mass was seen. No peripancreatic fluid collections. No suspicious liver mass. Hepatic veins and portal veins enhance GB removed No fluid collection Slight increase in distention of the CBD and central intrahepatic ducts Correlate for jaundice or abnormal bilirubin levels that might prompt MRCP to check for distal stone or obstruction No perihepatic fluid No significant lymphadenopathy No significant vascular calcification in the upper abdomen There is mild calcification near the bifurcation No adrenal mass There is surgical change consistent with gastric bypass No suspicious fluid collection or gas bubbles Small hiatal hernia Presumed physiologic distention of the small bowel anastomosis segment in the left midabdomen There is not significant twisting or distortion of the mesenteric vessels PELVIS No hydronephrosis . No fecal impaction or perirectal fluid collection Diverticulosis and/or scattered areas of calcification or postsurgical change adjacent to the sigmoid colon and transverse colon with small multifocal nonaggressive appearing densities No sign of a bowel obstruction. No suspicious fluid in the paracolic gutters There are surgical clips near the aortic bifurcation and in the pelvis No sign of an abdominal aortic aneurysm. No retroperitoneal bleed or suspicious adenopathy. No sign to suggest acute appendicitis. There is surgical change along the umbilical region There are small scattered lymph nodes in the mesentery typically considered physiologic/reactive LUNG BASE EVALUATION no basilar consolidation or significant effusion. . BONE RECONSTRUCTIONS no compression deformity. Significant degenerative and hypertrophic changes in the hips. IMPRESSION: No bowel obstruction, fluid collection, acute appendicitis, hydronephrosis, or signs of complication status post gastric bypass There is mild distention of the CBD and central intrahepatic ducts which can be physiologic after cholecystectomy. If patient has jaundice or abnormal bilirubin levels, additional workup with MRCP is reasonable to check for distal stone or other obstruction Mild fatty infiltration of liver without splenomegaly or ascites Small nodule in the right breast upper outer quadrant, better appreciated on coronal images. Correlate for any corresponding palpable abnormality. It measures around 7 mm Consider follow-up breast ultrasound referral assuming this was not previously workup. . . All CT scans at this facility use dose modulation, iterative reconstruction, and/or weight based dosing when appropriate to reduce radiation dose to as low as reasonably achievable. --------- Finalized by Uriel Granda MD on 10/25/2023 12:27 PM Normal [facility] Glucose Glucometer (BldC) [M ass/Vol]on 10-25-2023 Glucose [Mass/Vol] 133 mg/dL High 65-99 [facility] Glucose [Mass/Vol] 136 mg/dL High 65-99 [facility] Glucose [Mass/Vol] 188 mg/dL High 65-99 [facility] LIPASEon 10-25-2023 Lipase [Catalytic activity/Vol] 39 U/L Normal 17-40 [facility] Comment on above: Performed By: #### C WEST, 59130-1, CMP, 3040-3, 6873-4, 57125-5, 2777-1 ####[facility] ([id number])[address] [place] [address] 32352 Lactate (P siobhan) [Moles/Vol]o n 10-25-2023 Lactate [Moles/Vol] 2.9 mmol/L High 0.4-2.0 [facility] Comment on above: Performed By: #### B MP, CBCA, 24667-7 #### [facility] ([id number]) [address] [place] [address] 63128 LACTATE W/REFLEX 2.8 mmol/L High 0.4-2.0 [facility] Comment on above: Performed By: #### C WEST, 88054-3, CMP, 3040-3, 6873-4, 49762-3, 2777-1 ####[facility] ([id number])[address] [place] [address] 56595 MAGNESIUMon 10-25-2023 Magnesium [Mass/Vol] 1.8 mg/dL Normal 1.8-2.6 [facility] Comment on above: Performed By: #### C WEST, 90321-3, CMP, 3040-3, 6873-4, 39672-7, 2776-1 ####[facility] ([id number])[address] [place] [address] 80676 PHOSPHORUSon 10-25-2023 Phosphate [Mass/Vol] 5.2 mg/dL High 2.4-4.9 [facility] Comment on above: Performed By: #### C WEST, 69714-5, CMP, 3040-3, 73-4, 46572-1, 2776-1 ####[facility] ([id number])[address] [place] [address] 20129 URINE CULTUREon 10-25-2023 Bacteria identified Cx Nom (U) CULTURE RESULTS >100,000 ORGANISMS/mL KLEBSIELLA PNEUMONIAE [ S = SUSCEPTIBLE R = RESISTANT I = INTERMEDIATE S-DO = Susceptible-dose dependent NS = Non-suscceptible NO = No Interpretation ] Organism: KLEBSIELLA PNEUMONIAE Antibiotic Interpretation ANTHONY Status AMPICILLIN R 16 F AMP/SULBACTAM S 4/2 F CEFAZOLIN S <=4 F CEFTRIAXONE S <=1 F CIPROFLOXACIN S <=0.25 F GENTAMICIN S <=1 F LEVOFLOXACIN S <=0.12 F NITROFURANTOIN I 64 F PIPERACIL/TAZOBACTAM S <=4 F TOBRAMYCIN S <=1 F TRIMETH/SULFAMETHOXAZ OLE S <=1/19 F Susceptible [facility] Comment on above: Performed By: #### B MP, CBCA, 69981-5 #### [facility] ([id number]) [address] [place] [address] 14764 URN MACROSCOPIC NURon 2023 BILIRUBIN JEROME Negative Normal NEG [facility] Comment on above: Performed By: #### B LYNN, CBCA, 87325-3 #### [facility] ([id number]) [address] [place] [address] 20122 BLOOD/HGB JEROME Trace Abnormal NEG [facility] Comment on above: Performed By: #### B LYNN, CBCA, 75854-8 #### [facility] ([id number]) [address] [place] [address] [place] [address] GLUCOSE JEROME >=1000 Abnormal NEG [facility] Comment on above: Performed By: #### B LYNN, CBCA, 01672-1 #### [facility] ([id number]) [address] [place] [address] [place] [address] KETONES JEROME Negative Normal NEG [facility] Comment on above: Performed By: #### B LYNN, CBCA, 43085-4 #### [facility] ([id number]) [address] [place] [address] [place] [address] LEUKOCYTE ESTERASE JEROME Negative Normal NEG [facility] Comment on above: Performed By: #### B LYNN, CBCA, 73416-5 #### [facility] ([id number]) [address] [place] [address] [place] [address] NITRITE JEROME Positive Abnormal NEG [facility] Comment on above: Performed By: #### B LYNN, CBCA, 63881-2 #### [facility] ([id number]) [address] [place] [address] PH JEROME 5.0 Normal 5.0-8.5 [facility] Comment on above: Performed By: #### B LYNN, CBCA, 43639-7 #### [facility] ([id number]) [address] [place] [address] PROTEIN JEROME Negative Normal NEG [facility] Comment on above: Performed By: #### B LYNN CBCA, 48289-1 #### [facility] ([id number]) [address] [place] [address] SPECIFIC GRAVITY JEROME 1.015 Normal 1.003-1.035 [facility] Comment on above: Performed By: #### B LYNN CBCA, 81254-3 #### [facility] ([id number]) [address] [place] [address] UROBILINOGEN JEROME 0.2 eu/dL Normal <1.1 [facility] Comment on above: Performed By: #### [place] BAILEY CBCA, 95463-0 #### [facility] ([id number]) [address] [place] [address] 92017 VENOUS BLOOD GASon 4 JUAN LUIS'S TEST Normal [facility] Comment on above: Performed By: #### Chio BAILEY CBCA, 76520-4 #### [facility] ([id number]) [address] [place] [address] 41619 BASE,DEFICIT 6.0 MMOL/L High 0.0-2.0 [facility] Comment on above: Performed By: #### Chio BAILEY CBCA, 88497-7 #### [facility] ([id number]) [address] [place] [address] 84719 Body temperature 98.6 [degF] Normal 37.0 [facility] Comment on above: Performed By: #### Chio BAILEY CBCA, 39756-9 #### [facility] ([id number]) [address] [place] [address] 89065 HCO3 (Bld) [Moles/Vol] 19.5 mmol/L Low 20.0-24.0 [facility] Comment on above: Performed By: #### Chio BAILEY CBCA, 66570-6 #### [facility] ([id number]) [address] [place] [address] [place] [address] Oxygen saturation in Blood 56.0 % Low >80.0 [facility] Comment on above: Performed By: #### B LYNN, CBCA, 67664-9 #### [facility] ([id number]) [address] [place] [address] [place] [address] OXYGEN SOURCE [employer] [facility] Comment on above: Performed By: #### B LYNN, CBCA, 60931-6 #### [facility] ([id number]) [address] [place] [address] [place] [address] PCO2, VENOUS 37.2 MMHG Normal 35-50 [facility] Comment on above: Performed By: #### B LYNN, CBCA, 99336-5 #### [facility] ([id number]) [address] [place] [address] [place] [address] PH, VENOUS 7.327 Normal 7.320-7.420 [facility] Comment on above: Performed By: #### B LYNN, CBCA, 84429-4 #### [facility] ([id number]) [address] [place] [address] [place] [address] PO2, VENOUS 31 MMHG Normal 30-50 [facility] Comment on above: Performed By: #### B LYNN, CBCA, 82907-1 #### [facility] ([id number]) [address] [place] [address] [place] [address] SAMPLE SITE N/A Normal [facility] Comment on above: Performed By: #### B LYNN, CBCA, 42140-7 #### [facility] ([id number]) [address] [place] [address] [place] [address] SAMPLE TYPE VENOUS Normal [facility] Comment on above: Performed By: #### B LYNN, CBCA, 87457-8 #### [facility] ([id number]) [address] [place], [place] [address], [place] [address] Pre-Certification Formon Pre-Certification Form [id number] [id number]#1 .00TIFF [facility] CT HUMERUS RT WO CONTon 04-0 CT HUMERUS RT WO CONT CT HUMERUS RT WO C ONT HISTORY AND/OR TECH NOTES Pain of right upper extremity Pain for several months PROCEDURE CT of the right humerus, right upper arm Noncontrast imaging Automated exposure control was utilized All CT scans at this facility use dose modulation, iterative reconstruction, and/or weight based dosing when appropriate to reduce radiation dose to as low as reasonably achievable. COMPARISON no comparison currently available FINDINGS No visible fracture No dislocation There is mild to moderate degenerative change at the glenohumeral joint, mild degenerative change at the AC joint No visible lytic destructive bone lesion or process No suspicious gas No visible mass, fluid collection, hematoma, or abscess No large or suspicious axillary or spectral lymph nodes visible There is mild bone remodeling along the lesser tuberosity There is degenerative change at the elbow with some remodeling along the olecranon and coronoid process If this patient has persistent or worsening symptoms and more detailed imaging is needed, MRI or bone scan might be considered There is a nodule partially imaged in the right upper lobe. IMPRESSION: No acute findings. Right upper lobe nodule again partially imaged with other smaller satellite nodules adjacent to. These are not further assessed or compared. Repeat formal chest CT and/or PET/CT surveillance should be considered when appropriate to further prove benign imaging characteristics -------- Finalized by Uriel Granda MD on 10/09/2023 9:31 AM Normal [facility] BASIC METABOLIC PANLon 10-05 Anion gap [Moles/Vol] 10 mmol/L Normal 5-15 [facility] Comment on above: Performed By: #### B ####[facility] ([id number])[address] [address], [place] [address] Calcium [Mass/Vol] 9.2 mg/dL Normal 8.5-10.5 [facility] Comment on above: Performed By: #### B MP ####[facility] ([id number])[address] [address], [place] [address] Chloride [Moles/Vol] 104 mmol/L Normal 98-109 [facility] Comment on above: Performed By: #### B MP ####[facility] ([id number])[address] [address] [address] CO2 [Moles/Vol] 27 mmol/L Normal 22-32 [facility] Comment on above: Performed By: #### B MP ####[facility] ([id number])[address] [address], [place] [address] Creatinine [Mass/Vol] 1.29 mg/dL High 0.40-1.00 [facility] Comment on above: Result Comment: METH OD TRACEABLE TO IDMS STANDARD Performed By: #### B MP ####[facility] ([id number])[address] [address] [place] [address] GFR/1.73 sq M.predicted among non-blacks MDRD (S/P/Bld) [Vol rate/Area] 46 mL/min/{1.73_m2} Low >59 [facility] Comment on above: Result Comment: Reported eGFR is based on the CKD-EPI 1 equation that does not use a race coefficient. Performed By: #### B MP ####[facility] ([id number])[address] [address], [place] [address] Glucose [Mass/Vol] 75 mg/dL Normal 65-99 [facility] Comment on above: Performed By: #### B MP ####[facility] ([id number])[address], [place] [address] Potassium [Moles/Vol] 4.8 mmol/L Normal 3.5-5.0 [facility] Comment on above: Performed By: #### B MP ####[facility] ([id number])[address] [address] Sodium [Moles/Vol] 141 mmol/L Normal 134-146 [facility] Comment on above: Performed By: #### B MP ####[facility] ([id number])[address] [address] Urea nitrogen [Mass/Vol] 25 mg/dL Normal 5-27 [facility] Comment on above: Performed By: #### B MP ####[facility] ([id number])[address] [address] HGB A1C (GLYCO-HGB)on 2023 Glucose [Mass/Vol] 160 mg/dL Normal [facility] Comment on above: Performed By: #### B MP ####[facility] ([id number])[address] [address] HbA1c (Bld) [Mass fraction] 7.2 % High 4.4-5.6 [facility] Comment on above: Result Comment: NOTE ADA Guidelines Result HgbA1c Normal : less than 5.7 % Prediabetes : 5.7 % to 6.4 % Diabetes : > 6.4 % Use with caution in patients with abnormal hemoglobin variants as the half-life of red blood cells and in vivo glycation rates are affected. Performed By: #### B MP ####[facility] ([id number])[address] [address] XR HUMERUS RT MIN 2 VWSon XR HUMERUS RT MIN 2 VWS XR HUMERUS RT LA N 2 VWS Right humerus: HISTORY: Humeral pain. 3 views right humerus are obtained. There is no acute osseous, articular, or soft tissue abnormality. IMPRESSION: No acute findings. Finalized by Nicholas Price MD on 09/23/2023 10:36 AM Normal [facility] Pre-Certification Formon Pre-Certification Form [id number] [id number]#1 .00TIFF Normal [facility] Pre-Certification Formon Pre-Certification Form [id number] 2403 [id number]#1 .00TIFF Normal [facility] XR CHEST 2 VWSon 08-23-2023 XR CHEST 2 VWS XR CHEST 2 VWS Clinical history: Covid 19. Shortness of breath. Tightness, wheezing. Comparisons: 07/08/2022 through 08/14/2023. Findings: 2 views of the chest obtained. Heart size and pulmonary vasculature appear within normal limits. Lungs appear clear. Small hiatal hernia again noted. No pleural effusion nor pneumothorax. IMPRESSION: 1. No evidence for acute cardiopulmonary disease. 2. Small hiatal hernia. Finalized by Emeka Gould MD on 08/23/2023 1:19 PM Normal [facility] XR Chest PA and Lateralon Clinical history: Covid 19. Shortness of breath. Tightness, wheezing. Comparisons: 07/08/2022 through 08/14/2023. Findings: 2 views of the chest obtained. Heart size and pulmonary vasculature appear within normal limits. Lungs appear clear. Small hiatal hernia again noted. No pleural effusion nor pneumothorax. IMPRESSION: 1. No evidence for acute cardiopulmonary disease. 2. Small hiatal hernia. Finalized by Emeka Gould MD on 08/23/2023 1:19 PM Emeka Magaña M D - 08/23/2023 Clinical history: Covid 19. Shortness of breath. Tightness, wheezing. Comparisons: 07/08/2022 through 08/14/2023. Findings: 2 views of the chest obtained. Heart size and pulmonary vasculature appear within normal limits. Lungs appear clear. Small hiatal hernia again noted. No pleural effusion nor pneumothorax. IMPRESSION: 1. No evidence for acute cardiopulmonary disease. 2. Small hiatal hernia. Finalized by Emeka Gould MD on 08/23/2023 1:19 PM [facility] Radiology Study observation (narrative) [facility] XR Chest PA and LateralOrder ed By: Emeka Gould on 08-23-2023 [facility] Work Phone: Laboratory - Microbiology an d Antimicrobial susceptibilityOrdered By: Rosibel Carbajal on 08-16-2023 SARS-CoV-2 (COVID-19) RNA HORTENSIA+probe Ql (Unsp spec) [facility] BASIC METABOLIC PANLon 08-14 Anion gap [Moles/Vol] 7 mmol/L Normal 5-15 [facility] Comment on above: Performed By: #### B LYNN CBCA, 70806-2 #### [facility] ([id number]) [address] [place] [address] Calcium [Mass/Vol] 8.4 mg/dL Low 8.5-10.5 [facility] Comment on above: Performed By: #### B LYNN CBCA, 01726-0 #### [facility] ([id number]) [address] [place] [address] Chloride [Moles/Vol] 107 mmol/L Normal 98-109 [facility] Comment on above: Performed By: #### B LYNN CBCA, 24857-5 #### [facility] ([id number]) [address] [place] [address] CO2 [Moles/Vol] 23 mmol/L Normal 22-32 [facility] Comment on above: Performed By: #### B LYNN CBCA, 88957-9 #### [facility] ([id number]) [address] [place] [address] Creatinine [Mass/Vol] 1.32 mg/dL High 0.40-1.00 [facility] Comment on above: Result Comment: METH OD TRACEABLE TO IDMS STANDARD Performed By: #### B OPAL BAILEY, 12142-0 #### [facility] ([id number]) [address] [place] [address] GFR/1.73 sq M.predicted among non-blacks MDRD (S/P/Bld) [Vol rate/Area] 45 mL/min/{1.73_m2} Low >59 [facility] Comment on above: Result Comment: Reported eGFR is based on the CKD-EPI 2020 equation that does not use a race coefficient. Performed By: #### [place], [address]-9 #### [facility] ([id number]) [address] [place] [address] Glucose [Mass/Vol] 159 mg/dL High 65-99 [facility] Comment on above: Performed By: #### [place], 69644-0 #### [facility] ([id number]) [address] [place] [address] Potassium [Moles/Vol] 4.0 mmol/L Normal 3.5-5.0 [facility] Comment on above: Performed By: #### [place], 75380-1 #### [facility] ([id number]) [address] [place] [address] Sodium [Moles/Vol] 137 mmol/L Normal 134-146 [facility] Comment on above: Performed By: #### [place], 69117-4 #### [facility] ([id number]) [address] [place] [address] 227[address] Urea nitrogen [Mass/Vol] 26 mg/dL Normal 5-27 [facility] Comment on above: Performed By: #### [place], [address]-8 #### [facility] ([id number]) [address] [place] [address] 837[address] CBC AND AUTO DIFFon 08-14-19 24 ABSOLUTE BASOPHIL 0.1 X10E9/L Normal 0.0-0.2 [facility] Comment on above: Performed By: #### B MP, CBCA, 69197-1 #### [facility] ([id number]) [address] [place] [address]99[address] ABSOLUTE NEUTROPHIL 3.2 X10E9/L Normal 1.5-6.6 [facility] Comment on above: Performed By: #### B MP, CBCA, 44182-8 #### [facility] ([id number]) [address] [place] [address] 27014 Basophils/100 WBC (Bld) 1.5 % Normal [facility] Comment on above: Performed By: #### B MP, CBCA, 89207-6 #### [facility] ([id number]) [address] [place] [address]26[address] Eosinophils (Bld) [#/Vol] 0.3 10*3/uL Normal 0.0-0.4 [facility] Comment on above: Performed By: #### B MP, CBCA, 53334-0 #### [facility] ([id number]) [address] [place] [address]40[address] Eosinophils/100 WBC (Bld) 5.7 % Normal [facility] Comment on above: Performed By: #### B MP, CBCA, 42746-0 #### [facility] ([id number]) [address] [place] [address]04[address] Erythrocyte distribution width (RBC) [Ratio] 14.2 % Normal 11.5-15.0 [facility] Comment on above: Performed By: #### B MP, CBCA, 86641-1 #### [facility] ([id number]) [address] [place] [address] Hematocrit (Bld) [Volume fraction] 38.8 % Normal 35-47 [facility] Comment on above: Performed By: #### B LYNN, CBCA, 38864-5 #### [facility] ([id number]) [address] [place] [address] Hemoglobin (Bld) [Mass/Vol] 13.1 g/dL Normal 11.7-15.5 [facility] Comment on above: Performed By: #### B LYNN, CBCA, 83380-0 #### [facility] ([id number]) [address] [place] [address] Lymphocytes (Bld) [#/Vol] 1.7 10*3/uL Normal 1.0-3.5 [facility] Comment on above: Performed By: #### B LYNN, CBCA, 53386-8 #### [facility] ([id number]) [address] [place] [address] 15992 Lymphocytes/100 WBC (Bld) 29.0 % Normal [facility] Comment on above: Performed By: #### B LYNN, CBCA, 06877-1 #### [facility] ([id number]) [address] [place] [address]1946 MCH (RBC) [Entitic mass] 30.3 pg Normal 27-34 [facility] Comment on above: Performed By: #### B LYNN, CBCA, 46017-2 #### [facility] ([id number]) [address] [place] [address]44 MCHC (RBC) [Mass/Vol] 33.7 g/dL Normal 32-36 [facility] Comment on above: Performed By: #### B LYNN, CBCA, 39179-5 #### [facility] ([id number]) [address] [place] [address] 92888 MCV (RBC) [Entitic vol] 90 fL Normal 80-100 [facility] Comment on above: Performed By: #### B MP, CBCA, 43491-1 #### [facility] ([id number]) [address] [place] [address]49 Monocytes (Bld) [#/Vol] 0.5 10*3/uL Normal 0-0.9 [facility] Comment on above: Performed By: #### B MP, CBCA, 98085-1 #### [facility] ([id number]) [address] [place] [address] 88526 Monocytes/100 WBC (Bld) 8.6 % Normal [facility] Comment on above: Performed By: #### B MP, CBCA, 81146-5 #### [facility] ([id number]) [address] [place] [address] 52891 Neutrophils/100 WBC (Bld) 55.2 % Normal [facility] Comment on above: Performed By: #### B MP, CBCA, 67151-8 #### [facility] ([id number]) [address] [place] [address] 10913 Platelet mean volume (Bld) [Entitic vol] 6.9 fL Low 7-12 [facility] Comment on above: Performed By: #### B MP, CBCA, 83596-1 #### [facility] ([id number]) [address] [place] [address] 51564 Platelets (Bld) [#/Vol] 255 10*3/uL Normal 150-450 [facility] Comment on above: Performed By: #### B MP, CBCA, 34272-5 #### [facility] ([id number]) [address] [place] [address] 40994 RBC COUNT 4.31 X10E12/L Normal 3.80-5.20 [facility] Comment on above: Performed By: #### B MP, CBCA, 99209-1 #### [facility] ([id number]) [address] [place] [address] 40924 WBC (Bld) [#/Vol] 5.9 10*3/uL Normal 4.0-11.0 [facility] Comment on above: Performed By: #### B LYNN, CBCA, 85801-6 #### [facility] ([id number]) [address] [place] [address] BRAIN WO CONTon 4 CT BRAIN WO CONT CT BRAIN WO CONT STUDY: CT HEAD WITHOUT CONTRAST CLINICAL HISTORY: Headache, sudden, severe acute head pain COMPARISON: 03/13/2023 TECHNIQUE: CT head was performed without contrast utilizing 2.5 mm axial reconstruction with images reviewed in bone and brain windows. Automated exposure control was utilized. FINDINGS: There is no intracranial mass, mass effect or shift of midline structures. No extra-axial fluid collection. Walters-white differentiation is preserved. No CT evidence of large vessel vascular distribution of acute infarct acute ischemic hemorrhage. No depressed or widely calvarial fracture. Paranasal sinuses are well aerated. Please note, MRI is more sensitive for the evaluation of an acute or occult process if indicated. IMPRESSION: 1. No evidence of an acute intracranial process. All CT scans at this facility use dose modulation, iterative reconstruction, and/or weight based dosing when appropriate to reduce radiation dose to as low as reasonably achievable. Finalized by Sonny Ma MD on 08/14/2023 1:53 AM Normal [facility] TROPONIN Ion 08-14-2023 Troponin I.cardiac [Mass/Vol] ng/mL Normal 0.00-0.04 [facility] Comment on above: Performed By: #### 1 0839-9 #### [facility] ([id number]) [address] [place] [address]203 Troponin I.cardiac [Mass/Vol] ng/mL Normal 0.00-0.04 [facility] Comment on above: Performed By: #### B LYNN, CBCA, 30355-4 #### [facility] ([id number]) [address] [facility] [place] [address] XR CHEST 1 VWon 08-14-2023 XR CHEST 1 VW XR CHEST 1 VW Single view chest History:chest pain with radiation to left arm Difficulty breathing, shortness of breath Comparison: 03/13/2023 Findings: Single portable view of the chest. Stable cardiomediastinal silhouette. No focal opacity, effusion or pneumothorax. Impression: No evidence of acute cardiopulmonary process. Finalized by Sonny Ma MD on 08/14/2023 1:52 AM Normal [facility] Screenson 08-02-2023 Screens [id number]# 1.00TIFF Normal [facility] Patient Educationon 08-01-19 24 Patient Education Obstetrics and Gynecology Overactive Bladder, Adult Overactive bladder is a condition in which a person has a sudden and frequent need to urinate. A person might also leak urine if he or she cannot get to the bathroom fast enough (urinary incontinence). Sometimes, symptoms can interfere with work or social activities. What are the causes? Overactive bladder is associated with poor nerve signals between your bladder and your brain. Your bladder may get the signal to empty before it is full. You may also have very sensitive muscles that make your bladder squeeze too soon. This condition may also be caused by other factors, such as: ? Medical conditions: ? Urinary tract infection. ? Infection of nearby tissues. ? Prostate enlargement. ? Bladder stones, inflammation, or tumors. ? Diabetes. ? Muscle or nerve weakness, especially from these conditions: ? A spinal cord injury. ? Stroke. ? Multiple sclerosis. ? Parkinson's disease. ? Other causes: ? Surgery on the uterus or urethra. ? Drinking too much caffeine or alcohol. ? Certain medicines, especially those that eliminate extra fluid in the body (diuretics). ? Constipation. What increases the risk? You may be at greater risk for overactive bladder if you: ? Are an older adult. ? Smoke. ? Are going through menopause. ? Have prostate problems. ? Have a neurological disease, such as stroke, dementia, Parkinson's disease, or multiple sclerosis (MS). ? Eat or drink alcohol, spicy food, caffeine, and other things that irritate the bladder. ? Are overweight or obese. What are the signs or symptoms? Symptoms of this condition include a sudden, strong urge to urinate. Other symptoms include: ? Leaking urine. ? Urinating 8 or more times a day. ? Waking up to urinate 2 or more times overnight. How is this diagnosed? This condition may be diagnosed based on: ? Your symptoms and medical history. ? A physical exam. ? Blood or urine tests to check for possible causes, such as infection. You may also need to see a health care provider who specializes in urinary tract problems. This is called a urologist. How is this treated? Treatment for overactive bladder depends on the cause of your condition and whether it is mild or severe. Treatment may include: ? Bladder training, such as: ? Learning to control the urge to urinate by following a schedule to urinate at regular intervals. ? Doing Kegel exercises to strengthen the pelvic floor muscles that support your bladder. ? Special devices, such as: ? Biofeedback. This uses sensors to help you become aware of your body's signals. ? Electrical stimulation. This uses electrodes placed inside the body (implanted) or outside the body. These electrodes send gentle pulses of electricity to strengthen the nerves or muscles that control the bladder. ? Women may use a plastic device, called a pessary, that fits into the vagina and supports the bladder. ? Medicines, such as: ? Antibiotics to treat bladder infection. ? Antispasmodics to stop the bladder from releasing urine at the wrong time. ? Tricyclic antidepressants to relax bladder muscles. ? Injections of botulinum toxin type A directly into the bladder tissue to relax bladder muscles. ? Surgery, such as: ? A device may be implanted to help manage the nerve signals that control urination. ? An electrode may be implanted to stimulate electrical signals in the bladder. ? A procedure may be done to change the shape of the bladder. This is done only in very severe cases. Follow these instructions at home: Eating and drinking ? Make diet or lifestyle changes recommended by your health care provider. These may include: ? Drinking fluids throughout the day and not only with meals. ? Cutting down on caffeine or alcohol. ? Eating a healthy and balanced diet to prevent constipation. This may include: ? Choosing foods that are high in fiber, such as beans, whole grains, and fresh fruits and vegetables. ? Limiting foods that are high in fat and processed sugars, such as fried and sweet foods. Lifestyle ? Lose weight if needed. ? Do not use any products that contain nicotine or tobacco. These include cigarettes, chewing tobacco, and vaping devices, such as e-cigarettes. If you need help quitting, ask your health care provider. General instructions ? Take qccl-gtn-dtltikj and prescription medicines only as told by your health care provider. ? If you were prescribed an antibiotic medicine, take it as told by your health care provider. Do not stop taking the antibiotic even if you start to feel better. ? Use any implants or pessary as told by your health care provider. ? If needed, wear pads to absorb urine leakage. ? Keep a log to track how much and when you drink, and when you need to urinate. This will help your health care provider monitor yo (more content not included)... Normal [facility] Urology Office/Clinic Noteon 08-01-2023 Urology Office/Clinic Note Chief Complaint Worsening Urinary Sx HPI Staff PRW pt 63 year old female here due to having worsening urinary/incontinence. Last seen in office by PERFECTO 09/28/22. DX: postinfective urethral stricture of female, mixed incontinence and recurrent UTI. S/P Cysto/UD done 07/13/23 & 10/27/22. Pt. using Premarin cream 1gm m,w,f. *Myrbetriq 50mg 2tabs daily-no longer taking. Last Glucometer 100 done 07/13/23. Has been having increased frequency & incontinence. Voiding several times an hr during the day, 3-4x/night. Ongoing for the past few months. Does wear pads for protection, has been going through at least 4-5x/day. Leaks with coughing/sneezing, urgency and sometimes she doesn't even feel when she leaks. NEG C&S by PCP Does have Hx of TVT sling, is wondering if it could have came loose. Denies pain/burning and visible blood in urine. PVR 167ml History of Present Illness staff HPI reviewed and agree. Review of Systems PHQ Score Initial Depression Screen Score: 0 SCORE no fever, chills, malaise, myalgia. no rash/lesions. no chest pain, palpitations, or SOB. no abdominal pain, nausea, vomiting. no unilateral calf swelling, redness, pain Physical Exam Vitals & Measurements HR: 77(Peripheral) RR: 16 BP: 115/75 HT: 63 in HT: 160 cm WT: 77.5 kg WT: 170.5 lb BMI: 30.27 General: nontoxic, NAD Mouth: moist mucosa Lungs: normal respiratory effort Cardio: regular rate, good distal perfusion Abdomen: nondistended, no suprapubic distention or tenderness, no CVA tenderness Neurologic: Grossly normal Skin: No rashes or suspicious lesions Assessment/Plan Dr. Gallagher pt 1. Urge incontinence (N39.41: Urge incontinence) reports severe frequency, Voiding several times an hr during the day, 3-4x/night. Ongoing for the past few months. severe urgency + UUI. with occasional incontinence without sensory awareness. Does wear pads for protection, has been going through at least 4-5x/day. reports A1c was 8-9 previously but most recently was around 7 so improving UA completed in office today shows no microhematuria or signs of infection. was previously taking Myrbetriq 50mg 2 tabs daily. was taking this at last ov Aug 2022 and was working well at that time. at some point btwn now and then pt stopped taking it. isn't sure why she stopped it. explained this is likely why her sx are returned/worse. -resume Myrbetriq 2. Stress incontinence (N39.3: Stress incontinence (female) (male)) Hx of TVT sling. concerned it may be failing. initially was very effective and for many years. for the past year or so, has had progressive worsening MIKE. Leaks with coughing/sneezing, laughing, movement, jumping, getting in/out car. #1 more bothersome currently. will resume Myrbetriq and get urgency/frequency/UUI under control first. then can reassess where her MIKE is really at. if truly a major complaint/concern, can consider repeat uros vs pelvic exam to assess for urethral hypermobility/MIKE and discuss tx options (PFPT? bulking agent? repeat TVT?) -reassess at f/u 3. OAB (overactive bladder) (N32.81: Overactive bladder) see #1. 4. Postinfective urethral stricture of female (N35.12: Postinfective urethral stricture, not elsewhere classified, female) Hx of 9 Cysto/UDs. Most recent 07/13/23 - under MAC. Orders: mirabegron, 100 mg = 2 tab(s), Oral, Daily, X 30 day(s), # 60 tab(s), Refills(s) 11, Pharmacy: [id number], 160, cm, 08/01/23 12:59:00 EST, Height/Length Dosing, 77.5, kg, 08/01/23 12:59:00 EST, Weight Dosing 99274 Measure Post Void residual urine and/or bladder capacity by US- non-imaging Urnls Dip Stick Auto w/o Microscopy POC [id number] Follow-up With When Contact Information RASHIDA STEPHENS, PAULA Wheat, URL [address] [place] [address] [phone] Additional Instructions: 3 mos (restart med) Patient Education Overactive Bladder, Adult Documentation recorded by the scradela Pennington accurately reflects the services(s) I performed and decisions made by me. Authenticated by Paula Joshi PA-C on 08/01/2023 14:27:41. I, Shelley Pennington, personally scribed for Paula Joshi PA-C on 08/01/2023 13:56:39. . Problem List/Past Medical History Ongoing Anxiety and depression Atrophic vaginitis Chronic GERD DM - Diabetes mellitus Dysuria High cholesterol Hypertension Hypothyroidism Incomplete bladder emptying Incontinence without sensory awareness Mixed incontinence OAB (overactive bladder) RAÚL (obstructive sleep apnea) Postinfective urethral stricture of female Recurrent UTI Historical Bipolar disorder Hypothyroidism Uterine cancer Procedure/Surgical History Cystourethroscopy with dilation of urethral stricture (07/13/2023), Cystourethroscopy with dilation of urethral stricture (10/27/2022), Cystourethroscopy with dilation of urethral stricture (09/16/2021), Cystoscopy (01/21/2021), Cystourethroscopy with dilation (more content not included)... Normal [facility] Comment on above: Result Comment: Elec tronically Signed By: PAULA JOSHI PA-C\.br\Date and Time Signed: 08/01/23 14:27 EST\.br\Electronically Co-Signed By: Shelley Pennington\.br\Date and Time Co-Signed: 08/01/23 13:57 EST XR FOOT LT MIN 3 VWSon 07-26 XR FOOT LT MIN 3 VWS XR FOOT LT MIN 3 VW S XR FOOT LT MIN 3 VWS: 07/26/2023 2:27 PM Clinical: First digit pain after injury. EXAM: LEFT FOOT RADIOGRAPHS Comparison: none Views: 3 Findings: There is metallic plate and screw fusion of the first MTP joint with exuberant ossification. Calcaneal cuboid arthroplasty. There is no acute fracture, dislocation,or destructive lesion. Bony osteopenia present. DIP and PIP degenerative changes noted. Dorsal and plantar calcaneal spurring.. Impression: * No acute findings. Finalized by Leon Mcghee MD on 07/26/2023 7:14 PM [facility] XR Foot - left 3 or 4 Viewso n 07-26-2023 XR FOOT LT MIN 3 VWS : 07/26/2023 2:27 PM Clinical: First digit pain after injury. EXAM: LEFT FOOT RADIOGRAPHS Comparison: none Views: 3 Findings: There is metallic plate and screw fusion of the first MTP joint with exuberant ossification. Calcaneal cuboid arthroplasty. There is no acute fracture, dislocation,or destructive lesion. Bony osteopenia present. DIP and PIP degenerative changes noted. Dorsal and plantar calcaneal spurring.. Impression: * No acute findings. Finalized by Leon Mcghee MD on 07/26/2023 7:14 PM [facility] MD - 07/26/2023 XR FOOT LT MIN 3 VWS: 07/26/2023 2:27 PM Clinical: First digit pain after injury. EXAM: LEFT FOOT RADIOGRAPHS Comparison: none Views: 3 Findings: There is metallic plate and screw fusion of the first MTP joint with exuberant ossification. Calcaneal cuboid arthroplasty. There is no acute fracture, dislocation,or destructive lesion. Bony osteopenia present. DIP and PIP degenerative changes noted. Dorsal and plantar calcaneal spurring.. Impression: * No acute findings. Finalized by Leon Mcghee MD on 07/26/2023 7:14 PM [employer] Radiology Study observation (narrative) myAchy XR Foot - left 3 or 4 ViewsO rdered By: Leon Mcghee on 07-26-2023 [employer] Work Phone: [facility] 07-14-2023 Lab Reports [id number] .00TIFF Normal [facility] Operative Reporton Operative Report [id number] .00TIFF Normal [facility] ECG 12-Leadon 07-05-2023 ECG 12-Lead [id number] .00TIFF Normal [facility] Lab Reportson 07-05-2023 Lab Reports [id number] .00TIFF Normal [facility] Lab Reports [id number] .00TIFF Normal 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 POINT OF CARE GLUCOSEon 10-02 Glucose [Mass/Vol] 136 mg/dL Critically high 74-106 [facility] Comment on above: Performed By: #### P OCGLUC #### [facility] [address] [address] [address] Socorro Rincon PROF CHEM 8 (BAS METB)on Anion gap [Moles/Vol] 13.1 mmol/L Normal [facility] Comment on above: Performed By: #### B MP #### [facility] [address] [address] [address] Socorro Rincon Calcium [Mass/Vol] 8.6 mg/dL Normal 8.5-10.1 [facility] Comment on above: Performed By: #### B MP #### [facility] [address] [address] [address] Socorro Rincon Chloride [Moles/Vol] 106 mmol/L Normal 98-107 [facility] Comment on above: Performed By: #### B MP #### [facility] [address] [address] [address] Socorro Rincon CO2 [Moles/Vol] 23.7 mmol/L Normal 21.0-32.0 [facility] Comment on above: Performed By: #### B MP #### [facility] [address] [address] [address] Socorro Rincon Creatinine [Mass/Vol] 1.37 mg/dL Critically high 0.55-1.02 [facility] Comment on above: Performed By: #### B MP #### [facility] [address] [address] [address] Socorro Rincon EGFR-AF TAIWANESE 47 mL/min/1.73m2 Critically low >=60 [facility] Comment on above: Performed By: #### B MP #### [facility] [address] [address] [address] Socorro Rincon EGFR-NON AF TAIWANESE 39 mL/min/1.73m2 Critically low >=60 [facility] Comment on above: Performed By: #### B MP #### [facility] [address] [address] [address] Socorro Rincon Glucose [Mass/Vol] 306 mg/dL Critically high 74-106 [facility] Comment on above: Performed By: #### B MP #### [facility] [address] [address] [address] Socorro Rincon Potassium [Moles/Vol] 4.8 mmol/L Normal 3.5-5.1 [facility] Comment on above: Performed By: #### B MP #### [facility] [address] [address] [address] Socorro Rincon Sodium [Moles/Vol] 138 mmol/L Normal 136-145 [facility] Comment on above: Performed By: #### B MP #### [facility] [address] [place] [address] Dr. Socorro Rincon Urea nitrogen [Mass/Vol] 23.0 mg/dL Critically high 7.0-18.0 [facility] Comment on above: Performed By: #### B MP #### [facility] [address] [place] [address] Dr. Socorro Rincon Urea nitrogen/Creatinine [Mass ratio] 16.8 mg/mg Normal [facility] Comment on above: Performed By: #### B MP #### [facility] [address] [place] [address] Dr. Socorro Rincon CBC AUTO DIFFon 10-13-2022 BASO # 0.1 103/ul Normal 0.0-0.1 [facility] Comment on above: Performed By: #### C BC #### [facility] [address] [place] [address] Dr. Socorro Rincon Basophils/100 WBC (Bld) 1.6 % Normal 0.2-2.0 [facility] Comment on above: Performed By: #### C BC #### [facility] [address] [place] [address] Dr. Socorro Rincon EO # 0.3 103/ul Normal 0.0-0.7 [facility] Comment on above: Performed By: #### C BC #### [facility] [address] [place] [address] Dr. Socorro Rincon Eosinophils/100 WBC (Bld) 5.4 % Normal 0.9-7.0 [facility] Comment on above: Performed By: #### C BC #### [facility] [address] [place] [address] Dr. Socorro Rincon Erythrocyte distribution width (RBC) [Ratio] 13.2 % Normal 11.0-15.0 [facility] Comment on above: Performed By: #### C BC #### [facility] [address] [place] [address] Dr. Socorro Rincon Hematocrit (Bld) [Volume fraction] 36.6 % Normal 36.0-48.0 [facility] Comment on above: Performed By: #### C BC #### [facility] [address] [place] [address] Dr. Socorro Rincon Hemoglobin (Bld) [Mass/Vol] 11.9 g/dL Critically low 12.0-16.0 [facility] Comment on above: Performed By: #### C BC #### [facility] [address] [place] [address] Dr. Socorro Rincon IG # 0.03 10e3/ul Normal 0.00-0.03 [facility] Comment on above: Performed By: #### C BC #### [facility] [address] [place] [address] Dr. Socorro Rincon IG % 0.5 % Normal 0.0-0.5 [facility] Comment on above: Performed By: #### C BC #### [facility] [address] [place] [address] Dr. Socorro Rincon LYMPH # 1.3 103/ul Normal 1.2-3.8 [facility] Comment on above: Performed By: #### C BC #### [facility] [address] [place] [address] Dr. Socorro Rincon Lymphocytes/100 WBC (Bld) 22.0 % Normal 20.5-60.0 [facility] Comment on above: Performed By: #### C BC #### [facility] [address] [place] [address] Dr. Socorro Rincon MANUAL DIFF REQ NO Normal [facility] Comment on above: Performed By: #### C BC #### [facility] [address] [place] [address] Dr. Socorro Rincon MCH (RBC) [Entitic mass] 30.0 pg Normal 26.7-34.0 [facility] Comment on above: Performed By: #### C BC #### [facility] [address] [place] [address] Dr. Socorro Rincon MCHC (RBC) [Mass/Vol] 32.5 g/dL Normal 29.9-35.2 [facility] Comment on above: Performed By: #### C BC #### [facility] [address] [address] [address] Socorro Rincon MCV (RBC) [Entitic vol] 92.2 fL Normal 81.0-99.0 [facility] Comment on above: Performed By: #### C BC #### [facility] [address] [address] [address] Socorro Rincon MONO # 0.4 103/ul Normal 0.3-0.8 [facility] Comment on above: Performed By: #### C BC #### [facility] [address] [address] [address] Socorro Rincon Monocytes/100 WBC (Bld) 7.3 % Normal 1.7-12.0 [facility] Comment on above: Performed By: #### C BC #### [facility] [address] [place] [address] Dr. Socorro Rincon NEUT # 3.6 103/ul Normal 1.4-6.5 [facility] Comment on above: Performed By: #### C BC #### [facility] [address] [place] [address] Dr. Socorro Rincon Neutrophils/100 WBC (Bld) 63.2 % Normal 43.0-75.0 [facility] Comment on above: Performed By: #### C BC #### [facility] [address] [place] [address] Dr. Socorro Rincon Platelet mean volume (Bld) [Entitic vol] 8.9 fL Critically low 9.5-13.5 [facility] Comment on above: Performed By: #### C BC #### [facility] [address] [place] [address] Dr. Socorro Rincon PLT 317 103/ul Normal 150-450 [facility] Comment on above: Performed By: #### C BC #### [facility] [address] [place] [address] Dr. Socorro Rincon RBC 3.97 106/ul Critically low 4.20-5.40 [facility] Comment on above: Performed By: #### C BC #### [facility] [address] [address] [address] Socorro Rincon WBC 5.7 103/ul Normal 4.0-11.0 [facility] Comment on above: Performed By: #### C BC #### [facility] [address] [address] [address] Socorro Rincon PROF CHEM 8 (BAS METB)on Anion gap [Moles/Vol] 15.5 mmol/L Normal [facility] Comment on above: Performed By: #### B MP #### [facility] [address] [place] [address] Dr. Socorro Rincon Calcium [Mass/Vol] 9.6 mg/dL Normal 8.5-10.1 [facility] Comment on above: Performed By: #### B MP #### [facility] [address] [place] [address] Dr. Socorro Rincon Chloride [Moles/Vol] 104 mmol/L Normal 98-107 [facility] Comment on above: Performed By: #### B MP #### [facility] [address] [place] [address] Dr. Socorro Rincon CO2 [Moles/Vol] 25.4 mmol/L Normal 21.0-32.0 [facility] Comment on above: Performed By: #### B MP #### [facility] [address] [place] [address] Dr. Socorro Rincon Creatinine [Mass/Vol] 1.64 mg/dL Critically high 0.55-1.02 [facility] Comment on above: Performed By: #### B MP #### [facility] [address] [place] [address] Dr. Socorro Rincon EGFR-AF TAIWANESE 38 mL/min/1.73m2 Critically low >=60 [facility] Comment on above: Performed By: #### B MP #### [facility] [address] [place] [address] Dr. Socorro Rincon EGFR-NON AF TAIWANESE 32 mL/min/1.73m2 Critically low >=60 [facility] Comment on above: Performed By: #### B MP #### [facility] [address] [address] [address] Socorro Rincon Glucose [Mass/Vol] 169 mg/dL Critically high 74-106 [facility] Comment on above: Performed By: #### B MP #### [facility] [address] [address] [address] Socorro Rincon Potassium [Moles/Vol] 5.9 mmol/L Critically high 3.5-5.1 [facility] Comment on above: Performed By: #### B MP #### [facility] [address] [address] [address] Socorro Rincon Sodium [Moles/Vol] 139 mmol/L Normal 136-145 [facility] Comment on above: Performed By: #### B MP #### [facility] [address] [address] [address] Socorro Rincon Urea nitrogen [Mass/Vol] 25.0 mg/dL Critically high 7.0-18.0 [facility] Comment on above: Performed By: #### B MP #### [facility] [address] [address] [address] Socorro Rincon Urea nitrogen/Creatinine [Mass ratio] 15.2 mg/mg Normal [facility] Comment on above: Performed By: #### B MP #### [facility] [address] [address] [address] Socorro Rincon PROTIMEon 10-13-2022 INR Coag (PPP) [Relative time] {INR} Normal [facility] Comment on above: Performed By: #### P T, PTT #### [facility] [address] [address] [address] Socorro Rincon INR GUIDELINES SEE BELOW Normal [facility] Comment on above: Result Comment: RAFAEL RED INR: 2.0 - 3.0 CONDITIONS NOT LISTED BELOW 2.5 - 3.5 FOR PROSTHETIC HEART VALVE REPLACEMENT 2.5 - 3.5 RECURRENT THROMBOSIS Performed By: #### P T, PTT #### [facility] [address] [address] [address] Socorro Rincon PT Coag (PPP) [Time] 9.8 s Normal 9.0-11.6 [facility] Comment on above: Performed By: #### P T, PTT #### [facility] [address] [place], [place] [address] Dr. Socorro Rincon PTTon 10-13-2022 aPTT Coag (Bld) [Time] 24.8 s Normal 22.3-36.2 [facility] Comment on above: Performed By: #### P T, PTT #### [facility] [address] [place], [place] [address] Dr. Socorro Rincon SARS-CoV-2 (COVID-19) RNA NA A+probe Ql (Resp)on 02-18-2022 SARS-CoV-2 (COVID-19) RNA HORTENSIA+probe Ql (Unsp spec) Negative [employer] [facility] [employer] Other COVID Quick Testingon 2021 Result Negative [employer] [facility] [employer] Other Blood Cultureon 01-17-2022 Bacteria identified Cx Nom (Bld) NO GROWTH 5 DAYS PERFORMED BY: [place] [address] PATHOLOGIST RN PLACEMENT JOAO FELICIANO M.D. [facility] Comment on above: Performed By: #### C UBLD #### [facility] [address] [place] [address] Bacteria identified Cx Nom (Bld) NO GROWTH 5 DAYS PERFORMED BY: [place] [address] PATHOLOGIST RN PLACEMENT JOAO FELICIANO M.D. [facility] Comment on above: Performed By: #### C UBLD #### [facility] [address] [place] [address] Complete Blood Count Auto Di ffon 01-16-2022 Basophils (Bld) [#/Vol] 0.1 10*3/uL Normal 0.0-0.2 [facility] Comment on above: Result Comment: PERF ORMED BY: [place] [address] PATHOLOGIST RN PLACEMENT JOAO FELICIANO M.D. Performed By: #### C BC, CMP #### [facility] [address] [id number] [place] Basophils/100 WBC (Bld) 1.3 % Normal . [facility] Comment on above: Performed By: #### C BC, CMP #### [facility] [address] [phone] [place] Eosinophils (Bld) [#/Vol] 0.2 10*3/uL Normal 0.0-0.45 [facility] Comment on above: Performed By: #### C BC, CMP #### [facility] [address] [place] [address] [place] Eosinophils/100 WBC (Bld) 2.9 % Normal . [facility] Comment on above: Performed By: #### C BC, CMP #### [facility] [address] Erythrocyte distribution width (RBC) [Ratio] 13.7 % Normal 11.9-15.3 [facility] Comment on above: Performed By: #### C BC, CMP #### [facility] [address] [place] [address] [place] Hematocrit (Bld) [Volume fraction] 38.1 % Normal 34.0-46.4 [facility] Comment on above: Performed By: #### C BC, CMP #### [facility] [address] [place] [address] [place] Hemoglobin (Bld) [Mass/Vol] 12.6 g/dL Normal 11.8-15.4 [facility] Comment on above: Performed By: #### C BC, CMP #### [facility] [address] [phone] [place] Lymphocytes (Bld) [#/Vol] 1.4 10*3/uL Normal 1.00-4.8 [facility] Comment on above: Performed By: #### C BC, CMP #### [facility] [address] [phone] [place] Lymphocytes/100 WBC (Bld) 22.9 % Normal . [facility] Comment on above: Performed By: #### C BC, CMP #### [facility] [address] MCH (RBC) [Entitic mass] 30.7 pg Normal 24.7-34.3 [facility] Comment on above: Performed By: #### C BC, CMP #### [facility] [address] MCV (RBC) [Entitic vol] 92.7 fL Normal 80-100 [facility] Comment on above: Performed By: #### C BC, CMP #### [facility] [address] Mean Corpuscular HGB Conc 33.2 g/dL Normal 32.0-35.0 [facility] Comment on above: Performed By: #### C BC, CMP #### [facility] [address] Monocytes (Bld) [#/Vol] 0.5 10*3/uL Normal 0.0-0.8 [facility] Comment on above: Performed By: #### C BC, CMP #### [facility] [address] [place] [address] [place] Monocytes/100 WBC (Bld) 7.8 % Normal . [facility] Comment on above: Performed By: #### C BC, CMP #### [facility] [address] Neutrophils (Bld) [#/Vol] 4.1 10*3/uL Normal 1.8-7.7 [facility] Comment on above: Performed By: #### C BC, CMP #### [facility] [address] [place] [address] [place] Neutrophils/100 WBC (Bld) 65.1 % Normal . [facility] Comment on above: Performed By: #### C BC, CMP #### [facility] [address] [place] [address] [place] Nucleated RBC/100 WBC (Bld) [Ratio] 0.0 % Normal 0-0.5 [facility] Comment on above: Performed By: #### C BC, CMP #### [facility] [address] Platelet mean volume (Bld) [Entitic vol] 7.2 fL Normal 6.3-10.7 [facility] Comment on above: Performed By: #### C BC, CMP #### [facility] [address] Platelets (Bld) [#/Vol] 252 10*3/uL Normal 150-450 [facility] Comment on above: Performed By: #### C BC, CMP #### [address] RBC (Bld) [#/Vol] 4.11 10*6/uL Normal 3.60-5.00 [facility] Comment on above: Performed By: #### C BC, CMP #### [address] WBC (Bld) [#/Vol] 6.2 10*3/uL Normal 4.5-11.0 [facility] Comment on above: Performed By: #### C BC, CMP #### [address] Comprehensive Metabolic Pane ayush 01-16-2022 Albumin [Mass/Vol] 3.8 g/dL Normal 3.2-5.5 [facility] Comment on above: Performed By: #### C BC, CMP #### [address] Albumin/Globulin [Mass ratio] 1.4 {ratio} Normal [facility] Comment on above: Performed By: #### C BC, CMP #### [place] [id number] [facility] ALP [Catalytic activity/Vol] 68 U/L Normal 32-92 [facility] Comment on above: Performed By: #### C BC, CMP #### [address] ALT [Catalytic activity/Vol] 26 U/L Normal 10-60 [facility] Comment on above: Performed By: #### C BC, CMP #### [facility] [address] [place] [id number] [place] AST [Catalytic activity/Vol] 17 U/L Normal 10-42 [facility] Comment on above: Performed By: #### C BC, CMP #### [facility] [address] [place] [id number] [facility] Bilirubin [Mass/Vol] 0.2 mg/dL Low 0.3-1.2 [facility] Comment on above: Performed By: #### C BC, CMP #### [facility] [address] Calcium [Mass/Vol] 9.0 mg/dL Normal 8.2-10.2 [facility] Comment on above: Performed By: #### C BC, CMP #### [facility] [address] Chloride [Moles/Vol] 102 mmol/L Normal 95-114 [facility] Comment on above: Performed By: #### C BC, CMP #### [facility] [address] [place] [address] [place] CO2 [Moles/Vol] 24.1 mmol/L Normal 22.0-30.0 [facility] Comment on above: Performed By: #### C BC, CMP #### [facility] [address] Creatinine [Mass/Vol] 1.35 mg/dL High 0.44-1.03 [facility] Comment on above: Performed By: #### C BC, CMP #### [facility] [address] [place] [address] [place] Creatinine Clr Calc Pharmacy 42.23 [facility] Comment on above: Result Comment: PERF ORMED BY: [place] [address] PATHOLOGIST RN PLACEMENT JOAO FELICIANO M.D. Performed By: #### C BC, CMP #### [facility] [address] [place] [address] [place] Estimated GFR ( Jasmin 48 Normal [facility] Comment on above: Result Comment: GFR estimated reference range: According to KDOQI guidelines, <60 ml/min/1.73m2 is sufficient to diagnose a patient with chronic kidney disease. Performed By: #### C BC, CMP #### [facility] [address] Estimated GFR (Non- Am 40 Normal [facility] Comment on above: Performed By: #### C BC, CMP #### [facility] [address] Globulin (S) [Mass/Vol] 2.7 g/dL Normal F [facility] Comment on above: Performed By: #### C BC, CMP #### [address] Glucose [Mass/Vol] 252 mg/dL High 70-100 [facility] Comment on above: Result Comment: [place] Glucose Reference Range is dependent on time and content of last meal. Glucose of more than 200 mg/dL in a nonstressed, ambulatory subject supports the diagnosis of Diabetes Mellitus. ADA recommended reference range Performed By: #### C BC, CMP #### [address] Potassium [Moles/Vol] 4.7 mmol/L Normal 3.5-5.1 [facility] Comment on above: Performed By: #### C BC, CMP #### [address] Protein [Mass/Vol] 6.5 g/dL Normal 6.1-7.9 [facility] Comment on above: Performed By: #### C BC, CMP #### [address] Sodium [Moles/Vol] 136 mmol/L Normal 136-146 [facility] Comment on above: Performed By: #### C BC, CMP #### [address] Urea nitrogen [Mass/Vol] 18 mg/dL Normal 9-23 [facility] Comment on above: Performed By: #### C BC, CMP #### [address] [place] [address] [place] Dipstick and Microscopicon 0 01-16-2022 Appearance (U) Cloudy Critically abnormal Clear [facility] Comment on above: Order Comment: Name Collection Type:: Clean-Voided Midstream Performed By: #### A DDONUAPLUS #### [facility] [address] [place] [address] [place] Bacteria,Urine 1+ High None Seen [facility] Comment on above: Order Comment: Name Collection Type:: Clean-Voided Midstream Performed By: #### A DDONUAPLUS #### [facility] [address] [place] [address] [place] Bilirubin,Urine Negative Normal Negative [facility] Comment on above: Order Comment: Name Collection Type:: Clean-Voided Midstream Performed By: #### A DDONUAPLUS #### [facility] [address] [place] [address] [place] Color (U) Yellow Normal Yellow [facility] Comment on above: Order Comment: Name Collection Type:: Clean-Voided Midstream Performed By: #### A DDONUAPLUS #### [facility] [address] [place] [address] [place] Glucose Ql (U) >=1000 High Normal [facility] Comment on above: Order Comment: Name Collection Type:: Clean-Voided Midstream Performed By: #### A DDONUAPLUS #### [facility] [address] [place] [address] [place] Hyaline Casts,Urine None Seen Normal 0-1 [facility] Comment on above: Order Comment: Name Collection Type:: Clean-Voided Midstream Result Comment: PERF ORMED BY: [place] [address] PATHOLOGIST RN PLACEMENT OJAO FELICIANO M.D. Performed By: #### A DDONUAPLUS #### [facility] [address] [place] [address] [place] Ketones Ql (U) Negative Normal Negative [facility] Comment on above: Order Comment: Name Collection Type:: Clean-Voided Midstream Performed By: #### A DDONUAPLUS #### [facility] [address] Leukocyte esterase Test strip Ql (U) 1+ High Negative [facility] Comment on above: Order Comment: Name Collection Type:: Clean-Voided Midstream Performed By: #### A DDONUAPLUS #### [facility] [address] [place] [address] [place] Nitrite,Urine Negative Normal Negative [facility] Comment on above: Order Comment: Name Collection Type:: Clean-Voided Midstream Performed By: #### A DDONUAPLUS #### [facility] [address] [place] [address] Occult Blood,Urine Negative Normal Negative [facility] Comment on above: Order Comment: Name Collection Type:: Clean-Voided Midstream Result Comment: PERF ORMED BY: [place] [address] PATHOLOGIST RN PLACEMENT JOAO FELICIANO M.D. Performed By: #### A DDONUAPLUS #### [facility] [address] [place] [address] [place] Othe Crystals,Urine None Seen Normal [facility] Comment on above: Order Comment: Name Collection Type:: Clean-Voided Midstream Performed By: #### A DDONUAPLUS #### [facility] [address] [place] [address] [place] pH (U) 5.5 [pH] Normal 5.0-9.0 [facility] Comment on above: Order Comment: Name Collection Type:: Clean-Voided Midstream Performed By: #### A DDONUAPLUS #### [facility] [address] [place] [address] [place] Protein,Urine Negative Normal Negative [facility] Comment on above: Order Comment: Name Collection Type:: Clean-Voided Midstream Performed By: #### A DDONUAPLUS #### [facility] [address] [place] [address] [place] RBC,Urine 3-4 Normal 0-4 [facility] Comment on above: Order Comment: Name Collection Type:: Clean-Voided Midstream Performed By: #### A DDONUAPLUS #### [address] Specificy [place],Urine 1.007 Normal 1.001-1.030 [facility] Comment on above: Order Comment: Name Collection Type:: Clean-Voided Midstream Performed By: #### A DDONUAPLUS #### [address] Squamous Epithelial Cell,Urine 1-2 Normal 0-2 [facility] Comment on above: Order Comment: Name Collection Type:: Clean-Voided Midstream Performed By: #### A DDONUAPLUS #### [address] Urobilinogen,Urine Normal Normal Normal [facility] Comment on above: Order Comment: Name Collection Type:: Clean-Voided Midstream Performed By: #### A DDONUAPLUS #### [address] WBC LM.HPF (Urine sed) [#/Area] 0 /[HPF] Normal 0-4 [facility] Comment on above: Order Comment: Name Collection Type:: Clean-Voided Midstream Performed By: #### A DDONUAPLUS #### [address] CNPNon 11-05-2021 CNPN Telephone (GYNML) RASHAWN MULTANI ([id number]) 1960 F Date Time Provider Department 11/05/21 [...] to office for Pap results, message from DANIELA below. Heather Guerrero APRN.DANIELA [facility] Can you call her and let her [...] Date Reviewed: 11/01/2021 Reviewed by: Heather Guerrero APRN.ASSOCIATE DEAN OF STUDENTS - Fully Assessed Reason for Visit: Results [...] Encounter Status:Closed by BERNICE GIFFORD on 11/05/21 [facility] CNPete 11-01-2021 CNOVSP Visit (SP) Office (GYNML) RASHAWN MULTANI ([id number]) 1960 F Date Time Provider Department 11/01/21 2:00 PM MANUEL GUILLORY GYN During your visit today, we recorded the following information about you: Temperature Pulse Blood pressure Weight 97.7 degrees 58/minute 136/65 82.4 kg Manuel Guillory MD 11/01/2021 4:33 PM Signed Gynecologic Oncology [facility] Follow-up Re: Rashawn Multani [facility]#: [id number] Date of Service: 11/01/2021 Patient presents for follow up regarding ASCUS, +HPV. Ms Multani is a 61 year old female who has a past medical history of Abnormal Pap smear of vagina, Alopecia, Anemia, Bipolar 1 disorder (HCC), Cancer (HCC), Diabetes (), Enlarged parotid gland, GERD (gastroesophageal reflux disease), History of endometrial cancer (1994), Hyperlipidemia, Hypertension, Sleep apnea, Thyroid disease, and Vitamin B12 deficiency. She has a past surgical history that includes egd (2016); colonoscopy (2016); cholecystectomy hx (2013); tonsillectomy hx; gastric bypass hx; ablation (07/27/2016); heart catheterization; hysterectomy hx (1994); and anesth, section. She [facility] to [facility], 10/05/18, for evaluation and management of abnormal [...] 82.4 k (more content not included)... Normal [facility] PAP FLUID VAGINAL DIAGNOSTIC on 11-01-2021 CASE REPORT Normal [facility] Comment on above: Order Comment: Speci men Type: FLUID SAMPLE Ordering Facility: [facility] Address: [address] [place] [address] Result Comment: Gyne cologic Cytology Report Case: [id number] Authorizing Provider: Manuel Guillory MD Collected: 11/01/2021 03:00 PM Ordering Location: Gynecology Received: 11/02/2021 10:54 AM First Screen: Olga Henderson CT, ASCP Rescreen: DAMIEN Ulrich, ASCP Specimen: PAP PROGRAM DIR DIAGNOSTIC, VAGINAL DIAGNOSTIC FLUID Performed By: #### L [id number] #### [facility] CLIA [id number] [address] [place] [address] [place] CLINICAL HISTORY HIST MALIGNANCY - DESCRIBE [facility] Comment on above: Order Comment: Speci men Type: FLUID SAMPLE Ordering Facility: [facility] Address: [address] [place] [address] Performed By: #### L [id number] #### [facility] CLIA [id number] [address] [place] [address] [place] CYTOLOGY INTERPRETATION PAP [facility] Comment on above: Order Comment: Speci men Type: FLUID SAMPLE Ordering Facility: [facility] Address: [address] [place], [place] [id number] Result Comment: Nega tive for Intraepithelial lesion or malignancy. Performed By: #### L [id number] #### [facility] CLIA [id number] [address] [place] FINAL DIAGNOSIS [facility] Comment on above: Order Comment: Speci men Type: FLUID SAMPLE Ordering Facility: [facility] Address: [address] [place] [address] Result Comment: A - VAGINAL DIAGNOSTIC FLUID Satisfactory for interpretation Negative for Intraepithelial lesion or malignancy. Performed By: #### L [id number] #### [facility] CLIA [id number] [address] [place] [address] OF [facility] FINAL PERFORMING LAB [facility] Comment on above: Order Comment: Speci men Type: FLUID SAMPLE Ordering Facility: [facility] Address: [address] [place] [address] Result Comment: Tech nical component, scraper tender screening performed at [facility], [address] [place] [address] CLIA# [id number] Diagnostic interpretation performed at [facility], [address] [place] [address] [place] [address] CLIA# [id number] Torch Solderer: Girma Snow M.D. Performed By: #### L [id number] #### [facility] CLIA [id number] [address] [place] [address] [place] HPV REQUESTED? Yes, automatic HPV patients over 30 [facility] Comment on above: Order Comment: Speci men Type: FLUID SAMPLE Ordering Facility: [facility] Address: [address] [place], [place] [id number] Performed By: #### L [id number] #### [facility] CLIA [id number] [address] [place] [address] [place] LMP Hysterectomy [facility] Comment on above: Order Comment: Speci men Type: FLUID SAMPLE Ordering Facility: [facility] Address: [address] [place] [address] Performed By: #### L [id number] #### [facility] CLIA [id number] [address] [place] [address] [place] PAP DISCLAIMER COMMENT The Pap Smear is a screening test for cervical cancer. False negative results occur with all screening tests, emphasizing the need for rescreening at recommended intervals, and clinical correlation. [facility] Comment on above: Order Comment: Speci men Type: FLUID SAMPLE Ordering Facility: [facility] Address: [address] [place] [address] Performed By: #### L [id number] #### [facility] CLIA [id number] [address] [place] [address] [place] PAP PROGRAM DIR COMMENT This specimen has been analyzed by the ThinPrep Imaging System, an automated imaging and review system, which assists the laboratory in evaluating cells on ThinPrep Pap tests. Following automated imaging, selected cota from every slide are reviewed by a scraper tender. [facility] Comment on above: Order Comment: Speci men Type: FLUID SAMPLE Ordering Facility: [facility] Address: [address] [place] [address] Performed By: #### L [id number] #### [facility] CLIA [id number] [address] [place] [address] [place] Basic Metabolic Panelon 12-1 Anion gap [Moles/Vol] 11 mmol/L 9 - 17 mmol/L General [facility] Calcium [Mass/Vol] 8.9 mg/dL 8.6 - 10. 4 mg/dL [facility] Chloride [Moles/Vol] 102 mmol/L 98 - 10 7 mmol/L [facility] CO2 [Moles/Vol] 22 mmol/L 20 - 31 mmol/L [facility] Creatinine [Mass/Vol] 1.16 mg/dL High 0.50 - 0.90 mg/dL General [facility] GFR 57 mL/min Low >60 General Compression [facility] GFR Non- 47 mL/min Low >60 General [facility] Glucose [Mass/Vol] 438 mg/dL Critically high 70 - 9 9 mg/dL [facility] Interpretation and review of laboratory results Abnormal [facility] Potassium [Moles/Vol] 4.6 mmol/L 3.7 - 5.3 mmol/L [facility] Sodium [Moles/Vol] 135 mmol/L 135 - 144 mmol/L [facility] Urea nitrogen (BldV) [Mass/Vol] 13 mg/dL 8 - 23 mg/dL [facility] Urea nitrogen/Creatinine (Bld) [Mass ratio] 11 [facility] Basic Metabolic Profon 06-14 Glucose [Mass/Vol] 438 mg/dL Critically high 70-99 M [facility] Comment on above: Performed By: #### B MP #### [facility] [address] [place] [address] Rampman: Colette Ferreira MD (cont.) [facility] Comment on above: Result Comment: Aver age GFR for 60-69 years old: 85 mL/min/1.73sq m Chronic Kidney Disease: <60 mL/min/1.73sq m Kidney failure: <15 mL/min/1.73sq m eGFR calculated using average adult body mass. Additional eGFR calculator available at: http://www.Exitround/multiple_crcl_2012.htm Performed By: #### B MP #### [facility] [address] [place] [place] [address] Rampman: Colette Ferreira MD Anion gap [Moles/Vol] 11 mmol/L Normal 9-[address] [facility] Comment on above: Performed By: #### B MP #### [facility] [address] [place] [place] [address] Rampman: Colette Ferreira MD BUN/CRE Ratio 11 Normal 9-20 [facility] Comment on above: Performed By: #### B MP #### [facility] [address] [place] [place] [address] Rampman: Colette Ferreira MD Calcium [Mass/Vol] 8.9 mg/dL Normal 8.6-10.4 [facility] Comment on above: Performed By: #### B MP #### [facility] [address] [place], [place] [id number] Rampman: Colette Ferreira MD Chloride [Moles/Vol] 102 mmol/L Normal 98-107 [facility] Comment on above: Performed By: #### B MP #### [facility] [address] [place], [place] [id number] Rampman: Colette Ferreira MD CO2 [Moles/Vol] 22 mmol/L Normal 20-31 [facility] Comment on above: Performed By: #### B MP #### [facility] [address] [place], [place] [id number] Rampman: Colette Ferreira MD Creatinine [Mass/Vol] 1.16 mg/dL High 0.50-0.[address] [facility] Comment on above: Performed By: #### B MP #### [facility] [address] [place], [place] [id number] Rampman: Colette Ferreira MD GFR, Amer 57 mL/min Low >60 [facility] Comment on above: Performed By: #### B MP #### [facility] [address] [place], [place] [id number] Rampman: Colette Ferreira MD GFR,non Amer 47 mL/min Low >60 [facility] Comment on above: Performed By: #### B MP #### [facility] [address] [place], [place] [id number] Rampman: Colette Ferreira MD Potassium [Moles/Vol] 4.6 mmol/L Normal 3.7-5.[address] [facility] Comment on above: Performed By: #### B MP #### [facility] [address] [place], [place] [id number] Rampman: Colette Ferreira MD Sodium [Moles/Vol] 135 mmol/L Normal 135-144 [facility] Comment on above: Performed By: #### B MP #### [facility] [address] [place] [place] [address] Rampman: Colette Ferreira MD Staging: Normal [facility] Comment on above: Result Comment: Stag e 1: Some kidney damage normal GFR Stage 2: Mild kidney damage GFR 60-89 Stage 3: Moderate kidney damage GFR 30-59 Stage 4: Severe kidney damage GFR 15-29 Stage 5: Severe kidney damage GFR <15 ESRD - chronic treatment by dialysis or transplant Performed By: #### B MP #### [facility] [address] [place] [place] [address] Rampman: Colette Ferreira MD Urea nitrogen [Mass/Vol] 13 mg/dL Normal 8-23 [facility] Comment on above: Performed By: #### B MP #### [facility] [address] [place] [place] [address] Rampman: Colette Ferreira MD Laboratory - Chemistry and C hemistry - challengeon 06-14-2021 GFR/1.73 sq M.predicted MDRD (S/P/Bld) [Vol rate/Area] [facility] Comment on above: Average GFR for 60-6 9 years old: 85 mL/min/1.73sq m Chronic Kidney Disease: <60 mL/min/1.73sq m Kidney failure: <15 mL/min/1.73sq m eGFR calculated using average adult body mass. Additional eGFR calculator available at: http://www.OdinOtvet.com/multiple_crcl_2011.htm Stage 1: Some kidney damage normal GFR [...] known risk factors. Radiology 2017 http://pubs.rsna.org/ doi/full/10.1148/radi ol.8418289656 Interpreted by: Heather Corrales MD Signed by: Heather Corrales MD 04/30/21 Final result Normal [facility] CT CHEST LOW DOSE (LDCT)Orde red By: [...] known risk factors. Radiology 2017 http://pubs.rsna.org/ doi/full/10.1148/radi ol.5233224533 [facility] Work Phone: EXAMINATION: LOW DOS E OF [...] or soft tissue abnormality. No axillary adenopathy. [facility] Work Phone: [place], [facility] Incoming Radiant Results From [employer] - 04/30/2021 5:06 PM EDT EXAMINATION: LOW [...] known risk factors. Radiology 2017 http://pubs.rsna.org/ doi/full/10.1148/radi ol.2200375502 [facility] [employer] Phone: [facility] [employer] Phone: XR HIP 2-3 VW W PELVIS [...] John Kiser MD 01/27/21 Final result Normal [facility] CT CHEST W IVCONon 1 CT CHEST W IVCON * * *Final Report* * * DATE OF EXAM: Sep 16 2020 9:14AM [facility] [id number] - CT CHEST W IVCON / [...] Date/Time: Sep 16 2020 1:37P Dictated by: ULANN RICHARDS MD This examination was interpreted and the report reviewed and electronically signed by: LUANN RICHARDS MD on Sep 16 2020 3:10PM EST Thank you for allowing us to participate in the care of your patient. Should there be any questions regarding this interpretation, please call [phone]. If you are unable to reach us at the number above, please feel free to contact [facility] eRadiology at [phone]. [id number] N Normal [facility] Creatinineon 09-16-2020 Creatinine [Mass/Vol] 1.18 mg/dL High 0.58-0.96 [facility] eGFR- Amer. 56 Normal [facility] eGFR-All Other Races 46 . [facility] Comment on above: Result Comment: eGFR [...] not accurately reflect actual GFR. [place] 09-15-2020 CNPN Telephone (HEMASA) RASHAWN MULTANI ([id number]) 1960 F Date Time Provider Department 09/15/20 TINO DUTTON (BELLE) AGUSTÍN During your visit today, we recorded the following information about you: Tino Dutton RN, RN 09/15/2020 12:39 PM [facility]igned [facility] Pt is schedule for CT tomorrow and needs referral order for new provider at [place]. Celeste: Order pending for referral. Please review and sign. BELLE Vargas RN, RN 09/15/2020 1:08 PM Signed Clerical: Please set pt up with referral to [facility] in [place] as soon as possible. Thank you. BELLE Vargas Sec 09/16/2020 8:43 AM Signed Patient is [...] Endometrial cancer (HCC) [C54.1] Order(s):CONSULT TO GYNECOLOGIC/ONCOLOGY [[id number]] Order #: [id number]: 1 FUTURE Prescriptions as of 09/15/2020 Sig: [...] by TINO DUTTON RN on 09/16/20 Normal [facility] Vital Signs Date Time Vital Sign Value Performing Clinician Facility 03-28-2024 09:33-0400 Blood Pressure Location PAULA RASHIDA [facility] 03-28-2024 09:33-0400 Diastolic blood pressure 86 mm[Hg] PAULA RASHIDA [facility] 03-28-2024 09:33-0400 Heart rate 76 /min PAULA RASHIDA [facility] 03-28-2024 09:33-0400 Systolic blood pressure 136 mm[Hg] PUALA RASHIDA [facility] 11-21-2023 14:11-0400 Blood Pressure Location PAULA RASHIDA [facility] 11-21-2023 14:11-0400 Body temperature 98.06 [degF] PAULA RASHIDA [facility] 11-21-2023 14:11-0400 Diastolic blood pressure 82 mm[Hg] PAULA RASHIDA [facility] 11-21-2023 14:11-0400 Heart rate 78 /min PAULA RASHIDA [facility] 11-21-2023 14:11-0400 Respiratory rate 16 /min PAULA RASHIDA [facility] 11-21-2023 14:11-0400 Systolic blood pressure 134 mm[Hg] PAULA JOSHI [facility] 09-21-2023 08:36-0400 Body height 157.5 cm Joanie Johnson [employer] Work Phone: [facility] 09-21-2023 08:36-0400 Body mass index (BMI) [Ratio] 31.34 kg/m2 Joanie Johnson [employer] Work Phone: [facility] 09-21-2023 08:36-0400 Body temperature 97.59 [degF] Joanie Johnson [employer] Work Phone: [facility] 09-21-2023 08:36-0400 Body weight 77.75 kg Joanie Johnson [employer] Work Phone: [facility] 09-21-2023 08:36-0400 Diastolic blood pressure 78 mm[Hg] Joanie Johnson [employer] Work Phone: [facility] 09-21-2023 08:36-0400 Heart rate 86 /min Joanie Johnson [employer] Work Phone: [facility] 09-21-2023 08:36-0400 SaO2% (BldA) [Mass fraction] 94 % Joanie Johnson [employer] Work Phone: [facility] 09-21-2023 08:36-0400 Systolic blood pressure 128 mm[Hg] Joanie Johnson [employer] Work Phone: [facility] 08-23-2023 11:13-0500 Body height 157.5 cm Salud Hansen [employer] Work Phone: [facility] 08-23-2023 11:13-0500 Body mass index (BMI) [Ratio] 31.78 kg/m2 Salud Hansen APRN-ASSOCIATE [employer] Work Phone: [facility] 08-23-2023 11:13-0500 Body temperature 97.9 [degF] Salud Hansen [employer] Work Phone: [facility] 08-23-2023 11:13-0500 Body weight 78.83 kg Salud Hansen [employer] Work Phone: [facility] 08-23-2023 11:13-0500 Diastolic blood pressure 68 mm[Hg] Salud Hansen APRN-ASSOCIATE [employer] Work Phone: [facility] 08-23-2023 11:13-0500 Heart rate 73 /min Salud Hansen APRN-ASSOCIATE [employer] Work Phone: [facility] 08-23-2023 11:13-0500 Respiratory rate 18 /min Salud Hansen APRN-ASSOCIATE [employer] Work Phone: [facility] 08-23-2023 11:13-0500 SaO2% (BldA) [Mass fraction] 99 % Salud Hansen APRN-ASSOCIATE [employer] Work Phone: [facility] 08-23-2023 11:13-0500 Systolic blood pressure 132 mm[Hg] Salud Hansen APRN-ASSOCIATE [employer] Work Phone: [facility] 08-16-2023 17:57-0500 Body height 157.[address] [facility] 08-16-2023 17:57-0500 Body mass index (BMI) [Ratio] 32.1 kg/m2 [facility] 08-16-2023 17:57-0500 Body temperature 98 [degF] [facility] 08-16-2023 17:57-0500 Body weight 79.[address] [facility] 08-16-2023 17:57-0500 Diastolic blood pressure 72 mm[Hg] [facility] 08-16-2023 17:57-0500 Heart rate 98 /min [facility] 08-16-2023 17:57-0500 Respiratory rate 16 /min [facility] 08-16-2023 17:57-0500 SaO2% (BldA) [Mass fraction] 99 % [facility] 08-16-2023 17:57-0500 Systolic blood pressure 110 mm[Hg] [facility] 08-16-2023 07:55-0500 Body height 157.5 cm Salud 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 Work Phone: [facility] 08-16-2023 07:55-0500 Body mass index (BMI) [Ratio] 31.82 kg/m2 Salud Chinuessler [employer] Work Phone: [facility] 08-16-2023 07:55-0500 Body temperature 97.9 [degF] Salud 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 Work Phone: [facility] 08-16-2023 07:55-0500 Body weight 78.93 kg Salud Chinuessler R[employer] Work Phone: [facility] 08-16-2023 07:55-0500 Diastolic blood pressure 74 mm[Hg] Salud Chinuessler R[employer] Work Phone: [facility] 08-16-2023 07:55-0500 Heart rate 85 /min Salud Chinuessler R[employer] Work Phone: [facility] 08-16-2023 07:55-0500 SaO2% (BldA) [Mass fraction] 98 % Salud Chinuessler [employer] Work Phone: [facility] 08-16-2023 07:55-0500 Systolic blood pressure 128 mm[Hg] Saludignacia Chin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 Work Phone: [facility] 08-14-2023 15:08-0500 Body height 157.5 cm Heladio Medina DPM Work Phone: [facility] 08-14-2023 15:08-0500 Body mass index (BMI) [Ratio] 31.09 kg/m2 Heladio Adam DPM Work Phone: [facility] 08-14-2023 15:08-0500 Body weight 77.11 kg Heladio Adam DPM Work Phone: [facility] 08-01-2023 12:57-0500 Blood Pressure Location PAULA RASHIDA [facility] 08-01-2023 12:57-0500 Diastolic blood pressure 75 mm[Hg] PAULA RASHIDA [facility] 08-01-2023 12:57-0500 Heart rate 77 /min PAULA RASHIDA [facility] 08-01-2023 12:57-0500 Respiratory rate 16 /min PAULA RASHIDA [facility] 08-01-2023 12:57-0500 Systolic blood pressure 115 mm[Hg] PAULA RASHIDA [facility] 07-26-2023 11:50-0500 Body height 157.5 cm Salud Hansen [employer] Work Phone: [facility] 07-26-2023 11:50-0500 Body mass index (BMI) [Ratio] 31.96 kg/m2 Salud Hansen [employer] Work Phone: [facility] 07-26-2023 11:50-0500 Body temperature 97.9 [degF] Salud Hansen [employer] Work Phone: [facility] 07-26-2023 11:50-0500 Body weight 79.29 kg Salud Hansen R[employer] Work Phone: [facility] 07-26-2023 11:50-0500 Diastolic blood pressure 76 mm[Hg] Salud Hansen [employer] Work Phone: [facility] 07-26-2023 11:50-0500 Heart rate 69 /min Salud Hansen R[employer] Work Phone: [facility] 07-26-2023 11:50-0500 SaO2% (BldA) [Mass fraction] 97 % Salud Hansen [employer] Work Phone: [facility] 07-26-2023 11:50-0500 Systolic blood pressure 130 mm[Hg] Salud Hansen APRN-ASSOCIATE [employer] Work Phone: [facility] 03-28-2023 15:35-0400 Body height 152.4 cm Vi Lim MD Work Phone: [facility] 03-28-2023 15:35-0400 Body mass index (BMI) [Ratio] 31.83 kg/m2 Vi Lim MD Work Phone: [facility] 03-28-2023 15:35-0400 Body weight 73.94 kg Vi Lim MD Work Phone: [facility] 03-28-2023 15:35-0400 Diastolic blood pressure 69 mm[Hg] Vi Lim MD Work Phone: [facility] 03-28-2023 15:35-0400 Heart rate 74 /min Vi Lim MD Work Phone: [facility] 03-28-2023 15:35-0400 Systolic blood pressure 119 mm[Hg] Vi Lim MD Work Phone: [facility] 09-28-2022 14:57-0400 Blood Pressure Location PAULA RASHIDA [facility] 09-28-2022 14:57-0400 Diastolic blood pressure 64 mm[Hg] PAULA JOSHI [facility] 09-28-2022 14:57-0400 Heart rate 57 /min PAULA JOSHI [facility] 09-28-2022 14:57-0400 Systolic blood pressure 114 mm[Hg] PAULA JOSHI [facility] 02-18-2022 14:15-0400 Body height 157.48 cm Cherelle Steve Other [employer] Other 02-18-2022 14:15-0400 Body mass index (BMI) [Ratio] 32.19 kg/m2 Cherelle Steve Other [employer] Other 02-18-2022 14:15-0400 Body temperature 99 [degF] Cherelle Steve Other [employer] Other 02-18-2022 14:15-0400 Body weight 79.83 kg Cherelle Steve Other [employer] Other 02-18-2022 14:15-0400 Respiratory rate 18 /min Cherelle Wilson Other [employer] Other 02-18-2022 14:15-0400 SaO2% (BldA) [Mass fraction] 95 % Cherelle Wilson Other [employer] Other 02-14-2022 10:10-0400 Body height 157.48 cm Cherelle Wilson Other [employer] Other 02-14-2022 10:10-0400 Body mass index (BMI) [Ratio] 32.19 kg/m2 Cherelle Wilson Other [employer] Other 02-14-2022 10:10-0400 Body temperature 98.6 [degF] Cherelle Wilson Other [employer] Other 02-14-2022 10:10-0400 Body weight 79.83 kg Cherelle Wilson Other [employer] Other 02-14-2022 10:10-0400 Respiratory rate 18 /min Cehrelle Wilson Other [employer] Other 02-14-2022 10:10-0400 SaO2% (BldA) [Mass fraction] 98 % Cherelle Wilson Other [employer] Other 01-20-2022 14:30-0400 Body height 157.48 cm Rinku Ramos Other [employer] Other 01-20-2022 14:30-0400 Body mass index (BMI) [Ratio] 32.19 kg/m2 Rinku Ramos Other [employer] Other 01-20-2022 14:30-0400 Body weight 79.83 kg Rinku Dilarryzach Other [employer] Other 12-28-2021 14:30-0400 Body height 157.48 cm Colette Cruz Other [employer] Other 12-28-2021 14:30-0400 Body mass index (BMI) [Ratio] 33.28 kg/m2 Colette Cruz Other [employer] Other 12-28-2021 14:30-0400 Body weight 82.56 kg Colette Cruz Other [facility] [employer] Other 12-28-2021 11:25-0400 Blood Pressure Location PAULA JOSHI [facility] 12-28-2021 11:25-0400 Diastolic blood pressure 74 mm[Hg] PAULA JOSHI [facility] 12-28-2021 11:25-0400 Heart rate 53 /min PAULA JOSHI [facility] 12-28-2021 11:25-0400 Respiratory rate 16 /min PAULA JOSHI [facility] 12-28-2021 11:25-0400 Systolic blood pressure 142 mm[Hg] PAULA JOSHI [facility] 11-01-2021 13:50-0400 Body temperature 97.7 [degF] Manuel Guillory MD Work Phone: [facility] 11-01-2021 13:50-0400 Body weight 82.37 kg Manuel Guillory MD Work Phone: [facility] 11-01-2021 13:50-0400 Diastolic blood pressure 65 mm[Hg] Manuel Guillory MD Work Phone: [facility] 11-01-2021 13:50-0400 Heart rate 58 /min Manuel Guillory MD Work Phone: [facility] 11-01-2021 13:50-0400 Systolic blood pressure 136 mm[Hg] Manuel Guillory MD Work Phone: [facility] Encounters Encounter Date Encounter Type Care Provider Facility Start: 06-04-2024 ambulatory SUKH-Simeon JOSHI Facility:[facility] Start: 04-11-2024 ambulatory Arabella GALLAGHER Adaethan ty:[id number] Start: 04-04-2024 End: 04-04-2024 ambulatory [facility] Start: 04-02-2024 End: 04-02-2024 Refill Britney Alarcon [facility] Comment on above: Type 2 diabetes mohsen itus with stage 3b chronic kidney disease, with long-term current use of insulin ([facility]) Start: 03-28-2024 End: 03-28-2024 ambulatory SUKH-C PAULA JOSHI Facility:[facility] Start: 03-28-2024 End: 03-28-2024 Patient encounter procedure PAULA JOSHI [facility] Start: 03-20-2024 End: 03-20-2024 ambulatory [facility] Start: 03-19-2024 End: 03-19-2024 ambulatory [facility] Start: 03-16-2024 End: 03-16-2024 Emergency department patient visit [facility] Start: 03-06-2024 End: 03-06-2024 ambulatory [facility] Start: 02-05-2024 End: 02-05-2024 ambulatory [facility] Start: 01-27-2024 End: 01-27-2024 ambulatory [facility] Start: 01-23-2024 End: 01-23-2024 ambulatory [facility] Start: 01-05-2024 End: 01-05-2024 ambulatory [facility] Start: 12-11-2023 End: 12-12-2023 Emergency department patient visit [facility] Start: 12-11-2023 End: 12-11-2023 Emergency department patient visit [facility] Start: 12-11-2023 End: 12-11-2023 ambulatory [facility] Start: 12-01-2023 End: 12-01-2023 ambulatory [facility] Start: 11-23-2023 End: 11-23-2023 ambulatory [facility] Start: 11-21-2023 End: 11-21-2023 ambulatory PA-C PAULA JOSHI Facility:[facility] Start: 11-21-2023 End: 11-21-2023 Patient encounter procedure PAULA JOSHI [facility] Start: 11-16-2023 End: 11-16-2023 ambulatory [facility] Start: 10-30-2023 End: 11-01-2023 ambulatory [facility] Start: 10-25-2023 End: 10-30-2023 Emergency department patient visit [facility] Start: 10-25-2023 End: 10-30-2023 Evaluation and management of inpatient [facility] Start: 10-09-2023 End: 10-09-2023 ambulatory [facility] Start: 10-06-2023 End: 10-06-2023 Refill Zay Wright [facility] Comment on above: Tremors of nervous s ystem; Parkinsonism, unspecified Parkinsonism type ([facility]) Start: 10-04-2023 Orders Only Joanie Boydja [employer] Work Phone: [facility] Comment on above: Stage 3b chronic kid kellee disease ([facility]) (Primary Dx); Type 2 diabetes mellitus with stage 3b chronic kidney disease, with long-term current use of insulin ([facility]) Labs Only Start: 09-28-2023 Refill Guadalupe Gallardo MD Work Phone: [facility] Comment on above: Vitamin D deficiency ; Neuropathy; Gastroesophageal reflux disease without esophagitis Acute kidney injury superimposed on CKD ([facility]) Start: 09-27-2023 Orders Only Joanie santiago [employer] Work Phone: [facility] Comment on above: Pain of right upper extremity (Primary Dx) Start: 09-21-2023 End: 09-21-2023 ambulatory [facility] Start: 09-21-2023 End: 09-21-2023 Office outpatient visit 10 minutes [facility] [employer] Work Phone: [facility] Comment on above: Pain of right upper extremity (Primary Dx); Type 2 diabetes mellitus with chronic kidney disease, with long-term current use of insulin, unspecified CKD stage ([facility]) Start: 09-20-2023 End: 09-20-2023 ambulatory HELADIO S RUSHER Not Available Start: 09-14-2023 End: 09-14-2023 ambulatory SALUD HANSEN [facility] Start: 09-04-2023 End: 09-04-2023 ambulatory HELADIO S RUSHER Not Available Start: 09-01-2023 Refill Guadalupe Gallardo MD Work Phone: [facility] Comment on above: Vitamin D deficiency ; Neuropathy Start: 08-31-2023 Refill Salud nagel [employer] Work Phone: [facility] Comment on above: COVID-19 Start: 08-30-2023 Telephone encounter Salud gauthier [employer] Work Phone: [facility] Start: 08-23-2023 End: 08-23-2023 Office outpatient visit 25 minutes Salud Hansen [employer] Work Phone: [facility] Comment on above: COVID-19 (Primary Dx ); Shortness of breath; Acute cough Start: 08-23-2023 End: 08-23-2023 ambulatory [facility] Start: 08-23-2023 End: 09-01-2023 ambulatory [facility] Start: 08-17-2023 Orders Only Salud nagel [employer] Work Phone: [facility] Comment on above: COVID-19 (Primary Dx ) Start: 08-16-2023 End: 08-16-2023 ambulatory [facility] Work Phone: Start: 08-16-2023 End: 08-16-2023 Patient encounter procedure [facility] Work Phone: Start: 08-16-2023 End: 08-16-2023 Office outpatient visit 15 minutes Salud Hansen [employer] Work Phone: [facility] Comment on above: Bipolar II disorder ([facility]) (Primary Dx); Essential hypertension; Endometrial cancer ([facility]); Stage 3b chronic kidney disease (CMS-HCC); Type 2 diabetes mellitus with stage 3b chronic kidney disease, with long-term current use of insulin ([facility]) Start: 08-16-2023 End: 08-16-2023 [facility] Start: 08-14-2023 End: 08-14-2023 ambulatory HELADIO MEDINA Not Available Start: 08-14-2023 End: 08-14-2023 Office outpatient visit 15 minutes Heladio Medina DPM Work Phone: [facility] Comment on above: Diabetic polyneuropa thy associated with type 2 diabetes mellitus (CMS/HCC) (Primary Dx); Valgus deformity, not elsewhere classified, right ankle; Hallux valgus of right foot; Acquired keratoderma Start: 08-14-2023 End: 08-15-2023 Emergency department patient visit [facility] Start: 08-14-2023 End: 08-14-2023 ambulatory [facility] Start: 08-04-2023 Refill Guadalupe Gallardo MD Work Phone: [facility] Comment on above: Neuropathy; Vitamin D deficiency Start: 08-01-2023 End: 08-01-2023 ambulatory PA-C PAULA JOSHI Facility:[facility] Start: 08-01-2023 End: 08-01-2023 Patient encounter procedure PAULA JOSHI [facility] Start: 07-27-2023 Telephone encounter Britney Hendrix MA [facility] Start: 07-26-2023 End: 07-26-2023 [facility] Start: 07-26-2023 End: 07-26-2023 Office outpatient visit 25 minutes Salud Hansen [employer] Work Phone: [facility] Comment on above: Toe injury, left, in itial encounter (Primary Dx); Cellulitis of toe of left foot; Pain of toe of left foot; Type 2 diabetes mellitus with stage 3b chronic kidney disease, with long-term current use of insulin ([facility]); Acquired female bladder prolapse; Bipolar II disorder ([facility]); Endometrial cancer ([facility]); Parkinsonian tremor Start: 07-26-2023 End: 07-26-2023 [facility] Start: 07-22-2023 Refill Guadalupe Gallardo MD Work Phone: [facility] Comment on above: Type 2 diabetes mohsen itus with stage 3b chronic kidney disease, with long-term current use of insulin ([facility]) Start: 07-20-2023 Refill Salud nagel APRN-ASSOCIATE [employer] Work Phone: [facility] Start: 07-13-2023 End: 07-13-2023 Off-Site Arabella GALLAGHER [facility] Start: 07-12-2023 End: 07-13-2023 Clinical Support [facility] Medication Therapy Management Comment on above: Type 2 diabetes mohsen itus with stage 3b chronic kidney disease, with long-term current use of insulin ([facility]) [E11.22, N18.32, Z79.4] (Primary Dx) Start: 07-10-2023 Refill Salud A Izabella nagel [employer] Work Phone: [facility] Comment on above: Dyslipidemia Vitamin D deficiency ; Neuropathy Start: 07-05-2023 End: 08-03-2023 ambulatory [facility] Start: 06-20-2023 End: 06-20-2023 ambulatory HELADIO S RUSHER Not Available Start: 06-15-2023 End: 07-03-2023 ambulatory [facility] Start: 06-12-2023 End: 06-13-2023 ambulatory HELADIO S RUSHER Not Available Start: 06-07-2023 End: 06-07-2023 ambulatory HELADIO S RUSHER Not Available Start: 06-05-2023 Patient encounter procedure Salud Hansen [employer] Work Phone: [facility] Start: 05-16-2023 End: 05-16-2023 ambulatory HELADIO S RUSHER Not Available Start: 03-28-2023 End: 03-28-2023 Office outpatient visit 25 minutes Vi Lim MD Work Phone: [facility] Comment on above: Tremors of nervous s ystem (Primary Dx); Parkinsonism, unspecified Parkinsonism type ([facility]); Gait instability; Extrapyramidal syndrome; Gastroesophageal reflux disease without esophagitis; Chronic musculoskeletal pain; RAÚL treated with BiPAP; Type 2 diabetes mellitus with stage 3b chronic kidney disease, with long-term current use of insulin ([facility]); Essential hypertension; 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; Vitamin D deficiency; Generalized anxiety disorder; Bipolar II disorder ([facility]) Start: 03-07-2023 End: 03-07-2023 Patient encounter procedure PAULA JOSHI [facility] Start: 10-27-2022 End: 10-27-[address] ARABELLA GALLAGHER . Facility:[facility] Start: 10-19-2022 Encounter for preprocedural cardiovascular examination DR ARABELLA GALLAGHER . [facility] Start: 10-19-2022 Encounter for preprocedural laboratory examination DR ARABELLA GALLAGHER . [facility] Start: 10-18-2022 End: 10-18-2022 ambulatory SIMIN LAN . Facility:[facility] Start: 10-13-2022 End: 10-14-[address] ARABELLA GALLAGHER . Facility:[facility] Start: 10-13-2022 End: 10-14-2022 Encounter for preprocedural laboratory examination DR ARABELLA GALLAGHER . Facility:[facility] Start: 09-28-2022 End: 09-28-2022 Patient encounter procedure PAULA Jarret JOSHI [facility] Start: 03-24-2022 End: 03-24-2022 ambulatory Rinku Ramos Other [employer] Other Start: 03-24-2022 Telephone encounter [facility] Start: 03-16-2022 End: 03-16-2022 ambulatory Rinku Ramos Other [employer] Other Start: 03-16-2022 Telephone encounter [facility]inku [facility] Start: 02-18-2022 End: 02-18-2022 ambulatory Cherelle Wilson Other [employer] Other Start: 02-18-2022 Office outpatient vi sit 15 minutes Cherelle Wilson [facility] Start: 02-14-2022 End: 02-14-2022 ambulatory Cherelle Wilson Other [employer] Other Start: 02-14-2022 Office outpatient vi sit 15 minutes Cherelle Wilson [facility] Start: 01-20-2022 End: 01-20-2022 ambulatory Rinku Ramos Other [employer] Other Start: 01-20-2022 Patient encounter procedure Rinku Disam [facility] Start: 01-17-2022 End: 01-17-2022 ambulatory Colette Nancy Other [employer] Other Start: 01-17-2022 Telephone encounter Colette Cruz [facility] Start: 01-11-2022 End: 01-11-2022 Lab Drop off Kaylyn Serrano [facility] Start: 01-11-2022 End: 01-11-2022 Patient encounter procedure Jostin Kern Jr. [facility] Start: 01-06-2022 End: 01-06-2022 ambulatory Colette Cruz Other [employer] Other Start: 01-06-2022 Telephone encounter Colette Cruz [facility] Start: 12-30-2021 End: 12-30-2021 ambulatory Colette Cruz Other [employer] Other Start: 12-30-2021 Telephone encounter Colette Cruz [facility] Start: 12-28-2021 End: 12-28-2021 Lab Drop off PAULA JOSHI [facility] Start: 12-28-2021 End: 12-28-2021 ambulatory Colette Cruz Other [facility] [employer] Other Start: 12-28-2021 Office outpatient vi sit 25 minutes Colette Cruz [facility] Start: 12-28-2021 Telephone encounter Colette Cruz [facility] Start: 12-28-2021 End: 12-28-2021 Patient encounter procedure PAULA Wheat RASHIDA [facility] Start: 11-01-2021 End: 11-01-2021 ambulatory Manuel Guillory MD Work Phone: Gynecology Comment on above: Endometrial cancer ( HCC) (Primary Dx); VAIN I (vaginal intraepithelial neoplasia grade I); Encounter for screening mammogram for malignant neoplasm of breast Start: 11-01-2021 End: 11-01-2021 Patient encounter procedure Manuel Guillory MD Work Phone: [facility] Start: 06-14-2021 End: 06-15-2021 ambulatory [facility]EEP GID[facility] Start: 06-14-2021 End: 06-14-2021 Subsequent hospital visit by physician Willy Carroll MD Work Phone: [facility] Laboratory Comment on above: Stage 3a chronic kid kellee disease (HCC) Start: 04-30-2021 End: 05-03-2021 ambulatory KULADEEP GIDDA [facility] Start: 04-30-2021 End: 05-02-2021 Subsequent hospital visit by physician [facility] Cat Scan Room [facility] CT Scan Comment on above: Lung nodule Start: 01-27-2021 End: 01-30-2021 ambulatory KULADEEP GIDDA [facility] Start: 12-31-2019 End: 12-31-2019 Subsequent hospital visit by physician Rich Juan Work Phone: [facility] Diet and Nutrition Procedures Date Procedure Procedure Detail Performing Clinician Start: 03-19-2024 Microalbumin [Mass/v olume] in Urine by Test strip Britney Alarcon [facility] Start: 02-05-2024 Follow-up visit Follow-up SALUD HANSEN Start: 02-05-2024 Adult depression scr eening assessment Britney Dorian [facility] Start: 01-05-2024 Follow-up visit Follow-up EHAD AF REEN Start: 08-16-2023 POC COVID/FLU/RSV Start: 07-13-2023 Cystourethroscopy wi th dilation of urethral stricture PAULA JOSHI Start: 06-19-2023 Mammography [facility] 1 Start: 06-16-2023 Mammography Salud weaver [employer] Work Phone: Start: 06-05-2023 Adult depression scr eening assessment Salud Hansen [employer] Work Phone: Start: 01-27-2023 Microalbumin [Mass/v olume] in Urine by Test strip Salud Hansen [employer] Work Phone: Start: 10-27-2022 Cystourethroscopy wi th dilation of urethral stricture PAULA JOSHI Start: 09-16-2021 Cystourethroscopy wi th dilation of urethral stricture PAULA JOSHI Start: 06-14-2021 Basic metabolic pane l calcium total Asad Valverde MD Work Phone: Start: 04-30-2021 Ct thorax w/o contra st material Bebeto Corea MD Work Phone: Start: 01-21-2021 Cystoscopy PAULA ASHBY Start: 08-03-2020 Colonoscopy Salud weaver [employer] Work Phone: Start: 03-19-2020 Cystourethroscopy wi th dilation of urethral stricture PAULA JOSHI Start: 11-28-2019 Cystoscopy PAULA ASHBY Start: 02-05-2019 Mammography Manuel Guillory MD Work Phone: Start: 02-08-2018 Cystourethroscopy wi th dilation of urethral stricture PAULA JOSHI Start: 05-11-2017 Cystourethroscopy wi th dilation of urethral stricture PAULA JOSHI Start: 11-24-2016 Cystourethroscopy wi th dilation of urethral stricture PAULA JOSHI Start: 05-04-2016 Urodynamic studies AIMEE JOSHI Start: 11-26-2015 Cystourethroscopy wi th dilation of urethral stricture PAULA JOSHI Start: 03-10-2015 Cystoscopy PAULA ASHBY Biopsy of breast PAULA FREEDMAN RRY Bypass of stomach PAULA BOGGSY section PAULA FREEDMAN RRY Cholecystectomy PAULA TEMPLETON repair of hernia PAULA FREEDMAN RRY Tonsillectomy PAULA JOSHI Plan of Treatment Date Care Activity Detail Author Start: 08-03-2030 Screening for malignant neoplasm of colon [facility] Start: 12-18-2025 LIPID SCREEN LIPID SCREEN [facility] Start: 10-19-2025 PAP TESTING PAP TESTING [facility] Start: 06-19-2025 Screening for malignant neoplasm of breast Mammogram [facility] Start: 06-16-2025 Screening for malignant neoplasm of breast Mammogram [facility] Start: 03-20-2025 Adult BMI Screening Adult BMI Screening [facility] Start: 03-20-2025 HPV TESTING HPV TESTING [facility] Start: 03-20-2025 Tobacco Screening Tobacco Screening [facility] Start: 03-19-2025 Urine screening for protein Urine Microalbumin [facility] Start: 02-04-2025 Depression Screening Depression Screening [facility] Start: 01-04-2025 Adult BMI Follow Up Plan Adult BMI Follow Up Plan [facility] Start: 09-20-2024 Adult BMI Screening Adult BMI Screening [facility] Start: 09-20-2024 Tobacco Screening Tobacco Screening [facility] Start: 08-23-2024 Adult BMI Screening Adult BMI Screening [facility] Start: 08-23-2024 Tobacco Screening Tobacco Screening [facility] Start: 08-17-2024 DIABETES SCREEN DIABETES SCREEN [facility] Start: 08-16-2024 Adult BMI Screening Adult BMI Screening [facility] Start: 08-16-2024 Tobacco Screening Tobacco Screening [facility] Start: 08-08-2024 Tobacco Screening Tobacco Screening [facility] Start: 07-30-2024 End: 07-30-2024 Clinical Support 07/30/2024 8:00 PM EST Clinical Support [facility] [address] [place] [address] [facility] Start: 07-26-2024 Adult BMI Screening Adult BMI Screening [facility] Start: 07-26-2024 Tobacco Screening Tobacco Screening [facility] Start: 07-16-2024 End: 07-16-2024 Clinical Support 07/16/2024 8:00 PM EST Clinical Support [facility] [address] [place] [address] [facility] Start: 06-17-2024 End: 06-17-2024 Patient encounter procedure 06/17/2024 2:00 PM EST Office Visit [facility] [address] [place] [address] [place] [phone] Salud Hansen, [employer] [address] [facility] [address], [place] [address] [facility] Start: 06-16-2024 Adult BMI Screening Adult BMI Screening [facility] Start: 06-14-2024 Tobacco Screening Tobacco Screening [facility] Start: 06-12-2024 End: 06-12-2024 Patient encounter procedure 06/12/2024 3:45 PM EST Office Visit [facility] [address] [place] [phone] Carmelita Javier DO [address] [place] [address] [facility] Start: 06-10-2024 End: 06-10-2024 Patient encounter procedure 06/10/2024 3:00 PM EST Office Visit [facility] [address] [place] [phone] Salud Hansen, [employer] [address], [facility] [place] [address] [facility] Start: 06-07-2024 End: 06-07-2024 Patient encounter procedure 06/07/2024 3:30 PM EST Office Visit [facility] [address] [place] [phone] Vi Lim MD [address] [place] [address], [address] [address] [facility] Start: 06-05-2024 Depression Screening Depression Screening [facility] Start: 06-05-2024 Fall Risk Screening Fall Risk Screening [facility] Start: 06-05-2024 Medicare Annual Wellness Visit Medicare Annual Wellness Visit [facility] Start: 03-28-2024 Adult BMI Follow Up Plan Adult BMI Follow Up Plan [facility] Start: 03-03-2024 Influenza vaccination Influenza Vaccine [facility] Start: 01-28-2024 Urine screening for protein [facility] Start: 01-05-2024 End: 01-05-2024 Patient encounter procedure 01/05/2024 2:00 PM EDT Office Visit [facility] [address] [place] [address] Vi Lim MD [address] [place] [address], [address] [place] [address] [facility] Start: 12-01-2023 Adult BMI Follow Up Plan Adult BMI Follow Up Plan [facility] Start: 10-09-2023 End: 10-09-2023 Patient encounter procedure [facility] Start: 10-06-2023 End: 10-06-2023 Patient encounter procedure 10/06/2023 11:00 AM EDT Appointment [facility] [address] [place] [address] [facility] Start: 09-27-2023 End: 09-26-2024 CT Upper arm - right WO contrast CT humerus right without contrast Imaging Routine Pain of right upper extremity Expected: 09/27/2023, Expires: 09/26/2024 [facility] Work Phone: Comment on above: Expected: 09/27/2023, Expires: Start: 09-22-2023 End: 09-22-2023 Patient encounter procedure 09/22/2023 2:30 PM EDT Office Visit [facility] [address] [facility]io [facility] [place] [address] Vi Lim MD [address] [place] [address], [address] [place] [address] [facility] Start: 09-21-2023 End: 09-20-2024 XR Humerus - right 2 Views [facility] Work Phone: Comment on above: Expected: 09/21/2023, Expires: Start: 08-28-2023 End: 08-28-2023 Patient encounter procedure 08/28/2023 11:00 AM EST Office Visit [facility] [address] [place] [phone] Salud Hansen, R[employer] [address], [facility] [place] [address] [facility] Start: 08-23-2023 End: 08-23-2023 Clinical Support 08/23/2023 3:15 PM EST Clinical Support [facility] Medication Therapy Management [address] [place] [address] [facility] Start: 08-16-2023 End: 08-16-2023 Patient encounter procedure 08/16/2023 7:40 AM EST Office Visit [facility] [address] [place] [phone] Salud Hansen, R[employer] [address] [facility] [address], [place] [address] [facility] Start: 08-09-2023 End: 08-09-2023 Patient encounter procedure 08/09/2023 11:00 AM EST Office Visit [facility] [facility] [place] [phone] Sabrina Bañuelos, [employer] [address] [address] [facility] Start: 07-12-2023 End: 07-12-2023 Clinical Support 07/12/2023 3:15 PM EST Clinical Support [facility] Medication Therapy Management [address] [place] [address] [facility] Start: 03-03-2023 Influenza vaccination Influenza Vaccine [facility] Start: 12-24-2022 Screening for malignant neoplasm of breast Breast cancer screen [facility] Start: 03-03-2022 Influenza vaccination [facility] Start: 12-27-2021 End: 12-27-2021 Patient encounter procedure 12/27/2021 Office Visit Nephrology Asad Valverde MD [address] [facility] [place] [address] [facility] Start: 12-18-2021 HEMOGLOBIN/HEMATOCRIT HEMOGLOBIN/HEMATOCRIT [facility] Start: 10-18-2021 End: 10-18-2021 Patient encounter procedure [facility] OUTREACH PUL Part [facility] Start: 09-16-2021 SERUM CREATININE SERUM CREATININE [facility] Start: 08-17-2021 Hemoglobin A1c measurement A1C test (Diabetic or Prediabetic) [facility] Start: 06-28-2021 End: 06-28-2021 Patient encounter procedure 06/28/2021 Office Visit Nephrology Asad Valverde MD [address] [facility] [place] [address] [phone] [facility] Start: 03-20-2021 Hemoglobin A1c measurement A1C test (Diabetic or Prediabetic) [facility] Work Phone: Start: 03-03-2021 Influenza vaccination Flu vaccine (#1) [facility] Start: 03-03-2020 Influenza vaccination Flu vaccine (#1) [employer] Start: 02-06-2020 Mammography MAMMOGRAM [facility] Start: 01-12-2020 Creatinine measurement Creatinine monitoring [facility] Start: 01-12-2020 Potassium monitoring Potassium monitoring [facility] Start: 12-19-2018 Annual Wellness Visit (AWV) Annual Wellness Visit (AWV) [facility] Start: 10-09-2018 Lipid panel Lipid screen [facility] Start: 09-28-2018 Diabetic microalbuminuria test Diabetic microalbuminuria test [facility] [employer] [employer] Start: 09-28-2018 Thyroid stimulating hormone measurement TSH testing [facility] Start: 09-28-2018 TSH Qn TSH testing [place], [place] Start: 09-28-2018 Urine screening for protein Diabetic microalbuminuria test [facility] Start: 07-20-2012 Administration of varicella zoster vaccine Zoster (Shingles) Vaccine (1 of 2) [facility] Start: 07-20-2012 Shingles Vaccine (2 of 3) Shingles Vaccine (2 of 3) [employer] Start: 2008 Screening for malignant neoplasm of breast Breast cancer screen [place], [place] Start: 2008 Screening for malignant neoplasm of colon Colon cancer screen colonoscopy [place], [place] Start: 2008 Shingles Vaccine (1 of 2) Shingles Vaccine (1 of 2) [facility] [place] Start: 2008 SHINGRIX VACCINE (1 of 2) SHINGRIX VACCINE (1 of 2) [facility] Start: 2003 COLOGUARD (FIT-DNA) COLOGUARD (FIT-DNA) [facility] Start: 2003 Colonoscopy COLONOSCOPY [facility] Start: 2003 COLORECTAL CANCER SCREENING COLORECTAL CANCER SCREENING [facility] Start: [address] COLONOGRAPHY [facility] Start: 2003 FECAL OCCULT BLOOD FECAL OCCULT BLOOD [facility] Start: 2003 SIGMOIDOSCOPY SIGMOIDOSCOPY [facility] Start: 1988 Screening for malignant neoplasm of cervix [facility] Start: 1979 Screening for malignant neoplasm of cervix [facility] Start: 1977 DTaP,Tdap and Td Vaccines (1 - Tdap) DTaP,Tdap and Td Vaccines (1 - Tdap) [facility] Start: 1977 DTaP/Tdap/Td vaccine (1 - Tdap) DTaP/Tdap/Td vaccine (1 - Tdap) [facility] Start: 1977 Urine microalbumin profile DTAP,TDAP,TD (1 - Tdap) [facility] Start: 1976 ANNUAL PCP TEAM CHRONIC DISEASE VISIT ANNUAL PCP TEAM CHRONIC DISEASE VISIT [facility] Start: 1976 Diabetic foot examination Diabetic Foot Exam [facility] Start: 1976 Diabetic retinal exam Diabetic retinal exam [facility] Start: 1976 HEPATITIS C SCREENING HEPATITIS C SCREENING [facility] Start: 1976 HIV SCREENING HIV SCREENING [facility] Start: 1973 HIV screening HIV screen [facility] Start: 1970 Adult depression screening assessment DEPRESSION SCREENING [facility] Start: 1970 COVID-19 Vaccine (1) COVID-19 Vaccine (1) [facility] Start: 1968 Diabetic foot examination Diabetic foot exam [facility] Start: 1968 Diabetic retinal exam Diabetic retinal exam [place], [place] Start: 1968 HbA1c (Bld) [Mass fraction] A1C test (Diabetic or Prediabetic) [place], [place] Start: 1964 Pneumococcal 0-64 years Vaccine (1 of 1 - PPSV23) Pneumococcal 0-64 years Vaccine (1 of 1 - PPSV23) [place] Start: 1964 Pneumococcal 0-64 years Vaccine (1 of 2 - PPSV23) Pneumococcal 0-64 years Vaccine (1 of 2 - PPSV23) [facility] Start: 1963 COVID-19 VACCINE (1) COVID-19 VACCINE (1) [facility] Start: 1958 Glaucoma screening Diabetic Ophthalmology Exam [employer] Start: 1958 Hepatitis C screening Hepatitis C screen [facility] End: 10-03-2024 Basic metabolic 2000 panel - Serum or Plasma Basic Metabolic Panel Lab Routine Stage 3b chronic kidney disease ([facility]) Type 2 diabetes mellitus with stage 3b chronic kidney disease, with long-term current use of insulin ([facility]) 1 Occurrences starting 10/04/2023 until 10/03/2024 [employer] Work Phone: Comment on above: 1 Occurrences starting 10/04/2023 until 10/03/2024 End: 10-03-2024 Hemoglobin A1c/Hemoglobin.total in Blood Hemoglobin A1c Lab Routine Stage 3b chronic kidney disease [facility] Type 2 diabetes mellitus with stage 3b chronic kidney disease, with long-term current use of insulin ([facility]) 1 Occurrences starting 10/04/2023 until 10/03/2024 [employer] Comment on above: 1 Occurrences starting 10/04/2023 until 10/03/2024 PAP FLUID VAGINAL DIAGNOSTIC PAP FLUID VAGINAL DIAGNOSTIC Lab Routine Endometrial cancer (HCC) VAIN I (vaginal intraepithelial neoplasia grade I) Ordered: 11/01/2021 [facility] Work Phone: Comment on above: Ordered: 11/01/2021 End: 12-01-2022 Screening mammography bi 2-view breast inc cad CHARLI SCREENING Radiology Routine Encounter for screening mammogram for malignant neoplasm of breast 1 Occurrences starting 11/01/2021 until 12/01/2022 [facility] Work Phone: Comment on above: 1 Occurrences starting 11/01/2021 until 12/01/2022 [facility] Immunizations Immunization Date Immunization Notes Care Provider Jeanna harvey 03-29-2019 influenza virus vaccine, unspecified formulation PAULA RASHIDA [facility] 03-29-2019 influenza, injectable, quadrivalent, contains preservative Salud 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 Work Phone: [facility] 06-07-2018 influenza virus vaccine, unspecified formulation PAULA RASHIDA [facility] 06-07-2018 influenza, injectable, quadrivalent, preservative free Manuel Guillory MD Work Phone: [facility] Work Phone: 06-04-2018 Influenza, injectable, Madin [place] Canine Kidney, quadrivalent with preservative Salud 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 Work Phone: [facility] 06-22-2017 influenza virus vaccine, unspecified formulation PAULA RASHIDA [facility] 06-22-2017 influenza, injectable, quadrivalent, preservative free Manuel Guillory MD Work Phone: [facility] Work Phone: 06-05-2017 influenza virus vaccine, unspecified formulation PAULA RASHIDA [facility] 06-05-2017 influenza, injectable, quadrivalent, contains preservative Manuel Guillory MD Work Phone: [facility] Work Phone: 06-01-2017 influenza virus vaccine, unspecified formulation PAULA JOSHI [facility] 06-01-2017 influenza, injectable, quadrivalent, preservative free Manuel Guillory MD Work Phone: [facility] Work Phone: 04-04-2016 influenza virus vaccine, unspecified formulation PAULA JOSHI [facility] 04-04-2016 influenza, injectable, quadrivalent, preservative free Manuel Guillory MD Work Phone: [facility] Work Phone: 04-02-2014 influenza, injectable, quadrivalent, contains preservative Colette Cruz Other [facility] 05-25-2012 zoster vaccine, live Salud 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 Work Phone: [facility] [employer] [facility] 05-25-2012 zoster vaccine, unspecified formulation Salud 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 Work Phone: [facility] [employer] 04-16-2012 influenza, seasonal, injectable, preservative free Salud 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 Work Phone: [facility] NEGATED: Highlighted row has not occurred!08-30-2021 influenza virus vaccine, unspecified formulation PAULA JOSHI [facility] NEGATED: Highlighted row has not occurred!08-30-2021 SARS-CoV-2 (COVID-19) Ad26 vaccine, recombinant PAULA JOSHI [facility] Payers Date Payer Category Payer Private Health Insurance [id number] 2022 Medicare [id number] 2020 Medicare [id number] 2020 Medicare [id number] 2020 Medicare HUMANA MEDICARE HUMANA GOLD PLUS [id number] 2020-Present [phone] [address] [address] [place] [address] O [id number] 2018 Medicaid MEDICAID [facility] MEDICAID [id number] 2018-Present [phone] [address] [place] [address] Medicaid [id number] 2017 Medicaid MEDICAID [facility] DEPT OF JOB xxxxxxxxxxxx 2017-Present [phone] [address] [place] [address] xxxxxxxxxxxx [id number] 2017 Medicaid [id number] 2014 Medicare MEDICARE MEDICAR E PART A AND B xxxxxxxxxxx 2014-Present [phone] [place] [address] xxxxxxxxxxx [id number] 1959 Medicaid [id number] .[id number] 1959 Unknown [id number] 1958 Unknown [id number] 2.16.840.1.331145.3.579.2 .173 1958 Unknown [id number] 2.16.840.1.311143.3.579.2 .173 1958 Unknown [id number] 2.16.840.1.131714.3.579.2 .173 1958 Unknown [id number] 2.16.840.1.875891.3.579.2 .173 1958 Unknown [id number] 2.16.840.1.972747.3.579.2 .593 1958 Unknown [id number] 2.16.840.1.410085.3.579.2 .593 1958 Unknown [id number] 2.16.840.1.699592.3.579.2 .593 1958 Unknown [id number] 2.16.840.1.614829.3.579.2 .125 1958 Unknown [id number] 2.16.840.1.116015.3.579.2 .1259 1958 Unknown [id number] 2.16.840.1.329673.3.579.2 .125 1958 Unknown [id number] 2.16.840.1.056601.3.579.2 .1259 1958 Unknown [id number] 2.16.840.1.346733.3.579.2 .125 1958 Unknown [id number] 2.16.840.1.474913.3.579.2 .1259 1958 Unknown [id number] 2.16.840.1.013139.3.579.2 .1259 1958 Unknown [id number] 2.16.840.1.696943.3.579.2 .1259 1958 Unknown [id number] 2.16.840.1.535486.3.579.2 .1285 1958 Unknown [id number] 2.16.840.1.340369.3.579.2 .1285 1958 Unknown [id number] 2.16.840.1.339835.3.579.2 .1285 1960 Unknown [id number] 2.16.840.1.641508.3.579.2 .1285 1960 Unknown [id number] 2.16.840.1.594766.3.579.2 .1285 1958 Unknown [id number] 2.16.840.1.644543.3.579.2 .1285 1958 Unknown [id number] 2.16.840.1.946931.3.579.2 .1285 1958 Unknown [id number] 2.16.840.1.810859.3.579.2 .1285 1958 Unknown [id number] 2.16.840.1.360322.3.579.2 .1285 1958 Unknown [id number] 2.16.840.1.018447.3.579.2 .1285 1958 Unknown [id number] 2.16.840.1.884032.3.579.2 .1285 1958 Unknown [id number] 2.16.840.1.399275.3.579.2 .1285 1958 Unknown [id number] 2.16.840.1.113304.3.579.2 .1285 1958 Unknown [id number] 2.16.840.1.095814.3.579.2 .1285 1958 Unknown [id number] 2.16.840.1.531612.3.579.2 .1285 1958 Unknown [id number] 2.16.840.1.703812.3.579.2 .1285 1958 Unknown [id number] 2.16.840.1.847275.3.579.2 .1285 1958 Unknown [id number] 2.16.840.1.805861.3.579.2 .1285 1958 Unknown [id number] 2.16.840.1.010381.3.579.2 .1285 1958 Unknown [id number] 2.16.840.1.154468.3.579.2 .1285 1958 Unknown [id number] 2.16.840.1.908424.3.579.2 .1285 1958 Unknown [id number] 2.16.840.1.161249.3.579.2 .1285 1958 Unknown [id number] 2.16.840.1.603417.3.579.2 .1285 1958 Unknown [id number] 2.16.840.1.096759.3.579.2 .1285 1958 Unknown [id number] 2.16.840.1.941543.3.579.2 .1285 1958 Unknown [id number] 2.16.840.1.942572.3.579.2 .1285 1958 Unknown [id number] 2.16.840.1.433901.3.579.2 .1285 1958 Unknown [id number] 2.16.840.1.827402.3.579.2 .1285 1958 Unknown [id number] 2.16.840.1.760536.3.579.2 .1285 1958 Unknown [id number] 2.16.840.1.902173.3.579.2 .1285 1958 Unknown [id number] 2.16.840.1.430219.3.579.2 .1286 1958 Unknown [id number] 2.16.840.1.668283.3.579.2 .1286 1958 Unknown [id number] 2.16.840.1.424520.3.579.2 .1286 1958 Unknown [id number] 2.16.840.1.881252.3.579.2 .1286 1958 Unknown [id number] 2.16.840.1.048151.3.579.2 .1286 1958 Unknown [id number] 2.16.840.1.199395.3.579.2 .1286 1958 Unknown [id number] 2.16.840.1.592733.3.579.2 .727 1958 Unknown [id number] 2.16.840.1.708642.3.579.2 .727 1958 Unknown [id number] 2.16.840.1.756518.3.579.2 .727 1958 Unknown [id number] 2.16.840.1.233083.3.579.2 .727 1958 Unknown [id number] 2.16.840.1.172692.3.579.2 .727 1958 Unknown [id number] 2.16.840.1.073601.3.579.2 .727 Self-pay Self Pay [id number] Social History Date Type Detail Facility Start: 01-11-2019 End: 07-08-2022 Tobacco smoking status NHIS Never smoker [facility] Start: 01-11-2019 End: 08-14-2023 Alcohol intake Lifetime non-drinker (finding) [place], [place] Start: 01-11-2019 History SDOH Alcohol Frequency 1 [place], [place] Start: 01-09-1961 Sex Assigned At Not on file [facility] [place] Start: 04-19-2021 End: 07-08-2022 Tobacco use and exposure Never used [facility] Start: 10-22-2021 End: 11-01-2021 Exposure to SARS-CoV-2 (event) Not sure [facility] Start: 10-19-2020 Alcohol intake Ex-drinker (finding) [facility] Start: 07-15-2022 End: 03-16-2024 Sex Assigned At [employer] [facility] Start: 06-16-2023 End: 03-20-2024 Alcohol intake Current non-drinker of alcohol (finding) [facility] Start: 07-15-2022 End: 03-16-2024 History of Social function [facility] Do you belong to any clubs or organizations such as hinduism groups, unions, fraternal or athletic groups, or school groups? Yes [facility] Are you now , , , , never or living with a partner? [facility] How often to you hav e a drink containing alcohol? Never [facility] How many standard dr inks containing alcohol do you have on a typical day? Patient does not drink [facility] How hard is it for y ou to pay for the very basics like food, housing, medical care, and heating Somewhat hard [facility] Do you feel stress - tense, restless, nervous, or anxious, or unable to sleep at night because your mind is troubled all the time - these days [OSQ] Rather much [facility] Start: 07-15-2022 Sexual orientation Heterosexual (finding) [facility] Start: 01-09-2023 Alcohol Comment Caffeine intake: 2-3 cups per day [facility] Start: 1960 Sex Assigned At Female [facility] Has the Dr [employer], [employer], or [employer] threatened to shut off services in your home in past 12Mo No [facility] Medical Equipment Procedure Code Equipment Code Equipment Origin al Text Equipment Identifier Dates [place] Sut Fiber brooke 1.35mm 1.6mm [facility] [id number] - [id number] - [id number] Start: 07-15-2022 [id number] Start: 07-15-2022 10 Degree Jaramillo Wedge With Lati-Structure , 18 Mm X 18 Mm, X 8 Mm [id number] Start: 07-15-2022 Comment on above: Description: Romina Jaramillo bone wedge : 10 degree Jaramillo wedge with Lati-structure , 18 mm x 18 mm, x 8 mm Plate Bn 1.3mm 0 d Med Dflxn Prm Gorilla Prcs Gd Mtp - [id number] - [id number] Start: 07-15-2022 Screw Bn 24mm 3. 5mm Cnn Mn-Mnstr St - [id number] - [id number] Start: 07-15-2022 1 strip by other route 4 (four) times daily before meals and at bedtime as needed for high blood sugar or low blood sugar. [id number] Start: 06-18-2021 1 each by miscellaneous route 3 (three) times a day. [id number] Start: 06-18-2021 Use once per day [id number] Start: 04-18-2023 End: 07-26-2023 USE WITH NOVOLOG FLEXPEN [id number] Start: 07-21-2023 Use once per day [id number] Start: 07-26-2023 Screw Bn 14mm 3. 5mm Gorilla Ns R3con Nonlock Plt Gorilla - [id number] - [id number] Start: 07-15-2022 Screw Bn 10mm 3. 5mm Gorilla Ns R3con Non Lck Plt Rpl [id number] - [id number] - [id number] Start: 07-15-2022 Screw Bn 12mm 3. 5mm Gorilla Ns R3con Non Lck Plt Rpl [id number] - [id number] - [id number] Start: 07-15-2022 Screw Bn 16mm 3. 5mm Gorilla Ns R3con Non Lck Plt - [id number] - [id number] Start: 07-15-2022 1 strip by other route 4 (four) times daily before meals and at bedtime as needed for high blood sugar or low blood sugar. [id number] Start: 10-16-2023 Inject 1 Device under the skin in the morning and 1 Device at noon and 1 Device in the evening. Inject with meals. USE WITH [employer] FLEXPEN. [id number] Start: 02-23-2024 Use once per day [id number] Start: 03-06-2024 Goals Date Patient Goal Desired Activity /State Personal health goal Comment on above: Formatting of this n ote might be different from the original. Evaluation of progress towards goal: safe transition from hospital to home alone with family support. Functional Status Date Assessment Result Facility 03-28-2024 Functional Status N/A [facility] 11-21-2023 Functional Status N/A [facility] 08-01-2023 Functional Status N/A [facility] 09-28-2022 Functional Status N/A [facility] 12-28-2021 Functional Status No [facility] [place] Clinical Notes 09-16-2020 to 03-28-2024 Telephone Encounter - Zay Wright CMA - 10/06/2023 9:29 AM EDTTelephone Encounter - Zay Wright [facility] - 10/06/2023 9:29 AM EDTTelephone Encounter - Jadyn Tarango CNA - 10/04/2023 9:48 AM EDT Note Date & Type Note Facility 03-28-2024 Hospital Discharge instructions Patient Education 03/28/2024 10:05:57 Overactive Bladder, Adult Overactive Bladder, Adult Overactive bladder is a condition in which a person has a sudden and frequent need to urinate. A person might also leak urine if he or she cannot get to the bathroom fast enough (urinary incontinence). Sometimes, symptoms can interfere with work or social activities. What are the causes? Overactive bladder is associated with poor nerve signals between your bladder and your brain. Your bladder may get the signal to empty before it is full. You may also have very sensitive muscles that make your bladder squeeze too soon. This condition may also be caused by other factors, such as: Medical conditions: ?Urinary tract infection. ?Infection of nearby tissues. ?Prostate enlargement. ?Bladder stones, inflammation, or tumors. ?Diabetes. ?Muscle or nerve weakness, especially from these conditions: ?A spinal cord injury. ?Stroke. ?Multiple sclerosis. ?Parkinson's disease. Other causes: ?Surgery on the uterus or urethra. ?Drinking too much caffeine or alcohol. ?Certain medicines, especially those that eliminate extra fluid in the body (diuretics). ?Constipation. What increases the risk? You may be at greater risk for overactive bladder if you: Are an older adult. Smoke. Are going through menopause. Have prostate problems. Have a neurological disease, such as stroke, dementia, Parkinson's disease, or multiple sclerosis (MS). Eat or drink alcohol, spicy food, caffeine, and other things that irritate the bladder. Are overweight or obese. What are the signs or symptoms? Symptoms of this condition include a sudden, strong urge to urinate. Other symptoms include: Leaking urine. Urinating 8 or more times a day. Waking up to urinate 2 or more times overnight. How is this diagnosed? This condition may be diagnosed based on: Your symptoms and medical history. A physical exam. Blood or urine tests to check for possible causes, such as infection. You may also need to see a health care provider who specializes in urinary tract problems. This is called a urologist. How is this treated? Treatment for overactive bladder depends on the cause of your condition and whether it is mild or severe. Treatment may include: Bladder training, such as: ?Learning to control the urge to urinate by following a schedule to urinate at regular intervals. ?Doing Kegel exercises to strengthen the pelvic floor muscles that support your bladder. Special devices, such as: ?Biofeedback. This uses sensors to help you become aware of your body's signals. ?Electrical stimulation. This uses electrodes placed inside the body (implanted) or outside the body. These electrodes send gentle pulses of electricity to strengthen the nerves or muscles that control the bladder. ?Women may use a plastic device, called a pessary, that fits into the vagina and supports the bladder. Medicines, such as: ?Antibiotics to treat bladder infection. ?Antispasmodics to stop the bladder from releasing urine at the wrong time. ?Tricyclic antidepressants to relax bladder muscles. ?Injections of botulinum toxin type A directly into the bladder tissue to relax bladder muscles. Surgery, such as: ?A device may be implanted to help manage the nerve signals that control urination. ?An electrode may be implanted to stimulate electrical signals in the bladder. ?A procedure may be done to change the shape of the bladder. This is done only in very severe cases. Follow these instructions at home: Eating and drinking Make diet or lifestyle changes recommended by your health care provider. These may include: ?Drinking fluids throughout the day and not only with meals. ?Cutting down on caffeine or alcohol. ?Eating a healthy and balanced diet to prevent constipation. This may include: ?Choosing foods that are high in fiber, such as beans, whole grains, and fresh fruits and vegetables. ?Limiting foods that are high in fat and processed sugars, such as fried and sweet foods. Lifestyle Lose weight if needed. Do not use any products that contain nicotine or tobacco. These include cigarettes, chewing tobacco, and vaping devices, such as e-cigarettes. If you need help quitting, ask your health care provider. General instructions Take zgae-knb-vxlaqby and prescription medicines only as told by your health care provider. If you were prescribed an antibiotic medicine, take it as told by your health care provider. Do not stop taking the antibiotic even if you start to feel better. Use any implants or pessary as told by your health care provider. If needed, wear pads to absorb urine leakage. Keep a log to track how much and when you drink, and when you need to urinate. This will help your health care provider monitor your condition. Keep all follow-up visits. This is important. Contact a health care provider if: You have a fever or chills. Your symptoms do not get better with treatment. Your pain and discomfort get worse. You have more frequent urges to urinate. Get help right away if: You are not able to control your bladder. Summary Overactive bladder refers to a condition in which a person has a sudden and frequent need to urinate. Several conditions may lead to an overactive bladder. Treatment for overactive bladder depends on the cause and severity of your condition. Making lifestyle changes, doing Kegel exercises, keeping a log, and taking medicines can help with this condition. This information is not intended to replace advice given to you by your health care provider. Make sure you discuss any questions you have with your health care provider. Document Revised: 03/08/2021 Document Reviewed: 03/08/2021 [employer] Patient Education 2023 [employer]ivio. Follow Up Care 03/27/2024 14:01:22 With:[facility] [place] Address: [address] [phone] Business (1) When: Unknown Comments:for procedure as scheduled [facility] [place]a 03-28-2024 Note Patient Education Obstetrics and Gynecology Overactive Bladder, Adult Overactive bladder is a condition in which a person has a sudden and frequent need to urinate. A person might also leak urine if he or she cannot get to the bathroom fast enough (urinary incontinence). Sometimes, symptoms can interfere with work or social activities. What are the causes? Overactive bladder is associated with poor nerve signals between your bladder and your brain. Your bladder may get the signal to empty before it is full. You may also have very sensitive muscles that make your bladder squeeze too soon. This condition may also be caused by other factors, such as: ? Medical conditions: ? Urinary tract infection. ? Infection of nearby tissues. ? Prostate enlargement. ? Bladder stones, inflammation, or tumors. ? Diabetes. ? Muscle or nerve weakness, especially from these conditions: ? A spinal cord injury. ? Stroke. ? Multiple sclerosis. ? Parkinson's disease. ? Other causes: ? Surgery on the uterus or urethra. ? Drinking too much caffeine or alcohol. ? Certain medicines, especially those that eliminate extra fluid in the body (diuretics). ? Constipation. What increases the risk? You may be at greater risk for overactive bladder if you: ? Are an older adult. ? Smoke. ? Are going through menopause. ? Have prostate problems. ? Have a neurological disease, such as stroke, dementia, Parkinson's disease, or multiple sclerosis (MS). ? Eat or drink alcohol, spicy food, caffeine, and other things that irritate the bladder. ? Are overweight or obese. What are the signs or symptoms? Symptoms of this condition include a sudden, strong urge to urinate. Other symptoms include: ? Leaking urine. ? Urinating 8 or more times a day. ? Waking up to urinate 2 or more times overnight. How is this diagnosed? This condition may be diagnosed based on: ? Your symptoms and medical history. ? A physical exam. ? Blood or urine tests to check for possible causes, such as infection. You may also need to see a health care provider who specializes in urinary tract problems. This is called a urologist. How is this treated? Treatment for overactive bladder depends on the cause of your condition and whether it is mild or severe. Treatment may include: ? Bladder training, such as: ? Learning to control the urge to urinate by following a schedule to urinate at regular intervals. ? Doing Kegel exercises to strengthen the pelvic floor muscles that support your bladder. ? Special devices, such as: ? Biofeedback. This uses sensors to help you become aware of your body's signals. ? Electrical stimulation. This uses electrodes placed inside the body (implanted) or outside the body. These electrodes send gentle pulses of electricity to strengthen the nerves or muscles that control the bladder. ? Women may use a plastic device, called a pessary, that fits into the vagina and supports the bladder. ? Medicines, such as: ? Antibiotics to treat bladder infection. ? Antispasmodics to stop the bladder from releasing urine at the wrong time. ? Tricyclic antidepressants to relax bladder muscles. ? Injections of botulinum toxin type A directly into the bladder tissue to relax bladder muscles. ? Surgery, such as: ? A device may be implanted to help manage the nerve signals that control urination. ? An electrode may be implanted to stimulate electrical signals in the bladder. ? A procedure may be done to change the shape of the bladder. This is done only in very severe cases. Follow these instructions at home: Eating and drinking ? Make diet or lifestyle changes recommended by your health care provider. These may include: ? Drinking fluids throughout the day and not only with meals. ? Cutting down on caffeine or alcohol. ? Eating a healthy and balanced diet to prevent constipation. This may include: ? Choosing foods that are high in fiber, such as beans, whole grains, and fresh fruits and vegetables. ? Limiting foods that are high in fat and processed sugars, such as fried and sweet foods. Lifestyle ? Lose weight if needed. ? Do not use any products that contain nicotine or tobacco. These include cigarettes, chewing tobacco, and vaping devices, such as e-cigarettes. If you need help quitting, ask your health care provider. General instructions ? Take majs-igx-hmyavuv and prescription medicines only as told by your health care provider. ? If you were prescribed an antibiotic medicine, take it as told by your health care provider. Do not stop taking the antibiotic even if you start to feel better. ? Use any implants or pessary as told by your health care provider. ? If needed, wear pads to absorb urine leakage. ? Keep a log to track how much and when you drink, and when you need to urinate. This will help your health care (more content not included)... [facility] 11-21-2023 Hospital Discharge instructions Patient Education 11/21/2023 14:36:22 Kegel Exercises Kegel Exercises Kegel exercises can help strengthen your pelvic floor muscles. The pelvic floor is a group of muscles that support your rectum, small intestine, and bladder. In females, pelvic floor muscles also help support the uterus. These muscles help you control the flow of urine and stool (feces). Kegel exercises are painless and simple. They do not require any equipment. Your provider may suggest Kegel exercises to: Improve bladder and bowel control. Improve sexual response. Improve weak pelvic floor muscles after surgery to remove the uterus (hysterectomy) or after , in females. Improve weak pelvic floor muscles after prostate gland removal or surgery, in males. Kegel exercises involve squeezing your pelvic floor muscles. These are the same muscles you squeeze when you try to stop the flow of urine or keep from passing gas. The exercises can be done while sitting, standing, or lying down, but it is best to vary your position. Ask your health care provider which exercises are safe for you. Do exercises exactly as told by your health care provider and adjust them as directed. Do not begin these exercises until told by your health care provider. Exercises How to do Kegel exercises: 1.Squeeze your pelvic floor muscles tight. You should feel a tight lift in your rectal area. If you are a female, you should also feel a tightness in your vaginal area. Keep your stomach, buttocks, and legs relaxed. 2.Hold the muscles tight for up to 10 seconds. 3.Breathe normally. 4.Relax your muscles for up to 10 seconds. 5.Repeat as told by your health care provider. Repeat this exercise daily as told by your health care provider. Continue to do this exercise for at least 4 6 weeks, or for as long as told by your health care provider. You may be referred to a physical therapist who can help you learn more about how to do Kegel exercises. Depending on your condition, your health care provider may recommend: Varying how long you squeeze your muscles. Doing several sets of exercises every day. Doing exercises for several weeks. Making Kegel exercises a part of your regular exercise routine. This information is not intended to replace advice given to you by your health care provider. Make sure you discuss any questions you have with your health care provider. Document Revised: 10/28/2021 Document Reviewed: 10/28/2021 [employer] Patient Education 2022 Attivio. Follow Up Care 08/01/2023 13:55:46 With:RASHIDA STEPHENS, PAULA Wheat, URL Address: [address] [place] [address] [phone] When: Unknown [facility] 10-06-2023 Miscellaneous Notes Med refill [facility] via fax from [facility] Medication: Carbidopa-levodopa 25-100 Last filled: 09/08/23 Last seen:03/28/23 Next Appt: 01/05/24 documented in this encounter [employer] 10-06-2023 Telephone encounter Note Med refill requested via fax from [facility] Medication: Carbidopa-levodopa 25-100 Last filled: 09/08/23 Last seen:03/28/23 Next Appt: 01/05/24 [facility] 10-04-2023 Miscellaneous Notes Rashawn called to request blood work orders. She has an appointment on 10/09/2023 and is going to be at the hospital for a test and could get it then. She request an A1c and kidney function. Orders placed Patient Notified. documented in this encounter [facility] 10-04-2023 Telephone encounter Note Rashawn called to request blood work orders. She has an appointment on 10/09/2023 and is going to be at the hospital for a test and could get it then. She request an A1c and kidney function. [facility] 10-04-2023 Telephone encounter Note Orders placed [facility] 10-04-2023 Telephone encounter Note Patient Notified. [facility] 09-21-2023 History of Present illness Narrative Subjective Patient ID: Rashawn Multani is a 63 y.o. female. WILD Briseno presents to the office for arm pain. She reports she has been having pain that seems to begin by the elbow area and go up into the tip of the shoulder. The pain has been ongoing for about 3 weeks. She describes that pain as a constant ache. Pain is an 8 out of 10. She has been applying topical ointment and tried ibuprofen PRN, about 600 mg Q6H and taking Tylenol, with no relief. She has attempted ice and heat as well, which is not effective either. She presents today as pain is just unbearable and seems to continue to worsen. She states she cannot even lift items with that right arm d/t pain. She reports even putting her coat on causes increased pain. Denies injury or fall. Denies anything new. Denies fever, increased fatigue, but reports body aches for several months. She reports her daughter has fibromyalgia. She inquires about possible MRI. Also, report blood sugars have been high. States she was told to stop the lantus and only take the insuin sliding scale. She would like to inquire about oral medication. The following portions of the patient's history were reviewed and updated as appropriate: allergies, current medications, past family history, past medical history, past social history, past surgical history, problem list, and medication reconciliation was completed including current medication and post discharge medication. Review of Systems Constitutional: Negative for chills, diaphoresis, fatigue, fever and unexpected weight change. Respiratory: Negative. Cardiovascular: Negative. Musculoskeletal: Positive for arthralgias and myalgias. Skin: Negative. Neurological: Positive for weakness and numbness. Right arm is weaker in comparison to left. [place] to hand, intermittent. Numbness goes Into the wrist in right arm. Objective Physical Exam Vitals and nursing note reviewed. Constitutional: General: She is not in acute distress. Appearance: Normal appearance. She is not ill-appearing. HENT: Head: Normocephalic and atraumatic. Mouth/Throat: Mouth: Mucous membranes are moist. Pharynx: Oropharynx is clear. No oropharyngeal exudate or posterior oropharyngeal erythema. Eyes: Extraocular Movements: Extraocular movements intact. Pupils: Pupils are equal, round, and reactive to light. Cardiovascular: Rate and Rhythm: Normal rate and regular rhythm. Pulses: Normal pulses. Radial pulses are 2+ on the right side and 2+ on the left side. Heart sounds: Normal heart sounds. Pulmonary: Effort: Pulmonary effort is normal. Breath sounds: Normal breath sounds. Musculoskeletal: General: Tenderness present. No swelling. Normal range of motion. Cervical back: Normal range of motion and neck supple. Comments: Tenderness with palpation to right arm. When forced pushed against arm, right is weaker in comparison to left. Skin: General: Skin is warm and dry. Capillary Refill: Capillary refill takes less than 2 seconds. Findings: No erythema or rash. Neurological: General: No focal deficit present. Mental Status: She is alert and oriented to person, place, and time. Psychiatric: Mood and Affect: Mood normal. Behavior: Behavior normal. Assessment/Plan We will order xray of right upper arm. Discussed possible additional imaging pending results. Continue with stretches and exercies. She can take ibuprofen sparingly. We will add robaxin PRN for pain. Ensure to drink plenty of fluids. Add Metofrmin 500 BID, if she tolerates this we can increase dosage. We will monitor kidney function. Rashawn was seen today for arm pain. Diagnoses and all orders for this visit: Pain of right upper extremity - X-ray humerus right minimum 2 views; Future Type 2 diabetes mellitus with chronic kidney disease, with long-term current use of insulin, unspecified CKD stage ([facility]) Other orders - methocarbamoL (ROBAXIN) 500 mg tablet; Take 1 tablet (500 mg total) by mouth 3 (three) times a day as needed for muscle spasms for up to 7 days. - metFORMIN (GLUCOPHAGE) 500 mg tablet; Take 1 tablet (500 mg total) by mouth in the morning and 1 tablet (500 mg total) in the evening. Take with meals. LOLI Rowell 09/21/23 [id number] documented in this encounter [facility] 08-30-2023 Miscellaneous Notes Krista left voicemail for office from 08/29/2023. She is calling from [facility]. Stating that patient is soon to move into facility. They are asking that office fax over PCP recent office visit notes. . Can someone please fax over to Krista. Faxed last note over. documented in this encounter [facility] 08-30-2023 Telephone encounter Note Krista left voicemail for office from 08/29/2023. She is calling from [facility]. Stating that patient is soon to move into facility. They are asking that office fax over PCP recent office visit notes. . Can someone please fax over to Krista. [facility] encounter Note Faxed last note over. [facility] History of Present illness Narrative Subjective CC: Cough and wheezing Patient ID: Rashawn Multani is a 63 y.o. female. Rashawn is presenting with complaint of productive cough and wheezing worse with lying down. She tested positive for COVID 08/16/23. She was not able to receive Paxlovid because of reduced GFR. She was prescribed Medrol pack which she was not able to tolerate and only had 2 days worth of medicine. She relates shakiness and profuse sweating from taking the medication. She is complaining of coughing and inability to clear airway of the mucus. She endorses intermittent chills and fever, fatigue, shortness of breath, chest tightness. She denies loss of taste or smell and is not eating well. She denies nausea, diarrhea or vomiting. She endorses right ear pain, postnasal drip and occasional dizziness . Denies sinus pain. Tessalon pearles are still helping with the cough. Most bothersome symptoms is the shortness of breath and cough. Patient educated about 10 days of isolation from positive result or symptoms onset. She declines any steroid medications or inhaler at this time. Cough Associated symptoms include chills, ear pain, a fever, myalgias, postnasal drip, shortness of breath and wheezing. The following portions of the patient's history were reviewed and updated as appropriate: allergies, current medications, past family history, past medical history, past social history, past surgical history, problem list, and medication reconciliation was completed including current medication and post discharge medication. Review of Systems Constitutional: Positive for chills, fatigue and fever. Negative for appetite change. HENT: Positive for ear pain and postnasal drip. Negative for ear discharge, sinus pressure, sinus pain and trouble swallowing. Respiratory: Positive for cough, chest tightness, shortness of breath and wheezing. Gastrointestinal: Negative. Negative for diarrhea, nausea and vomiting. Endocrine: Negative. Genitourinary: Negative. Musculoskeletal: Positive for myalgias. Skin: Negative. Allergic/Immunologic: Negative. Neurological: Positive for dizziness. Hematological: Negative. Psychiatric/Behavioral: Negative. Objective Physical Exam Constitutional: Appearance: She is well-developed. HENT: Head: Normocephalic and atraumatic. Right Ear: Hearing and tympanic membrane normal. Left Ear: Hearing and tympanic membrane normal. Nose: Nose normal. Mouth/Throat: Mouth: Mucous membranes are moist. Pharynx: Posterior oropharyngeal erythema present. Tonsils: No tonsillar exudate. Eyes: Pupils: Pupils are equal, round, and reactive to light. Cardiovascular: Rate and Rhythm: Normal rate and regular rhythm. Pulses: Radial pulses are 2+ on the right side and 2+ on the left side. Heart sounds: Normal heart sounds. No murmur heard. Pulmonary: Effort: Pulmonary effort is normal. No respiratory distress. Breath sounds: Normal breath sounds. No wheezing. Abdominal: General: Bowel sounds are normal. Palpations: Abdomen is soft. Tenderness: There is no abdominal tenderness. Musculoskeletal: General: Normal range of motion. Cervical back: Neck supple. Lymphadenopathy: Cervical: No cervical adenopathy. Skin: General: Skin is warm and dry. Findings: No rash. Neurological: Mental Status: She is alert and oriented to person, place, and time. Cranial Nerves: No cranial nerve deficit. Assessment/Plan Rashawn is presenting with complaint of productive cough and wheezing worse with lying down. She tested positive for COVID 08/16/23. She was not able to receive Paxlovid because of reduced GFR. She was prescribed Medrol pack which she was not able to tolerate and only had 2 days worth of medicine. She endorses intermittent chills and fever, fatigue, shortness of breath, chest tightness. She denies loss of taste or smell and she is not eating well. She denies nausea, diarrhea or vomiting. She endorses right ear pain, postnasal drip and occasional dizziness .She declines any steroid medications or inhaler at this time. Patient is agreeable to albuterol inhaler. Start Albuterol inhaler for wheezing Chest xray to rule out pneumonia Continue Tessalon for cough as needed Education for isolation and fluid and rest provided Follow up if symptoms worsen or does not improve Follow up in 3 months for Diabetes. Rashawn was seen today for cough. Diagnoses and all orders for this visit: COVID-19 - X-ray chest 2 views; Future - albuterol (PROVENTIL HFA;VENTOLIN HFA) 90 mcg/actuation inhaler; Inhale 2 puffs every 6 (six) hours as needed for wheezing. Shortness of breath - X-ray chest 2 views; Future - albuterol (PROVENTIL HFA;VENTOLIN HFA) 90 mcg/actuation inhaler; Inhale 2 puffs every 6 (six) hours as needed for wheezing. Acute cough LOLI Coronel 08/23/23 [id number] documented in this encounter [facility] 08-17-2023 Miscellaneous Notes Patient called into the office and stated that she was sick last night and went to Urgent Care and she tested positive for Covid. She was asking if she could get prescribed the Paxlovid? Her GFR kidney function is too low to prescribe safely. I she is having cough and resp symptoms, I will send in something for her. Check with pharmacy Called patient to let her know that Rxs were sent to pharmacy documented in this encounter [facility] 08-17-2023 Telephone encounter Note Patient called into the office and stated that she was sick last night and went to Urgent Care and she tested positive for Covid. She was asking if she could get prescribed the Paxlovid? [facility] 08-17-2023 Telephone encounter Note Her GFR kidney function is too low to prescribe safely. I she is having cough and resp symptoms, I will send in something for her. Check with pharmacy [facility] 08-17-2023 Telephone encounter Note Called patient to let her know that Rxs were sent to pharmacy [facility] 08-16-2023 History of Present illness Narrative Subjective CC: Discuss Assisted Living and Left Foot F/U Patient ID: Rashawn Multani is a 63 y.o. female. HPI Rashawn Multani presents to the office today to discuss Assisted Living and for a left foot follow-up. She denies chest pain or leg swelling and denies thoughts of harming herself or others, or sleep disturbances. She reports occasional dizziness and visual disturbances from blurry vision. She had her eyes checked last week and received a new prescription for glasses. She is not wearing them today. Rashawn reports that she has come to the realization that she is unable to complete her ADL's and reports frequent forgetful episodes. She has an evaluation with the [facility] on the of this month to determine her eligibility for Assisted Living. She desires to stay at [facility] and has already spoken with them, toured the facility, and they are holding a room for her. Rashawn follows with Dr. Medina from Podiatry and brought in paperwork for diabetic shoes requiring an MD signature; Will have Dr. Gallardo sign and fax to facility. She follows with Dr. Steven for her bipolar, Dr. Li for her CKD, and does not recall the last time she followed with her OB for her endometrial cancer diagnosis; she does follow up in [place] with oncology. Patient has received Glucerna samples to take home. Patient left foot examined today, blister has healed. Patient follow-up scheduled on 10/09/23 for Diabetes, foot check completed today. The following portions of the patient's history were reviewed and updated as appropriate: allergies, current medications, past family history, past medical history, past social history, past surgical history, problem list, and medication reconciliation was completed including current medication and post discharge medication. Review of Systems Constitutional: Negative. HENT: Negative. Eyes: Positive for visual disturbance. Just got glasses prescription Respiratory: Negative. Cardiovascular: Negative. Negative for chest pain and leg swelling. Gastrointestinal: Negative. Endocrine: Negative. Genitourinary: Negative. Musculoskeletal: Negative. Skin: Negative. Allergic/Immunologic: Negative. Neurological: Positive for dizziness. Reports occasional dizziness Hematological: Negative. Psychiatric/Behavioral: Negative. Negative for self-injury, sleep disturbance and suicidal ideas. Objective Physical Exam Vitals and nursing note reviewed. Exam conducted with a auto service instructor present. Constitutional: Appearance: Normal appearance. HENT: Head: Normocephalic and atraumatic. Right Ear: Tympanic membrane, ear canal and external ear normal. Left Ear: Tympanic membrane, ear canal and external ear normal. Nose: Nose normal. Mouth/Throat: Mouth: Mucous membranes are moist. Pharynx: Oropharynx is clear. Eyes: Extraocular Movements: Extraocular movements intact. Conjunctiva/sclera: Conjunctivae normal. Pupils: Pupils are equal, round, and reactive to light. Neck: Vascular: No carotid bruit. Cardiovascular: Rate and Rhythm: Normal rate and regular rhythm. Pulses: Normal pulses. Heart sounds: Normal heart sounds. Pulmonary: Effort: Pulmonary effort is normal. Breath sounds: Normal breath sounds. Abdominal: General: Abdomen is flat. Palpations: Abdomen is soft. Musculoskeletal: General: Normal range of motion. Cervical back: Normal range of motion and neck supple. Right foot: Bunion present. Left foot: Bunion present. Feet: Right foot: Protective Sensation: 8 sites tested. 8 sites sensed. Skin integrity: Callus present. Toenail Condition: Right toenails are abnormally thick. Left foot: Protective Sensation: 8 sites tested. 8 sites sensed. Skin integrity: Blister and callus present. Toenail Condition: Left toenails are abnormally thick. Skin: General: Skin is warm and dry. Capillary Refill: Capillary refill takes less than 2 seconds. Neurological: General: No focal deficit present. Mental Status: She is alert and oriented to person, place, and time. Psychiatric: Mood and Affect: Mood normal. Behavior: Behavior normal. Thought Content: Thought content normal. Judgment: Judgment normal. Assessment/Plan Rashawn Multani presents to the office today to discuss Assisted Living and for a left foot follow-up. Reports that she has come to the realization that she is unable to complete her ADL's and reports frequent forgetful episodes. Has an evaluation with the state on the of this month to determine her eligibility for Assisted Living. Rashawn follows with Dr. Medina from Podiatry and brought in paperwork for diabetic shoes requiring an MD signature; Will have Dr. Glalardo sign and fax to facility. Follows with Dr. Steven for her bipolar, Dr. Li for her CKD, and does not recall the last time she followed with her OB for her endometrial cancer diagnosis. Received Glucerna samples to take home. Patient left foot examined today, blisters healed. Patient follow-up scheduled on 10/09/23 for Diabetes, foot check completed today. 1.) Foot check completed today. 2.) Continue following with specialists. 3.) State eligibility determination on 08/28/23. 4.) Glucerna samples provided. 5.) Follow-up for Diabetes on 10/09/23. Diagnoses and all orders for this visit: Bipolar II disorder ([facility]) Essential hypertension Endometrial cancer ([facility] Stage 3b chronic kidney disease ([facility]) LOLI Coronel 08/16/23 [id number] documented in this encounter [facility] 08-14-2023 History of Present illness Narrative Images from the original note were not included. Subjective Patient ID: Neelam Multani is a 63 y.o. female who presents for Follow-up (Pt presents today for a FUV, Lt foot is doing well, ''somedays are good, some are bad, but there are more good days than bad ones.''/BS: 187 A1C: 7.0/LV Yasmin Hansen 07-26-2023/SS: 7.5). HPI Date of surgery 07/15/22: Bone marrow aspirate harvest, gastrocnemius recession, Jaramillo calcaneal osteotomy, Kidner procedure, 1st MTP fusion, spring ligament repair, Cato microdebrider with PRP injection all of the left lower extremity Established patient returns to clinic a little over 1 year postoperatively. Overall the left foot is doing well. She did have some sinus tarsi is and responded well to cortisone injections. Today she has no concerns. Review of Systems Constitutional: Positive for activity change. Negative for appetite change. Respiratory: Negative for chest tightness and shortness of breath. Cardiovascular: Negative for chest pain. Endocrine: Negative for cold intolerance and heat intolerance. Musculoskeletal: Positive for arthralgias and gait problem. Skin: Negative for color change and wound. Allergic/Immunologic: Negative for immunocompromised state. Neurological: Negative for weakness. Hematological: Does not bruise/bleed easily. Psychiatric/Behavioral: Negative for agitation and behavioral problems. Medications Current Outpatient Medications: B Complex Vitamins (vitamin B complex) tablet, as directed Orally, Disp: , Rfl: cholecalciferol (Vitamin D-3) 50 MCG (2000 UT) tablet, Take 2,000 Units by mouth in the morning., Disp: , Rfl: dapagliflozin (Farxiga) 10 MG, Take 10 mg by mouth in the morning., Disp: , Rfl: diclofenac sodium 1 % gel, Apply 2 g topically 3 (three) times a day as needed for pain, Disp: 100 g, Rfl: 3 dicyclomine (Bentyl) 20 MG tablet, Take 20 mg by mouth in the morning and 20 mg in the evening., Disp: , Rfl: escitalopram (Lexapro) 10 MG tablet, 1 (one) time each day at the same time., Disp: , Rfl: escitalopram (Lexapro) 20 MG tablet, 1 (one) time each day at the same time., Disp: , Rfl: Farxiga 5 MG, 1 (one) time each day at the same time., Disp: , Rfl: ferrous sulfate 325 (65 Fe) MG tablet, 1 (one) time each day at the same time., Disp: , Rfl: gabapentin (Neurontin) 400 MG capsule, Take 400 mg by mouth Daily as needed., Disp: , Rfl: glimepiride (Amaryl) 1 MG tablet, 1 (one) time each day at the same time., Disp: , Rfl: Insulin Glargine Solostar 100 UNIT/ML solution pen-injector, Inject 25 Units under the skin in the morning., Disp: , Rfl: lamoTRIgine (LaMICtal) 200 MG tablet, 1 (one) time each day at the same time., Disp: , Rfl: levothyroxine (Synthroid, Levoxyl) 75 MCG tablet, Take 75 mcg by mouth in the morning., Disp: , Rfl: linaCLOtide (Linzess) 290 MCG capsule, 1 (one) time each day at the same time., Disp: , Rfl: lisinopril 5 MG tablet, 1 (one) time each day at the same time., Disp: , Rfl: LORazepam (Ativan) 0.5 MG tablet, tablet Oral, Disp: , Rfl: meloxicam (Mobic) 15 MG tablet, Take 1 tablet (15 mg) by mouth in the morning., Disp: 90 tablet, Rfl: 0 metoprolol succinate XL (Toprol-XL) 50 MG 24 hr tablet, 1 tablet Orally prn, Disp: , Rfl: Multiple Vitamin (Multivitamin Adult) tablet, as directed Orally, Disp: , Rfl: pantoprazole (ProtoNix) 40 MG EC tablet, 1 (one) time each day at the same time., Disp: , Rfl: phenazopyridine (Pyridium) 200 MG tablet, Take 200 mg by mouth 2 (two) times a day as needed., Disp: , Rfl: QUEtiapine (SEROquel) 100 MG tablet, tablet Oral, Disp: , Rfl: rosuvastatin (Crestor) 10 MG tablet, Take 10 mg by mouth at bedtime., Disp: , Rfl: senna-docusate (Senexon-S) 8.6-50 MG tablet, 1 (one) time each day at the same time., Disp: , Rfl: traZODone (Desyrel) 100 MG tablet, 2 tabs Orally Q HS, Disp: , Rfl: Allergies Codeine, Morphine, Sulfa antibiotics, Ciprofloxacin, Magnesium citrate, and Nitrofurantoin macrocrystal Past Surgical History Past Surgical History: Procedure Laterality Date SECTION, LOW TRANSVERSE CHOLECYSTECTOMY 2014 COLPOSCOPY 01/09/2020 CT GUIDED TRANSVAGINAL TRANSRECTAL FLUID DRAIN 03/13/2023 CT GUIDED TRANSVAGINAL TRANSRECTAL FLUID DRAIN 03/13/2023 CYSTOSCOPY 12/2019 EGD 2014 GASTRIC BYPASS HEART CATH HEMORRHOIDECTOMY 2011 LASER ABLATION 07/27/2016 to vagina OTHER SURGICAL HISTORY Herniorrhapy OTHER SURGICAL HISTORY 2016 Urethral dilation TONSILLECTOMY TOTAL ABDOMINAL HYSTERECTOMY W/ BILATERAL SALPINGOOPHORECTOMY 1994 Family History Family History Problem Relation Name Age of Onset Hypertension Mother Leukemia Mother Diabetes Mother Cancer Mother Aneurysm Father Hypertension Father Stroke Father Colon cancer Sibling Colon cancer Child Aneurysm Son Other (respiratory failure) Son Objective Physical Exam Constitutional: Comments: Presents to clinic ambulating unassisted in tennis shoes. HENT: Head: Normocephalic and atraumatic. Cardiovascular: Pulses: Normal pulses. Comments: Skin is diffusely thin. No hair growth to the foot or toes. Pulmonary: Effort: Pulmonary effort is normal. No respiratory distress. Abdominal: Palpations: There is no mass. Musculoskeletal: Cervical back: No rigidity. Comments: Left foot: She does have some tenderness with palpation over the calcaneal osteotomy site. Maximum tenderness within the sinus tarsi. Subtalar range of motion is smooth without crepitus but slightly tender. Muscle strength 5/5 for all quadrants. No tenderness to palpation over the 1st MTP, PT tendon, spring ligament, plantar fascia. Negative stressing of the 1st MTP which has no range of motion. Position is rectus. Skin: Capillary Refill: Capillary refill takes less than 2 seconds. Findings: No lesion or rash. Comments: Mild hyperkeratosis plantar right hallux. Neurological: Mental Status: She is alert. Comments: Decreased protective sensation bilateral forefoot. Psychiatric: Mood and Affect: Mood normal. Behavior: Behavior normal. 06/12/2023: CT scan of the left ankle reveals decreased bone mineral density. The titanium graft is in place without any signs of shifting or implant lucency. There does appear to be some ingrowth into the graft. Mild degenerative changes of the midfoot noted. Assessment/Plan ICD-10-CM 1. Diabetic polyneuropathy associated with type 2 diabetes mellitus (CMS/HCC) E11.42 2. Valgus deformity, not elsewhere classified, right ankle M21.071 3. Hallux valgus of right foot M20.11 4. Acquired keratoderma L85.1 Patient examined and evaluated. Overall she is doing very well after surgical intervention. I am pleased with the clinical and radiographic appearance of her foot. She is in excellent candidate for diabetic shoes due to pedal deformity and preulcerative lesions. She also has some slight neuropathy. Diabetic shoe paperwork will be started and we will contact her for diabetic shoe measuring This note was created with the assistance of a speech recognition program. While intending to generate a timely document that accurately reflects the content of the visit, no guarantee can be provided that every grammatical or spelling mistake has been or will be identified or corrected. Thank you for your understanding. Heladio Medina DPM documented in this encounter [facility] 08-01-2023 Hospital Discharge instructions Patient Education 08/01/2023 13:55:02 Overactive Bladder, Adult Overactive Bladder, Adult Overactive bladder is a condition in which a person has a sudden and frequent need to urinate. A person might also leak urine if he or she cannot get to the bathroom fast enough (urinary incontinence). Sometimes, symptoms can interfere with work or social activities. What are the causes? Overactive bladder is associated with poor nerve signals between your bladder and your brain. Your bladder may get the signal to empty before it is full. You may also have very sensitive muscles that make your bladder squeeze too soon. This condition may also be caused by other factors, such as: Medical conditions: ?Urinary tract infection. ?Infection of nearby tissues. ?Prostate enlargement. ?Bladder stones, inflammation, or tumors. ?Diabetes. ?Muscle or nerve weakness, especially from these conditions: ?A spinal cord injury. ?Stroke. ?Multiple sclerosis. ?Parkinson's disease. Other causes: ?Surgery on the uterus or urethra. ?Drinking too much caffeine or alcohol. ?Certain medicines, especially those that eliminate extra fluid in the body (diuretics). ?Constipation. What increases the risk? You may be at greater risk for overactive bladder if you: Are an older adult. Smoke. Are going through menopause. Have prostate problems. Have a neurological disease, such as stroke, dementia, Parkinson's disease, or multiple sclerosis (MS). Eat or drink alcohol, spicy food, caffeine, and other things that irritate the bladder. Are overweight or obese. What are the signs or symptoms? Symptoms of this condition include a sudden, strong urge to urinate. Other symptoms include: Leaking urine. Urinating 8 or more times a day. Waking up to urinate 2 or more times overnight. How is this diagnosed? This condition may be diagnosed based on: Your symptoms and medical history. A physical exam. Blood or urine tests to check for possible causes, such as infection. You may also need to see a health care provider who specializes in urinary tract problems. This is called a urologist. How is this treated? Treatment for overactive bladder depends on the cause of your condition and whether it is mild or severe. Treatment may include: Bladder training, such as: ?Learning to control the urge to urinate by following a schedule to urinate at regular intervals. ?Doing Kegel exercises to strengthen the pelvic floor muscles that support your bladder. Special devices, such as: ?Biofeedback. This uses sensors to help you become aware of your body's signals. ?Electrical stimulation. This uses electrodes placed inside the body (implanted) or outside the body. These electrodes send gentle pulses of electricity to strengthen the nerves or muscles that control the bladder. ?Women may use a plastic device, called a pessary, that fits into the vagina and supports the bladder. Medicines, such as: ?Antibiotics to treat bladder infection. ?Antispasmodics to stop the bladder from releasing urine at the wrong time. ?Tricyclic antidepressants to relax bladder muscles. ?Injections of botulinum toxin type A directly into the bladder tissue to relax bladder muscles. Surgery, such as: ?A device may be implanted to help manage the nerve signals that control urination. ?An electrode may be implanted to stimulate electrical signals in the bladder. ?A procedure may be done to change the shape of the bladder. This is done only in very severe cases. Follow these instructions at home: Eating and drinking Make diet or lifestyle changes recommended by your health care provider. These may include: ?Drinking fluids throughout the day and not only with meals. ?Cutting down on caffeine or alcohol. ?Eating a healthy and balanced diet to prevent constipation. This may include: ?Choosing foods that are high in fiber, such as beans, whole grains, and fresh fruits and vegetables. ?Limiting foods that are high in fat and processed sugars, such as fried and sweet foods. Lifestyle Lose weight if needed. Do not use any products that contain nicotine or tobacco. These include cigarettes, chewing tobacco, and vaping devices, such as e-cigarettes. If you need help quitting, ask your health care provider. General instructions Take jlvs-gzi-mefznmi and prescription medicines only as told by your health care provider. If you were prescribed an antibiotic medicine, take it as told by your health care provider. Do not stop taking the antibiotic even if you start to feel better. Use any implants or pessary as told by your health care provider. If needed, wear pads to absorb urine leakage. Keep a log to track how much and when you drink, and when you need to urinate. This will help your health care provider monitor your condition. Keep all follow-up visits. This is important. Contact a health care provider if: You have a fever or chills. Your symptoms do not get better with treatment. Your pain and discomfort get worse. You have more frequent urges to urinate. Get help right away if: You are not able to control your bladder. Summary Overactive bladder refers to a condition in which a person has a sudden and frequent need to urinate. Several conditions may lead to an overactive bladder. Treatment for overactive bladder depends on the cause and severity of your condition. Making lifestyle changes, doing Kegel exercises, keeping a log, and taking medicines can help with this condition. This information is not intended to replace advice given to you by your health care provider. Make sure you discuss any questions you have with your health care provider. Document Revised: 03/08/2021 Document Reviewed: 03/08/2021 [employer] Patient Education 2022 [employer]. Follow Up Care 07/04/2023 10:17:06 With:RASHIDA STEPHENS, PAULA Wheat, URL Address: [address] [place] [place] [address] [phone] When: Unknown Comments:3 mos (restart med) [facility] 07-27-2023 Miscellaneous Notes ----- Message from LOLI Coronel sent at 07/27/2023 1:51 PM EST ----- Let pt know there is no fx in the foot. There is degeneration. I continues to bother her she should contact Dr. Medina ----- Message ----- From: Interface - Rad Results/Orders In 1 Sent: 07/26/2023 7:16 PM EST To: LOLI Coronel Called patient to let her know about results, she stated that she does have an appointment with on the Aug 09 documented in this encounter [facility] 07-27-2023 Telephone encounter Note ----- Message from LOLI Coronel sent at 07/27/2023 1:51 PM EST ----- Let pt know there is no fx in the foot. There is degeneration. I continues to bother her she should contact Dr. Medina ----- Message ----- From: Interface - Rad Results/Orders In 1 Sent: 07/26/2023 7:16 PM EST To: LOLI Coronel [facility] 07-27-2023 Telephone encounter Note Called patient to let her know about results, she stated that she does have an appointment with on the Aug 09 [facility] 07-26-2023 History of Present illness Narrative Images from the original note were not included. Subjective CC: Left great toe pain Patient ID: Rashawn Multani is a 63 y.o. female. WILD Briseno is presenting for left great toe pain. Pain is 7/10. She hit her toe 3 nights ago on her furniture. She stated a piece of nail broke off and she trimmed the nail. She stated that there was drainage from the wound site but none seen at this visit. She applied neosporin and soaked foot in epsom salt without relief. She has a history of surgery with metal implant in the foot. She denies fever and ankle pain. Patient asked for her insulin regimen to be viewed. She would like her short acting insulin to be added back on.Rashawn felt she had better blood sugar control with the sliding scale. She is being followed Dr. Vi Lim Neurology for tremors and has an upcoming appointment in August. In addition, she follows with Dr. Steven for depression and Bipolar disorder. She saw him on 06/14/2023 and there were no medication changes. She also saw Dr. Javier gynecology on 05/04/2023 for history of endometrial cancer. The following portions of the patient's history were reviewed and updated as appropriate: allergies, current medications, past family history, past medical history, past social history, past surgical history, problem list, and medication reconciliation was completed including current medication and post discharge medication. Review of Systems Constitutional: Negative. HENT: Negative. Eyes: Negative. Respiratory: Negative. Cardiovascular: Negative. Gastrointestinal: Negative. Endocrine: Negative. Genitourinary: Negative. Musculoskeletal: Negative. Skin: Positive for wound. Nailbed of left great toe Allergic/Immunologic: Negative. Neurological: Positive for numbness. Psychiatric/Behavioral: Negative. Objective Physical Exam Vitals and nursing note reviewed. Constitutional: Appearance: Normal appearance. She is well-developed. HENT: Head: Normocephalic and atraumatic. Right Ear: Hearing, tympanic membrane, ear canal and external ear normal. Left Ear: Hearing, tympanic membrane, ear canal and external ear normal. Mouth/Throat: Lips: [place]. Mouth: Mucous membranes are moist. Pharynx: Oropharynx is clear. Uvula midline. No oropharyngeal exudate. Eyes: General: Lids are normal. Extraocular Movements: Extraocular movements intact. Conjunctiva/sclera: Conjunctivae normal. Pupils: Pupils are equal, round, and reactive to light. Cardiovascular: Rate and Rhythm: Normal rate and regular rhythm. Pulses: Normal pulses. Dorsalis pedis pulses are 2+ on the right side and 2+ on the left side. Posterior tibial pulses are 2+ on the right side and 2+ on the left side. Heart sounds: Normal heart sounds. Pulmonary: Effort: Pulmonary effort is normal. Breath sounds: Normal breath sounds and air entry. Abdominal: General: Bowel sounds are normal. There is no distension. Palpations: Abdomen is soft. Tenderness: There is no abdominal tenderness. Musculoskeletal: General: Swelling and tenderness present. Normal range of motion. Cervical back: Normal range of motion and neck supple. Feet: Comments: Redness, swelling and tenderness noted around nail bed on left great toe Feet: Left foot: Skin integrity: Skin breakdown and erythema present. Comments: Toe injury medial side of left great toe, scant amount of blood at site. No warmth, or purulent drainage noted. Skin: General: Skin is warm and dry. Neurological: General: No focal deficit present. Mental Status: She is alert and oriented to person, place, and time. Psychiatric: Mood and Affect: Mood normal. Behavior: Behavior normal. Assessment/Plan Presenting for left great toe pain. Pain is 7/10. Hit her toe 3 nights ago on her furniture. Wound is not draining in the office today; x-ray ordered to rule out fx. Patient asked for her insulin regimen to be reviewed; wants short acting insulin to be added back on for sliding scale. [place] insulin was in better control with sliding scale. Augmentin 875mg-125 tablet twice daily for 10 days Mupirocin 2% ointment bid, after cleansing with scale, also to keep covered with gauze and clean white sock Left foot x-ray to rule out fracture Start Humalog (Lispro) 100 Units/ml using sliding scale Follow up in 1 month for toe cellulitis. Rashawn was seen today for toe injury. Diagnoses and all orders for this visit: Toe injury, left, initial encounter Cellulitis of toe of left foot - mupirocin (BACTROBAN) 2 % ointment; Apply 1 Application topically in the morning and 1 Application before bedtime. - amoxicillin-pot clavulanate (AUGMENTIN) 875-125 mg per tablet; Take 1 tablet by mouth in the morning and 1 tablet before bedtime. Do all this for 10 days. Pain of toe of left foot - X-ray foot left minimum 3 views; Future Type 2 diabetes mellitus with stage 3b chronic kidney disease, with long-term current use of insulin ([facility]) - insulin lispro (HumaLOG) 100 unit/mL injection; Use sliding scale:151-200 mg/dL, give 2 units. 201-250 mg/dL, give 4 units. 251-300 mg/dL, give 6 units. 301-350 mg/dL, give 8 units. 351-400 mg/dL, give 10 units. - pen needle, diabetic 32 gauge x 5/32 needle; Use once per day Acquired female bladder prolapse Bipolar II disorder ([facility]) Endometrial cancer ([facility]) Parkinsonian tremor Other orders - Discontinue: amoxicillin-pot clavulanate (AUGMENTIN) 875-125 mg per tablet; Take 1 tablet by mouth in the morning and 1 tablet before bedtime. Do all this for 10 days. - Discontinue: mupirocin (BACTROBAN) 2 % ointment; Apply 1 Application topically 3 (three) times a day. LOLI Coronel 07/26/23 1650 documented in this encounter [facility] 07-12-2023 History of Present illness Narrative Images from the original note were not included. [facility] [address] [facility] [id number] Subjective SUBJECTIVE: Referring Provider: Salud Hansen CNP PPG Referring Provider: Yes Consult Agreement: Yes Employee Program:No Rashawn Multani is a 63 y.o. (White or [1]) female who presents for a follow up MTM visit of Type 2 Diabetes Mellitus. Rashawn Multani is accompanied by her no relatives. At last PharmD visit, no changes were made. Patient reports headaches with hyperglycemia (PPG), but is otherwise doing well. Patient inquires about dietary options which were discussed in depth. Pertinent current medications include: Lantus 20 units QD Farxiga 10 mg QD Pertinent previous medications include: Has taken metformin in the past, it is unclear why this was stopped. Of note eGFR is 45, will consider with caution if needed in the future PERTINENT PAST MEDICAL HISTORY: Chronic Kidney Disease: Yes Atherosclerotic Cardiovascular Disease (ASCVD): No Heart Failure with Reduced/Preserved Ejection Fraction: No Pancreatitis/Gastroparesis: No Medullary Thyroid Carcinoma: unknown Bariatric Surgery: unknown Genitourinary Fungal Infections: No DIET: Patient is primarily eating 1 meal per day, then snacking Breakfast: Glucerna and banana Lunch: snack Dinner: snack Snacks: snack Drinks: Diet Pepsi, Water (minimal) Snacks: popcorn, cheese sticks, cheese cubes, nothing good Diabetic Plate reviewed and Diabetic friendly snacks Discussed including eggs, meat, cheese, peanut butter, cottage cheese as options Discussed increasing vegetable intake via snacking on carrots, cucumbers, celery, broccoli, cauliflower -Patient to look into Premier protein or CorePOwer for additional protein in a drink form EXERCISE: No, foot surgery Encouraged patient to be up and around at least hourly since she reports unable to exercise d/t foot TESTING Home blood glucose: Patient currently has a personal CGM in place. Blood Glucose Device Brand: LibrLensAR Diabetic Supplier: [employer] Objective OBJECTIVE: Vitals: There were no vitals taken for this visit. Caffeine intake within 60 minutes: No Height: Weight: Wt Readings from Last 3 Encounters: 06/16/23 73.9 kg (163 lb) 06/16/23 76.2 kg (168 lb) 06/14/23 76 kg (167 lb 9.6 oz) Weight Trend: stable. BMI: There is no height or weight on file to calculate BMI. A1c: Lab Results Component Value Date HGBA1C 7.0 (H) 06/16/2023 [id number] 7.2 (A) 11/07/2022 SCr: Lab Results Component Value Date CREATININE 1.33 (H) 03/15/2023 GFR: GFR MDRD Af Amer Date Value Ref Range Status 08/13/2021 52 (L) >59 ml/min/1.73sq.m Final GFR MDRD Non Af Amer Date Value Ref Range Status 08/13/2021 43 (L) >59 ml/min/1.73sq.m Final UACR: @LABLAST(albcreatra) No results found for: EXTPOCALB No results found for: EXTUMICOR Vitamin B12 Level: Lab Results Component Value Date [id number] 09/15/2022 Lipid Management: Lab Results Component Value Date CHOL 93 (L) 12/18/2020 HDL 31 (L) 12/18/2020 LDLCALC 26 12/18/2020 TRIG 180 (H) 12/18/2020 The ASCVD Risk score (David GALAN, et al., 2019) failed to calculate for the following reasons: The valid total cholesterol range is 130 to 320 mg/dL ADA Diabetes Quality Measures: - A1c: Up to date 06/16/23 - Kidney Screening: - SCr: Up to date 03/15/23 - UACR: Overdue - Lipid Screening: Overdue - Eye Exam: Overdue Scheduled for July - Foot Exam: Unknown - Dental Exam: Overdue Scheduled for July - Tobacco User: No - On Aspirin: Yes - On ZENIA/ARB: No - On Statin: Yes - Immunizations: Influenza Complete: No Pneumonia Complete: No Hepatitis B Complete: No Shingles Complete: No Tdap Complete: No Covid Complete: No Immunization History Administered Date(s) Administered Influenza (IM) Preservative Free 04/16/2012 Influenza, Injectable, MDCK, Quadrivalent 06/04/2018 Influenza, Injectable, Quadrivalent 06/05/2017, 03/29/2019 Influenza, Injectable, quadrivalent (PF) 04/04/2016, 06/01/2017, 06/22/2017, 06/07/2018 Influenza, Unspecified 04/04/2016, 06/01/2017, 06/05/2017, 06/22/2017, 06/07/2018, 03/29/2019 Zoster Live 05/25/2012 ASSESSMENT/PLAN: ASSESSMENT: Type 2 Diabetes Mellitus: controlled as evidenced by hemoglobin A1c of 7.0 % on 06/16/2023 . Most recent 2 week blood glucose average: 153 mg/dL A1C improved from 8.5% in January 2023 to 7.0% in June 2023 Discussed dietary considerations. Patient to focus on increasing protein and vegetables to assist with PPG hyperglycemia EDUCATION / ADA MEASURES: Reviewed general diabetes pathophysiology and management Reviewed A1C and blood glucose goals Reviewed CGM use and report with patient Reviewed signs and symptoms of hyperglycemia/hypoglycemia and how to treat Reviewed diabetes medication dosing, route, frequency, and side effects Encouraged using the Plate Method for healthy eating Encouraged to increase aerobic exercise Encouraged to obtain eye/foot/dental exam(s) Provided educational handouts MEDICATION PLAN: Continue Lantus 20 units dialy Continue Farixga 10 mg daily. Refills needed on pertinent current medications/supplies: No Patient Assistance, Medical Care Administrator Coupon, or Prior Authorization: No MONITORING: CGM: Yes Glucometer Testing: As needed with CGM FOLLOW UP: Next PCP visit: U10/09/23 Next Pharmacist visit: 08/23/23 Signature: Tino Marquez PharmD, [facility] 30 minute [id number] follow-up appointment. Tino Marquez [facility] 07/13/23 1229 documented in this encounter [facility] 03-28-2023 History of Present illness Narrative Images from the original note were not included. [address] [place] [id number] Patient: Rashawn Multani Date of : 1960 Encounter Date: 03/28/2023 Patient Care Team: Salud Hansen APRN-DANIELA as PCP - General (Family Medicine) Asad Valverde MD as Referring Physician (Nephrology) Manuel Guillory MD as Referring Physician (Gynecologic Oncology) Kevon Steven MD as Consulting Physician (Psychiatry) Marquez Wolf DO as Surgeon (Vascular Surgery) Bebeto Corea MD as Referring Physician (Pulmonary Medicine) Orly La RN as Car Cleaning Supervisor History of Present Illness: The patient is a 63 y.o. female, an established patient, and is following up in the neurology clinic after being hospitalized 2 weeks ago for an episode of lightheadedness, spinning sensation and near fainting. Patient is currently unaccompanied to the clinic. She was previously being seen for tremors and gait instability. Chief Complaint Patient presents with Follow-up Patient presents for follow up, Patient is getting dizzy . Summary of Condition: The patient a 62-year-old right-handed female with past medical history of anxiety, bipolar type 2, diabetes mellitus type 2, diabetic nephropathy, CKD 3, hypertension, hyperlipidemia, obesity, GERD, RAÚL on BiPAP, who is following up in the neurology clinic after being hospitalized 2 weeks ago at [facility], for an episode of lightheadedness, spinning sensation and near fainting. Summary of hospitalization ....62-year-old woman who states that she awoke at 2:00 a.m. and felt dizzy described as a sensation of simultaneous lightheadedness and spinning sensation, associated with near fainting and generalized weakness. The sensation was continuous, she went back to sleep and awoke still feeling quite dizzy and overall unwell. She went to work, and coworkers noted that she was ghost white . Her daughter came to pick her up, and daughter did note that she was leaning to the right side, and possibly had slurredSpeech. Patient is doing much better now, although she still has an uneasy feeling. no sudden vision changes. During this episode she may have had some blurry vision but she is not sure. At work someone measured her blood sugar and it was more than 400. It was in the 300s when she presented to the emergency department. She is on oral anti-hypoglycemics, and does not check her blood sugars regularly at home. Her last hemoglobin A1c was around 9 she states. Nurse notes that in the emergency department she was noted to be bradycardic. White count is elevated this admission around 13-14. CT head was reviewed by me and is unremarkable. CT angiograms were done after stroke code was activated in the emergency department, and were normal. Symptoms were thought to be secondary to hypoglycemia and bradycardia. MRI brain did not show any acute intracranial pathology, routine EEG showed evidence of mild background slowing. Patient was subsequently discharged home in a stable condition. has not had recurrence of symptoms since then. Has been doing well from tremors and gait perspective. Continues to take Sinemet without any adverse events related to its intake. NM DaTSCAN from 03/08/2023 was a normal study Patient continues to be independent with ADLs and IADLs. Currently ambulating without any assistive devices.. Allergies: Codeine, Sulfa (sulfonamide antibiotics), Ciprofloxacin, Magnesium citrate, Morphine sulfate, and Nitrofurantoin macrocrystal Review of Relevant Patient Questionnaires: HIT 6: No data to display PHQ-9: 06/05/2023 1:00 PM 07/12/2022 1:22 PM 05/16/2022 8:00 AM 08/26/2020 1:00 PM 06/09/2020 11:40 AM PM AMB PHQ 9 Little interest or pleasure in doing things 2 3 3 2 2 Feeling down, depressed, or hopeless 1 3 3 2 2 Trouble falling or staying asleep, or sleeping too much 3 3 3 3 3 Feeling tired or having little energy 1 3 3 3 3 Poor appetite or overeating 1 3 2 2 2 Feeling bad about yourself - or that you are a failure or have let yourself or your family down 1 3 3 0 0 Trouble concentrating on things, such as reading the newspaper or watching television 1 3 3 3 3 Moving or speaking so slowly that other people could have noticed. Or the opposite - being so fidgety or restless that you have been moving around a lot more than usual 0 3 0 3 3 Thoughts that you would be better off , or of hurting yourself in some way 0 0 0 0 0 Total Score 10 24 20 18 18 If you checked off any problems, how difficult have these problems made it for you to do your work, take care of things at home, or get along with other people? Somewhat difficult PHQ-15: No data to display MOY-7: No data to display PTSD: No data to display Armstrong: No data to display ZENIA-10: No data to display Past Medical, Family, Surgical, and Social History Update: The following portions of the patient's history were reviewed and updated as appropriate: allergies, current medications, past family history, past medical history, past social history, past surgical history and problem list. Past Medical History: Diagnosis Date Anxiety Asthma Bipolar disorder ([facility]) Bipolar II disorder ([facility]) 02/09/2017 Cancer ([facility]) Cholelithiasis Chronic kidney disease, stage 3 ([facility]) Chronic kidney insufficiency, stage 2 (mild) 05/14/2019 Depression Diabetes mellitus type 2, controlled ([facility]) Endometrial cancer ([facility]) 01/11/2022 Essential hypertension 01/11/2019 Generalized anxiety disorder 03/27/2017 GERD (gastroesophageal reflux disease) H/O urticaria 01/11/2019 Hyperlipidemia Hypersomnia 06/09/2020 Hypertension Hypothyroidism 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 01/11/2019 Insomnia 03/27/2017 Kidney failure Obstructive sleep apnea syndrome 06/09/2020 does not wear cpap Persistent depressive disorder 03/27/2017 Pneumonia 01/11/2019 Restless legs syndrome 06/09/2020 Shortness of breath Suicidal ideation 04/05/2018 Urinary tract infection Visual impairment Vitamin D deficiency 01/11/2019 Family History Problem Relation Age of Onset Diabetes Mother Leukemia Mother Hypertension Mother Hypertension Father Stroke Father Moody Breast Cancer Sister Breast cancer Sister 62 Hypertension Sister Moody Breast Cancer Sister Breast cancer Sister 72 Hypertension Sister Kidney disease Sister Hypertension Sister Hypertension Sister No Known Problems Maternal Grandmother No Known Problems Maternal Grandfather No Known Problems Paternal Grandmother No Known Problems Paternal Grandfather Colon cancer Brother Past Surgical History: Procedure Laterality Date ABDOMINAL SURGERY ARTHRODESIS TOE 1st mtpalso doing bone marrow harvesting Left 07/15/2022 Performed by Heladio Medina DPM at [facility] ASPIRATION BONE MARROW N/A 07/15/2022 Performed by Heladio Mdeina DPM at [facility] BLEPHAROPLASTY OPHTH Bilateral 11/08/2018 Performed by Rowan Kern MD at [facility] BREAST BIOPSY Right 2004 STEREO BENIGN CHOLECYSTECTOMY GASTRIC BYPASS HERNIA REPAIR HYSTERECTOMY 1994 LENGTHENING LATERAL COLUMN CALCANEAL Left 07/15/2022 Performed by Heladio Medina DPM at [facility] OOPHORECTOMY OSTEOTOMY REPAIR POSTERIOR TIBIAL TENDON Left 07/15/2022 Performed by Heladio Medina DPM at [facility] REPAIR LIGAMENT ANKLE BROSTRUM Left 07/15/2022 Performed by Heladio Medina DPM at [facility] REPAIR MUSCLE RECESSION GASTROCNEMIUS Left 07/15/2022 Performed by Heladio Medina DPM at [facility] TONSILLECTOMY Current Outpatient Medications Medication Sig Dispense Refill acetaminophen (TYLENOL EXTRA STRENGTH) 500 mg tablet Take 2 tablets (1,000 mg total) by mouth every 8 (eight) hours. 30 tablet 0 aspirin 81 mg Take 1 tablet (81 mg total) by mouth in the morning. blood sugar diagnostic (glucose blood) strip 1 strip by other route 4 (four) times daily before meals and at bedtime as needed for high blood sugar or low blood sugar. 200 strip 11 blood-glucose meter misc 1 Device by in vitro route 3 (three) times a day. 1 each 0 ferrous sulfate 325 (65 FE) mg tablet Take 1 daily 90 tablet 1 flash glucose scanning reader (FREESTYLE JOELLE 2 READER) misc 1 Unit by miscellaneous route 4 (four) times a day before meals and nightly. 1 each 6 lancets misc 1 each by miscellaneous route 3 (three) times a day. 200 each 11 MYRBETRIQ 50 mg tablet extended release 24 hr Take 1 tablet (50 mg total) by mouth as needed. traZODone (DESYREL) 100 mg tablet Take 2 tablets (200 mg total) by mouth nightly. 180 tablet 3 ARIPiprazole (ABILIFY) 10 mg tablet Take 1 tablet (10 mg total) by mouth in the morning. 90 tablet 3 blood-glucose meter,continuous (DEXCOM G7 ODD JOB LABORER) misc 1 Application by miscellaneous route 4 (four) times daily before meals and at bedtime as needed (before meals and at bedtime). 1 each 5 blood-glucose sensor (DEXCOM G7 SENSOR) device 1 application. by miscellaneous route 4 (four) times a day before meals and nightly. 5 each 5 carbidopa-levodopa (SINEMET) 25-100 mg per tablet Take a tablet(25mg) three times a day(8 am, 12 pm, 4 pm) 90 tablet 3 cholecalciferol, vitamin D3, (VITAMIN D3) 2,000 units capsule TAKE 1 CAPSULE EVERY AFTERNOON 28 capsule 0 cyanocobalamin (VITAMIN B-12) 1,000 mcg/mL injection inject 1 milliliter subcutaneously Every Month 3 mL 3 dapagliflozin propanediol (FARXIGA) 10 mg tablet Take 1 tablet (10 mg total) by mouth in the morning. 90 tablet 1 escitalopram (LEXAPRO) 10 mg tablet TAKE (1) TABLET EVERY MORNING WITH 20MG TABS 90 tablet 1 escitalopram (LEXAPRO) 20 mg tablet Take 1 tablet (20 mg total) by mouth in the morning. FREESTYLE JOELLE 2 SENSOR kit apply 1 SENSOR to back OF UPPER ARM REMOVE AND REPLACE every 14 days use with DEVICE to MONITOR BLOOD SUGAR four times a day before meals and at bedtime if needed TEST FOR SLIDING SCALE 1 kit 6 gabapentin (NEURONTIN) 100 mg capsule TAKE 1 CAPSULE 3 TIMES A DAY, MORNING, EVENING, AND BEDTIME 84 capsule 0 insulin glargine (LANTUS, SEMGLEE) 100 unit/mL (3 mL) insulin pen Inject 25 Units under the skin in the morning. 15 mL 2 insulin lispro (HumaLOG) 100 unit/mL injection Use sliding scale:151-200 mg/dL, give 2 units. 201-250 mg/dL, give 4 units. 251-300 mg/dL, give 6 units. 301-350 mg/dL, give 8 units. 351-400 mg/dL, give 10 units. 10 mL 3 levothyroxine (SYNTHROID, LEVOTHROID) 75 MCG tablet take 1 tablet by mouth every morning 90 tablet 1 LORazepam (ATIVAN) 0.5 mg tablet Take 1 tablet (0.5 mg total) by mouth 3 (three) times a day as needed for anxiety. 90 tablet 2 mupirocin (BACTROBAN) 2 % ointment Apply 1 Application topically in the morning and 1 Application before bedtime. 22 g 0 pantoprazole (PROTONIX) 40 mg EC tablet take 1 tablet by mouth IN THE MORNING 90 tablet 1 pen needle, diabetic (DROPLET PEN NEEDLE) 31 gauge x 5/16 needle USE WITH NOVOLOG FLEXPEN 100 each 2 pen needle, diabetic 32 gauge x 5/32 needle Use once per day 100 each 1 rosuvastatin (CRESTOR) 10 mg tablet TAKE 1 TABLET AT BEDTIME 90 tablet 1 No current facility-administered medications for this visit. (All medications reviewed and updated by provider since last office visit or hospitalization) Tobacco History: Social History Tobacco Use Smoking Status Never Smokeless Tobacco Never (If patient a smoker, smoking cessation counseling offered) Social History: Social History Substance and Sexual Activity Alcohol Use No Review of Systems: 14 systems were reviewed and negative except those mentioned in HPI . Physical Exam: Vitals: Vitals: 03/28/23 1535 BP: 119/69 Pulse: 74 Weight: 73.9 kg (163 lb) Height: 152.4 cm (5') Patient consulted for exercise: encouragement to exercise. Neurological Physical Exam: Physical Exam: Mental Status: Orientation: Oriented. Level of consciousness: alert. Follows commands: 3 step. Memory: Appears normal. Attention span is normal. Concentration is normal. Speech: Patient has normal vocabulary. Mild bradyphemia. Language: Normal. No acalculia, no anomia, not reading impaired, not writing impaired, no paraphasic errors and not repetition impaired. Gaze deviation, apraxia, neglect not appreciated. Patient able to perform Luria 3 step test.. Cranial Nerves: CN II: Visual cota full to confrontation. CN II - Visual Acuity: Normal in right eye and left eye. Optic Discs: No pallor/atrophy on right or left. No edema on right or left. Pupils: Relative afferent pupillary defect absent. CN III, IV, : CN III: PERRLA, EOM full, no nystagmus, no ptosis and no REBECA. Pupils: right pupil regular and left pupil regular. Pupil Size: right = left. Pupil reactivity: Right and left pupil constrict(s) to light. Right and left pupil appropriately dilates in dark. Consensual response intact on right and Consensual response intact on left. CN V: Facial sensation intact to pin. CN VII: Facial expression fully symmetric. CN VIII: CN VIII normal. Hearing intact. CN IX, X: CN IX and X normal. CN XI: CN XI normal. CN XII: CN XII normal. Tongue protrudes midline. Motor: Muscle Bulk: Normal. Muscle Tone: Normal. Right upper extremity muscle tone normal.Left upper extremity muscle tone normal.Right lower extremity muscle tone normal.Left lower extremity muscle tone normal. Power: Normal strength throughout. Right bradykinesia and left bradykinesia. Pronator drift: None. Muscle Strength: Except for left dorsiflexion/plantar flexion/inversion/the version 4-/5. Mild bradykinesia in bilateral upper extremities, appears to be symmetric. Fasciculations: No Myotonia: No myotonia. Sensory: Light touch normal in upper and lower extremities. Vibration normal in upper and lower extremities. Proprioception: Normal in upper and lower extremities. Pinprick normal in upper and lower extremities. Gait/Coord/DTR: Abnormal Gait: left limp, limping and abnormal gait. Unable to tandem walk, unable to heel walk on right, unable to heel walk on left, and . Coordination: Normal. Tremor: Negative findings: no dysdiadochokinesia right, no dysdiadochokinesia left, no past pointing right, no past pointing left, no resting tremor right, no resting tremor on left, no pill rolling tremor on right, no pill rolling tremor on left and no right head resting tremor. Involuntary Movements: no abnormal movement. Myoclonus: None. No resting tremor is appreciated. On extending the hands and arms, patient appears to have a mild, slightly worse on the right, high intensity low-amplitude postural tremor, centered around the wrist joints, which appears to be interrupted by supination/pronation type solitary jerk in bilateral upper extremities which is of larger amplitude. Onset of twitching is 2-3 seconds after assuming the extension posture. The jerking appears to reoccur every few seconds. The large amplitude jerks persists after the wrist is hyper extended. Archimedes spiral test shows mild saw tooth like tremor, in bilateral upper extremities, starting at the center of the spiral. Re-emergence not appreciated.. General Exam: Constitutional: Overweight . Eyes: Normal appearance, no icterus. Right Ear: Hearing normal. Left Ear: Hearing normal. Neck: Normal appearance and normal range of motion. Cardiovascular: Normal rate and regular rhythm. Skin: Warm and dry Psychiatric: Normal mood/affect, good eye contact, behaving normally, normal thought content, normal judgment and normal psychomotor. Pulmonary: Effort: Pulmonary effort is normal. Data Reviewed: Lab Results Component Value Date CREATININE 1.33 (H) 03/15/2023 BUN 24 03/15/2023 K 4.5 03/15/2023 CL 105 03/15/2023 CO2 26 03/15/2023 Lab Results Component Value Date WBC 5.8 03/15/2023 HGB 12.3 03/15/2023 HCT 36.1 03/15/2023 MCV 91 03/15/2023 PLT 231 03/15/2023 Lab Results Component Value Date ALT 22 03/15/2023 AST 19 03/15/2023 ALKPHOS 80 03/15/2023 Lab Results Component Value Date INR 1.0 07/08/2022 PROTIME 11.0 07/08/2022 No results found for: PTT Diagnostic Study Results: CT No results found. CTA No results found. MRI refer to HPI Angio No results found. Assessment and Plan: Rashawn was seen today for follow-up. Diagnoses and all orders for this visit: Tremors of nervous system - carbidopa-levodopa (SINEMET) 25-100 mg per tablet; Take a tablet(25mg) three times a day(8 am, 12 pm, 4 pm) Parkinsonism, unspecified Parkinsonism type (CMS-HCC) - carbidopa-levodopa (SINEMET) 25-100 mg per tablet; Take a tablet(25mg) three times a day(8 am, 12 pm, 4 pm) Gait instability Extrapyramidal syndrome Gastroesophageal reflux disease without esophagitis Chronic musculoskeletal pain RAÚL treated with BiPAP Type 2 diabetes mellitus with stage 3b chronic kidney disease, with long-term current use of insulin (CMS-HCC) Essential hypertension 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 Symptoms were thought to be secondary to hypoglycemia and bradycardia. MRI brain did not show any acute intracranial pathology, routine EEG showed evidence of mild background slowing. Patient was subsequently discharged home in a stable condition. has not had recurrence of symptoms since then. Has been doing well from tremors and gait perspective. Continues to take Sinemet without any adverse events related to its intake. NM DaTSCAN from 03/08/2023 was a normal study Patient continues to be independent with ADLs and IADLs. Currently ambulating without any assistive devices.. Clinical impression: Presyncope secondary to hyperglycemia and bradycardia, resolved Parkinsonism(secondary versus primary) versus atypical, essential tremors After discussing pros and cons, patient will continue current regimen of Sinemet 25-100 mg tablet, t.i.d.(8:00 a.m., 12:00 p.m. and 4:00 p.m.). Side effect profile was discussed with the patient in detail. Encouraged to do physical therapy for gait and balance training, however patient would like to postpone that for now. Supportive care. Regular follow-up with PCP and psychiatrist. Return to clinic in 4 months. 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 Vi Lim MD Vascular Neurologist [facility] Neurology Clinic # [phone] I have personally participated in the care of this patient. I have reviewed all pertinent clinical information, including history, physical exam, investigation results and plan. I spent 35 minutes caring for this patient, and more than 50% of that time was spent on counseling the patient/chronometer assembler/care team and coordinating care. Important Notice: This note was created with the assistance of a speech recognition program. While intending to generate a timely document that accurately reflects the content of the encounter, no guarantee can be provided that every grammatical or spelling mistake has been or will be identified or corrected. Thank you for your understanding. documented in this encounter [facility] 09-28-2022 Hospital Discharge instructions Patient Education 09/28/2022 15:30:46 Urethral Dilation [...] including vitamins, herbs, eye drops, creams, and pcby-uhv-kycixvs medicines. Any problems you or family members [...] provider tells you to take them. Taking wiow-ofz-fcvwkby medicines, vitamins, herbs, and supplements. General instructions [...] Follow these instructions at home: Medicines Take ixip-ujs-habrxaq and prescription medicines only as told by [...] actions to prevent or treat constipation: ?Take biml-tbp-csapwmc or prescription medicines. ?Eat foods that are [...] 07/15/2016 Document Revised: 08/01/2019 Document Reviewed: 08/01/2019 [employer] Patient Education 2020 [employer]. Follow Up Care 09/05/2022 10:29:01 With:AILEEN WASSERMAN, Arabella Clark, URL Address: [address] [place], [place] [id number]- When: Unknown Comments:Office will call to schedule Cysto/UD. [facility] 03-16-2022 Evaluation note Encounter Date Diagnosis Assessment Notes Mar, Diarrhea (ICD-10 - R19.7) [facility] 08-19-2022 Evaluation note* Encounter Date Diagnosis [...] weeks for the cough to go away [facility] 08-15-2022 Evaluation note* Encounter Date Diagnosis [...] weeks for the cough to go away. [facility] Other 07-21-2022 Evaluation note* Encounter Date Diagnosis Assessment Notes Treatment Notes Treatment Clinical Notes Dec, Irritable bowel syndrome with diarrhea (ICD-10 - K58.0) PATIENT STATES THESE ARE PENCIL FORM AND A BLACKISH COLOR DUE TO IRON. PATIENT TO FINISH VANCO AND CONTINUE ON THE COLESTIPOL [facility] Other 07-12-2022 Evaluation + Plan note Diagnostic Tests Pending * Urine Culture 01/11/22 Future Scheduled Tests Laboratory* BUN 01/18/21 * Creatinine 01/18/21 * Electrolyte Panel 01/18/21 * CBC w/ Auto Diff 01/18/21 Radiology* XR Chest 2 Views 01/18/21 [facility]06-30-2022 Evaluation note* Encounter Date Diagnosis Assessment Notes Treatment Notes Treatment Clinical Notes Dec, GERD (gastroesophageal reflux disease) (ICD-10 - K21.9) [facility] Other 06-28-2022 Hospital Discharge instructions Patient Education [...] alcohol may irritate the prostate. Medicines Take klgw-juh-hogglev and prescription medicines only as told by [...] 03/17/2005 Document Revised: 06/01/2018 Document Reviewed: 04/05/2018 [employer] Patient Education 2020 [employer]. Follow Up Care 12/27/2021 16:13:16 With:PAULA JOSHI PA-C, URL Address: [address] [place] [address] Business (1) When: Unknown Comments:pending results of imaging/testing, will call with next steps [facility] 06-28-2022 Evaluation + Plan note Diagnostic Tests Pending * Urinalysis 12/28/21 * Urine Culture 12/28/21 Future Scheduled Tests Laboratory* BUN 01/18/21 * Creatinine 01/18/21 * Electrolyte Panel 01/18/21 * CBC w/ Auto Diff 01/18/21 Radiology* XR Chest 2 Views 01/18/21 [facility] 06-28-2022 Evaluation + Plan note Diagnostic Tests Pending * Urine Culture 12/28/21 Future Scheduled Tests Laboratory* BUN 01/18/21 * Creatinine 01/18/21 * Electrolyte Panel 01/18/21 * CBC w/ Auto Diff 01/18/21 Radiology* XR Chest 2 Views 01/18/21 [facility]-28-2022 Evaluation note* Encounter Date Diagnosis Assessment Notes Treatment Notes Treatment Clinical Notes Dec, Gastroenteritis (ICD-10 - K52.9) Dec, Clostridium difficil e enteritis (ICD-10 - A04.72) Dec, Other MEDS ORDERED AT THIS TIME. MEDS AND LABS ORDERED [facility] Other 04-18-2022 NoteHNO ID: [id number] Author: Manuel Guillory MD Service: ? Author Type: Physician Type: Progress Notes Filed: 11/01/2021 4:33 PM Note Text: Gynecologic Oncology [facility] Follow-up Re: Rashawn Multani CCF#: [id number] Date of Service: 11/01/2021 Patient presents for [...] (1996); and anesth, section. She presented [facility], 10[facility], for evaluation and management of abnormal pap and HPV. Patient was previously seen by Dr. Mahdi HPI Patient presents for Follow-up. Patient is [...] No axillary adenopa (more content not included)... [id number] Present illness Narrative* Manuel Guillory MD - 10/18/2021 2:07 PM EDT Gynecologic Oncology [facility] Follow-up Re: Rashawn Multani CCF#: [id number] Date of Service: 11/01/2021 Patient presents for [...] (1996); and anesth, section. She presented to [facility], 10/05/18, for evaluation and management of abnormal [...] adenopathy or nipple discharge noted. Heather Guerrero, ASSOCIATE [employer] STUDENTS Abdominal - No CVA tenderness. The abdomen is soft, nontender and there is no inguinal adenopathy. Pelvic - Normal vulva and vaginal cuff. A pap smear is obtained. Bimanual and rectovaginal exams reveal no masses. Sales Ledger Administrator present: Aimee Bailey RN IMPRESSION: Patient presents [...] the documented findings and plan. Sincerely, Manuel Giullory M.D. Reviewed and corrected by Manuel Guillory M.D. A letter and a copy of this office note were sent to: Carmelita Javier DO [address] [facility] [address] [facility] [id number] CC: Tammy Wilkins MD (PCP) The previous note from Dr Guillory on 10/19/20 was copied forward and the necessary changes were made above. Medical Decision Making: Problems: Minimal: Self-limited or minor problem Data: Unique test(s) ordered: 1 Medical Decision Making Level: 2 - Straightforward [facility]* Diagnosis Stage 3a chronic kidney disease (HCC) [facility] Work Phone: [phone]) 767-847307-19-2021 Evaluation + Plan note Future Scheduled Tests Laboratory* BUN 01/18/21 * Creatinine 01/18/21 * Electrolyte Panel 01/18/21 * CBC w/ Auto Diff 01/18/21 Radiology* XR Chest 2 Views 01/18/21 [facility] 03-17-2021 NoteHNO ID: [id number] Author: Jayesh Kim (Tech) Service: ? Author Type: Sweatband Flanger Type: Progress Notes Filed: 09/16/2020 9:16 AM [...] contrast PATIENT DISCHARGED TO: Ambulatory patient, left [place] department area. A Diagnostic radioactive procedure has taken place, with no further precautions necessary other than routine body substance precautions. More information regarding radiation safety can be found using this link: [email or web address] SIGNATURE: Jayesh Kim PATIENT NAME: Rashawn Multani DATE: September 16, 2020 TIME: 9:16 AM PAGER/CONTACT #:[facility] complaint+Reason for visit Narrative* Chief Complaint sore throat, headach e Reason for Visit Contact with and (hand spected) exposure to covid-19 [facility] Work Phone: Evaluation + Plan note Future Appointments Appointment Date:08/01/2023 01:00:00 PM Scheduled Provider:PAULA JOSHI PA-C Location:[facility] Appointment Type:URO Office Visit [facility] Evaluation + Plan note Future Appointments Appointment Date:11/21/2023 02:00:00 PM Scheduled Provider:PAULA JOSHI PA-C Location:[facility] Appointment Type:URO Office Visit [facility] evaluation + Plan note Future Appointments Appointment Date:05/28/2024 02:00:00 PM Scheduled Provider:PAULA JOSHI PA-C Location:[facility] Appointment Type:URO Office Visit [facility] evaluation note* Diagnosis Lung nodule Solitary pulmonary nodule documented in this encounter [employer] Phone: evaluation note* Diagnosis Endometrial cancer (HCC)- Primary Malignant neoplasm of corpus uteri, except isthmus VAIN I (vaginal intraepithelial neoplasia grade I) Dysplasia of vagina Encounter for screening mammogram for malignant neoplasm of breast Other screening mammogram [facility] [employer] Other Evaluation note* Diagnosis Dyslipidemia Other and unspecified hyperlipidemia [facility] Diagnosis Vitamin D deficiency Neuropathy Mononeuritis of unspecified site [facility] Diagnosis Type 2 diabetes mellitus with stage 3b chronic kidney disease, with long-term current use of insulin ([facility]) [E11.22, N18.32, Z79.4]- Primary [facility] Diagnosis Type 2 diabetes mellitus with stage 3b chronic kidney disease, with long-term current use of insulin ([facility]) [facility] Diagnosis Toe injury, left, initial encounter- Primary Cellulitis of toe of left foot Pain of toe of left foot Type 2 diabetes mellitus with stage 3b chronic kidney disease, with long-term current use of insulin ([facility]) Acquired female bladder prolapse Cystocele, midline Bipolar II disorder ([facility]) Other bipolar disorders Endometrial cancer ([facility]) Malignant neoplasm of corpus uteri, except isthmus Parkinsonian tremor Paralysis agitans Pain of toe of left foot [facility]* Diagnosis Neuropathy Mononeuritis of unspecified site Vitamin D deficiency [facility]* Diagnosis Tremors of nervous system- Primary Parkinsonism, unspecified Parkinsonism type Gait instability Abnormality of gait Extrapyramidal syndrome Unspecified extrapyramidal disease and abnormal movement disorder Gastroesophageal reflux disease without esophagitis Esophageal reflux Chronic musculoskeletal pain RAÚL treated with BiPAP Type 2 diabetes mellitus with stage 3b chronic kidney disease, with long-term current use of insulin ([facility]) Essential hypertension Unspecified essential hypertension 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 Vitamin D deficiency Generalized anxiety disorder Bipolar II disorder ([facility]) Other bipolar disorders [facility] Diagnosis Diabetic polyneuropathy associated with type 2 diabetes mellitus ([facility]/HCC)- Primary Valgus deformity, not elsewhere classified, right ankle Hallux valgus of right foot Acquired keratoderma [facility] Diagnosis Bipolar II disorder ([facility])- Primary Other bipolar disorders Essential hypertension Unspecified essential hypertension Endometrial cancer ([facility]) Malignant neoplasm of corpus uteri, except isthmus Stage 3b chronic kidney disease ([facility]) Type 2 diabetes mellitus with stage 3b chronic kidney disease, with long-term current use of insulin ([facility]) [facility] Diagnosis Onset Date Resolution Status Contact with and (suspected) exposure to [address] Work Phone: Evaluation note* Diagnosis COVID-19- Primary [facility]* Diagnosis COVID-19- Primary Shortness of breath Acute cough COVID-19 Shortness of breath [facility] Diagnosis COVID-19 [facility] Diagnosis Vitamin D deficiency Neuropathy Mononeuritis of unspecified site documented [facility] Diagnosis Pain of right upper extremity- Primary Type 2 diabetes mellitus with chronic kidney disease, with long-term current use of insulin, unspecified CKD stage ([facility]) documented [facility]* Diagnosis Pain of right upper extremity- Primary documented in [facility]* Diagnosis Vitamin D deficiency Neuropathy Mononeuritis of unspecified site Gastroesophageal reflux disease without esophagitis Esophageal reflux documented in [facility]* Diagnosis Acute kidney injury superimposed on CKD ([facility]) documented [facility]* Diagnosis Stage 3b chronic kidney disease ([facility])- Primary Type 2 diabetes mellitus with stage 3b chronic kidney disease, with long-term current use of insulin ([facility]) documented [facility] encounter [facility]* Diagnosis Tremors of nervous system Parkinsonism, unspecified Parkinsonism type ([facility]) [facility] Diagnosis Type 2 diabetes mellitus with stage 3b chronic kidney disease, with long-term current use of insulin ([facility]) [facility] System[facility] general Narrative - Reported* Type Description [...] History urethral stretched Hospitalization History as above [facility] Other Hospital course Narrative No data available for this section [facility] Discharge instructions No data available for this section [facility] Hospital[facility]ructionsNot on filedocumented in this encounter [facility] SystemInstructionsNot on filedocumented in this encounter [facility]Not on filedocumented in this encounter [facility]ructionsNot on filedocumented in this encounter [facility]* Attachments The following attachments cannot be sent through Care Everywhere. * Cellulitis (Skin Infection) Discharge Instructions, Adult ([place]rit[place]an) [facility] SystemInstructionsNot on file [facility]Not on [facility] in [facility] SystemInstructionsNot on file [facility]* Attachments The following attachments cannot be sent through Care Everywhere. * Generalized Weakness ([place]rit[place]an) [facility] SystemInstructionsNot on file [facility]* Attachments The following attachments cannot be sent through Care Everywhere. * COVID-19 Discharge Instructions (Erit[place]an) * Cough, Adult ED ([place]ritrean) [facility] SystemInstructionsNot on file [facility] SystemInstructionsNot on file [facility] in [facility] SystemInstructionsNot on file [facility]* Attachments The following attachments cannot be sent through Care Everywhere. * Active Range of Motion Exercises, Arms and Hands ([place]rit[place]an) [facility] encounter[facility] SystemInstructionsNot on file documented in [facility] encounterPro[facility] SystemInstructionsNot on file documented in this encounterPro[facility] SystemInstructionsNot on file documented in this encounterProMartin [facility] SystemInstructionsNot on file documented in this encounterProMartin [facility] SystemInstructionsNot on file documented in this encounterPro[facility] SystemInstructionsNot on file documented in this [facility]Pro[facility] SystemProgress note No data available for this section [facility] Colin Reason for referral (narrative)* Diagnostic Procedure Only (Routine) - Pending Review Specialty Diagnoses / Procedures Referred By Noah haynes Referred To Contact [facility] Diagnoses Encounter for screening mammogram for malignant neoplasm of breast Procedures CHARLI SCREENING SCREENING MAMMOGRAPHY BI 2-VIEW BREAST INC Heather Farmer APRN.DANIELA [address] [place] [address] [facility] [address] [place] [address] Referral ID Status Reason Start Date Expiration Date Visits Requested Visits Authorized [id number] Pending Review Auto-Generat ed Referral 11/01/2021 12/01/2022 1 1 [facility] History of Present Illness * Rich Juan RD, LD - 12/31/2019 1:00 PM EDT This is a notice of failure to show for a medical nutrition therapy appointment. Rashawn Gordon Rangel had an appointment with the dietitian this date, but did not show, cancel or reschedule before the appointment time. If an appointment is still desired, please contact centralized scheduling . Thank you for the referral. documented in this encounter Advance Directives No Advanced Directives Records FoundDocuments on File Type Date Recorded Patient Child Adolescent Psychiatrist Expl anation DNR Physician Order 04/05/2023 11:36 AM Date Activated Date Inactivated Comments 10/25/2023 3:10 PM 10/30/2023 4:39 PM Date Activated Date Inactivated Comments 10/25/2023 2:53 PM 10/25/2023 3:10 PM Date Activated Date Inactivated Comments 08/14/2023 2:17 AM 08/14/2023 4:33 AM Date Activated Date Inactivated Comments 03/13/2023 6:17 PM 03/15/2023 3:22 PM Date Activated Date Inactivated Comments 03/13/2023 2:47 PM 03/13/2023 6:12 PM Documents on File Type Date Recorded Patient Child Adolescent Psychiatrist Expl anation Advance Directives and Living Will Power of Vision Impaired Teacher Latest Code Status on File Code Status Date Activated Date Inactivated Comments Full Code 01/11/2019 5:56 PM 01/14/2019 12:58 PM Documents on File Type Date Recorded Patient Child Adolescent Psychiatrist Expl anation ACP-Advance Directive ACP-Power of Vision Impaired Teacher Documents on File Type Date Recorded Patient Child Adolescent Psychiatrist Expl anation ACP-Advance Directive ACP-Power of Vision Impaired Teacher Latest Code Status on File Code Status Date Activated Date Inactivated Comments Full Code 01/11/2019 5:56 PM 01/14/2019 12:58 PM Latest Code Status on File Code Status Date Activated Date Inactivated Comments DNR Comfort Care Arrest (DNR-CCA) [place] 03/13/2023 6:17 PM 03/15/2023 3:22 PM Code Status History Code Status Date Activated Date Inactivated Comments DNR Comfort Care (DNRCC) [place] 03/13/2023 2:47 PM 023 6:12 PM DNR Comfort Care (DNRCC) [place] 09/15/2022 4:39 PM 023 5:32 PM Full Code 09/15/2022 5:28 AM 09/15/2022 4:39 PM Full Code 07/15/2022 12:10 PM 07/19/2022 5:20 PM Latest Code Status on File Code Status Date Activated Date Inactivated Comments DNR Comfort Care Arrest (DNR-CCA) [place] 08/14/2023 2:17 AM 08/14/2023 4:33 AM Code Status History Code Status Date Activated Date Inactivated Comments DNR Comfort Care Arrest (DNR-CCA) [place] 03/13/2023 6:17 PM 03/15/2023 3:22 PM DNR Comfort Care (DNRCC) [place] 03/13/2023 2:47 PM 023 6:12 PM DNR Comfort Care (DNRCC) [place] 09/15/2022 4:39 PM 023 5:32 PM Full Code 09/15/2022 5:28 AM 09/15/2022 4:39 PM Advance Directive Response Recorded Date/ Time Advance Directives No July 13, 2017 1:46pm Documents on File Type Date Recorded Patient Child Adolescent Psychiatrist Expl anation DNR Physician Order 04/05/2023 11:36 AM Latest Code Status on File Code Status Date Activated Date Inactivated Comments DNR Comfort Care Arrest (DNR-CCA) [place] 08/14/2023 2:17 AM 08/14/2023 4:33 AM Code Status History Code Status Date Activated Date Inactivated Comments DNR Comfort Care Arrest (DNR-CCA) [place] 03/13/2023 6:17 PM 03/15/2023 3:22 PM DNR Comfort Care (DNRCC) [place] 03/13/2023 2:47 PM 023 6:12 PM DNR Comfort Care (DNRCC) [place] 09/15/2022 4:39 PM 023 5:32 PM Full Code 09/15/2022 5:28 AM 09/15/2022 4:39 PM Reason for Referral Status Reason Specialty Diagnoses / Procedures Referre d By Contact Referred To Contact Closed Radiology Diagnoses Lung nodule Procedures CT CHEST LOW DOSE (LDCT) Bebeto Corea MD [address] [facility] [address] [place] [address] Specialty Diagnoses / Procedures Referred By Contac t Referred To Contact Radiology Diagnoses Pain of right upper extremity Procedures CT humerus right without contrast Joanie Johnson APRN-ASSOCIATE [employer] [address] [place] [phone] Referral ID Status Reason Start Date Expiration Date V isits Requested Visits Authorized [id number] Pending Review 09/27/2023 09/26/2024 1 1 Summary Purpose Family History No Family History Records Found Relationship Condition Age at Onset Recorded Date/T awa Not Specified Malignant neoplasm Unknown Hypertension Unknown father Hypertension Unknown Abdominal aortic aneurysm (AAA) Unknown History of stroke Unknown Unknown family member Unknown Not Specified Leukemia Unknown Malignant neoplasm Unknown Diabetes mellitus Unknown sister Family history of mental disorder Unknown Additional Source Comments Reason for Visit (unrecogniz ed section and content) Status Reason Specialty Diagnoses / Procedures Referre d By Contact Referred To Contact Authorized IP Unit Diagnoses Type 2 diabetes mellitus without complications Procedures HC NUTRITIONAL COUNSELING, DIET Tammy Wilknis MD [address] [place] [address] [facility] [address] [place] [address] Status Reason Specialty Diagnoses / Procedures Referre d By Contact Referred To Contact Closed Radiology Diagnoses Lung nodule Procedures CT CHEST LOW DOSE (LDCT) Bebeto Corea MD [address] [facility] [address] [place] [address] Reason Comments Established Patient Reason Comments Med Refill Reason Comments Diabetes Mellitus MTM Follow-up Visit Reason Comments Toe Injury Reason Comments Follow-up Patient presents for follow up, Patient is getting dizzy Reason Comments Follow-up Pt presents today fo r a FUV, Lt foot is doing well, ''somedays are good, some are bad, but there are more good days than bad ones.''BS: 187 A1C: 7.0LV Yasmin Hansen 07-26-2023SS: 7.5 Reason Comments Cough Reason Comments Arm Pain RT Reason Onset Date Comments Labs Only 10/04/2023 Reason Onset Date Comments Med Refill 10/06/2023 Reason Onset Date Comments Med Refill 04/02/2024 Care Teams (unrecognized sec tion and content) Auto Machinist Relationship Specialty Start Date End Date Willy Carroll MD [address] [place] [address] PCP - General Internal Medicine 08/27/20 Auto Machinist Relationship Specialty Start Date End Date Tammy Wilkins PCP - General Internal Medicine 08/23/18 Auto Machinist Relationship Specialty Start Date End Date Salud Hansen, ROTARY CUTTER FEEDER-ASSOCIATE [employer] [address], [place] [address] PCP - General Family Medicine 07/13/22 Auto Machinist Relationship Specialty Start Date End Date Salud [facility] [address], [place] [address] PCP - General Family Medicine 07/13/22 Auto Machinist Relationship Specialty Start Date End Date Salud Hansen [facility] [address], [place] [address] PCP - General Family Medicine 07/13/22 Auto Machinist Relationship Specialty Start Date End Date Salud Hansen [facility] [address], [place] [address] PCP - General Family Medicine 07/13/22 Auto Machinist Relationship Specialty Start Date End Date Salud [facility] [address], [place] [address] PCP - General Family Medicine 07/13/22 Auto Machinist Relationship Specialty Start Date End Date Salud Hansen [facility] CUT[facility] [address], [place] [address] PCP - General Family Medicine 07/13/22 Auto Machinist Relationship Specialty Start Date End Date Salud Hansen ROTARY CUTTER [facility] [address], [place] [address] PCP - General Family Medicine 07/13/22 Auto Machinist Relationship Specialty Start Date End Date Salud [facility] [address], [place] [address] PCP - General Family Medicine 07/13/22 Auto Machinist Relationship Specialty Start Date End Date Unallocated, [place]oms Provider [address] [place] [address] PCP - General 01/10/23 Team Status: Active Member Role Status Dates NON STAFF Primary Care Provider Active Team Status: Inactive Member Role Status Dates NON STAFF Primary Care Provider Active Start: August 16, 2023 End: August 16, 2023 TANO KoehlerC Attending Provider Active S tart: August 16, 2023 End: August 16, 2023 Auto Machinist Relationship Specialty Start Date End Date Salud Hansen [facility] [address], [place] [address] PCP - General Family Medicine 07/13/22 Auto Machinist Relationship Specialty Start Date End Date Salud Hansen [facility] [address], [place] [address] PCP - General Family Medicine 07/13/22 Auto Machinist Relationship Specialty Start Date End Date Salud Hansen ROTARY CUTTER [facility] [address], [place] [address] PCP - General Family Medicine 07/13/22 Auto Machinist Relationship Specialty Start Date End Date Salud Hansen ROTARY CUTTER [facility] [address], [place] [address] PCP - General Family Medicine 07/13/22 Auto Machinist Relationship Specialty Start Date End Date Salud Hansen APRN-[facility] [address], [place] [address] PCP - General Family Medicine 07/13/22 Auto Machinist Relationship Specialty Start Date End Date Salud Hansen [facility] [address], [place] [address] PCP - General Family Medicine 07/13/22 Auto Machinist Relationship Specialty Start Date End Date Salud Hansen [facility] [address], [place] [address] PCP - General Family Medicine 07/13/22 Auto Machinist Relationship Specialty Start Date End Date Salud Hansen [facility] [address], [place] [address] PCP - General Family Medicine 07/13/22 Auto Machinist Relationship Specialty Start Date End Date Salud Hansen [facility] [address], [place] [address] PCP - General Family Medicine 03/16/24 INFORMATION SOURCE (unrecogn ized section and content) DATE CREATED AUTHOR 06/15/2021 Gogo raza DATE CREATED AUTHOR AUTHOR'S ORGANIZ ATION 08/11/2021 [facility] DATE CREATED AUTHOR AUTHOR'S ORGANIZ ATION 12/02/2021 [facility] DATE CREATED AUTHOR AUTHOR'S ORGANIZ ATION 01/31/2022 [facility] DATE CREATED AUTHOR AUTHOR'S ORGANIZ ATION 10/29/2022 [facility] DATE CREATED AUTHOR AUTHOR'S ORGANIZ ATION 09/22/[address] [facility] EPIC DATE CREATED AUTHOR AUTHOR'S ORGANIZ ATION 03/22/2024 [facility] DATE CREATED AUTHOR AUTHOR'S ORGANIZ ATION 04/06/2024 [facility] DATE CREATED AUTHOR AUTHOR'S ORGANIZ ATION 04/09/2024 [facility] Source Comments (unrecognize d section and content) In the event this informatio n is protected by the Federal Confidentiality of Alcohol and Drug Abuse Patient Records regulations: The Federal rules restrict any use of the information to criminally investigate or prosecute any alcohol or drug abuse patient.[facility] Goals (unrecognized section and content) Goals may be documented in a n alternate section FOR RECORDS PERTAINING TO PATIENTS WHO ARE [...] BE BASED ON THE PRIMARY CLINICAL RECORDS. [facility] [employer] [facility]. provides no warranty or guarantee of the accuracy or completeness of information in this document.
[2024-04-11 07:32] VITALS: BP 138/85; PULSE 76; TEMP 36.4; O2SAT 96; BMI 30.5
[2024-04-11] MEDS: 0.9 % SODIUM CHLORIDE 500 ML 50 ML IV ×2 (07:53→09:49)
[2024-04-11] MEDS: CEFAZOLIN SODIUM 2 GM/50 ML D5W PREMIX IV (08:34)
[2024-04-11 09:05] VITALS: BP 88/56; PULSE 64; TEMP 36.4; O2SAT 93
--- NOTE | 2024-04-11 09:05 | P.URON_ITS ---
Urology Surgery Operative Note Operative Note Procedure Date: 04/11/24 Time Out Performed: yes Pre-op Diagnosis: Urethral stricture and recurrent urinary tract infections Post-op Diagnosis: same as pre-op Procedures performed: 1. Urethral dilation to 32 K[place]ili. 2. Cystoscopy. Anesthesia: MAC and local Primary Surgeon: Sukumar Vasquez Complications: None Estimated blood loss (mL): 0 Findings: Moderate atrophic vaginitis. No bladder tumors or cystitis cystica lesions Indications for Procedures: This lady has recurrent urethral stenosis and a urinary infections. Ever since using her estrogen cream as directed she is getting fewer infections. She has intermittent difficulty emptying. She now presents for repeat urethral dilation and cystoscopy. She has signed an informed consent after risks were explained. Detailed description of Procedure: The patient was brought to the operating room and placed on the operating room table in the supine position. SCDs were placed on the lower extremities and turned on and functioning during the entire case. Timeout was done by all parties in the room. We all agreed upon the patient's identification and the planned procedures for this patient. Genn. anesthesia was then administered. The patient was then repositioned into the modified dorsal lithotomy position. All pressure points were satisfactorily padded. Genitalia were sterilely prepped and draped in usual fashion. I started by using Aster sounds and dilated to her from 20 [place] up to 32 [place]. She did have moderate atrophic vaginitis. The urethra was not brittle and it did not bleed. I then passed a 22 [place] Olympus cystoscope per urethra and into the bladder. There were no tumors or lesions within the bladder. No stones were seen. The bladder was drained of its anthony nts and the scope was then removed. She was then transferred to a [facility] bed and wheeled to PACU in stable condition. Our plan is that if she continues to be compliant with her cream, we can probabl y wait a year before we do this again.
[2024-04-11 09:20] VITALS: BP 99/58; PULSE 68; O2SAT 93
[2024-04-11 09:35] VITALS: BP 103/61; PULSE 68; O2SAT 96
[2024-04-11 10:05] VITALS: BP 150/70; PULSE 72; O2SAT 96
[2024-04-11 10:25] VITALS: BP 197/90; PULSE 72; O2SAT 98
== END 2024-04-11 10:40 | disposition home or self-care (01) ==
PROVIDERS: PCP Nurse Practitioner; Visit Provider Urology
PROC: (CPT 52281; principal; 2024-04-11 08:30)
DX: N35.92 Unspecified urethral stricture, female (principal); N32.81 Overactive bladder; E03.9 Hypothyroidism, unspecified; E78.5 Hyperlipidemia, unspecified; G47.30 Sleep apnea, unspecified; Z85.42 Personal history of malignant neoplasm of other parts of uterus; Z87.440 Personal history of urinary (tract) infections; N95.2 Postmenopausal atrophic vaginitis; Z90.49 Acquired absence of other specified parts of digestive tract; Z98.84 Bariatric surgery status; E11.9 Type 2 diabetes mellitus without complications; Z79.4 Long term (current) use of insulin; K21.9 Gastro-esophageal reflux disease without esophagitis
CPT/HCPCS: 52281; 36415; J0690; J2704; J3010